=== PATIENT | female | born 1945 | race Caucasian/White ===

== ENCOUNTER → 2016-03-09 | Outpatient (CLI) | payer BC ==
[~2016-03-09] MED LIST: ASPEC81 PO; ASPI81TA28 PO; ATOR-24 PO; CHOL1000 PO; CRFL PO; CYAN10005 PO; DILT120C PO; DULO60CA44 PO; FURO-85 PO; LEVO50TA6 PO; LORA0.5T12 PO; METO50TA7 PO; MODA100T17 PO; PANT40TA PO; POTA1CAP2 PO; VITAMIN B12 PO; ZNTT/150 PO
== END | disposition home or self-care (01) ==
LOC: C.PATHSPEC 13:50
PROVIDERS: ATTEND Dermatology
DX: L57.0 Actinic keratosis (principal)

== ENCOUNTER → 2016-05-13 | Outpatient (CLI) | payer BC | END | disposition home or self-care (01) | LOC: C.LABPVFM 10:43 | PROVIDERS: ATTEND Nurse Practitioner | DX: E03.9 Hypothyroidism, unspecified (principal); R53.83 Other fatigue ==

== ENCOUNTER → 2016-05-16 | Outpatient (CLI) | payer BC ==
[2016-05-16 17:21] LABS: BLOOD UREA NITROGEN 12 mg/dl (7-18); BUN/CREATININE RATIO 7.8 (10-20); CALCIUM 9.2 mg/dl (8.5-10.1); CARBON DIOXIDE 31 mmol/L (21-32); CHLORIDE 104 mmol/L (98-107); GLUCOSE 100 mg/dl (70-99); MAGNESIUM 1.6 mg/dl (1.8-2.4); POTASSIUM 3.8 mmol/L (3.5-5.1); SODIUM 143 mmol/L (136-145)
== END | disposition home or self-care (01) ==
LOC: C.LABPVFM 15:07
PROVIDERS: ATTEND Nurse Practitioner Family
DX: R25.3 Fasciculation (principal)

== ENCOUNTER → 2016-07-05 | Outpatient (CLI) | payer BC ==
[~2016-07-05] MED LIST changes: +KETO0.5S22 OP; +PRDFOPS PO
--- NOTE | 2016-07-05 12:00 | DIAGNOSTIC IMAGING REPORT ---
KUB HISTORY: CONSTIPATION/INCOMPLETE PASSAGE OF STOOL COMPARISON: Abdominal MRI 04/11/2013 FINDINGS: No dilated loops of bowel to suggest an obstruction. Multiple pelvic phleboliths. There is evidence for prior cholecystectomy. Moderate well-formed stool seen within the colon. No renal calculi. No ureteral calculi. No pneumoperitoneum or pneumatosis. IMPRESSION: No evidence for bowel obstruction. Moderate well-formed stool seen within the colon. Electronically signed by: Hal Shanks M.D. 07/05/2016 11:59 AM Dictated Date/Time: 07/05/2016 11:58 AM
== END | disposition home or self-care (01) ==
LOC: C.RADPV 11:38
PROVIDERS: ATTEND Nurse Practitioner
DX: K59.00 Constipation, unspecified (principal); R15.0 Incomplete defecation; R15.9 Full incontinence of feces

== ENCOUNTER → 2016-07-14 | Outpatient (CLI) | payer BC ==
[2016-07-14 18:32] LABS: BLOOD UREA NITROGEN 11 mg/dl (7-18); BUN/CREATININE RATIO 7.8 (10-20); CALCIUM 8.5 mg/dl (8.5-10.1); CARBON DIOXIDE 32 mmol/L (21-32); CHLORIDE 108 mmol/L (98-107); GLUCOSE 106 mg/dl (70-99); POTASSIUM 4.2 mmol/L (3.5-5.1); SODIUM 143 mmol/L (136-145)
== END | disposition home or self-care (01) ==
LOC: C.LABPVFM 11:37
PROVIDERS: ATTEND Internal Medicine Nephrology
DX: E83.42 Hypomagnesemia (principal)

== ENCOUNTER → 2016-08-11 | Outpatient (CLI) | payer BC ==
[2016-08-11 17:43] LABS: HEMATOCRIT 38.7 % (37-47); MEAN CORPUSCULAR HGB CONC 33.3 g/dl (32-36); MEAN PLATELET VOLUME 9.9 fL (7.4-10.4); PLATELET COUNT 291 K/uL (130-400); RED BLOOD COUNT 4.16 M/uL (4.2-5.4); WHITE BLOOD COUNT 8.52 K/uL (4.8-10.8)
[2016-08-11 18:01] LABS: URINE TOTAL PROTEIN < 5.0 mg/dl (0-11.9)
[2016-08-11 18:07] LABS: URINE APPEARANCE CLEAR (CLEAR); URINE BILIRUBIN NEG (NEG); URINE COLOR YELLOW; URINE EPITHELIAL CELL AUTO >30 /lpf (0-5); URINE NITRITE NEG (NEG); URINE SPECIFIC GRAVITY 1.012 (1.000-1.030); UROBILINOGEN NEG (NEG)
[2016-08-11 18:14] LABS: BLOOD UREA NITROGEN 11 mg/dl (7-18); BUN/CREATININE RATIO 8.1 (10-20); CALCIUM 9.2 mg/dl (8.5-10.1); CARBON DIOXIDE 29 mmol/L (21-32); CHLORIDE 106 mmol/L (98-107); GLUCOSE 100 mg/dl (70-99); SODIUM 143 mmol/L (136-145)
[2016-08-11 18:15] LABS: PHOSPHORUS 3.4 mg/dl (2.5-4.9)
[2016-08-11 18:20] LABS: MANUAL MICROSCOPIC REQUIRED? NO; REVIEW REQ? NO
== END | disposition home or self-care (01) ==
LOC: C.LABPVFM 12:16
PROVIDERS: ATTEND Internal Medicine Nephrology
DX: I12.9 Hypertensive chronic kidney disease with stage 1 through stage 4 chronic kidney disease, or unspecified chronic kidney disease (principal); N18.3 Chronic kidney disease, stage 3 (moderate); N25.81 Secondary hyperparathyroidism of renal origin; R60.9 Edema, unspecified

== ENCOUNTER → 2016-09-27 | Outpatient (CLI) | payer BC ==
[~2016-09-27] MED LIST changes: -KETO0.5S22 OP; -PRDFOPS PO
[2016-09-27 17:55] LABS: CHOLESTEROL/HDL RATIO 4.3
== END | disposition home or self-care (01) ==
LOC: C.LABPVFM 11:26
PROVIDERS: ATTEND Nurse Practitioner
DX: I10 Essential (primary) hypertension (principal); E78.00 Pure hypercholesterolemia, unspecified

== ENCOUNTER → 2016-10-18 | Outpatient (CLI) | payer BC ==
--- NOTE | 2016-10-18 16:08 | MAMMOGRAPHY REPORT ---
BILATERAL DIGITAL SCREENING MAMMOGRAM WITH CAD: 10/18/2016 CLINICAL HISTORY: Routine screening. Patient has no complaints. TECHNIQUE: Bilateral CC and MLO views were obtained. Current study was also evaluated with a Compute r Aided Detection (CAD) system. COMPARISON: Comparison is made to exams dated: 07/25/2013 mammogram and 09/21/2011 mammogram - [facility]. BREAST COMPOSITION: There are scattered areas of fibroglandular density in both breasts. FINDINGS: There are a few benign-appearing coarse calcifications scattered in the breasts. However, there is a possible new cluster of punctate microcalcifications in the upper outer posterior right b reast, for which additional spot magnification views are recommended. There is stable focal asymmetry in the upper outer anterior and upper outer posterior right breast. N o other suspicious mass, architectural distortion or cluster of suspicious microcalcifications is see n. IMPRESSION: ACR BI-RADS CATEGORY 0: INCOMPLETE EVALUATION: NEED ADDITIONAL IMAGING EVALUATION The possible new cluster of microcalcifications in the right upper outer breast needs additional eval uation. The patient will be called to schedule an appointment. Approximately 10% of breast cancers are not detected with mammography. A negative mammographic report should not delay biopsy if a clinically suggestive mass is present. Eve Khoury M.D. ay/:10/18/2016 15:11:53 Bedspring Assembler: Dayan DAVIS)(Orion), [facility] letter sent: Addl Imaging 0 BI-RADS Code: ACR BI-RADS Category 0: Incomplete Evaluation: Need Additional Imaging Evaluation
== END | disposition home or self-care (01) ==
LOC: C.MAMM 12:56
PROVIDERS: ATTEND Nurse Practitioner
DX: Z12.31 Encounter for screening mammogram for malignant neoplasm of breast (principal); R92.0 Mammographic microcalcification found on diagnostic imaging of breast; M85.89 Other specified disorders of bone density and structure, multiple sites

== ENCOUNTER → 2016-10-26 | Outpatient (CLI) | payer BC ==
[~2016-10-26] MED LIST changes: -ASPEC81 PO; -CRFL PO; -MODA100T17 PO; -VITAMIN B12 PO; -ZNTT/150 PO
--- NOTE | 2016-10-26 13:50 | MAMMOGRAPHY REPORT ---
UNILATERAL RIGHT DIGITAL DIAGNOSTIC MAMMOGRAM AND TARGETED RIGHT ULTRASOUND: 10/26/2016 CLINICAL HISTORY: 70-year-old woman called back from screening mammography for grouped microcalcifica tions in the upper outer quadrant of the right breast. TECHNIQUE: Spot magnification right CC and ML views were obtained. COMPARISON: Comparison is made to exams dated: 10/18/2016 mammogram, 07/25/2013 mammogram, and 09/21/2011 mammogram - [facility]. BREAST COMPOSITION: There are scattered areas of fibroglandular density in the right breast. FINDINGS: There is a small grouping of amorphous microcalcifications in the upper outer middle to po sterior right breast, with associated ovoid focal asymmetry versus mass which measures 4.3 x 7.4 mm. When comparing back to prior available mammograms, the microcalcifications were not clearly seen on the prior 2011 exams, but the nodular asymmetry may have been present dating back to 2011. This sugg ests this could represent a degenerating fibroadenoma with associated calcification. Further evaluat ion with ultrasound was performed. There are other scattered benign coarse calcifications in the vis ualized right breast. Targeted ultrasound was performed in the upper outer quadrant of the right breast. Sonographically n ormal tissue is seen without a discrete solid or cystic mass. The microcalcifications with associated 7 mm focal asymmetry remains indeterminate, and therefore def initive characterization with a stereotactic guided biopsy is recommended. IMPRESSION: ACR BI-RADS CATEGORY 4B: INTERMEDIATE SUSPICION FOR MALIGNANCY, TARGETED ULTRASOUND ACR BI-RADS CATEGORY 4B: INTERMEDIATE SUSPICION FOR MALIGNANCY 1. Right breast stereotactic guided biopsy is recommended for a small grouping of amorphous microcal cifications and associated 7 x 4 mm focal asymmetry in the upper outer middle to posterior right nilam st. These results and recommendations were discussed with the patient at the time of the exam. She tenta tively scheduled the biopsy prior to leaving our department. Approximately 10% of breast cancers are not detected with mammography. A negative mammographic report should not delay biopsy if a clinically suggestive mass is present. Eve Khoury M.D. ay/:10/26/2016 13:16:59 Aerial Photographer: Dayan DAVIS)(Orion), [facility] letter sent: Abnormal 4/5 BI-RADS Code: ACR BI-RADS Category 4B: Intermediate Suspicion For Malignancy Ultrasound BI-RADS: ACR BI-RADS Category 4B: Intermediate Suspicion For Malignancy
== END | disposition home or self-care (01) ==
LOC: C.MAMM 12:16
PROVIDERS: ATTEND Nurse Practitioner
DX: R92.0 Mammographic microcalcification found on diagnostic imaging of breast (principal)

== ENCOUNTER → 2016-11-04 | Outpatient (CLI) | payer BC ==
--- NOTE | 2016-11-04 13:07 | Discharge Instructions ---
Discharge Instructions Procedure Procedure Date: Nov 04, 2016. Reason for visit: Right Calcs. Discharge Discharge Date: Nov 04, 2016. Discharge Diagnosis: status post breast biopsy Instructions Activity Recommendations: Additional Limitations (see below) Return to School/Work: no limitations Recommended Home Diet: No Limitations Provider Instructions: ACTIVITY RECOMMENDATIONS: * No lifting, pushing, pulling or exercising the affected side for three days. RETURN TO SCHOOL/WORK: * You may return to work/school after the procedure, but do not perform any strenuous activities for 24 to 48 hours. MEDICATIONS: * Tylenol (two 325 mg) every four to six hours if needed for mild pain (if not allergic to Tylenol). DIET: * Resume previous diet. SPECIAL CARE INSTRUCTIONS: * Keep biopsy site dry for 24 hours. May shower after 24 hours, but do not soak (bathe) incision. * May remove Tegaderm (plastic patch) tomorrow AFTER showering. * Leave the steri-strips on for one week. Allow the steri-strips to fall off by themselves. If not off after one week, you may remove them. You may place a Bandaid crosswise over the strips, if desired. * Apply ice 10 minutes on and 10 minutes off as needed. * Wear a bra at bedtime to sleep more comfortably for 2-3 days. * Your referring physician should have the results after approximately 5 to 7 business days. * Call for unusual bleeding, fever, drainage, etc or if you have any questions call during normal business hours or after hours call Dr Lincoln, . FOLLOW UP VISIT: Follow-up with Referring Physician as scheduled. Allergies Coded Allergies: Amlodipine (Verified Allergy, Intermediate, FEET SWELL, 10/21/16) Sulfa Antibiotics (Verified Allergy, Unknown, "SULFA DRUGS": UNSURE, " LONG TIME AGO", 10/21/16) Daisy Delacruz Recommendations: Call your doctor if: * Temperature above 101 degrees * Pain not relieved by pain medicine ordered * There is increased drainage or redness from any incision * You have any unanswered questions or concerns. Your Doctors Instructions noted above were prepared by provider Dora Lincoln. Patient Signature Section: Patient Instructions Signature Page Yvrose Nevarez Patient (or Guardian) Signature/Date: I have read and understand the instructions given to me by my caregivers. Caregiver/RN/Doctor Signature/Date: The above-named patient and/or guardian has received patient instructions on this date. + Original Patient Signature Page (only) stays with chart. Please make copy for patient.
--- NOTE | 2016-11-04 13:41 | MAMMOGRAPHY REPORT ---
UNILATERAL RIGHT DIGITAL DIAGNOSTIC MAMMOGRAM: 11/04/2016 CLINICAL HISTORY: Status post right breast stereotactic biopsy. TECHNIQUE: Right CC and ML views were obtained. COMPARISON: Comparison is made to exams dated: 10/26/2016 mammogram, 10/26/2016 ultrasound, and 7 mammogram - [facility]. BREAST COMPOSITION: There are scattered areas of fibroglandular density in the right breast. FINDINGS: A right cc view was obtained for biopsy planning purposes. Postprocedural right CC and ML views were obtained, which shows a new biopsy marker clip at the site of the biopsied calcifications and asymmetry in the right upper outer quadrant. No significant postbiopsy hematoma is seen. IMPRESSION: POST PROCEDURE IMAGING FOR MARKER PLACEMENT New biopsy marker clip status post stereotactic biopsy of the right breast. Pathology results are pe nding. Approximately 10% of breast cancers are not detected with mammography. A negative mammographic report should not delay biopsy if a clinically suggestive mass is present. Dora Lincoln M.D. ah/:11/04/2016 13:24:08 Exhibit Technician: Amber ARRIETA(Trey)(Orion), [facility] BI-RADS Code: Post Procedure Imaging For Marker Placement
--- NOTE | 2016-11-04 16:09 | MAMMOGRAPHY REPORT ---
STEREOTACTIC GUIDED BIOPSY RIGHT BREAST: 11/04/2016 CLINICAL HISTORY: Right upper outer quadrant calcifications and associated asymmetry. PATIENT CONSENT: The procedure, risks, benefits, and alternatives of stereotactic biopsy with clip pl acement were discussed with the patient, and verbal and written consent was obtained. A timeout was performed immediately prior to the procedure. PROCEDURE DESCRIPTION: With stereotactic guidance, aseptic technique, and lidocaine as a local anesth etic (1% lidocaine to anesthetize the skin and 1% lidocaine with epinephrine to anesthetize the deepe r tissues), the area of concern in the right upper outer quadrant was sampled multiple times with a 9 -gauge vacuum-assisted biopsy needle (Scrap Connection). The path of approach was craniocaudal. The spec imen radiograph demonstrates calcifications to be present in the samples. A metallic marker clip was placed at the biopsy site. This was confirmed on postprocedure mammograms. Direct pressure was daniel lied at the biopsy site and hemostasis was readily achieved. The patient tolerated the procedure wit hout complication. She was given wound care instructions. COMPARISON: Comparison is made to exams dated: 10/26/2016 mammogram, 10/26/2016 ultrasound, 10/18/2016 ma mmogram, and 07/25/2013 mammogram - [facility]. IMPRESSION: STEREOTACTIC GUIDED BIOPSY Stereotactic biopsy of indeterminate calcifications and associated asymmetry in the right upper outer quadrant, with clip placement. The patient will receive pathology results from her referring provid perfecto. Dora Lincoln M.D. ah/:11/04/2016 13:25:12 Duty Manager: Amber DAVIS)Antonino), [facility]
== END | disposition home or self-care (01) ==
LOC: C.MAMM 12:09
PROVIDERS: ATTEND Nurse Practitioner
DX: R92.0 Mammographic microcalcification found on diagnostic imaging of breast (principal); D24.1 Benign neoplasm of right breast

== ENCOUNTER → 2016-11-16 | Day surgery (SDC) | payer BC ==
[2016-10-21 12:34] VITALS: Ht 154.9 cm; Wt 56.8 kg
[~2016-11-16] VITALS: Ht 154.9 cm; Wt 56.8 kg
[~2016-11-16] MED LIST changes: +500ML BSS 0.3ML EPI 1:1000PF IRRIG ONE; +ACETAMINOPHEN 325 MG TAB PO PRN; +AMVISC PLUS 0.8ML SYRINGE INT OCU ONE; +ATROPINE SULFATE 0.1 MG/ML 5ML SYR IV PRN; +BETAXOLOL HCL 0.25% OP SUSP PER DROP CHARGE OPR SCH; +BRIMONIDINE TART 0.2% OP SOLN PER DROP CHARGE ONE; +BSS FLUSH ONE; +ENDOCOAT 0.85ML SYRINGE INT OCU ONE; +EpHEDrine SULFATE INJ 50 MG/ML AMP IV PRN; +EpINEphrine INJ 1MG/ML AMP 1 MG/ML AMP ONE; +FENTANYL CITRATE INJ 50 MCG/1 ML 2 ML VIAL IV PRN; +FLUMAZENIL 0.1 MG/1 ML 10 ML VIAL IV PRN; +HYDROmorphone INJ 2 MG/ML SYR/VIAL IV PRN; +LABETALOL HCL IV 5 MG/ML 20ML IV PRN; +LACTATED RINGER'S 1000ML 500 ML IV SCH; +LIDOCAINE 4% OP SOLN DROP CHARGE ONE; +LIDOCAINE 4% OP SOLN DROP CHARGE OPR SCH; +LIDOCAINE HCL 1% MPF 2 ML VIAL ONE; +MEPERIDINE HCL 25 MG/ML CARP IV PRN; +MIDAZOLAM HCL 1 MG/ML 2ML VIAL ONE; +MIX: 4ML BSS 1ML EPI 1:1000 PF INSTIL ONE; +MOXIFLOXACIN OPH SOLN PER DROP CHARGE ONE; +NALOXONE HCL 0.4 MG/1 ML VIAL/CARP IV PRN; +OCUCOAT 1 ML SOLN IO ONE; +ONDANSETRON INJ 2 MG/ML 2 ML VIAL IV PRN; +PHENYLEPHRINE 100MCG/ML 5ML SYR IV PRN; +POVIDONE-IODINE OP SOLN 30 ML BTL ONE; +PROPARACAINE 0.5% OP SOLN PER DROP CHARGE OPR SCH; +TOBRAMYCIN/DEXAMETHASONE OPH OINT PER APPLN CHARGE ONE
--- NOTE | 2016-11-16 08:53 | History & Physical Bridge - SC ---
H&P Re-Evaluation Bridge Note: I have examined the patient, reviewed the History & Physical and in the interval since the performance of the History & Physical I have noted the following changes of clinical significance: No changes noted
[2016-11-16] MEDS: PHENYLEPHRINE HCL 2.5% OP SOLN PER DROP CHARGE OPR SCH ×2 (09:37→09:46)
[2016-11-16] MEDS: TROPICAMIDE 1% OP SOLN PER DROP CHARGE OPR SCH ×2 (09:39→09:47)
[2016-11-16] MEDS: CYCLOPENTOLATE HCL 1% OP SOLN PER DROP CHARGE OPR SCH ×2 (09:40→09:48)
[2016-11-16] MEDS: MOXIFLOXACIN OPH SOLN PER DROP CHARGE OPR SCH ×2 (09:43→09:53)
--- NOTE | 2016-11-16 10:35 | Discharge Instructions-SurgCtr ---
Discharge Instructions Date of Service Nov 16, 2016. Visit Reason for Visit: Cataract Right Eye Discharge Discharge Diagnosis / Problem: lens implant right eye Discharge Goals Goal(s): Improve function Activity Recommendations Activity Limitations: resume your previous activity Lifting Limitations: no more than 10 pounds Exercise/Sports Limitations: gradually increase as tolerated May Resume Sexual Activity: when tolerated Shower/Bathe: tomorrow Driving or Machine Use: resume 1 day after discharge Anesthesia . Post Anesthesia Instructions: If you have had General Anesthesia or IV Sedation: * Do not drive today. * Resume driving when surgeon permits. * Do not make important decisions or sign legal documents today. * Call surgeon for: 1. Temperature elevations greater than 101 degrees F. 2. Uncontrollable pain. 3. Excessive bleeding. 4. Persistent nausea and vomiting. 5. Medication intolerance (nausea, vomiting or rash). * For nausea and vomiting use only clear liquids such as: tea, soda, bouillon until nausea subsides, then gradually increase diet as tolerated. * If you have any concerns or questions, call your surgeon's office. If physician is unavailable and it is an emergency, call 911 or go to the nearest emergency room. . Instructions / Follow-Up Instructions / Follow-Up ACTIVITY RECOMMENDATIONS: * Light activities. * Mild irritation and blurred vision are common for the first few days. * You may walk outside, read, watch television. * Redness around the white part of the eye is common. MEDICATIONS: Resume previous medications unless instructed otherwise by your surgeon. Start all eye drops at 1 pm today: * Eye drops (today and tomorrow): Prednisone - one drop in operative eye every 3 hours while awake Ofloxacin - one drop in operative eye every 3 hours while awake SPECIAL CARE INSTRUCTIONS: * Tape plastic shield over eye to sleep at night. Call your doctor at with any concerns or problems. FOLLOW UP VISIT: Follow-up with Dr Smith at [place] office as scheduled. Diet Recommendations Home Diet: no limitations Procedures Procedures Performed: Right Cataract Phacoemulsification With Intraocular Lens Implant Pending Studies Studies pending at discharge: no Medical Emergencies . Who to Call and When: Medical Emergencies: If at any time you feel your situation is an emergency, please call 911 immediately. . Non-Emergent Contact Non-Emergency issues call your: Family Court Counsellor Call Non-Emergent contact if: your pain is not controlled [phone] . . "Provider Documentation" section prepared by Tommie Smith. .
--- NOTE | 2016-11-16 10:37 | [facility] Operative Report ---
Operative Report Date of Service Nov 16, 2016. Operative Report 1. PREOPERATIVE DIAGNOSIS: Senile nuclear cataract, right eye. 2. POSTOPERATIVE DIAGNOSIS: Senile nuclear cataract, right eye. 3. PROCEDURE: Phacoemulsification of right cataract with posterior chamber lens implant, type Bausch [employer] Lomb, model MX60, power +18.5 diopters. ANESTHESIA: Local standby. SURGEON: Dr. Smith. COMPLICATIONS: None. OPERATING TIME: 10 minutes. 4. OPERATION AND FINDINGS: DESCRIPTION OF PROCEDURE: The right pupil was dilated. The anesthetic was administered using a topical technique. The right eye was prepped and draped. A speculum was placed. A clear corneal incision was formed. The chamber was filled with Amvisc Plus and Endocoat. Epinephrine solution was used. A paracentesis was placed. A capsulorrhexis was performed. The nucleus was hydrodissected. A dense lens was removed with phacoemulsification. Time was 10.20 seconds. The aspiration unit was used to remove the cortex. The capsule was filled with Amvisc Plus. The lens implant was folded and placed into the capsule. The incision was hydrated. The Amvisc was aspirated. The wound was secure. The chamber was deep. The pupil was round. Brimonidine, TobraDex ointment and Vigamox solution were placed. The speculum was removed. The patient was returned to the Recovery Room in stable condition. I attest to the content of the Intraoperative Record and any orders documented therein. Any exceptions are noted below. The scribe's documentation has been prepared in my presence, under my direction and personally reviewed by me in its entirety. I confirm that the note above accurately reflects all work, treatment, procedures, and medical decision making performed by me. I personally scribed for Tommie Smith M.D. (TRUPTI) on 11/16/16 at 10:37. Electronically submitted by Noemi Aden ([email or web address]).
[2016-11-16 11:02] VITALS: BP 168/76; PULSE 60; TEMP 36.7; O2SAT 97
--- NOTE | 2016-11-16 11:05 | Anesthesia Progress Nt - [facility] ---
Anesthesia Post Op Note Date & Time Nov 16, 2016 at 11:05 Vital Signs Pain Intensity: 0 Vital Signs Past 12 Hours Date Time Temp Pulse Resp B/P (MAP) Pulse Ox O2 Delivery O2 Flow Rate FiO2 11/16/16 10:44 36.4 59 16 168/76 (106) 96 Room Air 11/16/16 09:10 36.9 59 16 192/85 (120) 98 Room Air Notes Mental Status: alert / awake / arousable, participated in evaluation Pt Amnestic to Procedure: Yes Nausea / Vomiting: adequately controlled Pain: adequately controlled Airway Patency, RR, SpO2: stable & adequate BP & HR: stable & adequate Hydration State: stable & adequate Anesthetic Complications: no major complications apparent
== END | disposition home or self-care (01) ==
LOC: X.SURG 08:31
PROVIDERS: ATTEND Specialist
DX: H25.11 Age-related nuclear cataract, right eye (principal); I10 Essential (primary) hypertension; Z79.82 Long term (current) use of aspirin

== ENCOUNTER → 2016-11-30 | Day surgery (SDC) | payer BC ==
[2016-11-22 12:40] VITALS: Ht 154.9 cm; Wt 56.8 kg
[~2016-11-30] VITALS: Ht 154.9 cm; Wt 56.8 kg
[~2016-11-30] MED LIST changes: +BETAXOLOL HCL 0.25% OP SUSP PER DROP CHARGE OPL SCH; -BETAXOLOL HCL 0.25% OP SUSP PER DROP CHARGE OPR SCH; -FENTANYL CITRATE INJ 50 MCG/1 ML 2 ML VIAL IV PRN; -FLUMAZENIL 0.1 MG/1 ML 10 ML VIAL IV PRN; -HYDROmorphone INJ 2 MG/ML SYR/VIAL IV PRN; -LABETALOL HCL IV 5 MG/ML 20ML IV PRN; +LIDOCAINE 4% OP SOLN DROP CHARGE OPL SCH; -LIDOCAINE 4% OP SOLN DROP CHARGE OPR SCH; -MEPERIDINE HCL 25 MG/ML CARP IV PRN; -NALOXONE HCL 0.4 MG/1 ML VIAL/CARP IV PRN; -PHENYLEPHRINE 100MCG/ML 5ML SYR IV PRN; +PROPARACAINE 0.5% OP SOLN PER DROP CHARGE OPL SCH; -PROPARACAINE 0.5% OP SOLN PER DROP CHARGE OPR SCH; +TROPICAMIDE 0.5% OP SOLN 15 ML BTL OPL SCH
[2016-11-30] MEDS: PHENYLEPHRINE HCL 2.5% OP SOLN PER DROP CHARGE OPL SCH ×2 (10:13→10:18)
[2016-11-30] MEDS: TROPICAMIDE 1% OP SOLN PER DROP CHARGE OPL SCH ×2 (10:14→10:19)
[2016-11-30] MEDS: CYCLOPENTOLATE HCL 1% OP SOLN PER DROP CHARGE OPL SCH ×2 (10:15→10:20)
[2016-11-30] MEDS: MOXIFLOXACIN OPH SOLN PER DROP CHARGE OPL SCH ×2 (10:16→10:26)
--- NOTE | 2016-11-30 11:04 | Discharge Instructions-SurgCtr ---
Discharge Instructions Date of Service Nov 30, 2016. Visit Reason for Visit: Cataract Left Eye Discharge Discharge Diagnosis / Problem: lens implant left eye Discharge Goals Goal(s): Improve function Activity Recommendations Activity Limitations: resume your previous activity Lifting Limitations: no more than 10 pounds Exercise/Sports Limitations: gradually increase as tolerated May Resume Sexual Activity: when tolerated Shower/Bathe: tomorrow Driving or Machine Use: resume 1 day after discharge Anesthesia . Post Anesthesia Instructions: If you have had General Anesthesia or IV Sedation: * Do not drive today. * Resume driving when surgeon permits. * Do not make important decisions or sign legal documents today. * Call surgeon for: 1. Temperature elevations greater than 101 degrees F. 2. Uncontrollable pain. 3. Excessive bleeding. 4. Persistent nausea and vomiting. 5. Medication intolerance (nausea, vomiting or rash). * For nausea and vomiting use only clear liquids such as: tea, soda, bouillon until nausea subsides, then gradually increase diet as tolerated. * If you have any concerns or questions, call your surgeon's office. If physician is unavailable and it is an emergency, call 911 or go to the nearest emergency room. . Instructions / Follow-Up Instructions / Follow-Up ACTIVITY RECOMMENDATIONS: * Light activities. * Mild irritation and blurred vision are common for the first few days. * You may walk outside, read, watch television. * Redness around the white part of the eye is common. MEDICATIONS: Resume previous medications unless instructed otherwise by your surgeon. * Take white Diamox (Acetazolamide) tablet at 2 pm today. Start all eye drops at 2 pm today: * Eye drops (today and tomorrow): Prednisone - one drop in operative eye every 3 hours while awake Ofloxacin - one drop in operative eye every 3 hours while awake SPECIAL CARE INSTRUCTIONS: * Tape plastic shield over eye to sleep at night. Call your doctor at with any concerns or problems. FOLLOW UP VISIT: Follow-up with Dr Smith at [place] office as scheduled. Diet Recommendations Home Diet: no limitations Procedures Procedures Performed: cataract extraction with lens implant Pending Studies Studies pending at discharge: no Medical Emergencies . Who to Call and When: Medical Emergencies: If at any time you feel your situation is an emergency, please call 911 immediately. . Non-Emergent Contact Non-Emergency issues call your: Digital Imager Call Non-Emergent contact if: your pain is not controlled [phone] . . "Provider Documentation" section prepared by Tommie Smith. .
--- NOTE | 2016-11-30 11:06 | [facility] Operative Report ---
Operative Report Date of Service Nov 30, 2016. Operative Report 1. PREOPERATIVE DIAGNOSIS: Senile nuclear cataract, left eye. 2. POSTOPERATIVE DIAGNOSIS: Senile nuclear cataract, left eye. 3. PROCEDURE: Phacoemulsification of left cataract with posterior chamber lens implant, type Bausch & Lomb, model MX60, power +18.5 diopters. ANESTHESIA: Local standby. SURGEON: Dr. Smith. COMPLICATIONS: None. OPERATING TIME: 10 minutes. 4. OPERATION AND FINDINGS: DESCRIPTION OF PROCEDURE: The left pupil was dilated. The anesthetic was administered using a topical technique. The left eye was prepped and draped. A speculum was placed. A clear corneal incision was formed. The chamber was filled with Amvisc Plus and Endocoat. Epinephrine solution was used. A paracentesis was placed. A capsulorrhexis was performed. The nucleus was hydrodissected. A dense lens was removed with phacoemulsification. Time was 8.68 seconds. The aspiration unit was used to remove the cortex. The capsule was filled with Amvisc Plus. The lens implant was folded and placed into the capsule. The incision was hydrated. The Amvisc was aspirated. The wound was secure. The chamber was deep. The pupil was round. Brimonidine, TobraDex ointment and Vigamox solution were placed. The speculum was removed. The patient was returned to the Recovery Room in stable condition. I attest to the content of the Intraoperative Record and any orders documented therein. Any exceptions are noted below. The scribe's documentation has been prepared in my presence, under my direction and personally reviewed by me in its entirety. I confirm that the note above accurately reflects all work, treatment, procedures, and medical decision making performed by me. I personally scribed for Tommie Smith M.D. (TRUPTI) on 11/30/16 at 11:06. Electronically submitted by Noemi Aden ([email or web address]).
[2016-11-30 11:09] VITALS: TEMP 36.4
[2016-11-30 11:32] VITALS: BP 172/89; PULSE 60; O2SAT 95
--- NOTE | 2016-11-30 11:32 | Anesthesiology Progress Note ---
Anesthesia Post Op Note Date & Time Nov 30, 2016 at 11:32 Vital Signs Pain Intensity: 0 Vital Signs Past 12 Hours Date Time Temp Pulse Resp B/P (MAP) Pulse Ox O2 Delivery O2 Flow Rate FiO2 11/30/16 11:09 36.4 62 16 169/76 (107) 94 Room Air 11/30/16 10:04 36.9 64 16 183/80 (114) 95 Room Air Notes Mental Status: alert / awake / arousable, participated in evaluation Nausea / Vomiting: adequately controlled Pain: adequately controlled Airway Patency, RR, SpO2: stable & adequate BP & HR: stable & adequate Hydration State: stable & adequate Anesthetic Complications: no major complications apparent
== END | disposition home or self-care (01) ==
LOC: X.SURG 09:38
PROVIDERS: ATTEND Specialist
DX: H25.12 Age-related nuclear cataract, left eye (principal); I10 Essential (primary) hypertension; Z88.2 Allergy status to sulfonamides; Z86.73 Personal history of transient ischemic attack (TIA), and cerebral infarction without residual deficits

== ENCOUNTER 2017-01-07 09:04 | Emergency (ER) | payer BC ==
[~2017-01-07] VITALS: Ht 154.9 cm; Wt 59.9 kg
[~2017-01-07 09:04] MED LIST changes: -500ML BSS 0.3ML EPI 1:1000PF IRRIG ONE; -ACETAMINOPHEN 325 MG TAB PO PRN; -AMVISC PLUS 0.8ML SYRINGE INT OCU ONE; -ATROPINE SULFATE 0.1 MG/ML 5ML SYR IV PRN; -BETAXOLOL HCL 0.25% OP SUSP PER DROP CHARGE OPL SCH; -BRIMONIDINE TART 0.2% OP SOLN PER DROP CHARGE ONE; -BSS FLUSH ONE; -ENDOCOAT 0.85ML SYRINGE INT OCU ONE; -EpHEDrine SULFATE INJ 50 MG/ML AMP IV PRN; -EpINEphrine INJ 1MG/ML AMP 1 MG/ML AMP ONE; -LACTATED RINGER'S 1000ML 500 ML IV SCH; -LIDOCAINE 4% OP SOLN DROP CHARGE ONE; -LIDOCAINE 4% OP SOLN DROP CHARGE OPL SCH; -LIDOCAINE HCL 1% MPF 2 ML VIAL ONE; -MIDAZOLAM HCL 1 MG/ML 2ML VIAL ONE; -MIX: 4ML BSS 1ML EPI 1:1000 PF INSTIL ONE; -MOXIFLOXACIN OPH SOLN PER DROP CHARGE ONE; -OCUCOAT 1 ML SOLN IO ONE; -ONDANSETRON INJ 2 MG/ML 2 ML VIAL IV PRN; -POVIDONE-IODINE OP SOLN 30 ML BTL ONE; +PRDFOPS PO; -PROPARACAINE 0.5% OP SOLN PER DROP CHARGE OPL SCH; -TOBRAMYCIN/DEXAMETHASONE OPH OINT PER APPLN CHARGE ONE; -TROPICAMIDE 0.5% OP SOLN 15 ML BTL OPL SCH
[2017-01-07 09:17] VITALS: TEMP 36.9; Ht 154.9 cm; Wt 59.9 kg
[2017-01-07 09:55] VITALS: O2SAT 95
[2017-01-07] MEDS ORDERED: KETO0.5S22 OP (10:10)
--- NOTE | 2017-01-07 10:12 | DIAGNOSTIC IMAGING REPORT ---
CHEST ONE VIEW PORTABLE HISTORY: EVALUATE WEAKNESS COMPARISON: Chest 12/24/2016. FINDINGS: No pleural effusions. No pneumothorax. The heart remains mildly enlarged. Bibasilar linear densities persist. The upper lung zones are clear. 6 mm nodular density within the left lung base favors a calcified granuloma. IMPRESSION: No change compared to the prior study. Mild bibasilar densities/atelectasis persist. Electronically signed by: Hal Shanks M.D. 01/07/2017 10:11 AM Dictated Date/Time: 01/07/2017 10:10 AM
[2017-01-07 10:17] LABS: BASO % 0.4 %; BASO ABS # 0.03 K/uL (0-0.2); COMPLETE YES; EOS % 3.7 %; HEMATOCRIT 39.5 % (37-47); IG% 0.4 %; LYMPH % 34.1 %; LYMPH ABS # 2.59 K/uL (1.2-3.4); MEAN CELL VOLUME 91.2 fL (80-100); MEAN CORPUSCULAR HEMOGLOBIN 31.2 pg (25-34); MEAN CORPUSCULAR HGB CONC 34.2 g/dl (32-36); MEAN PLATELET VOLUME 9.1 fL (7.4-10.4); MONO % 7.9 %; NEUT % 53.5 %; PLATELET COUNT 318 K/uL (130-400); RED BLOOD COUNT 4.33 M/uL (4.2-5.4); WHITE BLOOD COUNT 7.59 K/uL (4.8-10.8)
[2017-01-07 10:34] LABS: ALT/SGPT 18 U/L (12-78); BLOOD UREA NITROGEN 20 mg/dl (7-18); BUN/CREATININE RATIO 12.3 (10-20); CALCIUM 9.6 mg/dl (8.5-10.1); CARBON DIOXIDE 29 mmol/L (21-32); CHLORIDE 102 mmol/L (98-107); CREATININE 1.66 mg/dl (0.60-1.20); GLUCOSE 97 mg/dl (70-99); MAGNESIUM 1.6 mg/dl (1.8-2.4); POTASSIUM 4.4 mmol/L (3.5-5.1); SODIUM 141 mmol/L (136-145)
[2017-01-07 10:45] LABS: ALKALINE PHOSPHATASE 120 U/L (45-117); AST/SGOT 12 U/L (15-37)
[2017-01-07 11:30] VITALS: BP 131/59
[2017-01-07 13:14] VITALS: PULSE 50; O2SAT 97
--- NOTE | 2017-01-07 16:49 | EMERGENCY ROOM VISIT NOTE ---
History Report prepared by Jim: Susan Adam Under the Supervision of: Dr. Ronny Adams M.D. First contact with patient: 09:33 Chief Complaint: EYE ASSESSMENT Stated Complaint: VISION PROBLEMS,STOMACH PAIN History of Present Illness The patient is a 71 year old female who presents to the Emergency Room with complaints of an episode of blurry vision beginning last night. The patient has reading glasses but reports her vision is blurry without them which is not normal for her. The patient notes her blurry vision is in both her eyes and is slightly better than last night. She reports that she sleeps on her abdomen with her face in her pillow. She was in the ED two weeks ago for high blood pressure and double vision when looking with both eyes. The patient denies any double vision now. She reports a headache beginning last night which has since resolved. The patient did not follow up with ophthalmology after her last time in the ED. She has an appointment with Dr. Smith in two weeks. The patient also has abdominal pain that radiates up to her chest beginning last night. She reports this pain feels like her acid reflux. The patient had double cataracts surgery in October and November by Dr. Smith. She also has a history of a cholecystectomy. Pt denies LOC, fevers, chills, diaphoresis, neck pain, chest pain, breathing difficulties, nausea, vomiting, back pain, melena, hematochezia , urinary symptoms, numbness, weakness, lymphadenopathy, rash,eye pain, pain with a deep breath or movement or other complaints. Source of History: patient Onset: last night Position: other (vision) Quality: other (blurry) Timing: other (episode) Associated Symptoms: + chest pain, + abdominal pain Review of Systems See HPI for pertinent positives and negatives. A total of ten systems were reviewed and were otherwise negative. Past Medical & Surgical Medical Problems: (1) Anxiety (2) Benign hypertension (3) Cholecystectomy (4) CVA/TIA/stroke (5) Diplopia (6) Gastroesophageal reflux disease (7) Orthopedic surgery (8) Precordial chest pain (9) Tonsillectomy Family History Cancer Diabetes mellitus Heart disease Hypertension Social History Smoking Status: Never Smoker Alcohol Use: none Drug Use: none Marital Status: Occupation Status: retired Current/Historical Medications Scheduled Aspirin (Aspirin Ec), 81 MG PO QAM Atorvastatin (Lipitor), 60 MG PO QPM Cholecalciferol (Vitamin D3), 2 TABS PO QAM Cyanocobalamin (Vitamin B-12), 1,000 MCG PO QAM Diltiazem Hcl Coated Beads (Diltiazem Hcl Er), 240 MG PO QAM Duloxetine Hcl (Cymbalta), 60 MG PO HS Furosemide (Lasix), 20 MG PO QAM Ketorolac Tromethamine (Ophth) (Ketorolac Tromethamine), 1 DROPS OP TID Levothyroxine Sodium (Levothyroxine Sodium), 50 MCG PO QAM Metoprolol Succ (Toprol Xl) (Toprol-Xl), 50 MG PO QAM Pantoprazole (Protonix), 40 MG PO QAM Potassium Chloride (Potassium Chloride Er), 2 CAP PO BID Prednisolone Acetate (Prednisolone Acetate), 1 DROP PO DAILY Allergies Coded Allergies: Amlodipine (Verified Allergy, Intermediate, FEET SWELL, 01/07/17) Sulfa Antibiotics (Verified Allergy, Unknown, "SULFA DRUGS": UNSURE, " LONG TIME AGO", 01/07/17) Physical Exam Vital Signs Date Time Temp Pulse Resp B/P (MAP) Pulse Ox O2 Delivery O2 Flow Rate FiO2 01/07/17 13:14 50 97 01/07/17 12:47 47 01/07/17 11:30 52 131/59 97 Room Air 01/07/17 10:07 58 18 142/58 95 Room Air 01/07/17 10:03 57 01/07/17 09:55 95 Room Air 01/07/17 09:17 36.9 75 18 148/90 98 Room Air Right Eye Acuity: 20/40 with no correction Left Eye Acuity: 20/40 with no correction Physical Exam GENERAL: Awake, alert, well appearing, no distress HENT: Normocephalic, atraumatic. TM's normal. Oropharynx unremarkable. EYES: Fundi appear normal, no obvious papilledema, corneas clear, lids appear normal, no discharge. See Slit Lamp procedure. NECK: Supple. No nuchal rigidity. FROM. No JVD or bruit. RESPIRATORY: CTA CARDIAC: RRR. No murmur. ABDOMEN: Soft, non distended. No tenderness to palpation. No rebound or guarding. No masses. RECTAL: Deferred. NEURO: Cranial nerves 2-12 grossly intact. Normal sensorium. No sensory or motor deficits noted. Speech normal. No pronator drift. SKIN: No rash or jaundice noted. LYMPH: No adenopathy. Medical Decision & Procedures ER Provider Diagnostic Interpretation: Radiology results as stated below per my review and radiologist interpretation: CHEST ONE VIEW PORTABLE FINDINGS: No pleural effusions. No pneumothorax. The heart remains mildly enlarged. Bibasilar linear densities persist. The upper lung zones are clear. 6 mm nodular density within the left lung base favors a calcified granuloma. IMPRESSION: No change compared to the prior study. Mild bibasilar densities/atelectasis persist. Electronically signed by: Hal Shanks M.D. Laboratory Results 01/07/17 09:58 Red Blood Count 4.33, Mean Corpuscular Volume 91.2, Mean Corpuscular Hemoglobin 31.2, Mean Corpuscular Hemoglobin Concent 34.2, Mean Platelet Volume 9.1, Neutrophils (%) (Auto) 53.5, Lymphocytes (%) (Auto) 34.1, Monocytes (%) (Auto) 7.9, Eosinophils (%) (Auto) 3.7, Basophils (%) (Auto) 0.4, Neutrophils # (Auto) 4.06, Lymphocytes # (Auto) 2.59, Monocytes # (Auto) 0.60, Eosinophils # (Auto) 0.28, Basophils # (Auto) 0.03 01/07/17 09:58 Test 01/07/17 09:58 White Blood Count 7.59 K/uL (4.8-10.8) Red Blood Count 4.33 M/uL (4.2-5.4) Hemoglobin 13.5 g/dL (12.0-16.0) Hematocrit 39.5 % (37-47) Mean Corpuscular Volume 91.2 fL (80-100) Mean Corpuscular Hemoglobin 31.2 pg (25-34) Mean Corpuscular Hemoglobin Concent 34.2 g/dl (32-36) Platelet Count 318 K/uL (130-400) Mean Platelet Volume 9.1 fL (7.4-10.4) Neutrophils (%) (Auto) 53.5 % Lymphocytes (%) (Auto) 34.1 % Monocytes (%) (Auto) 7.9 % Eosinophils (%) (Auto) 3.7 % Basophils (%) (Auto) 0.4 % Neutrophils # (Auto) 4.06 K/uL (1.4-6.5) Lymphocytes # (Auto) 2.59 K/uL (1.2-3.4) Monocytes # (Auto) 0.60 K/uL (0.11-0.59) Eosinophils # (Auto) 0.28 K/uL (0-0.5) Basophils # (Auto) 0.03 K/uL (0-0.2) RDW Standard Deviation 47.6 fL (36.4-46.3) RDW Coefficient of Variation 14.2 % (11.5-14.5) Immature Granulocyte % (Auto) 0.4 % Immature Granulocyte # (Auto) 0.03 K/uL (0.00-0.02) Anion Gap 9.0 mmol/L (3-11) Est Creatinine Clear Calc Drug Dose 25.1 ml/min Estimated GFR () 35.1 Estimated GFR (Non- 30.3 BUN/Creatinine Ratio 12.3 (10-20) Calcium Level 9.6 mg/dl (8.5-10.1) Magnesium Level 1.6 mg/dl (1.8-2.4) Total Bilirubin 0.4 mg/dl (0.2-1) Direct Bilirubin < 0.1 mg/dl (0-0.2) Aspartate Amino Transf (AST/SGOT) 12 U/L (15-37) Alanine Aminotransferase (ALT/SGPT) 18 U/L (12-78) Alkaline Phosphatase 120 U/L (45-117) Troponin I < 0.015 ng/ml (0-0.045) Total Protein 7.5 gm/dl (6.4-8.2) Albumin 3.8 gm/dl (3.4-5.0) Lipase 501 U/L (73-393) Thyroid Stimulating Hormone (TSH) 3.870 uIu/ml (0.300-4.500) Laboratory results reviewed by me Procedure Slit Lamp Examination Indication: blurry vision. The eyes was prepped with topical proparacaine. Slit lamp examination was performed in the standard fashion. Cornea appeared clear. Anterior chamber normal. Scleral injection not present. No discharge present. Fluorescein examination performed and revealed negative. No foreign bodies noted. Negative Tristen sign. The patient tolerated the procedure well without complication. Eye pressure: right 12 and left 15. ECG Indication: other (abdominal pain) Rate (beats per minute): 56 Rhythm: sinus bradycardia Findings: Q waves (Inferior), no acute ischemic change, no ectopy ED Course 0936: The patient was evaluated in room B5. A complete history and physical exam was performed. 1227: I updated the patient she is resting comfortably. 1310: I reevaluated the patient. Discussed results and discharge instructions: She verbalized understanding and agreement. The patient is ready for discharge. Medical Decision Triage Nursing notes reviewed. The patient's presentation and history were concerning for visual disturbance and upper abdominal pain Etiologies such as intracranial abnormality, corneal abrasion, glaucoma, infection, neurologic, appendicitis, diverticulitis, obstruction, inflammatory bowel disease, renal colic, PUD, biliary pathology, pancreatitis, mesenteric ischemia, aortic pathology, infections, genitourinary, UTI, perforated viscus, as well as others were entertained. The patient was evaluated. Visual acuity was unremarkable. She did not have any elevated pressures in her eyes. Her slit-lamp examination did not reveal any significant abnormalities. She underwent blood work and ECG. This was unremarkable except for slight elevation of her creatinine and subtle elevation of lipase. She was reassessed and without any medication her symptoms resolved. She had a benign abdomen. She will need to have her lipase and creatinine rechecked this coming week. She will need follow-up with her communications technologist as well. The patient notes that she frequently sleeps on her stomach and has her face in the pillow. She notes that she feels like she has pressure in her eyes from this. It is possible that this is causing her transient blurred vision. As she is asymptomatic at this time I discussed conservative management with close follow-up. The patient feels comfortable. If she worsens in any way she will be back. She notes having frequent issues with her stomach. She has no symptoms at this time additional imaging was felt to be unnecessary. Her main complaint was her visual disturbance. By the evaluation outlined above other emergent etiologies such as those listed in the differential, as well as others, were deemed relatively unlikely. The patient was educated about the findings as listed above. All questions were answered and the patient was pleased with the treatment. Return instructions were outlined and the patient was discharged in stable condition. The patient was referred to ophthalmology and her PCP for follow-up for a recheck of the current condition. Blood Pressure Screening Patient's blood pressure: Elevated blood pressure Blood pressure disposition: Referred to PCP Impression Primary Impression: Visual disturbance Additional Impression: Abdominal pain Scribe Attestation The scribe's documentation has been prepared under my direction and personally reviewed by me in its entirety. I confirm that the note above accurately reflects all work, treatment, procedures, and medical decision making performed by me. Departure Information Dispostion Home / Self-Care Referrals Bernarda Rehman C.R.N.P (PCP) Forms HOME CARE DOCUMENTATION FORM, IMPORTANT VISIT INFORMATION, WORK / SCHOOL INSTRUCTIONS Patient Instructions My [facility] Additional Instructions Acetaminophen(Tylenol) may be used for fever or pain. Use 1000mg every six hours as needed. Avoid using more than 4000mg in a 24 hour period. Rest and drink plenty of fluids as tolerated. Slow sips of water or sports drinks are recommended instead of large amounts all at once. Continue current medications. Once your stomach is settled start with a clear liquid diet (jello, soup broth, etc.) and then advance as tolerated. You should avoid full, heavy meals for about 24 hrs from the time your symptoms resolved. Eye pain, visual disturbances, double vision, Return to the ER immediately for worsening or persistent abdominal pain, vomiting, fevers, chest pains, difficulty breathing, black or bloody stools, worsening of your condition, or as needed. Follow up with your primary physician Monday as well as your eye doctor for a recheck of your current condition this week. The primary doctor should recheck her blood pressure as well as your kidney function and lipase measurement. Problem Qualifiers
== END 2017-01-07 13:15 | disposition home or self-care (01) ==
LOC: C.EDB 09:07
DX: H53.9 Unspecified visual disturbance (principal); R10.9 Unspecified abdominal pain; R00.1 Bradycardia, unspecified; I10 Essential (primary) hypertension; F41.9 Anxiety disorder, unspecified; K21.9 Gastro-esophageal reflux disease without esophagitis; Z86.73 Personal history of transient ischemic attack (TIA), and cerebral infarction without residual deficits; Z90.49 Acquired absence of other specified parts of digestive tract; Z79.82 Long term (current) use of aspirin; Z79.899 Other long term (current) drug therapy; Z88.2 Allergy status to sulfonamides; Z88.8 Allergy status to other drugs, medicaments and biological substances; Z80.9 Family history of malignant neoplasm, unspecified; Z82.49 Family history of ischemic heart disease and other diseases of the circulatory system; Z83.3 Family history of diabetes mellitus

== ENCOUNTER → 2017-01-10 | Outpatient (CLI) | payer BC ==
[~2017-01-10] MED LIST changes: +KETO0.5S22 OP
[2017-01-10 17:47] LABS: AMYLASE 111 U/L (25-115); BLOOD UREA NITROGEN 14 mg/dl (7-18); BUN/CREATININE RATIO 9.4 (10-20); CALCIUM 9.1 mg/dl (8.5-10.1); CARBON DIOXIDE 31 mmol/L (21-32); CHLORIDE 103 mmol/L (98-107); GLUCOSE 103 mg/dl (70-99); POTASSIUM 3.8 mmol/L (3.5-5.1); SODIUM 139 mmol/L (136-145)
== END | disposition home or self-care (01) ==
LOC: C.LABPVFM 10:48
PROVIDERS: ATTEND Nurse Practitioner
DX: E83.42 Hypomagnesemia (principal); N18.3 Chronic kidney disease, stage 3 (moderate); R74.8 Abnormal levels of other serum enzymes

== ENCOUNTER → 2017-01-17 | Outpatient (CLI) | payer BC ==
[~2017-01-17] MED LIST changes: -LORA0.5T12 PO
[2017-01-17 17:34] LABS: URINE APPEARANCE CLEAR (CLEAR); URINE BILIRUBIN NEG (NEG); URINE COLOR YELLOW; URINE EPITHELIAL CELL AUTO 20-30 /lpf (0-5); URINE NITRITE NEG (NEG); URINE PH 5.5 (4.5-7.5); URINE SPECIFIC GRAVITY 1.014 (1.000-1.030); UROBILINOGEN NEG (NEG)
[2017-01-17 17:36] LABS: HEMATOCRIT 37.2 % (37-47); MEAN CELL VOLUME 91.6 fL (80-100); MEAN CORPUSCULAR HGB CONC 33.9 g/dl (32-36); MEAN PLATELET VOLUME 10.2 fL (7.4-10.4); PLATELET COUNT 285 K/uL (130-400); RED BLOOD COUNT 4.06 M/uL (4.2-5.4); WHITE BLOOD COUNT 8.14 K/uL (4.8-10.8)
[2017-01-17 17:39] LABS: MANUAL MICROSCOPIC REQUIRED? NO; REVIEW REQ? NO
[2017-01-17 17:56] LABS: BLOOD UREA NITROGEN 14 mg/dl (7-18); BUN/CREATININE RATIO 10.3 (10-20); CALCIUM 8.8 mg/dl (8.5-10.1); CARBON DIOXIDE 29 mmol/L (21-32); CHLORIDE 105 mmol/L (98-107); CREATININE 1.34 mg/dl (0.60-1.20); GLUCOSE 122 mg/dl (70-99); POTASSIUM 3.8 mmol/L (3.5-5.1); SODIUM 138 mmol/L (136-145)
[2017-01-17 17:57] LABS: PHOSPHORUS 2.8 mg/dl (2.5-4.9)
[2017-01-17 18:25] LABS: CREATININE, URINE 67.5 mg/dl; URINE PROTIEN/CREAT RATIO 0.1 (0-0.2)
== END | disposition home or self-care (01) ==
LOC: C.LABPVFM 14:15
PROVIDERS: ATTEND Internal Medicine Nephrology
DX: I10 Essential (primary) hypertension (principal); N18.3 Chronic kidney disease, stage 3 (moderate); R60.9 Edema, unspecified

== ENCOUNTER → 2017-01-20 | Outpatient (CLI) | payer BC ==
--- NOTE | 2017-01-20 12:23 | DIAGNOSTIC IMAGING REPORT ---
ABDOMEN LIMITED (US) CLINICAL HISTORY: 71 years-old Female presenting with R74.8 Serum lipase elevation elevated, lipase, attn [id number]. TECHNIQUE: Real-time grayscale and limited color Doppler ultrasound imaging of the abdomen limited to the right upper quadrant was performed. COMPARISON: 03/04/2013. FINDINGS: Pancreas: Visualized portions of the pancreatic head and body normal. Pancreatic duct measures 2 mm body, which is top normal. Liver: Heterogeneous echotexture, likely indicating fibrosis or steatosis. No sonographic evidence of hepatic mass. Main portal vein patent with normal directional flow. Biliary: No intrahepatic biliary ductal dilatation. Common bile duct measures up to 5 mm in diameter. Gallbladder: Surgically absent. Right kidney: Demonstrates anechoic cyst at the lower pole. No hydronephrosis. Ascites: None. IMPRESSION: 1. No sonographic evidence of pancreatitis. This does not exclude the diagnosis. 2. Heterogeneous echotexture of the liver could indicate underlying fibrosis or steatosis. This may be better assessed with MRI. 3. Postsurgical changes of cholecystectomy. Electronically signed by: Yonas Alcaraz M.D. 01/20/2017 12:22 PM Dictated Date/Time: 01/20/2017 12:19 PM
== END | disposition home or self-care (01) ==
LOC: C.ULTR 11:44
PROVIDERS: ATTEND Nurse Practitioner
DX: R74.8 Abnormal levels of other serum enzymes (principal); Z90.49 Acquired absence of other specified parts of digestive tract

== ENCOUNTER → 2017-04-19 | Outpatient (CLI) | payer BC ==
[~2017-04-19] MED LIST changes: -METO50TA7 PO; +METO50TA8 PO
== END | disposition home or self-care (01) ==
LOC: C.LABPVFM 18:04
PROVIDERS: ATTEND Family Medicine
DX: R10.9 Unspecified abdominal pain (principal)

== ENCOUNTER → 2017-05-18 | Outpatient (CLI) | payer BC ==
[~2017-05-18] MED LIST changes: +DILT-213 PO; -DILT120C PO
== END | disposition home or self-care (01) ==
LOC: C.LABPVFM 11:35
PROVIDERS: ATTEND Family Medicine
DX: N39.0 Urinary tract infection, site not specified (principal)

== ENCOUNTER → 2017-05-30 | Outpatient (CLI) | payer BC ==
[~2017-05-30] MED LIST changes: +BUPR-79 PO; +MAGN500T4 PO; +RABE20TA5 PO
[2017-05-30 17:35] LABS: BASO % 0.4 %; BASO ABS # 0.03 K/uL (0-0.2); EOS % 2.7 %; EOS ABS # 0.23 K/uL (0-0.5); HEMOGLOBIN 12.3 g/dL (12.0-16.0); IG# 0.02 K/uL (0.00-0.02); LYMPH % 32.2 %; MEAN CELL VOLUME 88.9 fL (80-100); MEAN CORPUSCULAR HEMOGLOBIN 29.6 pg (25-34); MEAN CORPUSCULAR HGB CONC 33.2 g/dl (32-36); MEAN PLATELET VOLUME 9.8 fL (7.4-10.4); MONO % 7.6 %; MONO ABS # 0.64 K/uL (0.11-0.59); NEUT % 56.9 %; NEUT ABS # 4.76 K/uL (1.4-6.5); PLATELET COUNT 271 K/uL (130-400); RED CELL DISTRIBUTION WIDTH SD 45.4 fL (36.4-46.3); WHITE BLOOD COUNT 8.38 K/uL (4.8-10.8)
== END | disposition home or self-care (01) ==
LOC: C.LABPVFM 12:00
PROVIDERS: ATTEND Nurse Practitioner
DX: E03.9 Hypothyroidism, unspecified (principal); R53.83 Other fatigue

== ENCOUNTER → 2017-06-15 | Day surgery (SDC) | payer BC ==
[2017-06-07 15:16] VITALS: Ht 154.9 cm; Wt 61.4 kg
[~2017-06-15] VITALS: Ht 154.9 cm; Wt 61.4 kg
[~2017-06-15] MED LIST changes: -DULO60CA44 PO; -KETO0.5S22 OP; +LIDOCAINE HCL 2% 2 ML VIAL (20MG/ML) ONE; -PANT40TA PO; -PRDFOPS PO; +PROPOFOL IV EMULSION 10 MG/ML 20 ML VIAL IV ONE; +SODIUM CHLORIDE 0.9% 500ML 500 ML IV ONE
--- NOTE | 2017-06-15 12:34 | Endo History and Physical ---
History & Physical Date of Service: Jun 15, 2017. Chief Complaint: Dysphagia, Schatzki's Ring Referring Physician: Bernarda Rehman History of Present Illness 71 yo CF who presents for EGD secondary to Schatzki's Ring and dysphagia. Past Medical History Arthritis, Anxiety, Reflux, High Cholesterol, Hypertension, Thyroid Disease, CVA /TIA Past Surgical History Hx Cardiac Surgery: No Hx Internal Defibrillator: No Hx Pacemaker: No Hx Abdominal Surgery: Yes (SUMAN) Hx of Implantable Prosthesis: No Hx Post-Op Nausea and Vomiting: No Hx Cancer Surgery: No Hx Thoracic Surgery: No Hx Orthopedic: Yes (L/R CTR) Hx Urinary Tract Surgery: Yes Social History Smoking Status: Never Smoker Hx Substance Use: No Hx Alcohol Use: No Allergies Coded Allergies: Amlodipine (Verified Allergy, Intermediate, FEET SWELL, 06/15/17) Sulfa Antibiotics (Verified Allergy, Unknown, "SULFA DRUGS": UNSURE, " LONG TIME AGO", 06/15/17) Current Medications Reported Home Medications Medications Dose Route/Sig Max Daily Dose Days Date Category Wellbutrin Sr (Bupropion HCl) 150 Mg Ertab 150 Mg PO QAM 06/07/17 Reported Aciphex (Rabeprazole Sodium) 20 Mg Tab 1 Tab PO DAILY 90 06/07/17 Reported Magnesium (Magnesium Oxide (Mg Supplement) 500 Mg Tab 1 Tab PO QAM 06/07/17 Reported Aspirin Ec (Aspirin) 81 Mg Tab 81 Mg PO QAM 10/21/16 Reported Vitamin D3 (Cholecalciferol) 1,000 Unit Tab 3 Tabs PO QAM 05/01/15 Reported Toprol-Xl (Metoprolol Succinate) 50 Mg Tabcr 50 Mg PO QAM 05/01/15 Reported Levothyroxine Sodium 50 Mcg Tab 50 Mcg PO QAM 05/01/15 Reported Lipitor (Atorvastatin Calcium) 40 Mg Tab 60 Mg PO QPM 05/01/15 Reported Potassium Chloride Er (Potassium Chloride) 10 Meq Cap 2 Cap PO BID 02/09/13 Reported Diltiazem Hcl Er (Diltiazem Hcl Coated Beads) 120 Mg Cap 240 Mg PO QAM 02/09/13 Reported Lasix (Furosemide) 20 Mg Tab 20 Mg PO QAM 11/29/12 Reported Vital Signs Weight (Kilograms): 61.36 Height (Feet): 5 Height (Inches): 1 Date Time Temp Pulse Resp B/P (MAP) Pulse Ox O2 Delivery O2 Flow Rate FiO2 06/15/17 12:05 36.8 70 18 182/101 (128) 97 Room Air Physical Exam General Appearance: WD/WN, no apparent distress Respiratory/Chest: Auscultation: breath sounds normal Cardiovascular: Heart Auscultation: RRR Abdomen: Bowel Sounds: normal Inspection & Palpation: soft, non-distended, no tenderness, guarding & rebound Assessment and Plan Assessment: 71 yo CF who presents for EGD secondary to Schatzki's Ring and dysphagia. Plan: Proceed with EGD.
--- NOTE | 2017-06-15 13:15 | GI REPORT ---
Patient Name: Yvrose Nevarez Procedure Date: 06/15/2017 12:46 PM Date of : 1945 Admit Type: Outpatient Age: 71 Gender: Female Attending MD: Toribio Downs DO Procedure: Upper GI Endoscopy Providers: Toribio Downs DO Referring MD: Bernarda Heller Indications: Dysphagia Medicines: Monitored Anesthesia Care Complications: No immediate complications. Estimated Blood Loss: Estimated blood loss: none. Procedure: Pre-Anesthesia Assessment: - Prior to the procedure, a History and Physical was performed, and patient medications and allergies were reviewed. The patient's tolerance of previous anesthesia was also reviewed. The risks and benefits of the procedure and the sedation options and risks were discussed with the patient. All questions were answered, and informed consent was obtained. Prior Anticoagulants: The patient has taken aspirin, last dose was 1 day prior to procedure. ASA Grade Assessment: II - A patient with mild systemic disease. After reviewing the risks and benefits, the patient was deemed in satisfactory condition to undergo the procedure. After obtaining informed consent, the endoscope was passed under direct vision. Throughout the procedure, the patient's blood pressure, pulse, and oxygen saturations were monitored continuously. The scope was introduced through the mouth, and advanced to the second part of duodenum. The upper GI endoscopy was accomplished without difficulty. The patient tolerated the procedure well. Findings: No endoscopic abnormality was evident in the esophagus to explain the patient's complaint of dysphagia. It was decided, however, to proceed with dilation at the gastroesophageal junction. A TTS dilator was passed through the scope. Dilation with an 18-19-20 mm balloon dilator was performed to 20 mm. The dilation site was examined and showed no change. The stomach was normal. The examined duodenum was normal. Impression: - No endoscopic esophageal abnormality to explain patient's dysphagia. Esophagus dilated. Dilated. - Normal stomach. - Normal examined duodenum. - No specimens collected. Recommendation: - Resume previous diet. - Continue present medications. - Return to primary care physician as previously scheduled. Toribio Downs DO 06/15/2017 1:15:04 PM This report has been signed electronically. Note Initiated On: 06/15/2017 12:46 PM Number of Addenda: 0 I attest to the content of the Intraoperative Record and orders documented therein, exceptions below {[id number]}
--- NOTE | 2017-06-15 13:31 | Anesthesiology Progress Note ---
Anesthesia Post Op Note Date & Time Jun 15, 2017 at 13:31 Vital Signs Pain Intensity: 0 Vital Signs Past 12 Hours Date Time Temp Pulse Resp B/P (MAP) Pulse Ox O2 Delivery O2 Flow Rate FiO2 06/15/17 12:05 36.8 70 18 182/101 (128) 97 Room Air Notes Mental Status: alert / awake / arousable, participated in evaluation Pt Amnestic to Procedure: Yes Nausea / Vomiting: adequately controlled Pain: adequately controlled Airway Patency, RR, SpO2: stable & adequate BP & HR: stable & adequate Hydration State: stable & adequate Anesthetic Complications: no major complications apparent
[2017-06-15 13:35] VITALS: BP 144/67; PULSE 61; O2SAT 96
--- NOTE | 2017-06-15 13:54 | Discharge Instructions ---
Endoscopy Patient Instructions Date / Procedure(s) Performed Jun 15, 2017. EGD Allergy Information Coded Allergies: Amlodipine (Verified Allergy, Intermediate, FEET SWELL, 06/15/17) Sulfa Antibiotics (Verified Allergy, Unknown, "SULFA DRUGS": UNSURE, " LONG TIME AGO", 06/15/17) Discharge Date / Findings Jun 15, 2017. Dilation of the distal esophagus Medication Instructions Stopped Medication(s): Aspirin last taken on 06/14/17 OK to resume all medications today as prescribed Reported Home Medications Medications Dose Route/Sig Max Daily Dose Days Date Category Wellbutrin Sr (Bupropion HCl) 150 Mg Ertab 150 Mg PO QAM 06/07/17 Reported Aciphex (Rabeprazole Sodium) 20 Mg Tab 1 Tab PO DAILY 90 06/07/17 Reported Magnesium (Magnesium Oxide (Mg Supplement) 500 Mg Tab 1 Tab PO QAM 06/07/17 Reported Aspirin Ec (Aspirin) 81 Mg Tab 81 Mg PO QAM 10/21/16 Reported Vitamin D3 (Cholecalciferol) 1,000 Unit Tab 3 Tabs PO QAM 05/01/15 Reported Toprol-Xl (Metoprolol Succinate) 50 Mg Tabcr 50 Mg PO QAM 05/01/15 Reported Levothyroxine Sodium 50 Mcg Tab 50 Mcg PO QAM 05/01/15 Reported Lipitor (Atorvastatin Calcium) 40 Mg Tab 60 Mg PO QPM 05/01/15 Reported Potassium Chloride Er (Potassium Chloride) 10 Meq Cap 2 Cap PO BID 02/09/13 Reported Diltiazem Hcl Er (Diltiazem Hcl Coated Beads) 120 Mg Cap 240 Mg PO QAM 02/09/13 Reported Lasix (Furosemide) 20 Mg Tab 20 Mg PO QAM 11/29/12 Reported Provider Instructions Activity Restrictions - No exercising or heavy lifting for 24 hours. - Do not drink alcohol the day of the procedure. - Do not drive a car or operate machinery until the day after the procedure. - Do not make any important decisions or sign important papers in 24 hours after the procedure. Following Day: - Return to full activity which may include returning to work/school. Diet Start your diet with liquids and light foods (jello, soup, juice, toast). Then eat your usual diet if not nauseated. Treatment For Common After Affects For mild abdominal pain, bloating, or excessive gas: - Rest - Eat lightly - Lie on right side Follow-Up Information Follow-up with Bernarda Rehman as scheduled Anesthesia Information What You Should Know You have had a procedure that required some medicine to reduce anxiety and discomfort. This treatment is called moderate sedation. After receiving the treatment, you may be sleepy, but you will be able to breathe on your own. The effects of the treatment may last for several hours. Follow these instructions along with Activity/Diet recommendations noted above: * Do NOT do anything where dizziness or clumsiness would be dangerous. * Rest quietly at home today, then you can be up and about tomorrow. * Have a responsible person stay with you the rest of today. * You may have had an I.V. today. If so, you may take the dressing off later today. Recommendations Call your doctor if: * Trouble breathing * Continuous vomiting for more than 24 hours * Temperature above 101 degrees * Severe abdominal pain or bloating * Pain not relieved by pain medicine ordered * There is increased drainage or redness from any incision * A large amount of rectal bleeding greater than 2-3 tablespoons. (If you had a polyp/s removed or have hemorrhoids, a small amount of blood - from the rectum is to be expected.) * You have any unanswered questions or concerns. IN THE EVENT OF A SERIOUS EMERGENCY, GO TO THE NEAREST EMERGENCY ROOM Your discharge instructions were prepared by provider Toribio Downs. Patient Instructions Signature Page Yvrose Nevarez Patient (or Guardian) Signature/Date: I have read and understand the instructions given to me by my caregivers. Caregiver/RN/Doctor Signature/Date: The above-named patient and/or guardian has received patient instructions on this date. + Original Patient Signature Page (only) stays with chart. Please make copy for patient.
== END | disposition home or self-care (01) ==
LOC: C.GI 11:39
PROVIDERS: ATTEND Internal Medicine
DX: R13.10 Dysphagia, unspecified (principal); K22.2 Esophageal obstruction; I10 Essential (primary) hypertension; K21.9 Gastro-esophageal reflux disease without esophagitis; M19.90 Unspecified osteoarthritis, unspecified site; E78.00 Pure hypercholesterolemia, unspecified; E07.9 Disorder of thyroid, unspecified; Z90.49 Acquired absence of other specified parts of digestive tract; Z86.73 Personal history of transient ischemic attack (TIA), and cerebral infarction without residual deficits; Z79.82 Long term (current) use of aspirin; Z88.2 Allergy status to sulfonamides

== ENCOUNTER 2021-01-22 16:56 | Inpatient (IN) ==
[2021-01-22 18:07] LABS: Basophils # (auto) 0.01 K/uL (0-0.2); Basophils % (auto) 0.1 %; Eosinophils # (auto) 0.03 K/uL (0-0.5); Eosinophils % (auto) 0.4 %; Hematocrit (blood only) 37.6 % (37-47); Hemoglobin 12.4 g/dL (12.0-16.0); Immature Granulocytes # (auto) 0.06 K/uL (0.00-0.02); Immature Granulocytes % (auto) 0.8 %; Lymphocytes # (auto) 1.41 K/uL (1.2-3.4); Lymphocytes % (auto) 19.1 %; Mean Corpuscular Hemoglobin 32.8 pg (25-34); Mean Corpuscular Volume 99.5 fL (80-100); Monocytes # (auto) 1.24 K/uL (0.11-0.59); Monocytes % (auto) 16.8 %; Neutrophils # (auto) 4.62 K/uL (1.4-6.5); Neutrophils % (auto) 62.8 %; Platelet Count 187 K/uL (130-400); RDW Coefficient of Variation 14.4 % (11.5-14.5); RDW Standard Deviation 52.1 fL (36.4-46.3); Red Blood Count 3.78 M/uL (4.2-5.4); White Blood Count 7.37 K/uL (4.8-10.8)
[2021-01-22 18:14] LABS: Alanine Aminotransferase 14 (12-78); Albumin Level 3.4 gm/dl (3.4-5.0); Aspartate Aminotransferase 9 U/L (15-37); BUN Creatinine Ratio 14.1 (10-20); Blood Urea Nitrogen 44 mg/dl (7-18); Calcium 8.6 mg/dl (8.5-10.1); Carbon Dioxide 19 mmol/L (21-32); Chloride 106 mmol/L (98-107); Creatinine Clr Calc Pharmacy 10.3 ml/min; Est GFR (African American) 15.9 ml/min; Est GFR (Non-African American) 13.7 ml/min; Glucose 112 mg/dl (70-99); Magnesium 1.6 mg/dl (1.8-2.4); Potassium 5.5 mmol/L (3.5-5.1); Sodium 134 mmol/L (136-145)
--- NOTE | 2021-01-22 18:16 | Emergency Department Note ---
Impression & Plan Bradycardia, Acute hypotension, CKD (chronic kidney disease), Acute hyperkalemia, COVID-19 ED Provider Note NAME: YUMI MARCUS AGE: 75 SEX: F : 1945 ARRIVES VIA: Ambulance INFORMANT: Patient ED PROVIDER(S): Robson Ram DO CHIEF COMPLAINT: Back pain HPI: Patient is a 75-year-old female who presents to the ER for mid lower lumbar spinal pain. This started today around 3 PM. She took 2 Tylenol after the pain started and it went away later in the day. When the pain started she got nauseated to her belly and felt a little lightheaded. After taking the Tylenol all the symptoms have gone away. She denies any headache or change in vision. No chest pain or shortness of breath. No nausea, vomiting, or diarrhea. No dysuria, urgency, or frequency. No fevers. No weakness or numbness in the arms or legs. ROS: See above HPI for pertinent positives & negatives. A total of 10 systems reviewed and were otherwise negative. PAST MEDICAL HISTORY:See Below PAST SURGICAL HISTORY:See Below FAMILY HISTORY:See Below SOCIAL HISTORY:See Below HOME MEDICATIONS:See Below ALLERGIES:See Below VITALS:See Below PHYSICAL EXAMINATION: GENERAL: Sitting up in bed, alert, well appearing, well nourished, no distress, non-toxic EYE EXAM: normal conjunctiva. PERRL and EOM's grossly intact. OROPHARYNX: no exudate, no erythema, lips, buccal mucosa, and tongue normal and mucous membranes are moist NECK: supple, no nuchal rigidity, no adenopathy, non-tender LUNGS: Clear to auscultation. Normal chest wall mechanics HEART: no murmurs, S1 normal and S2 normal ABDOMEN: abdomen soft, non-tender, normo-active bowel sounds, no masses, no rebound or guarding. UPPER EXTREMITIES: upper extremities are grossly normal. LOWER EXTREMITIES: No pitting edema. NEURO EXAM: Normal sensorium, cranial nerves II-XII grossly intact, normal speech, no gross weakness of arms, no gross weakness of legs. MEDICAL DECISION MAKING: Patient is a 75-year-old female who presents ER for the above-stated complaint. IV was established blood work is obtained. Labs show no significant leukocytosis or anemia. BMP with a potassium elevated 5.5 and a creatinine of 3.1 up from a baseline of about 2.9. CO2 was slightly low at 19 but do favor this secondary to the CKD as it was nongap. LFTs, bilirubin, was unremarkable. UA contaminated with multiple healing cells. Patient was Covid positive. She was admitted for further work-up and was given IV fluids. X-rays of lumbar spine were unremarkable. Patient did drop her pressures into the 80s and was given IV fluids. Heart rate was fairly persistently in the high 30s low 40s. She was discussed with hospitalist for further evaluation Triage Nursing notes reviewed. Limited review of prior medical records performed Vital Signs: reviewed and remarkable for no significant abnormalities Differential diagnosis: Differential diagnosis includes etiologies such as benign positional vertigo, dehydration, hypovolemia, anemia, tumor, infection, hypoglycemia, electrolyte abnormalities, cardiac sources, intracerebral event, toxicologic, neurological, as well as others were entertained. ER treatment provided: See below Diagnostics interpreted by me: ECG: Sinus bradycardia rate of 40 Normal axis No PVCs QTC 350 Cardiac Monitoring: An order was placed for continuous cardiac monitoring. The monitor shows a rate of 42 with sinus rhythm. Laboratory studies: As stated above and show below. Imaging studies: X-rays of the lumbar spine were unremarkable Consultation(s): D/w the hospitalist for further evaluation Procedures: none Critical Care: None Past Med/Surg History Medical History Anxiety Depression ESRD (end stage renal disease) GERD (gastroesophageal reflux disease) Hiatal hernia History of TIA (transient ischemic attack) HTN (hypertension) Hypothyroidism Osteoarthritis Schatzki's ring Sensorineural hearing loss (SNHL) Sleep apnea Temporomandibular joint disorder Surgical History History of cataract surgery History of colonoscopy History of esophagogastroduodenoscopy (EGD) History of laparoscopic cholecystectomy History of surgery History of tonsillectomy and adenoidectomy Status post repair of nerve Family History Mother Ovarian cancer Heart disease Father Heart disease Family history of diabetes mellitus Grandmother (Maternal) Family history of diabetes mellitus Denies family history of Prostate cancer Myocardial infarction Breast cancer Colorectal cancer Social History (Updated 12/18/20 @ 11:07 by Ansley Kenney LPN) Smoking Status: Never smoker Second Hand Exposure: No (hx); Hx Alcohol Use: No Hx Substance Use: No Preferred Language: Urdu Communication Ability: Effective 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 Required: No Beliefs That Will Affect Care: None marital status: Current Living Situation: Family Current Living Situation Comment: son lives with pt current occupational status: employed 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 [employer] How many Children do You have: 3 Feels Safe at Home: Yes Childhood Exposure to Second-Hand Smoke: Yes caffeine: No Dental Care, Regularly: No Physical Activity Frequency: Daily Seatbelt Use: always Sunscreen Use: No Assistive Devices: Denture - Upper, Denture - Lower and Glasses Allergies Allergies Allergy/AdvReac Type Severity Reaction Status Date / Time Sulfa (Sulfonamide Allergy Unknown Remote Verified 01/22/21 22:23 Antibiotics) unknown reaction amlodipine AdvReac Intermediate Feet Verified 01/22/21 22:23 swelling Home Meds Home Medications Medication Instructions Recorded Confirmed aspirin 81 mg tablet,delayed 81 mg PO QAM 10/02/18 01/22/21 release (Adult Low Dose Aspirin) cholecalciferol (vitamin D3) 25 2,000 units PO QAM 10/02/18 01/22/21 mcg (1,000 unit) capsule cyanocobalamin (vitamin B-12) 1,000 mcg PO QAM #30 tab 11/26/18 01/22/21 1,000 mcg tablet isosorbide mononitrate 60 mg 60 mg PO QAM 07/13/20 01/22/21 tablet,extended release 24 hr levothyroxine 50 mcg tablet 50 mcg PO QAM 07/13/20 01/22/21 melatonin 3 mg tablet 2 - 3 mg PO HS 07/13/20 01/22/21 metoprolol succinate 50 mg 50 mg PO QAM 07/13/20 01/22/21 tablet,extended release 24 hr bupropion HCl 300 mg 24 hr tablet, 300 mg PO QAM 07/22/20 01/22/21 extended release (Wellbutrin XL) spironolactone 25 mg tablet 25 mg PO DAILY 01/22/21 01/22/21 Previous Rx's Medication Instructions Recorded diltiazem HCl 240 mg capsule,24 240 mg PO QAM #90 cap 01/20/20 hr,extended release aripiprazole 2 mg tablet 2 mg PO QAM #30 tab 02/11/20 atorvastatin 40 mg tablet 20 mg PO QPM #45 tab 08/03/20 rabeprazole 20 mg tablet,delayed 20 mg PO QAM #90 tab 08/10/20 release Results & Data (ED) Vital Signs Vital Signs - 24 hr 01/22/21 16:36 01/22/21 17:32 01/22/21 19:46 Temperature 36.7 C Temperature Source Oral Pulse Rate 40 L Pulse Rate [Apical] 40 L 42 L Respiratory Rate 24 18 14 Blood Pressure 112/46 L Blood Pressure [Right Arm] 112/46 L 85/40 L Blood Pressure Mean 68 Blood Pressure Mean [Right Arm] 68 55 Blood Pressure Position [Right Arm] Lying Pulse Oximetry 98 97 94 Oxygen Delivery Method Room Air Room Air Room Air Sepsis Recent Fever Within 48 Hours No Sepsis New/Unexplained Change in Mental Status No Sepsis Action Taken by Nursing No Action Required Laboratory Data Result diagrams: 01/22/21 16:55 01/22/21 16:55 Lab Results 01/22/21 01/22/21 01/22/21 Range/Units 16:55 16:55 19:06 WBC 7.37 (4.8-10.8) K/uL RBC 3.78 L (4.2-5.4) M/uL Hgb 12.4 (12.0-16.0) g/dL Hct 37.6 (37-47) % MCV 99.5 (80-100) fL MCH 32.8 (25-34) pg MCHC 33.0 (32-36) g/dL RDW Std Deviation 52.1 H (36.4-46.3) fL RDW Coeff of Rob 14.4 (11.5-14.5) % Plt Count 187 (130-400) K/uL MPV 10.0 (7.4-10.4) fL Immature Gran % (Auto) 0.8 % Neut % (Auto) 62.8 % Lymph % (Auto) 19.1 % Cass % (Auto) 16.8 % Eos % (Auto) 0.4 % Baso % (Auto) 0.1 % Neut # (Auto) 4.62 (1.4-6.5) K/uL Lymph # (Auto) 1.41 (1.2-3.4) K/uL Cass # (Auto) 1.24 H (0.11-0.59) K/uL Eos # (Auto) 0.03 (0-0.5) K/uL Baso # (Auto) 0.01 (0-0.2) K/uL Immature Gran # (Auto) 0.06 H (0.00-0.02) K/uL Sodium 134 L (136-145) mmol/L Potassium 5.5 H (3.5-5.1) mmol/L Chloride 106 (98-107) mmol/L Carbon Dioxide 19 L (21-32) mmol/L Anion Gap 9.0 (3-11) BUN 44 H (7-18) mg/dl Creatinine 3.12 H (0.6-1.2) mg/dl Est Cr Clr Drug Dosing 10.3 ml/min Est GFR ( Amer) 15.9 ml/min Est GFR (Non-Af Amer) 13.7 ml/min BUN/Creatinine Ratio 14.1 (10-20) Glucose 112 H (70-99) mg/dl Calcium 8.6 (8.5-10.1) mg/dl Magnesium 1.6 L (1.8-2.4) mg/dl Total Bilirubin 0.4 (0.2-1) mg/dl AST 9 L (15-37) U/L ALT 14 (12-78) Alkaline Phosphatase 82 (45-117) U/L Troponin I < 0.015 (0-0.045) ng/ml Total Protein 6.9 (6.4-8.2) gm/dl Albumin 3.4 (3.4-5.0) gm/dl Globulin 3.5 (2.5-4.0) gm/dl Albumin/Globulin Ratio 1.0 (0.9-2) TSH 2.160 (0.300-4.500) uIu/ml Urine Color Dark Yellow Urine Appearance Cloudy A (Clear) Urine pH 5.0 (4.5-7.5) Ur Specific [place] 1.025 (1.000-1.030) Urine Protein Trace H (Negative) Urine Glucose (UA) Negative (Negative) Urine Ketones Trace H (Negative) Urine Blood Negative (Negative) Urine Nitrite Negative (Negative) Urine Bilirubin Negative (Negative) Urine Urobilinogen Negative (Negative) Ur Leukocyte Esterase Trace H (Negative) Urine WBC (Auto) 5-10 H (0-5) /hpf Urine RBC (Auto) 5-10 H (0-4) /hpf U Hyaline Cast (Auto) 1-5 (0-5) /lpf U Epithel Cells (Auto) >30 H (0-5) /lpf Urine Bacteria (Auto) 1+ H (Negative) SARS-CoV-2, RNA, NAAT (NEGATIVE) 01/22/21 Range/Units 20:44 WBC (4.8-10.8) K/uL RBC (4.2-5.4) M/uL Hgb (12.0-16.0) g/dL Hct (37-47) % MCV (80-100) fL MCH (25-34) pg MCHC (32-36) g/dL RDW Std Deviation (36.4-46.3) fL RDW Coeff of Rob (11.5-14.5) % Plt Count (130-400) K/uL MPV (7.4-10.4) fL Immature Gran % (Auto) % Neut % (Auto) % Lymph % (Auto) % Cass % (Auto) % Eos % (Auto) % Baso % (Auto) % Neut # (Auto) (1.4-6.5) K/uL Lymph # (Auto) (1.2-3.4) K/uL Cass # (Auto) (0.11-0.59) K/uL Eos # (Auto) (0-0.5) K/uL Baso # (Auto) (0-0.2) K/uL Immature Gran # (Auto) (0.00-0.02) K/uL Sodium (136-145) mmol/L Potassium (3.5-5.1) mmol/L Chloride (98-107) mmol/L Carbon Dioxide (21-32) mmol/L Anion Gap (3-11) BUN (7-18) mg/dl Creatinine (0.6-1.2) mg/dl Est Cr Clr Drug Dosing ml/min Est GFR ( Amer) ml/min Est GFR (Non-Af Amer) ml/min BUN/Creatinine Ratio (10-20) Glucose (70-99) mg/dl Calcium (8.5-10.1) mg/dl Magnesium (1.8-2.4) mg/dl Total Bilirubin (0.2-1) mg/dl AST (15-37) U/L ALT (12-78) Alkaline Phosphatase (45-117) U/L Troponin I (0-0.045) ng/ml Total Protein (6.4-8.2) gm/dl Albumin (3.4-5.0) gm/dl Globulin (2.5-4.0) gm/dl Albumin/Globulin Ratio (0.9-2) TSH (0.300-4.500) uIu/ml Urine Color Urine Appearance (Clear) Urine pH (4.5-7.5) Ur Specific [place] (1.000-1.030) Urine Protein (Negative) Urine Glucose (UA) (Negative) Urine Ketones (Negative) Urine Blood (Negative) Urine Nitrite (Negative) Urine Bilirubin (Negative) Urine Urobilinogen (Negative) Ur Leukocyte Esterase (Negative) Urine WBC (Auto) (0-5) /hpf Urine RBC (Auto) (0-4) /hpf U Hyaline Cast (Auto) (0-5) /lpf U Epithel Cells (Auto) (0-5) /lpf Urine Bacteria (Auto) (Negative) SARS-CoV-2, RNA, NAAT POSITIVE A* (NEGATIVE) Administered Medications Discontinued Medications Sodium Chloride (Nss) 500 mls @ 999 mls/hr IV .Q31M ONE Stop: 01/22/21 21:05 Last Infusion: 01/22/21 21:15 Dose: 0 mls/hr Documented by: [id number] Admin: 01/22/21 20:42 Dose: 999 mls/hr Documented by: [id number] Magnesium Sulfate/Dextrose (Magnesium Sulfate / D5w) 1 gm in 100 mls @ 50 mls/hr IV Q2H STA Stop: 01/23/21 00:11 Last Infusion: 01/23/21 00:51 Dose: 0 mls/hr Documented by: [id number] Admin: 01/22/21 22:30 Dose: 50 mls/hr Documented by: [id number] Imaging Data Radiologist's Impression: Lumbar Spine X-Ray 01/22/21 18:13 LUMBAR SPINE 3 VIEWS CLINICAL HISTORY: Low back pain. FINDINGS: 3 views of the lumbar spine are compared to study dated 03/29/2018. The skeletal structures are osteopenic. There is no radiographic evidence of acute fracture or malalignment. Vertebral body height and alignment are maintained throughout the lumbar spine. There is mild hyperlordosis. Minimal lumbar levocurvature is noted in the upper lumbar region. Anterior and lateral marginal osteophytes are seen throughout. The transverse and spinous processes appear intact. Moderate to advanced facet arthropathy is noted in the lower lumbar region. There is moderate to advanced disc space narrowing seen throughout the lumbar spine. This is greatest at L2-L3 and L5-S1 where there is associated endplate sclerosis. Small posterior disc osteophyte complexes are seen at all lumbar levels. The visualized bony pelvis appears intact. Cholecystectomy clips are noted in the right upper quadrant. There are numerous pelvic phleboliths. No bowel obstruction is seen. Advanced atherosclerotic calcification is noted in the abdominal aorta. IMPRESSION: 1. No acute bony abnormality is seen involving the lumbar spine. 2. Osteopenia and spondylotic change as above. Dictated: 01/22/2021 7:22 PM Transcribed: 01/22/2021 7:26 PM [facility] [id number] [facility] Electronically signed by: Luis Carlos Lawson M.D. 01/22/2021 7:37 PM Discharge Plan Visit Data Chief Complaint: Bradycardia Stated Complaint: NEAR SYNCOPE, LOWER BACK PAIN ED Provider: Robson Ram Discharge Problem: Bradycardia, Acute hypotension, CKD (chronic kidney disease), Acute hyperkalemia, COVID-19 Discharge Instructions Interventions: ED Discharge Assessment Last Done: 01/23/21 00:17 Discharge Problem: CKD (chronic kidney disease) Qualifiers: Chronic kidney disease stage: unspecified stage Qualified Code(s): N18.9 - Chronic kidney disease, unspecified
[2021-01-22 18:24] LABS: Alkaline Phosphatase 82 U/L (45-117); Bilirubin,Total 0.4 mg/dl (0.2-1); Globulin 3.5 gm/dl (2.5-4.0); Total Protein 6.9 gm/dl (6.4-8.2)
[2021-01-22 19:08] LABS: Troponin I < 0.015 ng/ml (0-0.045)
--- NOTE | 2021-01-22 19:39 | XRay Report ---
LUMBAR SPINE 3 VIEWS CLINICAL HISTORY: Low back pain. FINDINGS: 3 views of the lumbar spine are compared to study dated 03/29/2018. The skeletal structures a re osteopenic. There is no radiographic evidence of acute fracture or malalignment. Vertebral body he ight and alignment are maintained throughout the lumbar spine. There is mild hyperlordosis. Minimal l umbar levocurvature is noted in the upper lumbar region. Anterior and lateral marginal osteophytes ar e seen throughout. The transverse and spinous processes appear intact. Moderate to advanced facet art hropathy is noted in the lower lumbar region. There is moderate to advanced disc space narrowing seen throughout the lumbar spine. This is greatest at L2-L3 and L5-S1 where there is associated endplate sclerosis. Small posterior disc osteophyte complexes are seen at all lumbar levels. The visualized nemesio ny pelvis appears intact. Cholecystectomy clips are noted in the right upper quadrant. There are nume nadira pelvic phleboliths. No bowel obstruction is seen. Advanced atherosclerotic calcification is note d in the abdominal aorta. IMPRESSION: 1. No acute bony abnormality is seen involving the lumbar spine. 2. Osteopenia and spondylotic change as above. Dictated: 01/22/2021 7:22 PM Transcribed: 01/22/2021 7:26 PM Ira [id number] [facility] Electronically signed by: Luis Carlos Lawson M.D. 01/22/2021 7:37 PM
[2021-01-22 19:47] LABS: Appearance Urine Cloudy (Clear); Bacteria Urine Automated 1+ (Negative); Bilirubin Urine Negative (Negative); Blood Urine Negative (Negative); Color Urine Dark Yellow; Epithelial Cell Urine Auto >30 /lpf (0-5); Glucose Urine UA Negative (Negative); Ketones Urine Trace (Negative); Leukocyte Esterase Urine Trace (Negative); Nitrite Urine Negative (Negative); Protein Urine Trace (Negative); Specific Gravity Urine 1.025 (1.000-1.030); Urobilinogen Urine Negative (Negative)
[2021-01-22] MEDS ORDERED: SODIUM CHLORIDE 0.9% 500 ML IV ONE (20:35)
--- NOTE | 2021-01-22 21:15 | History & Physical Report ---
Date of Service January 22, 2021 Assessment & Plan (1) Bradycardia: Plan: -Mrs. Nevarez is a 75 yo woman who initially came to the ED for low back pain, admitted for ongoing bradycardia. - EKG on admission showing sinus bradycardia at 42 bpm - Etiology uncertain: - apparently started 3 months ago after patient had dialysis fistula placed. Concern should be given to whether the altered vasculature is compressing the vagus nerve. - may be medication-induced, as patient is on two AV flo blocking agents: Metoprolol and Diltiazem (apparently indication is hypertension). Hold on admission - as for metabolic causes: TSH normal. Trop undetectable. Patient did test positive for COVID 19 on admission, but does not appear to be symptomatic - lyme testing ordered, although would have expected an AV flo blocked along with the bradycardia - may be sinus node dysfunction of the elderly; awaiting outpatient 48 hour Holter monitor results - pacer pads in place - continue cardiac monitoring - consider cardiology consult if HR does not improve with holding of metoprolol and diltiazem (2) Metabolic acidosis: Plan: - bicarb 19 on admission - anion gap not elevated - no report of diarrhea - suspect renal tubular acidosis as source. - trend BMP (3) End stage renal disease: Plan: - Cr 3.12, at baseline - no urgent indication for dialysis - renally dose meds as appropriate (4) Hyperkalemia: Plan: - K 5.5 on admission - no peaked T waves on EKG - patient is on spironolactone; hold on admission - may be secondary to underlying CKD - given concurrent nongapped metabolic acidosis, consider hyperkalemic distal RTA as cause - trend BMP (5) Hypomagnesemia: Plan: - level 1.6 on admission - IV replacement ordered - continue home oral mag oxide supplement - recheck level in am (6) COVID-19: Plan: - incidentally tested positive on admission - not symptomatic at this time: for this reason will hold off on starting pharmacotherapy - covid precautions (7) Benign hypertension: Plan: - BP was hypotensive on admission to 85/40 - metoprolol, diltiazem, spironolactone and isosorbide mononitrate held on admission - due to underlying CKD, patient likely cannot take LUDWIG/ARB - consider adjustments to BP medication regimen: amlodipine would be an ac ceptable alternative without AV flo activity, although patient was trialed on it in the past and experienced LE edema. Chlorthalidone may be an option. (8) Hypothyroidism: Plan: - TSH normal on admission - continue home dose levothyroxine (9) Back pain: Plan: - lumbar spine radiographs showing evidence of degenerative changes but no acute injuries - resolved with tylenol - continue tylenol prn for pain Diet: heart healthy DVT ppx: Heparin 5,000 units SQ q12 Dispo: Med/tele Code: DNR/DNI, I discussed with patient History of Present Illness Primary Care Provider: YONNY Drew Mrs. Nevarez is a 75 yo woman who came to the emergency department for low back pain that began at 3pm this afternoon. There was no preceding trauma or injury. She apparently took Tylenol and it provided some relief. On arrival to the emergency department, she was found to be bradycardic at 40 bpm. She has been intermittently bradycardic since early October 2020 when she had an dialysis fistula placed in the left upper extremity. Apparently there were concerns with her leaving the hospital after the fistula was placed due to her low HR. Mrs. Nevarez has brought this to the attention of her PCP, as she has intermittently felt dizzy and weak. Fortunately she has never passed out. Her PCP ordered a 48 hour event monitor ~ 2 weeks ago, although she has not been informed of the interpretation/results. She does have end-stage CKD - she follows with Dr. Woodard at [facility] - although she has not yet started hemodialysis. The fistula was placed in anticipation of eventually needing it. She denies any chest pain or shortness of breath. No fever/chills, cough or congestion. No nausea/vomiting or diarrhea. Social Hx: No etoh or smoking. 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 Her CBC was normal. Her Na was mildly low at 134, K elevated to 5.5. Bicarb at 19. Cr at 3.13. LFTs WNL. Mag low at 1.6. TSH normal. Trop undetectable. UA 1+ bacteria, trace LE, neg nitrites, > 30 epithelial cells. Urine culture pending. COVID 19 testing returned positive. L spine XR showing evidence of degenerative changes but no fractures. EKG showing sinus bradycardia. She was given 1 liter of NSS. Allergies Allergy/AdvReac Type Severity Reaction Status Date / Time Sulfa (Sulfonamide Allergy Unknown Remote Verified 01/22/21 22:23 Antibiotics) unknown reaction amlodipine AdvReac Intermediate Feet Verified 01/22/21 22:23 swelling Home Medications Medication Instructions Recorded Confirmed Type aspirin 81 mg tablet,delayed 81 mg PO QAM 10/02/18 01/22/21 History release (Adult Low Dose Aspirin) cholecalciferol (vitamin D3) 25 2,000 units PO QAM 10/02/18 01/22/21 History mcg (1,000 unit) capsule cyanocobalamin (vitamin B-12) 1,000 mcg PO QAM #30 tab 11/26/18 01/22/21 History 1,000 mcg tablet aripiprazole 2 mg tablet 2 mg PO QAM #30 tab 02/11/20 01/22/21 Rx isosorbide mononitrate 60 mg 60 mg PO QAM 07/13/20 01/22/21 History tablet,extended release 24 hr levothyroxine 50 mcg tablet 50 mcg PO QAM 07/13/20 01/22/21 History melatonin 3 mg tablet 2 - 3 mg PO HS 07/13/20 01/22/21 History bupropion HCl 300 mg 24 hr tablet, 300 mg PO QAM 07/22/20 01/22/21 History extended release (Wellbutrin XL) atorvastatin 40 mg tablet 20 mg PO QPM #45 tab 08/03/20 01/22/21 Rx rabeprazole 20 mg tablet,delayed 20 mg PO QAM #90 tab 08/10/20 01/22/21 Rx release metoprolol succinate 25 mg 25 mg PO DAILY #30 tab 01/23/21 Rx tablet,extended release 24 hr Past Med/Surg History Medical History Anxiety Depression ESRD (end stage renal disease) GERD (gastroesophageal reflux disease) Hiatal hernia History of TIA (transient ischemic attack) HTN (hypertension) Hypothyroidism Osteoarthritis Schatzki's ring Sensorineural hearing loss (SNHL) Sleep apnea Temporomandibular joint disorder Surgical History History of cataract surgery History of colonoscopy History of esophagogastroduodenoscopy (EGD) History of laparoscopic cholecystectomy History of surgery History of tonsillectomy and adenoidectomy Status post repair of nerve Family History Mother Ovarian cancer Heart disease Father Heart disease Family history of diabetes mellitus Grandmother (Maternal) Family history of diabetes mellitus Denies family history of Prostate cancer Myocardial infarction Breast cancer Colorectal cancer Social History (Updated 12/18/20 @ 11:07 by Ansley Kenney LPN) Smoking Status: Never smoker Second Hand Exposure: No; Do You Dip or Chew Tobacco: No; Tobacco Cessation Education Requested by Patient: No Hx Alcohol Use: No Hx Substance Use: No Preferred Language: Bengali Communication Ability: Effective Customer Service Correspondence Clerk Required: No Beliefs That Will Affect Care: None marital status: Current Living Situation: Family Current Living Situation Comment: son lives with pt current occupational status: employed 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 [employer] How many Children do You have: 3 Other Information That Helps Us Care for You: No Feels Safe at Home: Yes Safety Concerns: Feels Safe At This Time Childhood Exposure to Second-Hand Smoke: Yes caffeine: No Dental Care, Regularly: No Physical Activity Frequency: Daily Seatbelt Use: always Sunscreen Use: No Assistive Devices: Denture - Upper, Denture - Lower and Glasses Review of Systems Review of Systems: All systems reviewed & are unremarkable except as noted in HPI & below Physical Exam Constitutional: WD/WN, vitals as above cooperative; no acute distress Eyes: PERRL, conjunctivae normal, anicteric sclerae ENMT: external ear and nose normal, oropharynx normal Ears: + hearing impairment Neck: trachea midline Respiratory: normal respiratory effort, lungs clear to auscultation no cough Auscultation: no crackles, no rales and no wheezes Cardiovascular: Rate/Rhythm: regular rhythm and + bradycardic Heart Sounds: normal S1 and normal S2; no murmur Extremities: + vascular access device (dialysis fistula, left UE); no pedal edema Gastrointestinal (Abdomen): normal bowel sounds, soft, nontender, no hepatosplenomegaly Musculoskeletal: Head/Neck/Chest: normocephalic and head atraumatic Skin: no rashes, warm and dry Neurologic: moves all extremities Psychiatric: A+Ox3, euthymic affect Results & Data Results & Data ([facility]) Vital Signs (Past 12 Hours) Vital Signs Temp Pulse Pulse Resp BP BP Pulse Ox 01/22/21 19:46 42 L 14 85/40 L 94 01/22/21 17:32 40 L 18 112/46 L 97 01/22/21 16:36 36.7 C 40 L 24 112/46 L 98 Supervising Physician Co-Signing Physician Notes Patient seen and examined on date of admission, chart reviewed, case discussed with Dr. Cobb and I agree with her assessment and plan as documented above. In brief, patient is a 75-year-old female with multiple medical problems presenting with low back pain. Patient incidentally found to have bradycardia with complaint of intermittent dizziness and weakness. No syncope. On exam she is afebrile, heart rate of 42 and blood pressure 85/40 initially. She is awake alert and oriented, answering questions appropriately and following commands Skinwarm, dry, intact, no rashes or lesions HEENTnormocephalic/atraumatic, pupils equal round react to light, moist mucous membranes, neck supple, no JVD Heart+ S1/S2, regular, bradycardic, no murmur/rubs/gallops Lungsequal air entry bilaterally, no rales/rhonchi/wheezes Abdomen+ bowel sounds, soft, nontender/nondistended Extremitieswarm, well-perfused with no clubbing, cyanosis or edema. Left upper extremity AV fistula present Labs and images reviewed Assessment/plan: 75-year-old female with multiple medical problems presenting initially with low back pain however, found with bradycardia question of symptomatic as she complains of intermittent dizziness and weakness. Of note she is on 2 AV flo blocking agentsmetoprolol and diltiazem. We will hold these medications and continue to monitor heart rate. Suspect that this is medication induced. No blocks or pauses noted on telemetry. We will hold spironolactone due to elevated potassium of 5.5 Will replete magnesium Patient tested positive for COVID-19 while in the ER. Presently asymptomatic, no respiratory distress, saturating well on room air. No additional therapy needed at this time Remainder of plan as above Resident Activity Tracking Resident Involvement: Resident Care Provided Care Provided: Pediatric Care
[2021-01-22] MEDS ORDERED: MAGNESIUM SULFATE / D5W 1 GM/100 ML BAG IV STA (22:12)
[2021-01-23] MEDS ORDERED: ONDANSETRON INJ 2 MG/ML 2 ML VIAL IV PRN ×2 (00:15→11:46)
[2021-01-23] MEDS ORDERED: ACETAMINOPHEN 325 MG TAB PO PRN ×2 (00:15→11:46)
[2021-01-23] MEDS ORDERED: MAGNESIUM SULFATE / D5W 1 GM/100 ML BAG IV ONE (00:58)
[2021-01-23 02:01] LABS: Lyme Ab IgG w/WB Rflx Negative (Negative); Lyme Ab IgM w/WB Rflx Negative (Negative)
[2021-01-23] MEDS ORDERED: LEVOTHYROXINE SODIUM 50 MCG TABLET PO SCH (06:30)
[2021-01-23 07:04] LABS: BUN Creatinine Ratio 16.9 (10-20); Calcium 8.3 mg/dl (8.5-10.1); Creatinine Clr Calc Pharmacy 12.1 ml/min; Est GFR (African American) 19.3 ml/min; Est GFR (Non-African American) 16.6 ml/min; Magnesium 2.6 mg/dl (1.8-2.4)
[2021-01-23] MEDS ORDERED: buPROPion XL 300 MG TABCR PO SCH (09:00)
[2021-01-23] MEDS ORDERED: PANTOprazole 40 MG TAB PO SCH (09:00)
[2021-01-23] MEDS ORDERED: POLYETHYLENE (MIRALAX) 17 GM PACK PO SCH (09:00)
[2021-01-23] MEDS ORDERED: ARIPIprazole 1 MG/ML ORAL SOLN 150 ML BTL PO SCH (09:00)
[2021-01-23] MEDS ORDERED: HEPARIN SOD 5,000 UNIT/0.5 ML VIAL SQ SCH (09:00)
[2021-01-23] MEDS ORDERED: ASPIRIN 81 MG ECTAB PO SCH (09:00)
[2021-01-23] MEDS ORDERED: MAGNESIUM OXIDE 400 MG TAB PO SCH (09:00)
[2021-01-23] MEDS ORDERED: methylPREDNISolone 125 MG/2 ML VIAL IV PRN (11:46)
[2021-01-23] MEDS ORDERED: diphenhydrAMINE 50 MG/ML VIAL IV PRN (11:46)
[2021-01-23] MEDS ORDERED: EPINEPHrine INJ 1 MG/ML AMP IM PRN (11:46)
[2021-01-23] MEDS ORDERED: STAT IV STA (11:46)
[2021-01-23] MEDS ORDERED: SODIUM CHLORIDE 0.9% 10ML FLUSH IV ONE (12:16)
--- NOTE | 2021-01-23 12:18 | Electrocardiogram Report ---
Test Reason : Blood Pressure : / mmHG Vent. Rate : 040 BPM Atrial Rate : 040 BPM P-R Int : 166 ms QRS Dur : 066 ms QT Int : 430 ms P-R-T Axes : 035 008 044 degrees QTc Int : 350 ms Marked sinus bradycardia Abnormal ECG When compared with ECG of 21-OCT-2020 11:10, No significant change was found Confirmed by Tommie Kate ([id number]) on 01/23/2021 12:18:24 PM Referred By: REFERRED SELF Confirmed By:Tommie Kate
[2021-01-23] MEDS ORDERED: CASIRIVIMAB/IMDEVIMAB 1,200 MG in 0.9 % SODIUM CHLORIDE 100 ML IV ONE (12:25)
[2021-01-23] MEDS ORDERED: 0.2 MICRON FILTER SET 1 EA IV ONE (12:25)
--- NOTE | 2021-01-23 19:35 | Billing Data ---
Date of Service January 22, 2021 Coding Level of Care Code 53573 Initial Inpt Care Lvl 3
--- NOTE | 2021-01-23 20:35 | Discharge Summary ---
Date of Service January 23, 2021 Admission HPI Per Admitting Provider Mrs. Nevarez is a 75 yo woman who came to the emergency department for low back pain that began at 3pm this afternoon. There was no preceding trauma or injury. She apparently took Tylenol and it provided some relief. On arrival to the emergency department, she was found to be bradycardic at 40 bpm. She has been intermittently bradycardic since early October 2020 when she had an dialysis fistula placed in the left upper extremity. Apparently there were concerns with her leaving the hospital after the fistula was placed due to her low HR. Mrs. Nevarez has brought this to the attention of her PCP, as she has intermittently felt dizzy and weak. Fortunately she has never passed out. Her PCP ordered a 48 hour event monitor ~ 2 weeks ago, although she has not been informed of the interpretation/results. She does have end-stage CKD - she follows with Dr. Woodard at [facility] - although she has not yet started hemodialysis. The fistula was placed in anticipation of eventually needing it. She denies any chest pain or shortness of breath. No fever/chills, cough or congestion. No nausea/vomiting or diarrhea. Social Hx: No etoh or smoking. 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 Her CBC was normal. Her Na was mildly low at 134, K elevated to 5.5. Bicarb at 19. Cr at 3.13. LFTs WNL. Mag low at 1.6. TSH normal. Trop undetectable. UA 1+ bacteria, trace LE, neg nitrites, > 30 epithelial cells. Urine culture pending. COVID 19 testing returned positive. L spine XR showing evidence of degenerative changes but no fractures. EKG showing sinus bradycardia. She was given 1 liter of NSS. Principal Diagnosis Bradycardia, musculoskeletal back pain, incidental finding of mildly symptomatic Covid Discharge Exam In general she is awake and alert pleasant no distress. HEENT normocephalic atraumatic mucous membranes moist. Breathing unlabored no accessory muscle use with good effort. She has sinus in the 60s to 70s on the monitor during her entire, very long, discussion. Neuro without focal deficits. Skin without rashes, pallor, icterus. Discharge Data Allergies Allergy/AdvReac Type Severity Reaction Status Date / Time Sulfa (Sulfonamide Allergy Unknown Remote Verified 01/22/21 22:23 Antibiotics) unknown reaction amlodipine AdvReac Intermediate Feet Verified 01/22/21 22:23 swelling Consultations 01/22/21 20:37 ED Decision to Admit Stat Hospital Course (1) Bradycardia: -Improved by holding diltiazem and metoprolol. -Discussed with patientnot clear if it is just that with her increasing age and CKD she is becoming more medication sensitive, or if she is working on sick sinus syndromeeither way, given that reducing medications has helped for now, the main plan would be sending her out on reduced doses (will hold diltiazem altogether, and cut metoprolol down to 25 mg daily)and have daily/twice daily pulse checks at home, as well as ongoing rate/rhythm monitoring by PCP and cardiology. -Given that her bradycardia improved by holding her meds, she is not showing any rhythms that would immediately require pacemaker, she is stable for home. (2) Metabolic acidosis: -Outpatient follow-up, follows actively with nephrology (3) End stage renal disease: -Creatinine now 2.66. Stable for home, outpatient follow-up (4) Hyperkalemia: - K 5.5 on admission - no peaked T waves on EKG - patient is on spironolactone; held, potassium improved. Stable for home, outpatient follow-up (5) Hypomagnesemia: Replaced, now slightly high at 2.6, outpatient follow-up (6) COVID-19: - incidentally tested positive on admission -After careful discussion with patient, she has had a very mildly sore throat for 3 to 4 days. We discussed vaccination in the future, she will consider, we discussed monoclonal antibody treatment nowamena is very mildly symptomatic, but does carry risks for potential decompensation; however, we also discussed the fact that she is already probably 4 days into illness with no severe features. In the end after discussion, she was amenable to monoclonal antibodiesbut once I ordered them, I was informed that there was no workaround, and by hard line protocols and regulations, I would be absolutely unable to give her spike protein monoclonal antibodies given her inpatient status, in spite of the fact that she is not inpatient for Covid/etc. -Patient encouraged to return if symptoms at all were to worsen, otherwise isolation at home (7) Benign hypertension: -Blood pressure now reasonable. Outpatient follow-up (8) Hypothyroidism: - TSH normal on admission - continue home dose levothyroxine (9) Back pain: -Has DJD on x-ray, but symptoms sound very biomechanicalDO at her PCPs office for trial of OMT would be likely to be beneficial Diet: heart healthy DVT ppx: Heparin 5,000 units SQ q12 utilized during her stay Stable for home Total Time Total Time Spent Total Time Spent (In Minutes): >30 Discharge Plan Discharge Items Patient Disposition: Home - Self-Care Reason For Visit: BRADYCARDIA Discharge Diagnosis: bradycardia (low heart rate) see below Activity: Resume your previous activity Non-emergency contact: Primary Care Provider and Professor Of Finance Call non-emergency contact if: you have any medication questions and your symptoms worsen Follow-up/Referrals: Bernarda Rehman CRNP [Primary Care Provider] - (PLEASE CALL TO SCHEDULE A FOLLOW-UP DISCHARGE APPOINTMENT WITH YOUR PRIMARY CARE PROVIDER WITHIN 10 DAYS.) Diet: Low Potassium (2gm) and Low Sodium (2gm) Addtl Attending Provider Instructions: back pain As we discussed, while your x-ray does show a lot of arthritis, most people I have taken care of through the years with back pain the way you describe and have much more of a muscular cause of the pain. Oftentimes the muscles and ligaments are tight because of the distorted bony architecture from the arthritis, but for the most part a big percentage of the pain people feel comes directly from the muscles -In my experience when he used to be in the office, a huge percentage of people got very significant improvement in their pain from hands-on manipulative medicine (OMT)in Bernarda's office, one of the DO family docs (Dr. Emmanuel) does this kind of treatment. Once your isolation. From Kellie has passed, I would definitely recommend you start seeing him to work on your back. low heart rate -The low heart rate has improved with stopping her medicines. -The weak/lightheaded/dizzy or feeling was almost certainly related to the low heart rate -In the narrow "here and now" focus, it is clear that the low heart rate was related to 2 of your medicines (diltiazem and metoprolol) -As we discussed, what is very difficult to tell right now, is whether the low heart rate is brought on simply by being more sensitive to medicines as you get older and your kidney disease progresses, or if it is more because of the conduction system and your heart starting to wear out. Fortunately, both of these are very manageable problemsif it simply related to being more sensitive to medicines, we will find that he will do just fine on a lower dose. If it is the electrical system starting to wear out, as we discussed, the end of the road for that would be a pacemakerbut unlike in the past, for easily the last decade pacemaker is a very simple, hugely successful procedure that really even only comes with a 1 night hospital stay. The way that we will figure this out is mostly reducing her medicines and monitoring. -For now, after watching what your heart rates have done off of both of those medicines for about a day, we will have you simply not take the diltiazem at all, and we will cut the metoprolol in half to 25 mg -As far as monitoring, either check your pulse and write it down twice a day, or there are several fairly reliable devices (1 of which I have used personally is called Avantha although there are several on the market, such as an apple watch, etc.) that could electronically/digitally check your heart rate, and a bit of a check on the rhythm. -Again, checking twice a day and writing the numbers down will give Bernarda and Dr. Reed a good feel of what is going on -If you feel weak/lightheaded/dizzy then definitely check your heart rate, and touch base with Bernarda for further direction high potassium -When you came in, your potassium was a little bit highfortunately this improved very quickly. I would ask that you get lab work done next week (basic metabolic panel) to make sure things to look okay, but I doubt this will be an ongoing problem -Most likely this was a side effect of the spironolactone that you have been onfor now I will have you hold off on taking it as well covid -While your symptoms so far have merely been a sore throat, the respiratory symptoms combined with the positive Covid test does make it appear that you have surprisingly minimal symptoms with Covid. -After we had discussed, I had placed orders for their Regeneron monoclonal antibodies, but unfortunately there are a lot of restrictive rules and protocols1 of which is that it cannot be used once someone is admitted to the hospitaleven though you were not admitted with Covid, I was unable to get the dosing to you because of these restrictive rules/protocols -However, as we discussed, given that you are 3 to 4 days and, with very mild symptoms, it is very unlikely that you are going to get sickerand fortunately, appear to have "dodged a bullet" as it relates to Covid -If you feel worse/sicker/at all short of breath, we would definitely want to see him again FRANNY, but this is much less likely to happen. -By rules/protocols, as long as her symptoms have resolved, you should isolate through 02/01/2021if your symptoms have not resolved by then, call Bernarda for further directions Pending Studies at Discharge: No Stand-Alone Forms: My [facility], Smoking Cessation Medications and DC Order Prescriptions: New metoprolol succinate 25 mg tablet extended release 24 hr 25 mg PO DAILY Qty: 30 RF: 0 Continued atorvastatin 40 mg tablet 20 mg PO QPM Qty: 45 RF: 3 rabeprazole 20 mg tablet,delayed release (DR/EC) 20 mg PO QAM Qty: 90 RF: 3 cyanocobalamin (vitamin B-12) 1,000 mcg tablet 1,000 mcg PO QAM Qty: 30 RF: 0 aripiprazole 2 mg tablet 2 mg PO QAM Qty: 30 RF: 2 aspirin [Adult Low Dose Aspirin] 81 mg tablet,delayed release (DR/EC) 81 mg PO QAM RF: 0 cholecalciferol (vitamin D3) 1,000 unit capsule 2,000 units PO QAM RF: 0 isosorbide mononitrate 60 mg tablet extended release 24 hr 60 mg PO QAM RF: 0 levothyroxine 50 mcg tablet 50 mcg PO QAM RF: 0 melatonin 3 mg Tablet 2 - 3 mg PO HS RF: 0 bupropion HCl [Wellbutrin XL] 300 mg tablet extended release 24 hr 300 mg PO QAM RF: 0 Discontinued diltiazem HCl 240 mg capsule,extended release 24 hr 240 mg PO QAM Qty: 90 RF: 3 metoprolol succinate 50 mg tablet extended release 24 hr 50 mg PO QAM RF: 0 spironolactone 25 mg tablet 25 mg PO DAILY RF: 0 Discharge Orders: Discharge Order (Routine); Ordered 01/23/21 Ordered By: Robson Mayorga Admission Data Admit Date/Time: 01/22/21 21:13 Attending Provider: Robson Mayorga Admit Provider: Patricia Cobb Primary Care Provider: Bernarda Rehman. Other Providers: Evita Lunsford Other Interventions: Discharge Summary Assessment (RN) Last Done: 01/23/21 14:14 Coding Level of Care Code D/C DAY MANAGEMENT >30 MINS Diagnoses Bradycardia R00.1 Metabolic acidosis E87.2 End stage renal disease N18.6 Hyperkalemia E87.5 Hypomagnesemia E83.42 COVID-19 U07.1 Benign hypertension I10 Hypothyroidism E03.9 Back pain M54.9
[2021-01-23] MEDS ORDERED: ATORVASTATIN 20 MG TAB PO SCH (21:00)
== END 2021-01-23 15:51 | disposition home or self-care (01) | DRG 308 ==
LOC: ED 16:56 → EDINP 21:13 → SUATTDRO 21:13 → 2W 01-23 00:17

== ENCOUNTER 2021-02-01 13:07 | Inpatient (IN) ==
--- NOTE | 2021-02-01 13:57 | XRay Report ---
XR chest 2V PA/lateral CLINICAL HISTORY: weakness TECHNIQUE: AP and lateral frontal radiograph of the chest was obtained. Comparison: Comparison is made to chest 2 views 07/17/2020 FINDINGS: No lines and tubes are seen. The cardiomediastinal silhouette is normal. Bilateral lower lung predomi nant airspace opacities are seen. No evidence of pleural effusion or pneumothorax. IMPRESSION: Bilateral lower lung predominant airspace opacities which may represent atelectasis, pneumonia, and/o r aspiration. ACT 112: Negative or not required by law. Electronically signed by: Geoffrey Doan M.D. 02/01/2021 1:56 PM
[2021-02-01 14:46] LABS: Hematocrit (blood only) 39.4 % (37-47); Hemoglobin 13.4 g/dL (12.0-16.0); Immature Granulocytes # (auto) 0.01 K/uL (0.00-0.02); Immature Granulocytes % (auto) 0.2 %; Lymphocytes # (auto) 0.73 K/uL (1.2-3.4); Lymphocytes % (auto) 17.7 %; Mean Corpuscular Hemoglobin 32.7 pg (25-34); Mean Corpuscular Volume 96.1 fL (80-100); Monocytes # (auto) 0.33 K/uL (0.11-0.59); Neutrophils # (auto) 3.06 K/uL (1.4-6.5); Neutrophils % (auto) 74.1 %; Platelet Count 246 K/uL (130-400); RDW Coefficient of Variation 14.3 % (11.5-14.5); RDW Standard Deviation 50.6 fL (36.4-46.3); White Blood Count 4.13 K/uL (4.8-10.8)
[2021-02-01 14:59] LABS: Chloride 104 mmol/L (98-107); Potassium 5.1 mmol/L (3.5-5.1); Sodium 132 mmol/L (136-145)
[2021-02-01 15:04] LABS: Alanine Aminotransferase 16 (12-78); Albumin Level 3.2 gm/dl (3.4-5.0); Aspartate Aminotransferase 26 U/L (15-37); BUN Creatinine Ratio 21.8 (10-20); Blood Urea Nitrogen 71 mg/dl (7-18); Calcium 8.7 mg/dl (8.5-10.1); Carbon Dioxide 20 mmol/L (21-32); Est GFR (African American) 15.1 ml/min; Glucose 110 mg/dl (70-99); Magnesium 2.2 mg/dl (1.8-2.4)
--- NOTE | 2021-02-01 15:12 | Emergency Department Note ---
History of Present Illness General Chief complaint: Weakness Time Seen by Provider: 02/01/21 13:27 Source: patient and family Mode of arrival: wheelchair Limitations: no limitations History of Present Illness Provider complaint: weakness, fatigue Treatments prior to arrival: none This is a 75-year-old female presents emergency department with daughter bedside due to concern for increased weakness and fatigue, poor p.o. intake and not taking her medications. Patient lives with her son who is also been ill. Patient was recently evaluated here, found to be Covid positive. She does have a history of chronic kidney disease. Daughter is concerned for dehydration, and worsening kidney function. Patient states she has had diarrhea for several days. She denies vomiting or abdominal pain. She denies fevers or chills. Unfortunately due to no available bed space, patient was seen in the A pod subwait, and protocols had been initiated by nursing staff. Pt seen during a time of high acuity and national emergency pandemic while wearing PPE. Home Medications Medication Instructions Recorded Confirmed Type aspirin 81 mg tablet,delayed 81 mg PO QAM 10/02/18 02/01/21 History release (Adult Low Dose Aspirin) cholecalciferol (vitamin D3) 25 2,000 units PO QAM 10/02/18 02/01/21 History mcg (1,000 unit) capsule cyanocobalamin (vitamin B-12) 1,000 mcg PO QAM #30 tab 11/26/18 02/01/21 History 1,000 mcg tablet aripiprazole 2 mg tablet 2 mg PO QAM #30 tab 02/11/20 02/01/21 Rx isosorbide mononitrate 60 mg 60 mg PO QAM 07/13/20 02/01/21 History tablet,extended release 24 hr levothyroxine 50 mcg tablet 50 mcg PO QAM 07/13/20 02/01/21 History melatonin 3 mg tablet 2 - 3 mg PO HS 07/13/20 02/01/21 History bupropion HCl 300 mg 24 hr tablet, 300 mg PO QAM 07/22/20 02/01/21 History extended release (Wellbutrin XL) atorvastatin 40 mg tablet 20 mg PO QPM #45 tab 08/03/20 02/01/21 Rx rabeprazole 20 mg tablet,delayed 20 mg PO QAM #90 tab 08/10/20 02/01/21 Rx release metoprolol succinate 25 mg 25 mg PO DAILY #30 tab 01/23/21 02/01/21 Rx tablet,extended release 24 hr spironolactone 25 mg tablet 25 mg PO DAILY 02/01/21 02/01/21 History Allergies Allergy/AdvReac Type Severity Reaction Status Date / Time Sulfa (Sulfonamide Allergy Unknown Remote Verified 02/01/21 15:46 Antibiotics) unknown reaction amlodipine AdvReac Intermediate Feet Verified 02/01/21 15:46 swelling Past Med/Surg History Medical History Anxiety Depression ESRD (end stage renal disease) Follows with Dr. Woodard > no current dialysis GERD (gastroesophageal reflux disease) controlled Hiatal hernia History of TIA (transient ischemic attack) Several years ago HTN (hypertension) Hypothyroidism Osteoarthritis Schatzki's ring Sensorineural hearing loss (SNHL) No hearing aids Sleep apnea Told "no device needed" per patient Temporomandibular joint disorder + clicking, no locking Surgical History History of cataract surgery R/L History of colonoscopy Colonoscopy (01/08/19): MAC at [facility] History of esophagogastroduodenoscopy (EGD) History of laparoscopic cholecystectomy History of surgery Left Antecubital Basilic Vein Arteriovenous Fistula Creation (07/22/20): MAC + PNB at [facility] History of tonsillectomy and adenoidectomy Status post repair of nerve R/L decompression median nerve at carpal tunnel Family History Mother Ovarian cancer Heart disease Father Heart disease Family history of diabetes mellitus Grandmother (Maternal) Family history of diabetes mellitus Denies family history of Prostate cancer Myocardial infarction Breast cancer Colorectal cancer Social History Smoking Status: Never smoker Second Hand Exposure: No; Hx Alcohol Use: No Hx Substance Use: No Preferred Language: Yemeni Communication Ability: Effective Hose Wrapper Required: No Beliefs That Will Affect Care: None marital status: Current Living Situation: Family Current Living Situation Comment: son lives with pt current occupational status: employed 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 [employer] How many Children do You have: 3 Feels Safe at Home: Yes Childhood Exposure to Second-Hand Smoke: Yes caffeine: No Dental Care, Regularly: No Physical Activity Frequency: Daily Seatbelt Use: always Sunscreen Use: No Assistive Devices: Denture - Upper, Denture - Lower and Glasses Review of Systems A total of 10 systems reviewed and were otherwise negative All systems reviewed & are unremarkable except as noted in HPI & below Physical Exam Vital Signs Vital Signs - 24 hr 02/01/21 13:18 02/01/21 15:54 02/01/21 15:55 Temperature 36.8 C Temperature Source Temporal Artery Scan Pulse Rate 79 Pulse Rate [Left] 97 H Respiratory Rate 20 20 Respiratory Effort / Characteristics Non-Labored Spontaneous Non-Labored Respiratory Depth Normal Normal Respiratory Pattern Regular Blood Pressure 126/73 Blood Pressure [Right Arm] 119/63 Blood Pressure Mean 90 Blood Pressure Mean [Right Arm] 81 Blood Pressure Position Sitting Blood Pressure Position [Right Arm] Sitting Pulse Oximetry 96 88 L 88 L Oxygen Delivery Method Nasal Cannula Room Air Room Air Oxygen Flow Rate 3 Sepsis Recent Fever Within 48 Hours Yes Sepsis New/Unexplained Change in Mental Status No Sepsis Action Taken by Nursing No Action Required Oxygen Flow Rate - Titration 2 Pulse Oximetry Post Tiitration 94 GENERAL: alert, well appearing, well nourished, no distress, non-toxic EYE EXAM: normal conjunctiva, PERRL and EOM's grossly intact OROPHARYNX: no exudate, no erythema, lips, buccal mucosa, and tongue normal and mucous membranes are moist NECK: supple, no nuchal rigidity, no adenopathy, non-tender LUNGS: Clear to auscultation. Normal chest wall mechanics, no w/r/r HEART: no murmurs, S1 normal and S2 normal ABDOMEN: abdomen soft, non-tender, normo-active bowel sounds, no masses, no rebound or guarding. BACK: Back is symmetrical on inspection and there is no deformity, no midline tenderness, no CVA tenderness. SKIN: no rashes and no bruising UPPER EXTREMITIES: upper extremities are grossly normal. FROM, nml pulses b/l. LOWER EXTREMITIES: No pitting edema. FROM, nml pulses b/l. NEURO EXAM: Normal sensorium, cranial nerves II-XII grossly intact, normal speech, no gross weakness of arms, no gross weakness of legs. Gross sensation intact. Course Administered Medications Lactated Ringer's (Lr) 1,000 mls @ 80 mls/hr IV .[id number] EDITH Stop: 03/03/21 13:44 Last Admin: 02/01/21 17:11 Dose: 80 mls/hr Documented by: [id number] Discontinued Medications Dexamethasone Sodium Phosphate (DexamethasonePf 10 Mg/Ml Vial) 6 mg IV NOW ONE Stop: 02/01/21 15:52 Last Admin: 02/01/21 17:11 Dose: 6 mg Documented by: [id number] Medical Decision Making Differential Diagnosis Differential Diagnosis includes but is not limited to dehydration, stroke, anemia, hypoglycemia, hyponatremia, hypernatremia, urinary tract infection, pneumonia, bronchitis, sepsis, gastroenteritis, additional abdominal pathology, metabolic abnormalities and infections. Medical Records Attestation: I reviewed the patient's medical records. Home Medications Current Medication List: was personally reviewed by me Laboratory Data Attestation: I reviewed the patient's lab results. Result diagrams: 02/01/21 14:08 02/01/21 14:08 Lab Results 02/01/21 02/01/21 02/01/21 Range/Units 14:08 14:08 14:08 WBC 4.13 L (4.8-10.8) K/uL RBC 4.10 L (4.2-5.4) M/uL Hgb 13.4 (12.0-16.0) g/dL Hct 39.4 (37-47) % MCV 96.1 (80-100) fL MCH 32.7 (25-34) pg MCHC 34.0 (32-36) g/dL RDW Std Deviation 50.6 H (36.4-46.3) fL RDW Coeff of Rob 14.3 (11.5-14.5) % Plt Count 246 (130-400) K/uL MPV 10.0 (7.4-10.4) fL Immature Gran % (Auto) 0.2 % Neut % (Auto) 74.1 % Lymph % (Auto) 17.7 % [place] % (Auto) 8.0 % Eos % (Auto) 0.0 % Baso % (Auto) 0.0 % Neut # (Auto) 3.06 (1.4-6.5) K/uL Lymph # (Auto) 0.73 L (1.2-3.4) K/uL [place] # (Auto) 0.33 (0.11-0.59) K/uL Eos # (Auto) 0.00 (0-0.5) K/uL Baso # (Auto) 0.00 (0-0.2) K/uL Immature Gran # (Auto) 0.01 (0.00-0.02) K/uL Sodium 132 L (136-145) mmol/L Potassium 5.1 (3.5-5.1) mmol/L Chloride 104 (98-107) mmol/L Carbon Dioxide 20 L (21-32) mmol/L Anion Gap 8.0 (3-11) BUN 71 H (7-18) mg/dl Creatinine 3.26 H (0.6-1.2) mg/dl Est Cr Clr Drug Dosing Not Reportable Est GFR ( Amer) 15.1 ml/min Est GFR (Non-Af Amer) 13.0 ml/min BUN/Creatinine Ratio 21.8 H (10-20) Glucose 110 H (70-99) mg/dl Calcium 8.7 (8.5-10.1) mg/dl Phosphorus 2.4 L (2.5-4.9) mg/dl Magnesium 2.2 (1.8-2.4) mg/dl Total Bilirubin 0.6 (0.2-1) mg/dl AST 26 (15-37) U/L ALT 16 (12-78) Alkaline Phosphatase 49 (45-117) U/L Troponin I < 0.015 (0-0.045) ng/ml C-Reactive Protein 8.15 H (0-0.29) mg/dl Total Protein 7.5 (6.4-8.2) gm/dl Albumin 3.2 L (3.4-5.0) gm/dl Globulin 4.3 H (2.5-4.0) gm/dl Albumin/Globulin Ratio 0.7 L (0.9-2) TSH 1.850 (0.300-4.500) uIu/ml Imaging Data Radiologist's Impression: Chest X-Ray 02/01/21 13:27 XR chest 2V PA/lateral CLINICAL HISTORY: weakness TECHNIQUE: AP and lateral frontal radiograph of the chest was obtained. Comparison: Comparison is made to chest 2 views 07/17/2020 FINDINGS: No lines and tubes are seen. The cardiomediastinal silhouette is normal. B ilateral lower lung predominant airspace opacities are seen. No evidence of pleural effusion or pneumothorax. IMPRESSION: Bilateral lower lung predominant airspace opacities which may represent atelectasis, pneumonia, and/or aspiration. ACT 112: Negative or not required by law. Electronically signed by: Geoffrey Doan M.D. 02/01/2021 1:56 PM ECG Data Attestation: I personally reviewed and interpreted this ECG as follows: Indication: + weakness Rate (beats per minute): 101 Rhythm: + sinus tachycardia ECG Intervals/blocks: + Normal QRS and + Normal QT ECG [place]: + Normal ECG ST segments: + T-wave inversions (V2-5) MDM Narrative This is a 75-year-old female brought in by her daughter due to concern for increased weakness and possible dehydration. Patient diagnosed with Covid 10 days ago and discharged from here. Daughter states she has had worsening dehydration, weakness, fatigue. States she is not waking up to take her medications and refusing to eat or drink. Patient did not report shortness of breath to me however did state this to nursing staff. On room air patient found to be 88% so she was placed on 2 to 3 L via nasal cannula to maintain oxygen saturations. Patient otherwise hemodynamically stable. Labs reassuring despite acute illness of the patient found to have IVONNE on top of her CKD. Given patient was seen in a waiting area and not in a room, some of her exam was limited. However given the information that have been available as protocols had been started by nursing staff, I updated patient and her daughter on my concerns for her condition. They were in agreement and hospitalist contacted for additional inpatient management. Patient was started on gentle IV fluid rehydration. Patient re-evaluated in the A sub wait several times. An order was placed for continuous cardiac monitoring. The monitor shows a rate of _92__ with __normal sinus__ rhythm. Impression & Plan Generalized weakness, Dehydration, Hypoxia, IVONNE (acute kidney injury), Acute diarrhea, COVID-19 Discharge Plan Visit Data Chief Complaint: Weakness ED Provider: Simona Wallace Discharge Problem: Generalized weakness, Dehydration, Hypoxia, IVONNE (acute kidney injury), Acute diarrhea, COVID-19 Patient Disposition: Being Evaluated by Hospitalist Condition: Fair Forms Stand Alone Forms: My [facility] Prescriptions Prescriptions: No Action atorvastatin 40 mg tablet 20 mg PO QPM Qty: 45 RF: 3 rabeprazole 20 mg tablet,delayed release (DR/EC) 20 mg PO QAM Qty: 90 RF: 3 cyanocobalamin (vitamin B-12) 1,000 mcg tablet 1,000 mcg PO QAM Qty: 30 RF: 0 aripiprazole 2 mg tablet 2 mg PO QAM Qty: 30 RF: 2 aspirin [Adult Low Dose Aspirin] 81 mg tablet,delayed release (DR/EC) 81 mg PO QAM RF: 0 cholecalciferol (vitamin D3) 1,000 unit capsule 2,000 units PO QAM RF: 0 isosorbide mononitrate 60 mg tablet extended release 24 hr 60 mg PO QAM RF: 0 levothyroxine 50 mcg tablet 50 mcg PO QAM RF: 0 melatonin 3 mg Tablet 2 - 3 mg PO HS RF: 0 bupropion HCl [Wellbutrin XL] 300 mg tablet extended release 24 hr 300 mg PO QAM RF: 0 metoprolol succinate 25 mg tablet extended release 24 hr 25 mg PO DAILY Qty: 30 RF: 0 spironolactone 25 mg tablet 25 mg PO DAILY RF: 0 Referrals Referrals: Bernarda Rehman CRNP [Primary Care Provider] -
[2021-02-01 15:14] LABS: Albumin Globulin Ratio 0.7 (0.9-2); Alkaline Phosphatase 49 U/L (45-117); Bilirubin,Total 0.6 mg/dl (0.2-1); Globulin 4.3 gm/dl (2.5-4.0); Phosphorus 2.4 mg/dl (2.5-4.9); Total Protein 7.5 gm/dl (6.4-8.2); Troponin I < 0.015 ng/ml (0-0.045)
[2021-02-01] MEDS ORDERED: dexAMETHasone**PF** 10 MG/ML VIAL IV ONE (15:51)
[2021-02-01] MEDS: LACTATED RINGER'S 1,000 ML IV SCH (17:11)
--- NOTE | 2021-02-01 18:06 | History & Physical Report ---
Date of Service February 01, 2021 Assessment & Plan (1) COVID-19: Plan: Patient is being admitted for COVID 19 Patient is about 13 days out of symptoms however she was diagnosed on 01/22 would wait 10 days from this at minimum and clinical improvement before removing patient from isolation. will place on decadron and will monitor. (2) End stage renal disease: Plan: - Cr 3.26, slightly increased - no urgent indication for dialysis - renally dose meds as appropriate (3) GERD (gastroesophageal reflux disease): Plan: resume home meds (4) IVONNE (acute kidney injury): Plan: IVF LR 80 ml/hr recheck bmp in AM History of Present Illness Chief Complaint: Diarrhea Primary Care Provider: YONNY Drew This is a peasant 75 yo female who is with her daughter at bedside. She comes to the hospital with a 3 days history of wrosening generalized weakness, fatigue, diarrhea, and poor oral intake. No fever/chills. No nausea/vomiting She does have end-stage CKD - she follows with Dr. Woodard at [facility] - although she has not yet started hemodialysis. The fistula was placed in anticipation of eventually needing it. Social Hx: No etoh or smoking. 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 Allergies Allergy/AdvReac Type Severity Reaction Status Date / Time Sulfa (Sulfonamide Allergy Unknown Remote Verified 02/01/21 15:46 Antibiotics) unknown reaction amlodipine AdvReac Intermediate Feet Verified 02/01/21 15:46 swelling Home Medications Medication Instructions Recorded Confirmed Type aspirin 81 mg tablet,delayed 81 mg PO QAM 10/02/18 02/01/21 History release (Adult Low Dose Aspirin) cholecalciferol (vitamin D3) 25 2,000 units PO QAM 10/02/18 02/01/21 History mcg (1,000 unit) capsule cyanocobalamin (vitamin B-12) 1,000 mcg PO QAM #30 tab 11/26/18 02/01/21 History 1,000 mcg tablet aripiprazole 2 mg tablet 2 mg PO QAM #30 tab 02/11/20 02/01/21 Rx isosorbide mononitrate 60 mg 60 mg PO QAM 07/13/20 02/01/21 History tablet,extended release 24 hr levothyroxine 50 mcg tablet 50 mcg PO QAM 07/13/20 02/01/21 History melatonin 3 mg tablet 2 - 3 mg PO HS 07/13/20 02/01/21 History bupropion HCl 300 mg 24 hr tablet, 300 mg PO QAM 07/22/20 02/01/21 History extended release (Wellbutrin XL) atorvastatin 40 mg tablet 20 mg PO QPM #45 tab 08/03/20 02/01/21 Rx rabeprazole 20 mg tablet,delayed 20 mg PO QAM #90 tab 08/10/20 02/01/21 Rx release metoprolol succinate 25 mg 25 mg PO DAILY #30 tab 01/23/21 02/01/21 Rx tablet,extended release 24 hr spironolactone 25 mg tablet 25 mg PO DAILY 02/01/21 02/01/21 History Past Med/Surg History Medical History Anxiety Depression ESRD (end stage renal disease) Follows with Dr. Woodard > no current dialysis GERD (gastroesophageal reflux disease) controlled Hiatal hernia History of TIA (transient ischemic attack) Several years ago HTN (hypertension) Hypothyroidism Osteoarthritis Schatzki's ring Sensorineural hearing loss (SNHL) No hearing aids Sleep apnea Told "no device needed" per patient Temporomandibular joint disorder + clicking, no locking Surgical History History of cataract surgery R/L History of colonoscopy Colonoscopy (01/08/19): MAC at [facility] History of esophagogastroduodenoscopy (EGD) History of laparoscopic cholecystectomy History of surgery Left Antecubital Basilic Vein Arteriovenous Fistula Creation (07/22/20): MAC + PNB at [facility] History of tonsillectomy and adenoidectomy Status post repair of nerve R/L decompression median nerve at carpal tunnel Family History Mother Ovarian cancer Heart disease Father Heart disease Family history of diabetes mellitus Grandmother (Maternal) Family history of diabetes mellitus Denies family history of Prostate cancer Myocardial infarction Breast cancer Colorectal cancer Social History Smoking Status: Never smoker Second Hand Exposure: No; Hx Alcohol Use: No Hx Substance Use: No Preferred Language: Serbian Communication Ability: Effective Perfume Maker Required: No Beliefs That Will Affect Care: None marital status: Current Living Situation: Family Current Living Situation Comment: son lives with pt current occupational status: employed 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 [employer] How many Children do You have: 3 Feels Safe at Home: Yes Childhood Exposure to Second-Hand Smoke: Yes caffeine: No Dental Care, Regularly: No Physical Activity Frequency: Daily Seatbelt Use: always Sunscreen Use: No Assistive Devices: Denture - Upper, Denture - Lower and Glasses Review of Systems Constitutional: + fatigue; no chills Eyes: no blind spots Ear, Nose, Mouth, Throat: + hearing loss Respiratory: + dyspnea Cardiovascular: no chest pain Gastrointestinal: no abdominal pain, no nausea and no vomiting Genitourinary: no dysuria Musculoskeletal: no swelling Integumentary: no acne Neurologic: no gait abnormality Psychiatric: no behavioral changes Endocrine: + fatigue Hematologic / Lymphatic: no easy bleeding Allergy / Immunological: no GI upset with certain foods Physical Exam Constitutional: WD/WN, vitals as above Eyes: PERRL, conjunctivae normal, anicteric sclerae ENMT: external ear and nose normal, oropharynx normal Neck: trachea midline, no thyromegaly Respiratory: Auscultation: + diminished lung sounds and + rales Cardiovascular: RRR, no murmur, no edema Gastrointestinal (Abdomen): normal bowel sounds, soft, nontender, no hepatos plenomegaly Musculoskeletal: no cyanosis or clubbing, extremities motor strength 5/5 Skin: no rashes, warm and dry Neurologic: PERRL, EOMI, accommodation nl, no face palsy, no dysarthria Psychiatric: A+Ox3, euthymic affect Lymphatic: no cervical or axillary lymphadenopathy Results & Data Results & Data ([facility]) Vital Signs (Past 12 Hours) Vital Signs Temp Pulse Pulse Resp BP BP Pulse Ox 02/01/21 15:55 97 H 20 119/63 88 L 02/01/21 15:54 88 L 02/01/21 13:18 36.8 C 79 20 126/73 96 Code Status & VTE Plan VTE Prophylaxis Plan VTE Prophylaxis will be ordered: Yes PG Care Time/CCT Total # of Minutes Spent Total Time Spent with Patient: Total time spent is greater than 50% in coordination of care (as documented) at patient's floor/unit and/or counseling patient: Coding Level of Care Code 29143 Initial Inpt Care Lvl 3 Diagnoses COVID-19 U07.1 End stage renal disease N18.6 GERD (gastroesophageal reflux disease) K21.9 IVONNE (acute kidney injury) N17.9
[2021-02-02] MEDS: HEPARIN SOD 5,000 UNIT/0.5 ML VIAL SQ SCH ×4 (00:25→21:08)
[2021-02-02] MEDS: ATORVASTATIN 20 MG TAB PO SCH ×2 (00:25→21:08)
[2021-02-02 05:43] LABS: Hematocrit (blood only) 34.6 % (37-47); Hemoglobin 11.7 g/dL (12.0-16.0); Mean Corpuscular Hemoglobin 32.5 pg (25-34); Mean Corpuscular Hgb Conc 33.8 g/dL (32-36); Mean Corpuscular Volume 96.1 fL (80-100); Mean Platelet Volume 9.7 fL (7.4-10.4); Platelet Count 241 K/uL (130-400); RDW Coefficient of Variation 14.2 % (11.5-14.5); RDW Standard Deviation 50.3 fL (36.4-46.3); White Blood Count 2.43 K/uL (4.8-10.8)
[2021-02-02] MEDS: LACTATED RINGER'S 1,000 ML IV SCH (06:03)
[2021-02-02] MEDS: LEVOTHYROXINE SODIUM 50 MCG TABLET PO SCH (06:11)
[2021-02-02 06:13] LABS: BUN Creatinine Ratio 25.8 (10-20); C Reactive Protein 7.16 mg/dl (0-0.29); Calcium 8.8 mg/dl (8.5-10.1); Creatinine Clr Calc Pharmacy 13.1 ml/min; Est GFR (African American) 17.8 ml/min; Est GFR (Non-African American) 15.4 ml/min; Potassium 4.8 mmol/L (3.5-5.1)
[2021-02-02] MEDS: ARIPIprazole 1 MG/ML ORAL SOLN 150 ML BTL PO SCH (09:10)
[2021-02-02] MEDS: CHOLECALCIFEROL 1,000 UNITS 25 MCG TAB PO SCH (09:11)
[2021-02-02] MEDS: ISOSORBIDE MONO EXTENDED REL 60 MG TABCR PO SCH (09:11)
[2021-02-02] MEDS: buPROPion XL 300 MG TABCR PO SCH (09:11)
[2021-02-02] MEDS: CYANOCOBALAMIN 500 MCG TABLET (VITAMIN B-12) PO SCH (09:12)
[2021-02-02] MEDS: METOPROLOL SUCC 25MG EXT REL TAB PO SCH (09:13)
[2021-02-02] MEDS: PANTOprazole 40 MG TAB PO SCH (09:13)
[2021-02-02] MEDS: ASPIRIN 81 MG ECTAB PO SCH (09:14)
[2021-02-02] MEDS: SPIRONOLACTONE 25 MG TAB PO SCH (09:14)
[2021-02-02] MEDS ORDERED: ALBUT/IPRATROP 3MG/0.5MG NEB 3 ML VIAL NEB PRN (10:21)
--- NOTE | 2021-02-02 10:24 | Hospitalist Progress Note ---
Date of Service February 02, 2021 Assessment & Plan (1) COVID-19: Plan: 75 yo WF who incidentally tested positive for COVID-19 during last admission on 01/22 - Admit to monitored bed - Pt is not a candidate for Remdesivir, too far in her clinical course, and at this time not a candidate for Baricitinib (CRP <7.5, not requiring high flow O2) - Continue isolation at this time -- although today would be day #11, technically should be able to d/c isolation. Will d/w infection control. - Supplemental O2 to be provided, keep sat >/= 88% - Continue Decadron for 10 days or until d/c, whichever comes first - Initiate mucolytics and neb treatments (2) Hypoxia: Plan: - Due to #1 (documented as 88% on room air) - Requiring supplemental O2 at this time - Wean O2 to keep sat >/= 88% (3) End stage renal disease: Plan: - Follows with Dr. Woodard, baseline creat ~3.0 - no urgent indication for dialysis at this time - renally dose meds as appropriate (4) GERD (gastroesophageal reflux disease): Plan: - Continue PPI (5) IVONNE (acute kidney injury): Plan: - Creat in ED 3.26, slightly above baseline - IV hydration provided overnight w/ LR, today creat 2.84 - D/C IVF, renal function at baseline (6) HTN (hypertension): Plan: - Currently on only Spironolactone, Imdur, Metoprolol Succinate - Had recent admisison d/t bradycardia--Diltiazem stopped - BP seems to be slightly up first thing in AM and then improve throughout the day - Will monitor (7) Hyponatremia: Plan: - ?Spironolactone - Slight improvement with hydration overnight from 132 to 133 - Monitor Plan: Heparin for DVT ppx DNR/DNI PT/OT eval Lives with son, if continues to be stable over the next 24 hours, could consider home w/ home health pending her therapy assessment Consult CM for d/c planning AM Labs ordered Admission and Anticipated Discharge Date Admission Date: February 01, 2021 Subjective Yvrose Nevarez was seen on rounds this morning. Pt was hospitalized 02/01 for c/o diarrhea, pt known to be covid-19 positive on 01/22. She has a h/o ESRD, follows with Dr. Woodard. Has not yet initiated HD at this time. She continues to make urine, denies complaints. She notes that her son called EMS due to her "not feeling well" w/ symptoms of diarrhea, generalized weakness, malaise. Denies fever, chills, dyspnea, chest pain, n/v. She notes nonproductive cough. She was exposed to COVID through her son. Pt has not been vaccinated. No issues reported by RN at this time. She is currently on 2L nasal cannula with last reported pulse ox of 97%. Review of Systems Review of Systems: CONSTITUTIONAL: +generalized weakness, fatigue, malaise. Denies weight loss/gain, fever and chills. HEENT: Denies changes in vision and hearing. RESPIRATORY: +cough. Denies SOB, wheezing. CV: Denies palpitations, CP, lower extremity edema, orthopnea, PND. GI: +diarrhea. Denies abdominal pain, nausea, vomiting. : Denies dysuria and urinary frequency, urgency, hesitancy. MUSCULOSKELETAL: Denies myalgia and joint pain. SKIN: Denies rash and pruritus. NEUROLOGICAL: Denies headache, syncope, focal weakness, numbness, tingling. PSYCHIATRIC: Denies recent changes in mood. Denies anxiety and depression. Physical Exam Physical Exam: GENERAL: 75 yo elderly WF. Well-developed, well-nourished. NAD. LUNGS: No conversational dyspnea or accessory muscle use. Scattered crackles throughout. No wheezes appreciated. CARDIOVASCULAR: Regular rate and rhythm. No M/G/R. No JVD. ABDOMEN: Soft, NT, ND. No palpable masses. BS normal x 4 quad. EXTREMITIES: No edema. Non-tender. Peripheral pulses +2/4. LUE AV fistula with good thrill. NEUROLOGIC: A&O x3. No focal neurological deficits. CN II-XII grossly intact. PSYCHIATRIC: Cooperative. Appropriate mood and affect. SKIN: Warm, dry, intact. No rashes or lesions. Results & Data Results & Data ([facility]) Vital Signs (Past 12 Hours) Vital Signs Temp Pulse Pulse Resp BP BP Pulse Ox 02/02/21 09:09 36.4 C L 62 20 150/66 H 97 02/02/21 04:00 52 L 20 130/56 L 94 02/01/21 23:36 56 L 18 116/54 L 97 02/01/21 22:30 62 23 110/57 L 97 Laboratory Results 02/02/21 05:10 02/02/21 05:10 PG Care Time/CCT Total # of Minutes Spent Total Time Spent with Patient: Total time spent is greater than 50% in coordination of care (as documented) at patient's floor/unit and/or counseling patient: Coding Level of Care Code 35169 Subseq Hosp Care Lvl 3 Diagnoses COVID-19 U07.1 End stage renal disease N18.6 GERD (gastroesophageal reflux disease) K21.9 IVONNE (acute kidney injury) N17.9 Hypoxia R09.02 HTN (hypertension) I10 Hyponatremia E87.1
[2021-02-02] MEDS: dexAMETHasone 6 MG in SYRINGE 0 ML IV SCH (10:45)
[2021-02-02] MEDS: ALBUT/IPRATROP 3MG/0.5MG NEB 3 ML VIAL NEB SCH ×3 (11:49→18:21)
--- NOTE | 2021-02-02 16:31 | Electrocardiogram Report ---
Test Reason : Blood Pressure : / mmHG Vent. Rate : 101 BPM Atrial Rate : 101 BPM P-R Int : 138 ms QRS Dur : 064 ms QT Int : 302 ms P-R-T Axes : 044 038 044 degrees QTc Int : 391 ms Sinus tachycardia Low voltage QRS Cannot rule out Anterior infarct , age undetermined Abnormal ECG When compared with ECG of 22-JAN-2021 17:42, Vent. rate has increased BY 61 BPM T wave inversion now evident in Anterior leads Confirmed by Erick Reyes ([id number]) on 02/02/2021 4:31:27 PM Referred By: REFERRED SELF Confirmed By:Erick Reyes
[2021-02-02] MEDS: guaiFENesin 600 MG TABCR PO SCH (21:08)
[2021-02-03 02:47] LABS: Appearance Urine Clear (Clear); Bacteria Urine Automated Negative (Negative); Bilirubin Urine Negative (Negative); Blood Urine Trace (Negative); Color Urine Yellow; Epithelial Cell Urine Auto 20-30 /lpf (0-5); Glucose Urine UA Negative (Negative); Ketones Urine Negative (Negative); Leukocyte Esterase Urine Trace (Negative); Nitrite Urine Negative (Negative); Protein Urine Trace (Negative); Specific Gravity Urine 1.011 (1.000-1.030); Urobilinogen Urine Negative (Negative); pH Urine 5.5 (4.5-7.5)
[2021-02-03] MEDS: LEVOTHYROXINE SODIUM 50 MCG TABLET PO SCH (05:56)
[2021-02-03] MEDS: HEPARIN SOD 5,000 UNIT/0.5 ML VIAL SQ SCH ×2 (05:57→13:11)
[2021-02-03 06:05] LABS: Basophils # (auto) 0.02 K/uL (0-0.2); Basophils % (auto) 0.2 %; Hematocrit (blood only) 32.9 % (37-47); Hemoglobin 11.4 g/dL (12.0-16.0); Immature Granulocytes # (auto) 0.03 K/uL (0.00-0.02); Immature Granulocytes % (auto) 0.4 %; Lymphocytes # (auto) 0.97 K/uL (1.2-3.4); Lymphocytes % (auto) 11.8 %; Mean Corpuscular Hemoglobin 32.5 pg (25-34); Mean Corpuscular Hgb Conc 34.7 g/dL (32-36); Mean Corpuscular Volume 93.7 fL (80-100); Mean Platelet Volume 9.8 fL (7.4-10.4); Monocytes # (auto) 0.48 K/uL (0.11-0.59); Monocytes % (auto) 5.8 %; Neutrophils # (auto) 6.75 K/uL (1.4-6.5); Neutrophils % (auto) 81.8 %; Platelet Count 282 K/uL (130-400); RDW Coefficient of Variation 13.8 % (11.5-14.5); RDW Standard Deviation 46.9 fL (36.4-46.3); Red Blood Count 3.51 M/uL (4.2-5.4); White Blood Count 8.25 K/uL (4.8-10.8)
[2021-02-03 06:39] LABS: Calcium 9.1 mg/dl (8.5-10.1); Creatinine Clr Calc Pharmacy 15.6 ml/min; Est GFR (African American) 21.9 ml/min; Est GFR (Non-African American) 18.9 ml/min; Potassium 4.7 mmol/L (3.5-5.1)
[2021-02-03] MEDS: ALBUT/IPRATROP 3MG/0.5MG NEB 3 ML VIAL NEB SCH (07:30)
[2021-02-03] MEDS: ARIPIprazole 1 MG/ML ORAL SOLN 150 ML BTL PO SCH (08:57)
[2021-02-03] MEDS: ASPIRIN 81 MG ECTAB PO SCH (09:04)
[2021-02-03] MEDS: METOPROLOL SUCC 25MG EXT REL TAB PO SCH (09:04)
[2021-02-03] MEDS: PANTOprazole 40 MG TAB PO SCH (09:04)
[2021-02-03] MEDS: guaiFENesin 600 MG TABCR PO SCH (09:04)
[2021-02-03] MEDS: SPIRONOLACTONE 25 MG TAB PO SCH (09:04)
[2021-02-03] MEDS: dexAMETHasone 6 MG in SYRINGE 0 ML IV SCH (09:05)
[2021-02-03] MEDS: ISOSORBIDE MONO EXTENDED REL 60 MG TABCR PO SCH (09:05)
[2021-02-03] MEDS: CHOLECALCIFEROL 1,000 UNITS 25 MCG TAB PO SCH (09:05)
[2021-02-03] MEDS: CYANOCOBALAMIN 500 MCG TABLET (VITAMIN B-12) PO SCH (09:05)
[2021-02-03] MEDS: buPROPion XL 300 MG TABCR PO SCH (09:05)
[2021-02-03] MEDS ORDERED: SODIUM CHLORIDE 0.9% 500 ML IV SCH (09:15)
[2021-02-03] MEDS ORDERED: ALBUT/IPRATROP 3MG/0.5MG NEB 3 ML VIAL NEB PRN (10:26)
--- NOTE | 2021-02-03 15:49 | Discharge Summary ---
Date of Service February 03, 2021 Admission HPI Per Admitting Provider This is a peasant 75 yo female who is with her daughter at bedside. She comes to the hospital with a 3 days history of wrosening generalized weakness, fatigue, diarrhea, and poor oral intake. No fever/chills. No naus ea/vomiting She does have end-stage CKD - she follows with Dr. Woodard at [facility] - although she has not yet started hemodialysis. The fistula was placed in anticipation of eventually needing it. Social Hx: No etoh or smoking. 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 Admission Exam Per Admitting Provider Constitutional: WD/WN, vitals as above Eyes: PERRL, conjunctivae normal, anicteric sclerae ENMT: external ear and nose normal, oropharynx normal Neck: trachea midline, no thyromegaly Respiratory: Auscultation: + diminished lung sounds and + rales Cardiovascular: RRR, no murmur, no edema Gastrointestinal (Abdomen): normal bowel sounds, soft, nontender, no hepatosplenomegaly Musculoskeletal: no cyanosis or clubbing, extremities motor strength 5/5 Skin: no rashes, warm and dry Neurologic: PERRL, EOMI, accommodation nl, no face palsy, no dysarthria Psychiatric: A+Ox3, euthymic affect Lymphatic: no cervical or axillary lymphadenopathy Principal Diagnosis COVID-19 PNA Hypoxia - resolved Discharge Exam GENERAL: 75 yo elderly WF. Well-developed, well-nourished. NAD. LUNGS: No conversational dyspnea. Bibasilar crackles. No wheezes appreciated. CARDIOVASCULAR: Regular rate and rhythm. No M/G/R. No JVD. ABDOMEN: Soft, NT, ND. No palpable masses. BS normal x 4 quad. EXTREMITIES: No edema. Non-tender. Peripheral pulses +2/4. LUE AV fistula with good thrill. NEUROLOGIC: A&O x3. No focal neurological deficits. PSYCHIATRIC: Cooperative. Appropriate mood and affect. SKIN: Warm, dry, intact. No rashes or lesions. Discharge Data Allergies Allergy/AdvReac Type Severity Reaction Status Date / Time Sulfa (Sulfonamide Allergy Unknown Remote Verified 02/01/21 15:46 Antibiotics) unknown reaction amlodipine AdvReac Intermediate Feet Verified 02/01/21 15:46 swelling Consultations None Procedures Performed None Ordered Studies Chest X-Ray 02/01/21 13:27 XR chest 2V PA/lateral CLINICAL HISTORY: weakness TECHNIQUE: AP and lateral frontal radiograph of the chest was obtained. Comparison: Comparison is made to chest 2 views 07/17/2020 FINDINGS: No lines and tubes are seen. The cardiomediastinal silhouette is normal. Bilateral lower lung predominant airspace opacities are seen. No evidence of pleural effusion or pneumothorax. IMPRESSION: Bilateral lower lung predominant airspace opacities which may represent atelectasis, pneumonia, and/or aspiration. ACT 112: Negative or not required by law. Electronically signed by: Geoffrey Doan M.D. 02/01/2021 1:56 PM Hospital Course (1) Pneumonia due to COVID-19 virus: 75 yo WF who incidentally tested positive for COVID-19 during last admission on 01/22 - Admit to monitored bed - Pt is not a candidate for Remdesivir, too far in her clinical course, and at this time not a candidate for Baricitinib (CRP <7.5, not requiring high flow O2) - Continue isolation at this time -- although today would be day #11, technically should be able to d/c isolation. Will d/w infection control. - Supplemental O2 to be provided, keep sat >/= 88% - Continue Decadron for 10 days or until d/c, whichever comes first - Initiated mucolytics and neb treatments - Today, pt is listed as 97% on 2L, upon my examination, O2 turned off and pulse ox stayed >90% - RT performed two step pulse ox study and pt did not desaturate with ambulation - Unfortunately, does not qualify for any interventions for COVID other than Decadron and now that is stable for d/c, this can be discontinued - Would recommend ongoing mucolytics at home and will send home with Albuterol inhaler PRN (2) Hypoxia: - Due to #1 (documented as 88% on room air) - No longer requiring supplemental O2 at this time (3) End stage renal disease: - Follows with Dr. Woodard, baseline creat ~3.0 - no urgent indication for dialysis at this time - renally dose meds as appropriate (4) GERD (gastroesophageal reflux disease): - Continue PPI (5) IVONNE (acute kidney injury): - Creat in ED 3.26, slightly above baseline - IV hydration provided overnight w/ LR, today creat 2.84 - D/C IVF, renal function at baseline (6) HTN (hypertension): - Currently on only Spironolactone, Imdur, Metoprolol Succinate - Had recent admisison d/t bradycardia--Diltiazem stopped - BP acceptable - D/C Spironolactone -- see below (7) Hyponatremia: - Suspect this is secondary to Aldactone - Slight improvement with hydration overnight from 02/01 to 02/02 but back down today once hydration stopped - Resume IVF hydration with NSS - repeat Na level this afternoon was stable at 130 - Stop Aldactone - Repeat labs in 48 hours and cc results to PCP D/C home today with home health (pt/ot and intermediate). Follow up with PCP within 1 week. Total Time Total Time Spent Total Time Spent (In Minutes): >30 minutes Discharge Plan Discharge Items Patient Disposition: Home - Home Health Services Reason For Visit: WEAKNESS Discharge Diagnosis: COVID Pneumonia Condition on Discharge: Fair Activity: As commented below Activity Comment: As tolerated, rest and slowly return activity to normal Non-emergency contact: Primary Care Provider Call non-emergency contact if: you have any medication questions and your symptoms worsen Follow-up/Referrals: Bernarda Rehman CRNP [Primary Care Provider] - Diet: Regular and Heart Healthy Ambulatory Orders: Basic Metabolic Panel (Routine) Timeframe: [id number] Location: Determined by Patient Ordered By: Jael Ribeiro Attending Provider Instructions: 1. Will provide an inhaler for patient to use at home if having shortness of breath or wheezing. 2. Recommend over the counter mucinex twice a day as instructed on the label. 3. Follow up with primary care provider within 1 week. 4. Home health (PT/OT and nursing will follow up with you at home). 5. Follow up labs to be drawn on 02/05/21 by home health. Pending Studies at Discharge: No Stand-Alone Forms: My [employer], Smoking Cessation Medications and DC Order Prescriptions: New albuterol sulfate [Proventil HFA] 90 mcg/actuation HFA aerosol inhaler 2 inh inhalation Q4H PRN (Reason: shortness of breath or wheezing) Qty: 6.7 RF: 0 Continued atorvastatin 40 mg tablet 20 mg PO QPM Qty: 45 RF: 3 rabeprazole 20 mg tablet,delayed release (DR/EC) 20 mg PO QAM Qty: 90 RF: 3 cyanocobalamin (vitamin B-12) 1,000 mcg tablet 1,000 mcg PO QAM Qty: 30 RF: 0 aripiprazole 2 mg tablet 2 mg PO QAM Qty: 30 RF: 2 aspirin [Adult Low Dose Aspirin] 81 mg tablet,delayed release (DR/EC) 81 mg PO QAM RF: 0 cholecalciferol (vitamin D3) 1,000 unit capsule 2,000 units PO QAM RF: 0 isosorbide mononitrate 60 mg tablet extended release 24 hr 60 mg PO QAM RF: 0 levothyroxine 50 mcg tablet 50 mcg PO QAM RF: 0 melatonin 3 mg Tablet 2 - 3 mg PO HS RF: 0 bupropion HCl [Wellbutrin XL] 300 mg tablet extended release 24 hr 300 mg PO QAM RF: 0 metoprolol succinate 25 mg tablet extended release 24 hr 25 mg PO DAILY Qty: 30 RF: 0 Discontinued spironolactone 25 mg tablet 25 mg PO DAILY RF: 0 Discharge Orders: Discharge Order (Routine); Ordered 02/03/21 Ordered By: Jael Huang Admission Data Admit Date/Time: 02/01/21 17:32 Attending Provider: Anirudh Esposito Admit Provider: Abel Mohan Primary Care Provider: Bernarda Rehmna Other Providers: Abel Mohan ; [place],Home Care Coding Level of Care Code D/C DAY MANAGEMENT >30 MINS Diagnoses Hypoxia R09.02 End stage renal disease N18.6 GERD (gastroesophageal reflux disease) K21.9 IVONNE (acute kidney injury) N17.9 HTN (hypertension) I10 Hyponatremia E87.1 Pneumonia due to COVID-19 virus U07.1; J12.82 Home Health Attestation I certify that this patient is under my care and that I, or a physicians per diem physical therapist assistant working with me, had a face to-face encounter that meets the home health [id number] encounter requirements with this patient. The encounter with the patient was in whole, or in part, for the following medical condition, which is the primary reason for home health care (list medical condition): I certify that, based on my findings, the following services are medically necessary home health services: My clinical findings support the need for the above services because: Further, I certify that my clinical findings support that this patient is homebound (i.e. absences from home require considerable and taxing effort and are for medical reasons or gnosticist services or infrequently or of short duration when for other reasons) because: Certification for Home Health Services: Based on the above findings, I certify that this patient is confined to the home and needs intermittent intermediate care, physical therapy and/or speech therapy or continues to need occupational therapy. The patient is under my care, and I have initiated the establishment of the plan of care. This patient will be followed by a physician who will periodically review the plan of care.
[2021-02-03 16:07] LABS: BUN Creatinine Ratio 28.6 (10-20); Creatinine Clr Calc Pharmacy 15.2 ml/min; Est GFR (African American) 21.3 ml/min; Est GFR (Non-African American) 18.4 ml/min; Potassium 4.9 mmol/L (3.5-5.1)
== END 2021-02-03 17:51 | disposition home health service (06) | DRG 177 ==
LOC: ED 13:07 → SUATTDRO 17:32 → EDINP 17:32 → 3W 02-02 23:17

== ENCOUNTER 2022-09-16 21:30 | Inpatient (IN) ==
[2022-09-16] MEDS ORDERED: SODIUM CHLORIDE 0.9% 1000ML 500 ML IV SCH (21:45)
[2022-09-16] MEDS ORDERED: PIPERACILLIN/TAZOBACTAM 4.5 GM/120 ML BAG IV ONE (21:45)
[2022-09-16] MEDS ORDERED: ACETAMINOPHEN 1,000 MG/100 ML VIAL IV STA (21:45)
[2022-09-16] MEDS ORDERED: SODIUM CHLORIDE 0.9% 1000ML 1,000 ML IV SCH (21:45)
--- NOTE | 2022-09-16 22:00 | Emergency Department Note ---
History of Present Illness General Chief complaint: Weakness Stated complaint: WEAKNESS, ILLNESS, UNABLE TO AMBULATE Time Seen by Provider: 09/16/22 21:34 History of Present Illness This 76-year-old female with chronic kidney disease stage IV presents to the ER complaining of fever, chills and generalized illness today. Patient was at work and started to feel weak and ill and confused and went home. Symptoms got worse and her son sent her to the hospital. Patient denies chest pain, dyspnea, headache, neck stiffness, vomiting, diarrhea. She does get frequent UTIs. She did not drink much water today. Temperatures 103. Home Medications Medication Instructions Recorded Confirmed Type aspirin 81 mg tablet,delayed 81 mg PO QAM 10/02/18 06/17/22 History release (Adult Low Dose Aspirin) aripiprazole 2 mg tablet 2 mg PO QAM #30 tabs 02/11/20 06/17/22 Rx melatonin 3 mg tablet 3 mg PO HS 07/13/20 09/16/22 History bupropion HCl 300 mg 24 hr tablet, 300 mg PO QAM 07/22/20 06/17/22 History extended release (Wellbutrin XL) metoprolol succinate 50 mg 50 mg PO DAILY #90 tabs 10/12/21 06/17/22 Rx tablet,extended release 24 hr isosorbide mononitrate 60 mg 60 mg PO QAM #90 tabs 03/07/22 06/17/22 Rx tablet,extended release 24 hr rabeprazole 20 mg tablet,delayed 20 mg PO QAM #90 tabs 03/24/22 06/17/22 Rx release levothyroxine 50 mcg tablet 50 mcg PO QAM #90 tabs 06/08/22 09/16/22 Rx nitrofurantoin 100 mg PO BID #14 caps 06/17/22 06/17/22 Rx monohydrate/macrocrystals 100 mg capsule (Macrobid) atorvastatin 40 mg tablet 20 mg PO HS #45 tabs 06/23/22 Rx furosemide 20 mg tablet 20 mg PO QAM #90 tabs 06/30/22 Rx Allergies Allergy/AdvReac Type Severity Reaction Status Date / Time amlodipine Allergy Intermediate Feet Verified 06/17/22 10:51 swelling Sulfa (Sulfonamide Allergy Unknown Remote Verified 06/17/22 10:51 Antibiotics) unknown reaction Past Med/Surg History Medical History Anxiety and depression AV fistula LEFT ARM *HAS NOT USED Bradycardia COVID-19 End stage renal disease ESRD (end stage renal disease) Follows with Dr. Woodard > no current dialysis GERD (gastroesophageal reflux disease) Hiatal hernia History of COVID-19 01/22/21>MILD SYMPTOMS *RESOLVED History of TIA (transient ischemic attack) Several years ago *NO PROBLEMS FROM EVENT Hyperkalemia Hyperlipidemia Hypertension Hypothyroidism Osteoarthritis Schatzki's ring Sensorineural hearing loss (SNHL) bilat. Sleep apnea tested, but told "no device needed" per patient Temporomandibular joint disorder + clicking, no locking Surgical History History of carpal tunnel release RT/LEFT History of cataract surgery RT/LEFT History of colonoscopy Colonoscopy (01/08/19): MAC at [facility] History of esophagogastroduodenoscopy (EGD) History of laparoscopic cholecystectomy History of surgery Left Antecubital Basilic Vein Arteriovenous Fistula Creation (07/22/20): MAC + PNB at [facility] History of tonsillectomy and adenoidectomy History of tooth extraction Family History Mother Ovarian cancer Heart disease Father Family history of diabetes mellitus Heart disease Grandmother (Maternal) Family history of diabetes mellitus Other No family history of adverse response to anesthesia Denies family history of Prostate cancer Myocardial infarction Breast cancer Colorectal cancer Social History Smoking Status: Never smoker Second Hand Exposure: No; Do You Dip or Chew Tobacco: No; Hx Alcohol Use: No Hx Substance Use: No Preferred Language: Kazakh Communication Ability: Effective Visual Impairment: Limited Hearing Ability: Normal Thread Trimmer Required: No Beliefs That Will Affect Care: None marital status: Current Living Situation: Family Current Living Situation Comment: son lives with pt current occupational status: employed 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 [employer] How many Children do You have: 3 Feels Safe at Home: Yes Childhood Exposure to Second-Hand Smoke: Yes Diet: regular caffeine: No during the past year weight has: remained stable Dental Care, Regularly: No Physical Activity Frequency: Daily Seatbelt Use: always Sunscreen Use: No Do you think of yourself as: straight/heterosexual Gender Identity: Female Assistive Devices: Denture - Upper, Denture - Lower and Glasses Review of Systems A total of 10 systems reviewed and were otherwise negative Physical Exam Vital Signs Vital Signs - 24 hr 09/16/22 21:39 09/16/22 21:39 09/16/22 21:39 Temperature 39.3 C H 39.3 C H Temperature Source Oral Oral Pulse Rate 93 H Pulse Rate [Apical] Pulse Rate from SpO2 Sensor Respiratory Rate 15 15 Respiratory Effort / Characteristics Respiratory Depth Blood Pressure 161/68 H Blood Pressure [Right Arm] Blood Pressure Mean 99 Blood Pressure Mean [Right Arm] Pulse Oximetry 95 95 95 Oxygen Delivery Method Room Air Room Air Room Air Oxygen Flow Rate 0 Sepsis Recent Fever Within 48 Hours Yes Sepsis New/Unexplained Change in Mental Status Yes Sepsis Action Taken by Nursing Physician Notified 09/16/22 21:39 09/16/22 22:06 09/16/22 21:38 Temperature Temperature Source Pulse Rate 94 H Pulse Rate [Apical] Pulse Rate from SpO2 Sensor Respiratory Rate Respiratory Effort / Characteristics Respiratory Depth Blood Pressure 161/68 H Blood Pressure [Right Arm] Blood Pressure Mean 115 Blood Pressure Mean [Right Arm] Pulse Oximetry 95 Oxygen Delivery Method Room Air Oxygen Flow Rate Sepsis Recent Fever Within 48 Hours Sepsis New/Unexplained Change in Mental Status Sepsis Action Taken by Nursing 09/16/22 21:39 09/16/22 21:40 09/16/22 21:50 Temperature Temperature Source Pulse Rate 94 H 94 H 93 H Pulse Rate [Apical] Pulse Rate from SpO2 Sensor 94 H 95 H Respiratory Rate 18 18 18 Respiratory Effort / Characteristics Respiratory Depth Blood Pressure Blood Pressure [Right Arm] Blood Pressure Mean Blood Pressure Mean [Right Arm] Pulse Oximetry 95 95 Oxygen Delivery Method Oxygen Flow Rate Sepsis Recent Fever Within 48 Hours Sepsis New/Unexplained Change in Mental Status Sepsis Action Taken by Nursing 09/16/22 22:00 09/16/22 22:10 09/16/22 22:20 Temperature Temperature Source Pulse Rate 93 H 92 H 91 H Pulse Rate [Apical] Pulse Rate from SpO2 Sensor 93 H 92 H 92 H Respiratory Rate 18 18 18 Respiratory Effort / Characteristics Respiratory Depth Blood Pressure Blood Pressure [Right Arm] Blood Pressure Mean Blood Pressure Mean [Right Arm] Pulse Oximetry 94 93 94 Oxygen Delivery Method Oxygen Flow Rate Sepsis Recent Fever Within 48 Hours Sepsis New/Unexplained Change in Mental Status Sepsis Action Taken by Nursing 09/16/22 22:30 09/16/22 23:00 Temperature 37.6 C H Temperature Source Oral Pulse Rate 89 Pulse Rate [Apical] 88 Pulse Rate from SpO2 Sensor 89 Respiratory Rate 18 16 Respiratory Effort / Characteristics Non-Labored Spontaneous Respiratory Depth Normal Blood Pressure Blood Pressure [Right Arm] 117/56 L Blood Pressure Mean Blood Pressure Mean [Right Arm] 76 Pulse Oximetry 94 95 Oxygen Delivery Method Room Air Oxygen Flow Rate Sepsis Recent Fever Within 48 Hours Sepsis New/Unexplained Change in Mental Status Sepsis Action Taken by Nursing VITALS: Vitals are noted on the nurse's note and reviewed by myself. Vital signs febrile. GENERAL: Pleasant elderly female ill-appearing, in no acute distress SKIN: The skin was without rashes, erythema, edema, or bruising. There is no tenting of the skin. Capillary reflex less than 2 seconds. HEAD: Normocephalic atraumatic. EARS: External auditory canals clear, EYES: Pupils equal round and reactive to light and accommodation. Conjunctivae without injection, sclerae without icterus. Extraocular movements intact. NOSE: Patent, turbinates without inflammation or discharge. MOUTH: Mucous membranes moist. Pharynx without erythema or exudate. Uvula midline. Airway patent. Tongue does not deviate. NECK: Supple without nuchal rigidity. No lymphadenopathy. No thyromegaly. Cervical spine is nontender. No JVD. HEART: Regular rate and rhythm LUNGS: Clear to auscultation bilaterally without wheezes, rales or rhonchi. No retractions or accessory muscle use. ABDOMEN: Positive bowel sounds x 4. Normal tympanic percussion. Soft, tender lower abdomen over the bladderr, without masses or organomegaly. Gutierrez sign negative. No guarding or rebound tenderness. No CVA tenderness MUSCULOSKELETAL: No muscle atrophy, erythema, or edema noted. NEURO: Patient was alert and oriented to person place and time. Normal sensation to light and sharp touch. No focal neurological deficits. Course Administered Medications Discontinued Medications Sodium Chloride (Nss 1000ml) 500 mls @ 999 mls/hr IV .Q31M EDITH Stop: 09/16/22 22:15 Last Infusion: 09/16/22 23:11 Dose: 0 mls/hr Documented By: Admin: 09/16/22 22:07 Dose: 999 mls/hr Documented By: BROOKE Sodium Chloride (Nss 1000ml) 1,000 mls @ 999 mls/hr IV .Q1H1M EDITH Stop: 09/16/22 22:45 Last Admin: 09/16/22 22:07 Dose: 999 mls/hr Documented By: BROOKE Acetaminophen (Ofirmev) 1,000 mg in 100 mls @ 400 mls/hr IV NOW STA Stop: 09/16/22 21:59 Last Infusion: 09/16/22 22:31 Dose: 0 mls/hr Documented By: Admin: 09/16/22 22:07 Dose: 400 mls/hr Documented By: BROOKE Piperacillin Sod/Tazobactam Sod (Zosyn) 4.5 gm in 120 mls @ 240 mls/hr IV NOW ONE Stop: 09/16/22 22:14 Last Infusion: 09/16/22 22:42 Dose: 0 mls/hr Documented By: Admin: 09/16/22 22:07 Dose: 240 mls/hr Documented By: BROOKE Critical Care Time Critical Care Time: Yes Total Critical Care Time: 35 I have personally spent 35 minutes of critical care time in the direct management of this patient. This includes bedside care, interpretation of diagnostic studies, and testing, discussion with consultants, patient, and family members, and other required patient management activities. This 35 minutes is in excess of all separately billable procedures. Medical Decision Making Medical Records Attestation: I reviewed the patient's medical records. Home Medications Current Medication List: was personally reviewed by me Laboratory Data Attestation: I reviewed the patient's lab results. 09/16/22 21:47 09/16/22 21:47 Lab Results 09/16/22 09/16/22 09/16/22 Range/Units 21:47 21:47 21:47 WBC 16.00 H (4.8-10.8) K/ul RBC 3.43 L (4.20-5.40) M/uL Hgb 10.3 L (12.0-16.0) g/dl Hct 30.4 L (37.0-47.0) % MCV 88.6 (80.0-100.0) fL MCH 30.0 (25.0-34.0) pg MCHC 33.9 (32.0-36.0) g/dL RDW Std Deviation 45.4 (36.4-46.3) fL RDW Coeff of Rob 14.0 (11.5-14.5) % Plt Count 235 (130-400) K/uL MPV 9.6 (9.4-12.4) fL Immature Gran % (Auto) 1.8 % Neut % (Auto) 95.1 % Lymph % (Auto) 2.3 % [place] % (Auto) 0.6 % Eos % (Auto) 0.1 % Baso % (Auto) 0.1 % Neut # (Auto) 15.22 H (1.40-6.50) K/uL Lymph # (Auto) 0.37 L (1.2-3.4) K/uL [place] # (Auto) 0.09 L (0.11-0.59) K/uL Eos # (Auto) 0.02 (0-0.50) K/uL Baso # (Auto) 0.02 (0-0.2) K/uL Immature Gran # (Auto) 0.28 H (0.01-0.20) K/uL Sodium 138 (136-145) mmol/L Potassium 3.6 (3.5-5.1) mmol/L Chloride 103 (98-107) mmol/L Carbon Dioxide 24 (21-32) mmol/L Anion Gap 11 (3-11) BUN 21 (6-23) mg/dl Creatinine 2.41 H (0.6-1.2) mg/dl Est Cr Clr Drug Dosing Not Reportable Est GFR ( Amer) 21.6 ml/min Est GFR (Non-Af Amer) 18.6 ml/min BUN/Creatinine Ratio 8.7 L (10-20) Glucose 91 (70-99(Fasting)) mg/dl Lactate (0.4-2.0) mmol/L Calcium 8.6 (8.6-10.3) mg/dl Magnesium 1.0 L (1.7-2.4) mg/dl Total Bilirubin 0.7 (0.2-1.0) mg/dl Direct Bilirubin 0.2 (0-0.2) mg/dl AST 18 (13-39) U/L ALT 11 (7-52) U/L Alkaline Phosphatase 88 (34-104) U/L Troponin I High Sens 8.4 (0-14) pg/ml Total Protein 6.6 (6.0-8.3) gm/dl Albumin 3.7 (3.4-5.0) gm/dl TSH 3.412 (0.300-4.500) uIu/ml Urine Color Urine Appearance (Clear) Urine pH (4.5-7.5) Ur Specific [place] (1.000-1.030) Urine Protein (Negative) Urine Glucose (UA) (Negative) Urine Ketones (Negative) Urine Blood (Negative) Urine Nitrite (Negative) Urine Bilirubin (Negative) Urine Urobilinogen (Negative) Ur Leukocyte Esterase (Negative) Urine WBC (Auto) (0-5) /hpf Urine RBC (Auto) (0-4) /hpf U Hyaline Cast (Auto) (0-5) /lpf U Epithel Cells (Auto) (0-5) /lpf Urine Bacteria (Auto) (Negative) Adenovirus (PCR) (NotDetected) B. pertussis DNA (PCR) (NotDetected) B.parapertussis DNA PCR (NotDetected) C. pneumoniae DNA (PCR) (NotDetected) Coronavirus OC43 (PCR) (NotDetected) Coronavirus HKU1 (PCR) (NotDetected) Coronavirus 229E (PCR) (NotDetected) SARS-CoV-2 (PCR) (NotDetected) Coronavirus NL63 (PCR) (NotDetected) Human Metapneumovir PCR (NotDetected) Influenza Type A (PCR) (NotDetected) Influenza Type B (PCR) (NotDetected) M. pneumoniae (PCR) (NotDetected) Parainfluenza 1 (PCR) (NotDetected) Parainfluenza 2 (PCR) (NotDetected) Parainfluenza 3 (PCR) (NotDetected) Parainfluenza 4 (PCR) (NotDetected) RSV (PCR) (NotDetected) Entero/Rhino (PCR) (NotDetected) 09/16/22 09/16/22 09/16/22 Range/Units 21:50 21:51 22:03 WBC (4.8-10.8) K/ul RBC (4.20-5.40) M/uL Hgb (12.0-16.0) g/dl Hct (37.0-47.0) % MCV (80.0-100.0) fL MCH (25.0-34.0) pg MCHC (32.0-36.0) g/dL RDW Std Deviation (36.4-46.3) fL RDW Coeff of Rob (11.5-14.5) % Plt Count (130-400) K/uL MPV (9.4-12.4) fL Immature Gran % (Auto) % Neut % (Auto) % Lymph % (Auto) % [place] % (Auto) % Eos % (Auto) % Baso % (Auto) % Neut # (Auto) (1.40-6.50) K/uL Lymph # (Auto) (1.2-3.4) K/uL [place] # (Auto) (0.11-0.59) K/uL Eos # (Auto) (0-0.50) K/uL Baso # (Auto) (0-0.2) K/uL Immature Gran # (Auto) (0.01-0.20) K/uL Sodium (136-145) mmol/L Potassium (3.5-5.1) mmol/L Chloride (98-107) mmol/L Carbon Dioxide (21-32) mmol/L Anion Gap (3-11) BUN (6-23) mg/dl Creatinine (0.6-1.2) mg/dl Est Cr Clr Drug Dosing Est GFR ( Amer) ml/min Est GFR (Non-Af Amer) ml/min BUN/Creatinine Ratio (10-20) Glucose (70-99(Fasting)) mg/dl Lactate 2.2 H* (0.4-2.0) mmol/L Calcium (8.6-10.3) mg/dl Magnesium (1.7-2.4) mg/dl Total Bilirubin (0.2-1.0) mg/dl Direct Bilirubin (0-0.2) mg/dl AST (13-39) U/L ALT (7-52) U/L Alkaline Phosphatase (34-104) U/L Troponin I High Sens (0-14) pg/ml Total Protein (6.0-8.3) gm/dl Albumin (3.4-5.0) gm/dl TSH (0.300-4.500) uIu/ml Urine Color Yellow Urine Appearance Clear (Clear) Urine pH 6.0 (4.5-7.5) Ur Specific [place] 1.014 (1.000-1.030) Urine Protein 1+ H (Negative) Urine Glucose (UA) Negative (Negative) Urine Ketones Negative (Negative) Urine Blood Trace H (Negative) Urine Nitrite Positive A (Negative) Urine Bilirubin Negative (Negative) Urine Urobilinogen Negative (Negative) Ur Leukocyte Esterase Trace H (Negative) Urine WBC (Auto) 5-10 H (0-5) /hpf Urine RBC (Auto) 0-4 (0-4) /hpf U Hyaline Cast (Auto) 1-5 (0-5) /lpf U Epithel Cells (Auto) 20-30 H (0-5) /lpf Urine Bacteria (Auto) 4+ H (Negative) Adenovirus (PCR) Not Detected (NotDetected) B. pertussis DNA (PCR) Not Detected (NotDetected) B.parapertussis DNA PCR Not Detected (NotDetected) C. pneumoniae DNA (PCR) Not Detected (NotDetected) Coronavirus OC43 (PCR) Not Detected (NotDetected) Coronavirus HKU1 (PCR) Not Detected (NotDetected) Coronavirus 229E (PCR) Not Detected (NotDetected) SARS-CoV-2 (PCR) Not Detected (NotDetected) Coronavirus NL63 (PCR) Not Detected (NotDetected) Human Metapneumovir PCR Not Detected (NotDetected) Influenza Type A (PCR) Not Detected (NotDetected) Influenza Type B (PCR) Not Detected (NotDetected) M. pneumoniae (PCR) Not Detected (NotDetected) Parainfluenza 1 (PCR) Not Detected (NotDetected) Parainfluenza 2 (PCR) Not Detected (NotDetected) Parainfluenza 3 (PCR) Not Detected (NotDetected) Parainfluenza 4 (PCR) Not Detected (NotDetected) RSV (PCR) Not Detected (NotDetected) Entero/Rhino (PCR) Not Detected (NotDetected) Imaging Data Attestation: I personally reviewed and interpreted this imaging study as follows: Radiologist's Impression: Abdomen/Pelvis CT 09/16/22 21:43 CT SCAN OF THE ABDOMEN AND PELVIS WITHOUT IV CONTRAST CLINICAL HISTORY: Sepsis. Change in mental status. COMPARISON STUDY: Abdominal MRI dated 04/11/2013. TECHNIQUE: CT scan of the abdomen and pelvis is performed from the lung bases to the proximal femora. Images are reviewed in the axial, sagittal, and coronal planes. IV contrast was not administered for this examination. Note the examination is suboptimal without IV contrast. A dose lowering technique was utilized adhering to the principles of ALARA. CT DOSE: 752.96 mGy.cm FINDINGS: Lung bases: The heart is enlarged and without pericardial effusion. There are coronary artery calcifications. Calcified granulomas are seen in the lingula. The lung bases are otherwise clear noting bibasilar scarring/atelectasis. Liver: The unenhanced liver is normal in size, contour, and attenuation. There is no intrahepatic biliary ductal dilatation. Gallbladder: Surgically absent and clips in the gallbladder fossa. Spleen: Normal in size and attenuation. Pancreas: A 3.4 cm lobulated cystic lesion within/adjacent to the pancreatic head has been present dating back to a 2014 MRI The unenhanced pancreas is moderately atrophic and otherwise grossly unremarkable. Adrenal glands: Unremarkable. Kidneys: The unenhanced kidneys are atrophic and without hydronephrosis. There are no renal calculi identified. A 1.9 cm cyst is noted in the right lower pole lesion. Abdominal vasculature: The abdominal aorta is normal in course and caliber noting advanced atherosclerotic calcification. Bowel: There is mild to moderate colonic diverticulosis without CT evidence of acute diverticulitis. No bowel obstruction is seen. Mild fecal retention is noted throughout the colon. The appendix is well-visualized and normal. Peritoneum: There is no intraperitoneal free air or abdominal ascites. There is a small fat-containing umbilical hernia. Lymphadenopathy: None. Pelvic viscera: The bladder is decompressed and grossly unremarkable. The uterus is heterogeneous, likely representing fibroids. No adnexal lesion is seen. Skeletal structures: The skeletal structures are osteopenic. There is moderate to advanced lumbosacral spondylosis and scoliosis. No lytic or blastic lesions are seen. IMPRESSION: 1. No acute infectious or inflammatory findings are identified in the abdomen or pelvis. 2. Cardiomegaly. 3. Colonic diverticulosis without CT evidence of acute diverticulitis. 4. A 3.4 cm lobulated cystic lesion within/adjacent to pancreatic head has been present dating back to a 2014 abdominal MRI. 5. Additional findings as above. ACT 112: Negative or not required by law. Electronically signed by: Luis Carlos Lawson M.D. 09/16/2022 10:58 PM Chest X-Ray 09/16/22 21:43 SINGLE VIEW CHEST CLINICAL HISTORY: Sepsis. FINDINGS: An AP, portable, upright chest radiograph is compared to study dated 02/01/2021. The cardiomediastinal silhouette is top normal for projection. Chronic interstitial thickening is similar to previous. There is bibasilar scarring/atelectasis. No airspace consolidation or large pleural effusion is identified. No pneumothorax is seen. The skeletal structures are osteopenic. The bony thorax is grossly intact. Cholecystectomy clips are noted in the right upper quadrant. IMPRESSION: No active disease in the chest. ACT 112: Negative or not required by law. Electronically signed by: Luis Carlos Lawson M.D. 09/16/2022 10:24 PM [facility] Narrative Prior records/ancillary studies reviewed. Triage Nursing notes reviewed. Additional history obtained from nursing. The patient's history was concerning for fever and increased confusion. Differential diagnosis: Etiologies such as sepsis, UTI, pneumonia, metabolic, electrolyte abnormalities, cardiac sources, intracerebral event, toxicologic, neurologic, as well as others were entertained. Physical examination: As above. Pertinent findings were fever. Vital signs reviewed and revealed febrile. ER treatment provided: IV fluid resuscitation with Normal saline solution, 1500 mL bolus. Blood and urine cultures Antibiotics: Zosyn was ordered which was sensitive to patient's last urine culture Magnesium was ordered An order was placed for continuous cardiac monitoring. The monitor shows a rate of 60-100 with a sinus rhythm per my interpretation. On reassessment the patient vital signs improved. Diagnostics interpretation by me: ECG: Ordered for weakness EKG: Normal sinus, normal intervals, minimal ST depression in lead I and aVL,. Q waves in the inferior leads, impression normal sinus rhythm Q waves in inferior leads independently interpreted by myself I think arrhythmia is unlikely. EKG shows normal sinus rhythm with no interval abnormalities such as QT prolongation or WPW. There are no findings to suggest B rugada syndrome. Cardiac monitoring in the emergency department reveals no tachycardic or bradycardic dysrhythmia. Hypertrophic cardiomyopathy was considered but there are no clear historical elements pointing toward this. EKG is not suggestive. The QRS voltage is not extremely large The labs Independently Interpreted by myself revealed leukocytosis on CBC. Chemistry panel revealed low magnesium and this was replaced. LFTs revealed. Cardiac enzymes were negative. Serum Lactate measurement was 2.2. Blood and urine cultures are pending. YUMI MACRUS [id number] Allergy/Adv: amlodipine, Sulfa (Sulfonamide Antibiotics) (More) Close Micro Urine Specimen 06/17/22 Urine Culture - Final Micro Urine Specimen 06/18/21 Urine Culture - Final Micro Urine Specimen 01/22/21 Urine Culture - Final Micro Urine Specimen 12/21/20 Urine Culture - Final Micro Urine Specimen 12/20/19 Urine Culture - Final Micro Urine Specimen 10/15/19 Urine Culture - Final Micro Urine Specimen 08/13/19 Urine Culture - Final Micro Urine Specimen 05/07/19 Urine Culture - Final Micro Urine Specimen 04/03/19 Urine Culture - Final Micro Urine Specimen 07/24/18 Urine Culture [place] [place] [address] / Director: Yonas Gold M.D. Clinical Laboratory Report Name: YUMI MARCUS Acct: [id number] Status: DEP CLI : 1945 [facility] Date: 06/17/22 Age: 76 Sex: F Dis Date: Loc: [facility] Spec: [id number] Collected: 06/17/22-UNK Received: 06/17/22-[address]: Bernarda Rehman CRNP Source: Urine,Clean Catch OV Order: Ordered: Urine Culture Procedure Result Verified Site Urine Culture Final 04/30/23-0727 Organism 1 Escherichia coli [place] Count >100,000 CFU/ml Sens Sensitivities to Follow E coli RX M.I.C. --- --------- Amox/Clav S <=8/4 Ampicillin S <=8 Amp/Sul S <=8/4 Cefazolin S <=2 Cefepime S <=2 Ceftriaxone S <=1 Ciprofloxacin R >2 Ertapenem S <=0.5 Gentamicin S <=4 Levofloxacin R >4 Meropenem S <=1 Nitrofurantoin S <=32 Tobramycin S <=4 Trimeth/Sulfa S <=2/38 Pip/Tazo S <=16 S = SENSITIVE I = INTERMEDIATE R = RESISTANT Name: YUMI MARCUS Trupti : 1945 PAGE 1 Printed: 09/16/22 2320 END OF REPORT Imaging studies: Chest xray revealed with no acute consolidation, pneumothorax or free air per my independent interpretation. Abdominal pelvis CT negative for obstruction per my independent interpretation. Report was reviewed as above exam and history seem consistent with sepsis from UTI. Patient was immediately mainly started on antibiotics upon my initial evaluation. Prior urine cultures reviewed. Labs and diagnostics were independently interpretedid by myself. She was hydrated per septic protocol. She is given Tylenol for the fever. Cultures were placed. She was reassessed multiple times. Patient will be admitted to the Medical service. Medicine was consulted and the case was discussed. Patient is agreeable. Consultation: A consultation was placed with the hospitalist. The case was discussed and diagnostics were reviewed. The patient was evaluated in the ER for further treatment. The chart was completed utilizing [employer] voice recognition software. Grammatical errors, random word insertions, pronoun errors, and incomplete sentences are an occassional consequence of this system due to software limitations, ambient noise, and hardware issues. Any formal questions or concerns about the content, text, or information contained within the body of this dictation should be directly addressed to the physician speech and language assistant for clarification. Impression & Plan Sepsis, Acute UTI Discharge Plan Visit Data Chief Complaint: Weakness Stated Complaint: WEAKNESS, ILLNESS, UNABLE TO AMBULATE ED Provider: [facility] ED Midlevel Provider: Grace Collins Discharge Problem: Sepsis, Acute UTI Patient Disposition: Admitted As Inpatient Condition: Fair Forms Stand Alone Forms: My [facility] Prescriptions Prescriptions: No Action isosorbide mononitrate 60 mg tablet extended release 24 hr 60 mg PO QAM Qty: 90 3RF rabeprazole 20 mg tablet,delayed release (DR/EC) 20 mg PO QAM Qty: 90 3RF levothyroxine 50 mcg tablet 50 mcg PO QAM Qty: 90 3RF atorvastatin 40 mg tablet 20 mg PO HS Qty: 45 3RF Rx Instructions: take 1/2 tab daily furosemide 20 mg tablet 20 mg PO QAM Qty: 90 3RF metoprolol succinate 50 mg tablet extended release 24 hr 50 mg PO DAILY Qty: 90 3RF aripiprazole 2 mg tablet 2 mg PO QAM Qty: 30 2RF aspirin [Adult Low Dose Aspirin] 81 mg tablet,delayed release (DR/EC) 81 mg PO QAM nitrofurantoin monohyd/m-cryst [Macrobid] 100 mg capsule 100 mg PO BID Qty: 14 0RF Rx Instructions: must administer with a meal/food melatonin 3 mg Tablet 3 mg PO HS bupropion HCl [Wellbutrin XL] 300 mg tablet extended release 24 hr 300 mg PO QAM Referrals Referrals: Bernarda Rehman CRNP [Primary Care Provider] - Sepsis Qualifiers: Sepsis type: sepsis due to unspecified organism Sepsis acute organ dysfunction status: unspecified Qualified Code(s): A41.9 - Sepsis, unspecified organism
--- NOTE | 2022-09-16 22:25 | XRay Report ---
SINGLE VIEW CHEST CLINICAL HISTORY: Sepsis. FINDINGS: An AP, portable, upright chest radiograph is compared to study dated 02/01/2021. The cardio mediastinal silhouette is top normal for projection. Chronic interstitial thickening is similar to pr evious. There is bibasilar scarring/atelectasis. No airspace consolidation or large pleural effusion is identified. No pneumothorax is seen. The skeletal structures are osteopenic. The bony thorax is gr ossly intact. Cholecystectomy clips are noted in the right upper quadrant. IMPRESSION: No active disease in the chest. ACT 112: Negative or not required by law. Electronically signed by: Luis Carlos Lawson M.D. 09/16/2022 10:24 PM
[2022-09-16 22:27] LABS: Appearance Urine Clear (Clear); Bacteria Urine Automated 4+ (Negative); Bilirubin Urine Negative (Negative); Blood Urine Trace (Negative); Color Urine Yellow; Epithelial Cell Urine Auto 20-30 /lpf (0-5); Glucose Urine UA Negative (Negative); Ketones Urine Negative (Negative); Leukocyte Esterase Urine Trace (Negative); Nitrite Urine Positive (Negative); Protein Urine 1+ (Negative); RBC Urine Automated 0-4 /hpf (0-4); Specific Gravity Urine 1.014 (1.000-1.030); Urobilinogen Urine Negative (Negative)
[2022-09-16 22:29] LABS: Hematocrit (blood only) 30.4 % (37.0-47.0); Hemoglobin 10.3 g/dl (12.0-16.0); Mean Corpuscular Hgb Conc 33.9 g/dL (32.0-36.0); Mean Corpuscular Volume 88.6 fL (80.0-100.0); Mean Platelet Volume 9.6 fL (9.4-12.4); Platelet Count 235 K/uL (130-400); RDW Standard Deviation 45.4 fL (36.4-46.3); Red Blood Count 3.43 M/uL (4.20-5.40)
[2022-09-16 22:46] LABS: Alanine Aminotransferase 11 U/L (7-52); Albumin Level 3.7 gm/dl (3.4-5.0); Alkaline Phosphatase 88 U/L (34-104); Anion Gap 11 (3-11); Aspartate Aminotransferase 18 U/L (13-39); BUN Creatinine Ratio 8.7 (10-20); Bilirubin Direct 0.2 mg/dl (0-0.2); Bilirubin,Total 0.7 mg/dl (0.2-1.0); Blood Urea Nitrogen 21 mg/dl (6-23); Calcium 8.6 mg/dl (8.6-10.3); Carbon Dioxide 24 mmol/L (21-32); Chloride 103 mmol/L (98-107); Est GFR (African American) 21.6 ml/min; Est GFR (Non-African American) 18.6 ml/min; Glucose 91 mg/dl (70-99(Fasting)); Potassium 3.6 mmol/L (3.5-5.1); Sodium 138 mmol/L (136-145); Total Protein 6.6 gm/dl (6.0-8.3)
[2022-09-16 22:51] LABS: Troponin I High Sensitivity 8.4 pg/ml (0-14)
[2022-09-16 22:55] LABS: Basophils # (auto) 0.02 K/uL (0-0.2); Basophils % (auto) 0.1 %; Eosinophils # (auto) 0.02 K/uL (0-0.50); Eosinophils % (auto) 0.1 %; Immature Granulocytes # (auto) 0.28 K/uL (0.01-0.20); Immature Granulocytes % (auto) 1.8 %; Lymphocytes # (auto) 0.37 K/uL (1.2-3.4); Lymphocytes % (auto) 2.3 %; Monocytes # (auto) 0.09 K/uL (0.11-0.59); Monocytes % (auto) 0.6 %; Neutrophils # (auto) 15.22 K/uL (1.40-6.50); Neutrophils % (auto) 95.1 %
--- NOTE | 2022-09-16 23:00 | CT Scan Report ---
CT SCAN OF THE ABDOMEN AND PELVIS WITHOUT IV CONTRAST CLINICAL HISTORY: Sepsis. Change in mental status. COMPARISON STUDY: Abdominal MRI dated 04/11/2013. TECHNIQUE: CT scan of the abdomen and pelvis is performed from the lung bases to the proximal femora. Images are reviewed in the axial, sagittal, and coronal planes. IV contrast was not administered for this examination. Note the examination is suboptimal without IV contrast. A dose lowering technique was utilized adhering to the principles of ALARA. CT DOSE: 752.96 mGy.cm FINDINGS: Lung bases: The heart is enlarged and without pericardial effusion. There are coronary artery calcifi cations. Calcified granulomas are seen in the lingula. The lung bases are otherwise clear noting biba silar scarring/atelectasis. Liver: The unenhanced liver is normal in size, contour, and attenuation. There is no intrahepatic adal iary ductal dilatation. Gallbladder: Surgically absent and clips in the gallbladder fossa. Spleen: Normal in size and attenuation. Pancreas: A 3.4 cm lobulated cystic lesion within/adjacent to the pancreatic head has been present da ting back to a 2014 MRI The unenhanced pancreas is moderately atrophic and otherwise grossly unremark able. Adrenal glands: Unremarkable. Kidneys: The unenhanced kidneys are atrophic and without hydronephrosis. There are no renal calculi i dentified. A 1.9 cm cyst is noted in the right lower pole lesion. Abdominal vasculature: The abdominal aorta is normal in course and caliber noting advanced atheroscle rotic calcification. Bowel: There is mild to moderate colonic diverticulosis without CT evidence of acute diverticulitis. No bowel obstruction is seen. Mild fecal retention is noted throughout the colon. The appendix is we ll-visualized and normal. Peritoneum: There is no intraperitoneal free air or abdominal ascites. There is a small fat-containin g umbilical hernia. Lymphadenopathy: None. Pelvic viscera: The bladder is decompressed and grossly unremarkable. The uterus is heterogeneous, li gary representing fibroids. No adnexal lesion is seen. Skeletal structures: The skeletal structures are osteopenic. There is moderate to advanced lumbosacra l spondylosis and scoliosis. No lytic or blastic lesions are seen. IMPRESSION: 1. No acute infectious or inflammatory findings are identified in the abdomen or pelvis. 2. Cardiomegaly. 3. Colonic diverticulosis without CT evidence of acute diverticulitis. 4. A 3.4 cm lobulated cystic lesion within/adjacent to pancreatic head has been present dating back t o a 2013 abdominal MRI. 5. Additional findings as above. ACT 112: Negative or not required by law. Electronically signed by: Luis Carlos Lawson M.D. 09/16/2022 10:58 PM
[2022-09-16 23:10] LABS: Adenovirus PCR Not Detected (NotDetected); Bordetella parapertussis PCR Not Detected (NotDetected); Bordetella pertussis PCR Not Detected (NotDetected); Chlamydia pneumoniae PCR Not Detected (NotDetected); Coronavirus 229E PCR Not Detected (NotDetected); Coronavirus CoV-2 (COVID19)PCR Not Detected (NotDetected); Coronavirus HKU1 PCR Not Detected (NotDetected); Coronavirus NL63 PCR Not Detected (NotDetected); Coronavirus OC43PCR Not Detected (NotDetected); Human Metapneumovirus PCR Not Detected (NotDetected); Influenza A PCR Not Detected (NotDetected); Influenza B PCR Not Detected (NotDetected); Mycoplasma pneumoniae PCR Not Detected (NotDetected); Parainfluenza Virus 1 PCR Not Detected (NotDetected); Parainfluenza Virus 2 PCR Not Detected (NotDetected); Parainfluenza Virus 3 PCR Not Detected (NotDetected); Parainfluenza Virus 4 PCR Not Detected (NotDetected); Respiratory Syncytial VirusPCR Not Detected (NotDetected); Rhinovirus/Enterovirus PCR Not Detected (NotDetected)
--- NOTE | 2022-09-16 23:19 | Emergency Department Note ---
ED Visit Note Physician Evaluation Note: I have personally evaluated and examined this patient. I agree with assessment and plan of Adela Collins PA-C. Pleasant 76-year-old female arrives for evaluation of weakness. Work-up reveals elevated white blood cell count, fever, elevated lactic acid. Consistent with sepsis secondary to UTI. Patient received IV Zosyn empirically after blood cultures obtained. She was given 1.5 L normal saline bolus 30/kg IV fluids secondary to her chronic renal disease. She does not have a lactate greater than 4 nor persistent hypotensive at this time. Patient is awake alert oriented no distress and laughing with staff and family. Louis Westbrook MD
[2022-09-16] MEDS: MAGNESIUM SULFATE / D5W 1 GM/100 ML BAG IV SCH (23:55)
--- NOTE | 2022-09-17 00:18 | History & Physical Report ---
Date of Service September 17, 2022 Assessment & Plan (1) Acute UTI: Plan: 76 F with PMH CKD 4 ([place] impairment), hypertension, GERD, depression and anxiety, who presented to emergency room with weakness. Admitted for acute management of sepsis with presumed urinary source. Urosepsis -WBC 16.0, creatinine 2.41, lactate 2.2, positive UA (+ nitrites, trace LE, 4+ bacteria), procalcitonin of 28 on initial ED work-up. Repeat lactate 1.6. -CT A/P negative for acute process. -History of multiple E. coli infections dating back to 2019. No history of pseudomonal or other resistant infection. -S/p IV Zosyn 4.5 g x1 dose in the ED. Urine, blood cultures collected and pending currently. * IV ciprofloxacin 400 mg twice daily (due to history of Enterococcus faecalis, initial procalcitonin). Await initial blood culture report, sensitivities. * Trend a.m. labs for improvement * Repeat a.m. procalcitonin pending Hypomagnesemia -Magnesium level 1.0 on admission. S/p 1 g IV magnesium sulfate x2 bags ordered in ED. -1/2 bag administered at time of admission. -Additional 3 bags of IV magnesium sulfate (3 g total) ordered post admission. * Pending 3 AM magnesium level * Trend magnesium on a.m. labs. Replete as needed. CKD 4 -Chronic. Managed by Dr. Woodard of nephrology. -CKD G4/A2 (advanced impairment) due to microvascular disease, hypertensive nephrosclerosis, per outpatient nephrology note. -Left UE AV fistula created 07/22/[address] Reed. -Baseline Cr appears to be 2.5-3.0 with EGFR 15 to 20 cc/min. -Creatinine on admission appears to be at baseline. Kidney function stable per last nephrology outpatient visit. * Trend daily creatinine * Next outpatient nephrology CKD reassessment tentatively in September. Hypertension -Chronic. Managed by Dr. Woodard of nephrology. Home regimen of isosorbide mononitrate, metoprolol succinate 50 mg daily, furosemide 20 mg daily. -Documented history of intolerance of LUDWIG/ARB's and amlodipine. -Furosemide held on admission due to IVONNE. * Continue home metoprolol, Imdur * Trend vitals GERD -Chronic. Managed on rabeprazole 20 mg daily. * Continue home regimen or with acceptable equivalent (defer to pharmacy). Depression with anxiety -Chronic. Managed on bupropion, aripiprazole. -Was previously managed on Abilify and sertraline but stopped taking once refil ls ran out. Patient has since reestablished care as of 02/10 with psychiatrist (Dr. Swain). -Mood stable at last check. * Aripiprazole 2 mg daily * Bupropion 300 mg daily Hypothyroidism -Chronic. Controlled on levothyroxine * Continue levothyroxine 50 mcg daily (to be taken at least 30 minutes before food or other medications). Hyperlipidemia -Chronic. Managed at home on atorvastatin 20 mg nightly. * Continue home atorvastatin Code: DNR/DNI Dispo: Med-Surg telemetry FEN/GI: Heart healthy DVT Prophylaxis: Lovenox 30 mg q24h (CKD 4) PT/OT: No Consults: None Case Management: No (2) Sepsis: (3) IVONNE (acute kidney injury): (4) Hypertension: (5) Hypomagnesemia: (6) GERD (gastroesophageal reflux disease): (7) Depression with anxiety: (8) Chronic kidney disease, stage 4 (severe): Plan Patient seen and examined, chart reviewed, case discussed with Dr. Saenz and I agree with the assessment and plan as above except as otherwise noted Labs and images reviewed Yvrose is seen at the bedside with family present. Presents with weakness, fever, and she notes that she has been peeing a little more than normal but is not peeing very much. She has not had any dysuria. She has a leukocytosis and a procalcitonin of 28. UA is infected with 4+ bacteria. Initially denied chills, on further history notes that she has had some shakes/chills in the last 24 hours. Given elevated lactate, leukocytosis, and high Pro-Tutu suspect that she has gram-negative bacteremia. Initially is going to be narrowed to Rocephin however given her past culture for Enterococcus which was fluoroquinolone sensitive reasonable to target with ciprofloxacin. QT is not prolonged. We will continue to follow UCx/BC. At bedside patient reports she feels tired, may be a little better. Abdomen is nontender. No additional questions at bedside. History of Present Illness Primary Care Provider: YONNY Drew Yvrose is a 76-year-old woman who arrived with her daughter to the ED with a complaint of weakness. Patient had felt weak at work and decided to call her daughter. Daughter, who is at bedside, noted that her mother appeared weaker than described and sounded "loopy." She denied fever, chills, headache, SOB, dysuria, abdominal pain, flank pain, nausea, or vomiting. In the ED, patient temperature was 39.3 C. Lab work-up was notable for leukocytosis of 16, lactate of 2.2, magnesium of 1.0, and procalcitonin of 28. UA was nitrite positive, with trace leukocyte esterase and 4+ bacteria. She received a 1.5 L normal saline bolus and a dose of IV Zosyn. Hospitalist was then consulted for admission. On admission, she corroborates HPI. Other than some reproducible anterior chest pain, ROS as above. Allergies Allergy/AdvReac Type Severity Reaction Status Date / Time amlodipine Allergy Intermediate Feet Verified 06/17/22 10:51 swelling Sulfa (Sulfonamide Allergy Unknown Remote Verified 06/17/22 10:51 Antibiotics) unknown reaction Home Medications Medication Instructions Recorded Confirmed Type aspirin 81 mg tablet,delayed 81 mg PO QAM 10/02/18 09/16/22 History release (Adult Low Dose Aspirin) aripiprazole 2 mg tablet 2 mg PO QAM #30 tabs 02/11/20 09/16/22 Rx melatonin 3 mg tablet 3 mg PO HS 07/13/20 09/16/22 History bupropion HCl 300 mg 24 hr tablet, 300 mg PO QAM 07/22/20 09/16/22 History extended release (Wellbutrin XL) isosorbide mononitrate 60 mg 60 mg PO QAM #90 tabs 03/07/22 09/16/22 Rx tablet,extended release 24 hr rabeprazole 20 mg tablet,delayed 20 mg PO QAM #90 tabs 03/24/22 09/16/22 Rx release furosemide 20 mg tablet 20 mg PO QAM #90 tabs 06/30/22 09/16/22 Rx levothyroxine 50 mcg tablet 50 mcg PO DAILYBB 09/16/22 09/16/22 History atorvastatin 40 mg tablet 40 mg PO HS #30 tabs 09/19/22 Rx clopidogrel 75 mg tablet 75 mg PO QAM #30 tabs 09/19/22 Rx isosorbide mononitrate 60 mg 60 mg PO QAM #30 tabs 09/19/22 Rx tablet,extended release 24 hr metoprolol succinate 50 mg 50 mg PO QAM #30 tabs 09/19/22 Rx tablet,extended release 24 hr nitroglycerin 0.4 mg sublingual 0.4 mg sublingual Q5M PRN chest 09/19/22 Rx tablet (Nitrostat) pain #25 tabs levofloxacin 500 mg tablet 500 mg PO DAILY 2 days #2 tabs 09/20/22 Rx Past Med/Surg History Medical History Anxiety and depression AV fistula LEFT ARM *HAS NOT USED Bradycardia COVID-19 End stage renal disease ESRD (end stage renal disease) Follows with Dr. Woodard > no current dialysis GERD (gastroesophageal reflux disease) Hiatal hernia History of COVID-19 01/22/21>MILD SYMPTOMS *RESOLVED History of TIA (transient ischemic attack) Several years ago *NO PROBLEMS FROM EVENT Hyperkalemia Hyperlipidemia Hypertension Hypothyroidism Osteoarthritis Schatzki's ring Sensorineural hearing loss (SNHL) bilat. Sleep apnea tested, but told "no device needed" per patient Temporomandibular joint disorder + clicking, no locking Surgical History History of carpal tunnel release RT/LEFT History of cataract surgery RT/LEFT History of colonoscopy Colonoscopy (01/08/19): MAC at [facility] History of esophagogastroduodenoscopy (EGD) History of laparoscopic cholecystectomy History of surgery Left Antecubital Basilic Vein Arteriovenous Fistula Creation (07/22/20): MAC + PNB at [facility] History of tonsillectomy and adenoidectomy History of tooth extraction Family History Mother Ovarian cancer Heart disease Father Family history of diabetes mellitus Heart disease Grandmother (Maternal) Family history of diabetes mellitus Other No family history of adverse response to anesthesia Denies family history of Prostate cancer Myocardial infarction Breast cancer Colorectal cancer Social History Smoking Status: Never smoker Second Hand Exposure: No; Do You Dip or Chew Tobacco: No; Hx Alcohol Use: No Hx Substance Use: No Preferred Language: Portuguese Communication Ability: Effective Visual Impairment: Limited Hearing Ability: Normal Body Joiner Required: No Beliefs That Will Affect Care: None marital status: Current Living Situation: Family Current Living Situation Comment: son lives with pt current occupational status: employed 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 Normal conjunctiva, anicteric sclera. Oropharynx normal. Respiratory: Normal respiratory effort, CTABL. Cardiovascular: RRR without murmurs, gallops, or rubs. No pedal edema. GI: Soft abdomen with normal bowel sounds heard on auscultation. Nontender x4 quadrants. No flank tenderness bilaterally. No CVA tenderness. Skin: Seborrheic keratosis of left maxilla, measuring approximately 1 cm in diameter. Neuro: Alert and oriented x3. Results & Data Results & Data Vital Signs (Past 12 Hours) Vital Signs Temp Pulse Pulse Resp BP BP Pulse Ox 09/17/22 00:14 09/16/22 23:00 37.6 C H 88 16 117/56 L 95 09/16/22 22:30 89 18 94 09/16/22 22:20 91 H 18 94 09/16/22 22:10 92 H 18 93 09/16/22 22:00 93 H 18 94 09/16/22 21:50 93 H 18 09/16/22 21:40 94 H 18 95 09/16/22 21:39 94 H 18 95 09/16/22 21:38 161/68 H 09/16/22 22:06 95 09/16/22 21:39 94 H 09/16/22 21:39 39.3 C H 15 95 09/16/22 21:39 95 09/16/22 21:39 39.3 C H 93 H 15 161/68 H 95 O2 Del Method O2 Flow Rate 09/17/22 00:14 Room Air 09/16/22 23:00 Room Air 09/16/22 22:30 09/16/22 22:20 09/16/22 22:10 09/16/22 22:00 09/16/22 21:50 09/16/22 21:40 09/16/22 21:39 09/16/22 21:38 09/16/22 22:06 Room Air 09/16/22 21:39 09/16/22 21:39 Room Air 09/16/22 21:39 Room Air 0 09/16/22 21:39 Room Air Resident Activity Tracking Resident Involvement: Resident Care Provided Care Provided: Adult Hospital Medicine (2) Sepsis Sepsis acute organ dysfunction status: unspecified Sepsis type: sepsis due to unspecified organism Qualified Code(s): A41.9 - Sepsis, unspecified organism
[2022-09-17] MEDS: CIPROFLOXACIN / D5W 400 MG/200 ML BAG IV SCH (01:32)
[2022-09-17] MEDS: MAGNESIUM SULFATE / D5W 1 GM/100 ML BAG IV SCH ×4 (01:33→06:07)
--- NOTE | 2022-09-17 01:50 | Billing Data ---
Date of Service September 17, 2022 Coding Level of Care Code 61723 INT INP/OBS CARE
[2022-09-17 06:24] LABS: BUN Creatinine Ratio 9.3 (10-20); Calcium 8.1 mg/dl (8.6-10.3); Creatinine Clr Calc Pharmacy 16.2 ml/min; Est GFR (African American) 23.2 ml/min; Magnesium 2.7 mg/dl (1.7-2.4); Phosphorus 2.4 mg/dl (2.5-4.9); Potassium 3.9 mmol/L (3.5-5.1)
[2022-09-17 06:39] LABS: Hematocrit (blood only) 26.9 % (37.0-47.0); Hemoglobin 9.3 g/dl (12.0-16.0); Mean Corpuscular Hemoglobin 30.8 pg (25.0-34.0); Mean Corpuscular Hgb Conc 34.6 g/dL (32.0-36.0); Mean Corpuscular Volume 89.1 fL (80.0-100.0); Mean Platelet Volume 9.6 fL (9.4-12.4); Platelet Count 233 K/uL (130-400); RDW Standard Deviation 45.6 fL (36.4-46.3); Red Blood Count 3.02 M/uL (4.20-5.40); White Blood Count 30.32 K/ul (4.8-10.8)
[2022-09-17] MEDS: ASPIRIN 81 MG ECTAB PO SCH (07:42)
[2022-09-17] MEDS: ISOSORBIDE MONO EXTENDED REL 60 MG TABCR PO SCH (07:42)
[2022-09-17] MEDS: PANTOprazole 40 MG TAB PO SCH (07:42)
[2022-09-17] MEDS: METOPROLOL SUCC 50MG EXT REL TAB PO SCH (07:42)
[2022-09-17] MEDS: buPROPion XL 300 MG TABCR PO SCH (07:42)
[2022-09-17] MEDS: ARIPIprazole 1 MG/ML ORAL SOLN 150 ML BTL PO SCH (07:42)
[2022-09-17] MEDS: ENOXAPARIN INJ 30 MG/0.3 ML SYR SQ SCH (08:03)
[2022-09-17] MEDS ORDERED: ISOSORBIDE MONONITRATE 20 MG TAB PO SCH (09:00)
--- NOTE | 2022-09-17 10:44 | Electrocardiogram Report ---
Test Reason : Blood Pressure : / mmHG Vent. Rate : 093 BPM Atrial Rate : 093 BPM P-R Int : 162 ms QRS Dur : 068 ms QT Int : 314 ms P-R-T Axes : 026 -04 037 degrees QTc Int : 390 ms Normal sinus rhythm Minimal voltage criteria for LVH, may be normal variant ( R in aVL ) Inferior infarct , age undetermined Cannot rule out Anterior infarct (cited on or before 01-FEB-2021) Nonspecific T wave abnormality Abnormal ECG When compared with ECG of 01-FEB-2021 14:10, Inferior infarct is now Present Nonspecific T wave abnormality has replaced inverted T waves in Anterior leads Confirmed by Ajay Delaney ([id number]) on 09/17/2022 10:43:51 AM Referred By: REFERRED SELF Confirmed By:Ajay Delaney
--- NOTE | 2022-09-17 15:08 | Hospitalist Progress Note ---
Date of Service September 17, 2022 Assessment & Plan (1) Acute UTI: Plan: Gram-negative bacilli seen on urine culture. Final identification and sensitivities pending. Continue Cipro, day 1. (2) Sepsis: Plan: Present on admission. Now resolved. No need for vasopressor support. (3) Hypertension: Plan: Stable. Continue current medical management (4) Hypomagnesemia: Plan: Corrected with IV replacement (5) GERD (gastroesophageal reflux disease): Plan: Protonix therapy while hospitalized (6) Depression with anxiety: Plan: Stable. Continue current medical management (7) Chronic kidney disease, stage 4 (severe): Plan: Stable. Monitor intake and output. Serial labs Plan Hopeful discharge to home tomorrow, September 18 Admission and Anticipated Discharge Date Admission Date: September 16, 2022 Subjective Alert and oriented. No distress. Gram-negative rods isolated in the urine. Id entification and sensitivities pending. She remains on Cipro. Creatinine stable at 2.2. White blood cell count is elevated probably from multifactorial reasons and will be monitored. Occupational Therapy and physical therapy assessments requested. Probably home tomorrow, September 18, on oral antibiotic Review of Systems Review of Systems: Constitutional-no fever or chills ENT-no blurred vision, no double vision, no epistaxis, no sore throat Respiratory-no cough, no wheezing, no shortness of breath Cardiac-no palpitations, no chest pain, no syncope GI-no nausea, vomiting, diarrhea, melena, hematochezia -no urinary retention, no urinary incontinence, no dysuria, no hematuria Musculoskeletal-no joint pain, no muscle tenderness Skin-no bruising, no rashes, no pruritus Neuro-no isolated weakness, no paresthesia, no weakness Psych-no depression, no anxiety Physical Exam Physical Exam: General-alert and oriented x3, no fevers, no chills HEENT-head atraumatic and normocephalic, pupils equal and reactive to light, extraocular muscles intact Neck-no lymphadenopathy or thyromegaly, trachea midline Chest-clear to auscultation percussion. No rales wheezing or rhonchi Cardiac-regular rate and rhythm, normal S1 and S2 Abdomen-normal bowel sounds, nontender, no hepatosplenomegaly Extremities-no cyanosis, clubbing, or edema Neuro-cranial nerves II through XII intact, motor and sensory function within normal limits, strength symmetrical , no focal deficits Psych-normal affect, normal mood Results & Data Results & Data Vital Signs (Past 12 Hours) Vital Signs Temp Pulse Pulse Resp BP Pulse Ox O2 Del Method 09/17/22 14:50 37.5 C 74 18 154/60 H 95 Room Air 09/17/22 11:18 36.8 C 64 18 123/60 95 Room Air 09/17/22 07:00 67 09/17/22 07:51 36.6 C 69 18 147/65 H 97 Room Air 09/17/22 03:29 36.9 C 76 18 110/55 L 94 Room Air Laboratory Results 09/17/22 05:38 09/17/22 05:38 PG Care Time/CCT Total # of Minutes Spent Total Time Spent with Patient: Total time spent is greater than 50% in coordination of care (as documented) at patient's floor/unit and/or counseling patient: Coding Level of Care Code 35494 SUB INP/OBS CARE 3/50MIN Diagnoses Acute UTI N39.0 Sepsis A41.9 Sepsis acute organ dysfunction status: unspecified Sepsis type: sepsis due to unspecified organism Hypertension I10 Hypomagnesemia E83.42 GERD (gastroesophageal reflux disease) K21.9 Depression with anxiety F41.8 Chronic kidney disease, stage 4 (severe) N18.4 (2) Sepsis Sepsis acute organ dysfunction status: unspecified Sepsis type: sepsis due to unspecified organism Qualified Code(s): A41.9 - Sepsis, unspecified organism
[2022-09-17] MEDS ORDERED: NITROGLYCERIN SL 0.4 MG/TAB TAB SL PRN (15:49)
[2022-09-17] MEDS ORDERED: NITROGLYCERIN SL 0.4 MG/TAB TAB ONE (15:49)
[2022-09-17] MEDS ORDERED: NITROGLYCERIN/D5W 100MCG/ML 20ML SYR ONE (15:59)
[2022-09-17] MEDS ORDERED: fentaNYL citrate PF 100 MCG/2 ML VIAL ONE (15:59)
[2022-09-17] MEDS ORDERED: HEPARIN (PORCINE) 1000 UNIT/ML 10 ML (CATH LAB USE ONLY) ONE (15:59)
[2022-09-17] MEDS ORDERED: niCARdipine HCL INJ 2.5 MG/ML 10 ML AMP ONE (15:59)
[2022-09-17] MEDS ORDERED: MIDAZOLAM HCL 1 MG/ML 2ML VIAL ONE (15:59)
[2022-09-17] MEDS ORDERED: ASPIRIN 81 MG CHEW PO STA (16:03)
[2022-09-17] MEDS ORDERED: hydrALAZINE HCL 20 MG/ML VIAL ONE (16:44)
[2022-09-17 16:46] LABS: Troponin I High Sensitivity 73.4 pg/ml (0-14)
[2022-09-17] MEDS ORDERED: TICAGRELOR 90 MG TAB ONE (17:04)
[2022-09-17 17:50] LABS: Magnesium 2.6 mg/dl (1.7-2.4)
[2022-09-17] MEDS ORDERED: ASPIRIN 81 MG CHEW ONE (18:31)
--- NOTE | 2022-09-17 19:21 | Pre Anesthesia Assessment ---
Date of Service September 17, 2022 Pre Sedation Assessment Vital Signs Temp Pulse Pulse Pulse Resp BP BP 09/17/22 18:50 74 20 121/60 09/17/22 18:23 75 20 123/55 L 09/17/22 17:53 72 20 116/60 09/17/22 17:37 36.7 C 73 18 123/54 L 09/17/22 15:58 166/70 H 09/17/22 15:53 169/75 H 09/17/22 15:36 68 09/17/22 14:50 37.5 C 74 18 154/60 H 09/17/22 11:18 36.8 C 64 18 123/60 09/17/22 07:00 67 09/17/22 07:51 36.6 C 69 18 147/65 H 09/17/22 03:29 36.9 C 76 18 110/55 L 09/17/22 01:08 84 09/17/22 02:15 09/17/22 02:15 37.4 C 86 18 151/65 H 09/17/22 00:20 144/69 H 09/17/22 00:14 37.1 C 09/16/22 23:00 37.6 C H 88 16 117/56 L 09/16/22 22:30 89 18 09/16/22 22:20 91 H 18 09/16/22 22:10 92 H 18 09/16/22 22:00 93 H 18 09/16/22 21:50 93 H 18 09/16/22 21:40 94 H 18 09/16/22 21:39 94 H 18 09/16/22 21:38 161/68 H 09/16/22 22:06 09/16/22 21:39 94 H 09/16/22 21:39 39.3 C H 15 09/16/22 21:39 09/16/22 21:39 39.3 C H 93 H 15 161/68 H Pulse Ox O2 Del Method O2 Flow Rate 09/17/22 18:50 94 Room Air 09/17/22 18:23 94 Room Air 09/17/22 17:53 97 Room Air 09/17/22 17:37 96 Room Air 09/17/22 15:58 09/17/22 15:53 97 Nasal Cannula 2 09/17/22 15:36 09/17/22 14:50 95 Room Air 07/29/23 11:18 95 Room Air 09/17/22 07:00 09/17/22 07:51 97 Room Air 09/17/22 03:29 94 Room Air 09/17/22 01:08 09/17/22 02:15 Room Air 09/17/22 02:15 93 Room Air 09/17/22 00:20 93 09/17/22 00:14 Room Air 09/16/22 23:00 95 Room Air 09/16/22 22:30 94 09/16/22 22:20 94 09/16/22 22:10 93 09/16/22 22:00 94 09/16/22 21:50 09/16/22 21:40 95 09/16/22 21:39 95 09/16/22 21:38 09/16/22 22:06 95 Room Air 09/16/22 21:39 09/16/22 21:39 95 Room Air 09/16/22 21:39 95 Room Air 0 09/16/22 21:39 95 Room Air Cardiovascular RRR, no murmur, no edema Respiratory normal respiratory effort, lungs clear to auscultation Pre-Sedation Airway Assessment Smoking Status: Never smoker Mallampati 3 ASA 4 Notes The planned sedation has been discussed with the patient. Informed Consent was obtained. I have identified the patient, determined the appropriateness of sedation and have assessed the patient immediately prior to the procedure. All medicine(s) and interventions are by my order. [facility] [place] [facility] [place] Codes (Charges) Indication for Procedure Indication for procedure: ST elevation MN Sedation/Anesthesia Procedure 1: Sedation/Anesthesia: 40844 Mod Sedation by the same physician;Init15 Min Child Age 5 & Up (Initial 15 min, start time 1631) Total Sedation Time (minutes): 32 Procedure 2: Sedation/Anesthesia: 17594 Mod Sedation by the same physician; Ea [id number] Minutes (Additional 17 min, end time 1703) Total Sedation Time (minutes): 32
--- NOTE | 2022-09-17 19:23 | Post Anesthesia Assessment ---
Date of Service September 17, 2022 Post Sedation Assessment Vital Signs Temp Pulse Pulse Pulse Resp BP BP 09/17/22 18:50 74 20 121/60 09/17/22 18:23 75 20 123/55 L 09/17/22 17:53 72 20 116/60 09/17/22 17:37 36.7 C 73 18 123/54 L 09/17/22 15:58 166/70 H 09/17/22 15:53 169/75 H 09/17/22 15:36 68 09/17/22 14:50 37.5 C 74 18 154/60 H 09/17/22 11:18 36.8 C 64 18 123/60 09/17/22 07:00 67 09/17/22 07:51 36.6 C 69 18 147/65 H 09/17/22 03:29 36.9 C 76 18 110/55 L 09/17/22 01:08 84 09/17/22 02:15 09/17/22 02:15 37.4 C 86 18 151/65 H 09/17/22 00:20 144/69 H 09/17/22 00:14 37.1 C 09/16/22 23:00 37.6 C H 88 16 117/56 L 09/16/22 22:30 89 18 09/16/22 22:20 91 H 18 09/16/22 22:10 92 H 18 09/16/22 22:00 93 H 18 09/16/22 21:50 93 H 18 09/16/22 21:40 94 H 18 09/16/22 21:39 94 H 18 09/16/22 21:38 161/68 H 09/16/22 22:06 09/16/22 21:39 94 H 09/16/22 21:39 39.3 C H 15 09/16/22 21:39 09/16/22 21:39 39.3 C H 93 H 15 161/68 H Pulse Ox O2 Del Method O2 Flow Rate 09/17/22 18:50 94 Room Air 09/17/22 18:23 94 Room Air 09/17/22 17:53 97 Room Air 09/17/22 17:37 96 Room Air 09/17/22 15:58 09/17/22 15:53 97 Nasal Cannula 2 09/17/22 15:36 09/17/22 14:50 95 Room Air 07/29/23 11:18 95 Room Air 09/17/22 07:00 09/17/22 07:51 97 Room Air 09/17/22 03:29 94 Room Air 09/17/22 01:08 09/17/22 02:15 Room Air 09/17/22 02:15 93 Room Air 09/17/22 00:20 93 09/17/22 00:14 Room Air 09/16/22 23:00 95 Room Air 09/16/22 22:30 94 09/16/22 22:20 94 09/16/22 22:10 93 09/16/22 22:00 94 09/16/22 21:50 09/16/22 21:40 95 09/16/22 21:39 95 09/16/22 21:38 09/16/22 22:06 95 Room Air 09/16/22 21:39 09/16/22 21:39 95 Room Air 09/16/22 21:39 95 Room Air 0 09/16/22 21:39 95 Room Air Recovery Score Activity: Moves 4 extremities Respiration: Deep Breath/Cough Circulation: +/-20% PreAnes Value Consciousness: Fully Awake Oxygen Saturation: > 92% On Room Air Discharge Sedation Level of Care: Fast Track Phase II Post Sedation Plan On clinical assessment, the patient appears to have tolerated the sedation without complications. Patient is recovering as anticipated. Patient will continue to be monitored by nursing and may be discharged when sedation discharge criteria are met per below protocol. Upon Completions of procedure up to 15 minutes continue every 5 minute vital signs and the P.A.R. score; then discharge to a Phase I or Fast Track to Phase II per the following guidelines: * Discharge Patient to appropriate Phase II area if PAR is 8 or greater or return to pre- procedure baseline. The post - procedure orders will be as directed. * If PAR score is less than 8 or not return to pre-procedure baseline then patient will follow Phase I monitoring till PAR is reached for Phase II. The Phase I may be done in procedure room or may call to secure a Phase I area. * If naloxone or flumazenil are used for reversal, hold in Phase I for continued monitoring from when last reversal dose was given for a minimum of 60 minutes or longer pending the nurse and/or physician discretion of patient condition before discharge to Phase II. Please call the Sedation Physician to re-evaluate and complete post-note for discharge to Phase II area. Do NOT discharge from procedure sedation or Phase 1 until post- sedation evaluation note is complete by procedure /sedation MD Sedation Discharge Instructions to be given to the patient at discharge to home. [facility] [place] Procedure Codes (Charges) Indication for Procedure Indication for procedure: ST elevation AR Sedation/Anesthesia Procedure 1: Sedation/Anesthesia: 24603 Mod Sedation by the same physician;Init15 Min Child Age 5 & Up (Initial 15-minute, start time 1631) Total Sedation Time (minutes): 32 Procedure 2: Sedation/Anesthesia: 52978 Mod Sedation by the same physician; Ea [id number] Minutes (Additional 17-minute, end time 1703) Total Sedation Time (minutes): 32
--- NOTE | 2022-09-17 19:41 | Cardiac Catheterization ---
ACC Data: Trout Farmer Cardiac Status Clinical evaluation leading to the procedure CAD Presenation: STEMI Anginal Classification: CCS IV Heart Failure: No Cardiogenic Shock within 24 Hours: No Cardiac Arrest within 24 Hours: No Imaging Studies Past 6 Months: No Stress Studies Past 6 Months: No STEMI OR Non-STEMI Symptom Onset Date: 09/17/22 Symptom Onset Time: 13:00 Thrombolytics: No Coronary Anatomy Dominant: Left Left Main (% Stenosis): Distal (40%) LAD (% Stenosis): Distal (50 to 70%) D1 (% Stenosis): Normal D2 (% Stenosis): Proximal (70%) Circumflex (% Stenosis): Distal (20%) OM1 (% Stenosis): Ostial (90%) OM2 (% Stenosis): Ostial (95%) L PL1 (% Stenosis): Normal L PDA (% Stenosis): Ostial (99%, hazy with thrombus) RCA (% Stenosis): Mid (99%) Diagnostic Physicians Name: Case Leyva MD, PhD Closure Device Percutaneous Entry Location: Radial Closure Device: Radial Band Recommendations: Medical Therapy and/or Counseling and PCI without planned CABG PCI Indication: Immediate PCI for STEMI First Noted: First EKG Lesion Segment Name: Ostial to proximal left PDA Culprit Artery: Yes Stenosis Prior to Rx (%): 99 Chronic Total Occlusion: No Pre-Procedure DANNY Flow: 1 Previously Treated Lesion: No Lesion Complexity: Non-High/Non-C Lesion Length (mm): 8 Thrombus Present: Yes Bifurcation Lesion: No Guidewire Across Lesion: Yes Cardiac Cath Procedure Full Procedure Date September 17, 2022 Pre-Procedure Diagnosis Pre-Procedure Diagnosis: STEMI AUC Score AUC Score: 09 Post-Procedure Diagnosis Post-Procedure Diagnosis: Severe CAD Procedure(s) Performed Procedure(s) Performed: Coronary Angiography and Drug Eluting Stent [employer] Professor Case Leyva MD, PhD Derrick Car Operator(s) SISSY Donis Estimated Blood Loss Estimated Blood Loss: 5 mL Medication(s) Medication(s): Fentanyl, Heparin, Hydralazine, Lidocaine 1%, Nicardipine, Nitroglycerin and Versed Summary of Findings Brief description: Patient was brought to the cardiac catheterization suite where she was shaved and prepped in a sterile fashion. Sedated using IV Versed and fentanyl. Soft tissues of the right wrist were anesthetized using 2 mils of 1% Xylocaine. The right radial artery was accessed using a modified Seldinger technique and a 6 Swedish radial artery glide sheath was placed. Initial catheter advancement was over a Wholey wire secondary to tortuosity in the innominate. Then, all catheters were advanced and exchanged over a 0.035 exchange length J-tip wire. Patient was provided anticoagulation with IV heparin and antispasmodics including nicardipine and nitroglycerin. Left coronary angiography in orthogonal views with a 5 [place] 4 diagnostic catheter. Right coronary angiography was performed in orthogonal views with a 5 Swedish 3 DRC diagnostic catheter. A JR4 catheter was initially attempted but could not engage the small vessel. Diagnostic catheters were removed and we next proceeded with PCI. Patient was provided IV heparin and ACT was checked intermittently. Additional heparin was provided as needed to maintain therapeutic anticoagulation. A 6 Swedish EBU 3.0 guide catheter was used to engage the left main coronary. Through this, a BMW universal guidewire was advanced and positioned distally in the circumflex. Over the guidewire a guide liner catheter was advanced into the circumflex. Then, predilatation was initiated. Predilatation using a 2.0 x 12 mm trek balloon inflated up to 14 cristian. Stent implantation with a 2.25 x 12 mm [place] drug-eluting stent deployed across the lesion at 18 cristian. Guidewire and stent balloon were removed. The guide liner was removed. Final angiographic evaluation was performed. Radial artery sheath was removed. Hemostasis was obtained using the TR band. Patient received oral aspirin earlier in the day and Brilinta 180 mg p.o. x1 in the Trout Farmer. She was hemodynamically stable and asymptomatic. She was therefore returned to the recovery area. This ended the case. Coronary angiography findings: LMT-this is large caliber and bifurcates into the LAD and circumflex. There is a distal calcified up to 40% stenosis in some views. LAD-large caliber and transapical. Proximal segment with no more than mild disease. He gives a large branching first diagonal which has mild scattered disease. The mid segment also has mild disease and provides a large caliber multi branching second diagonal. This vessel has proximal up to 70% stenosis. The early distal LAD has a long eccentric stenosis of 50 to 70%. Then the vessel is somewhat tortuous and wraps the apex. LCx-large caliber and dominant vessel. Proximal segment travels in the AV groove giving a small caliber OM1. This vessel has 90% ostial to proximal stenosis. Mid AV groove circumflex has no significant disease and then provides a small caliber OM 2 which has ostial 95% stenosis. The distal AV groove vessel remains large and continues further as it provides a large posterolateral branch and then terminates in a large PDA. The distal AV groove vessel has scattered mild plaques of up to 20%. The posterolateral branch has no significant disease. The ostial to proximal PDA has 99% stenosis with DANNY I flow distally. There also appears to be thrombus. This is the culprit lesion. RCA-small and nondominant. Mid segment with 99% stenosis PCI of L-PDA: 0% residual stenosis post PCI No evidence of dissection or perforation post PCI DANNY-3 flow post PCI Summary: 1. Severe multivessel coronary disease. Culprit lesion for inferior ST elevation [place] is the left PDA. 2. Successful PCI with implantation of a drug-eluting stent to the left PDA. 3. Significant residual disease in the large second diagonal and early distal LAD. Other severe lesions are in small caliber vessels not amenable to PCI. 4. Patient will be on dual antiplatelet therapy with aspirin 81 mg daily and Brilinta 90 mg p.o. twice daily for at least 30 days. Preferably up to 1 year using this combination although we could change to Plavix if affordability or side effects become an issue. 5. Guideline directed medical therapy for secondary prevention of coronary disease will include high intensity statin therapy, beta-violet, plus or minus LUDWIG inhibitor/ARB. In addition she will continue with her isosorbide mononitrate for anginal relief given her residual disease. Hemodynamics Rest Ao:: 144/74 mmHg Final Ao: 139/52 mmHg LV: Not performed Recommendations Recommendations: Medical Therapy and/or Counseling and PCI without planned CABG Radiation Exposure (mGy) 1328 mGy, fluoroscopy time 11.8 minutes Contrast (mls) 100 mL Anesthesia 1 mg IV Versed, 25 mcg IV fentanyl Procedural Complication(s) None Disposition PCU I attest to the content of the Intraoperative Record and any orders documented therein. Any exceptions are noted below. [employer] Card Cath Procedure Codes Cardiac Catheterization Procedure 1: Cardiovascular Cath Procedures: 74594 Coronaries Moderate Sedation Procedure 1: Sedation/Anesthesia: 66464 Mod Sedation by the same physician;Init15 Min Child Age 5 & Up (Initial 15 min, start time 1631) Procedure 2: Sedation/Anesthesia: 48464 Mod Sedation by the same physician; Ea [id number] Minutes (Additional 17 min, end time 1703) Stenting Procedure 1: Cardiovascular Stent Procedures: 36489 Perc transluminal revascularization of acute sub/total occl, aMI (Left PDA) PG Care Time/CCT Total # of Minutes Spent Total Time Spent with Patient: Total time spent is greater than 50% in coordination of care (as documented) at patient's floor/unit and/or counseling patient:
--- NOTE | 2022-09-17 19:54 | Cardiology Consultation ---
Date of Consultation September 17, 2022 Assessment & Plan (1) ST elevation myocardial infarction (STEMI) of inferior wall: Status post PCI of the left PDA. She will remain on dual antiplatelet therapy with aspirin 81 mg daily and Brilinta 90 mg p.o. twice daily. I recommend an echocardiogram. Initiate guideline directed medical therapy for secondary prevention of coronary disease as below. (2) Atherogenic dyslipidemia: Patient is considered high risk. High intensity statin therapy recommended with target LDL reduction of greater than or equal to 50% of untreated baseline LDL. We have increased the atorvastatin up to 40 mg daily. Reassess lipid panel in 3 months. (3) Coronary artery disease: New diagnosis. She has significant residual disease as described. Guideline directed medical therapy will include low-dose aspirin, high intensity statin t herapy, metoprolol succinate ER 50 mg daily, and if she will be on dialysis as suggested by her fistula then we could utilize LUDWIG inhibitor or angiotensin receptor violet. However, since she is not currently on dialysis we will avoid these agents at this time. We will utilize isosorbide mononitrate for anginal relief. (4) Benign essential hypertension: Blood pressure was elevated in the Petrology Teacher. We will starting her metoprolol, Imdur and we will consider additional agents if needed. We are also awaiting echocardiogram which may have some implication as to our recommendations. (5) IVONNE (acute kidney injury): Sounds like she is near end-stage renal disease at baseline. We were able to minimize IVP contrast. Avoiding nephrotoxic agents at this time but if it becomes clear that she will require hemodialysis then we will add additional cardioprotective medications as described above. Nephrology to follow. History of Present Illness Reason for Consultation: Chest pain, abnormal EKG Attending Physician: Lenard Mathew MD History of Present Illness 76-year-old female who is admitted for sepsis. Today around lunchtime she developed substernal chest pressure. An EKG was performed demonstrating borderline criteria for ST elevation [place]. I reviewed previous and current EKGs which were fairly similar, however, patient continued with chest discomfort despite medications provided by the primary service. Therefore, after giving her informed consent we decided to proceed with diagnostic coronary angiography plus or minus PCI as indicated. As it turns out, she had severe multivessel disease but an acute lesion in the distal left circumflex into the left PDA which was dominant. This was stented with resolution of her symptoms using a single drug-eluting stent. She has significant residual coronary disease predominantly in the small branch vessels but also in the distal LAD. She is currently chest pain-free with her family at bedside. Patient denies a history of cardiac problems. She also denies diabetes. Unfortunately, she has significant renal insufficiency with GFR around 20. We were able to complete the catheterization using 100 mL of contrast. Patient denies any prior anginal chest pain, shortness of breath, syncope, near syncope, orthopnea, PND, racing heartbeat, palpitations, or edema. Allergies Allergy/AdvReac Type Severity Reaction Status Date / Time amlodipine Allergy Intermediate Feet Verified 06/17/22 10:51 swelling Sulfa (Sulfonamide Allergy Unknown Remote Verified 06/17/22 10:51 Antibiotics) unknown reaction Home Medications Medication Instructions Recorded Confirmed Type aspirin 81 mg tablet,delayed 81 mg PO QAM 10/02/18 09/16/22 History release (Adult Low Dose Aspirin) aripiprazole 2 mg tablet 2 mg PO QAM #30 tabs 02/11/20 09/16/22 Rx melatonin 3 mg tablet 3 mg PO HS 07/13/20 09/16/22 History bupropion HCl 300 mg 24 hr tablet, 300 mg PO QAM 07/22/20 09/16/22 History extended release (Wellbutrin XL) isosorbide mononitrate 60 mg 60 mg PO QAM #90 tabs 03/07/22 09/16/22 Rx tablet,extended release 24 hr rabeprazole 20 mg tablet,delayed 20 mg PO QAM #90 tabs 03/24/22 09/16/22 Rx release atorvastatin 40 mg tablet 20 mg PO HS #45 tabs 06/23/22 09/16/22 Rx furosemide 20 mg tablet 20 mg PO QAM #90 tabs 06/30/22 09/16/22 Rx levothyroxine 50 mcg tablet 50 mcg PO DAILYBB 09/16/22 09/16/22 History metoprolol succinate 50 mg 50 mg PO QAM 09/16/22 09/16/22 History tablet,extended release 24 hr Patient History Medical History Anxiety and depression AV fistula LEFT ARM *HAS NOT USED Bradycardia COVID-19 End stage renal disease ESRD (end stage renal disease) Follows with Dr. Woodard > no current dialysis GERD (gastroesophageal reflux disease) Hiatal hernia History of COVID-19 01/22/21>MILD SYMPTOMS *RESOLVED History of TIA (transient ischemic attack) Several years ago *NO PROBLEMS FROM EVENT Hyperkalemia Hyperlipidemia Hypertension Hypothyroidism Osteoarthritis Schatzki's ring Sensorineural hearing loss (SNHL) bilat. Sleep apnea tested, but told "no device needed" per patient Temporomandibular joint disorder + clicking, no locking Surgical History History of carpal tunnel release RT/LEFT History of cataract surgery RT/LEFT History of colonoscopy Colonoscopy (01/08/19): MAC at [facility] History of esophagogastroduodenoscopy (EGD) History of laparoscopic cholecystectomy History of surgery Left Antecubital Basilic Vein Arteriovenous Fistula Creation (07/22/20): MAC + PNB at [facility] History of tonsillectomy and adenoidectomy History of tooth extraction Family History Mother Ovarian cancer Heart disease Father Family history of diabetes mellitus Heart disease Grandmother (Maternal) Family history of diabetes mellitus Other No family history of adverse response to anesthesia Denies family history of Prostate cancer Myocardial infarction Breast cancer Colorectal cancer Social History Smoking Status: Never smoker Second Hand Exposure: No; Do You Dip or Chew Tobacco: No; Hx Alcohol Use: No Hx Substance Use: No Preferred Language: Chinese Communication Ability: Effective Visual Impairment: Limited Hearing Ability: Normal Delinquency Counselor Required: No Beliefs That Will Affect Care: None marital status: Current Living Situation: Family Current Living Situation Comment: son lives with pt current occupational status: employed 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 [employer] How many Children do You have: 3 Other Information That Helps Us Care for You: No Feels Safe at Home: Yes Safety Concerns: Feels Safe At This Time Childhood Exposure to Second-Hand Smoke: Yes Diet: regular caffeine: No during the past year weight has: remained stable Dental Care, Regularly: No Physical Activity Frequency: Daily Seatbelt Use: always Sunscreen Use: No Do you think of yourself as: straight/heterosexual Gender Identity: Female Assistive Devices: Denture - Upper, Denture - Lower and Glasses Review of Systems Review of Systems: Negative except as per HPI Physical Exam Constitutional: WD/WN, vitals as above Eyes: Extraocular muscles intact. Sclera are anicteric. ENMT: Oral mucosa is pink moist and intact Neck: Short, thick. No JVD appreciated. Respiratory: Clear to auscultation bilaterally. No wheezing, rhonchi, or rales. Cardiovascular: Regular rate and rhythm. S4 gallop. No rubs or murmurs appreciated. Distal pulses are 1-2+. No edema. Musculoskeletal: no cyanosis or clubbing, extremities motor strength 5/5 (Fistula left upper extremity) Neurologic: Cognition is intact. Speech is fluent. No focal deficits. No tremor. Psychiatric: A+Ox3, euthymic affect Results & Data Vital Signs (Past 12 Hours) Vital Signs Temp Pulse Pulse Resp BP Pulse Ox O2 Del Method 09/17/22 18:50 74 20 121/60 94 Room Air 09/17/22 18:23 75 20 123/55 L 94 Room Air 09/17/22 17:53 72 20 116/60 97 Room Air 09/17/22 17:37 36.7 C 73 18 123/54 L 96 Room Air 09/17/22 15:58 166/70 H 09/17/22 15:53 169/75 H 97 Nasal Cannula 09/17/22 15:36 68 09/17/22 14:50 37.5 C 74 18 154/60 H 95 Room Air 09/17/22 11:18 36.8 C 64 18 123/60 95 Room Air 09/17/22 07:51 36.6 C 69 18 147/65 H 97 Room Air O2 Flow Rate 09/17/22 18:50 09/17/22 18:23 09/17/22 17:53 09/17/22 17:37 09/17/22 15:58 09/17/22 15:53 2 09/17/22 15:36 09/17/22 14:50 09/17/22 11:18 09/17/22 07:51 PG Care Time/CCT Total # of Minutes Spent Total Time Spent with Patient: Total time spent is greater than 50% in coordination of care (as documented) at patient's floor/unit and/or counseling patient: Coding Level of Care Code 12041 INT INP/OBS CARE MIN Diagnoses ST elevation myocardial infarction (STEMI) of inferior wall I21.19 Atherogenic dyslipidemia E78.5 Coronary artery disease I25.10 Benign essential hypertension I10 IVONNE (acute kidney injury) N17.9
[2022-09-17] MEDS ORDERED: ATORVASTATIN 20 MG TAB PO SCH (21:00)
[2022-09-17] MEDS: TICAGRELOR 90 MG TAB PO SCH (21:22)
[2022-09-17] MEDS: MELATONIN 3 MG TAB PO PRN (21:23)
[2022-09-17] MEDS: ATORVASTATIN 40 MG TAB PO SCH (21:49)
[2022-09-17 22:16] LABS: A calco-baum cmplx NotReported Not Detected (NotDetected); Bact fragilis Not Reported Not Detected (NotDetected); C auris Not Reported Not Detected (NotDetected); CTX-M Resistant Gene Not Detected (NotDetected); Calbicans Not Reported Not Detected (NotDetected); Candida glabrata Not Reported Not Detected (NotDetected); Candida krusei Not Reported Not Detected (NotDetected); Cneoformans/gatti Not Reported Not Detected (NotDetected); Cparapsilosis Not Reported Not Detected (NotDetected); Ctropicalis Not Reported Not Detected (NotDetected); E cloacae compx Not Reported Not Detected (NotDetected); Efaecalis Not Reported Not Detected (NotDetected); Efaecium Not Reported Not Detected (NotDetected); Enterobacterales Not Reported DETECTED (NotDetected); Escherichia coli Not Reported DETECTED (NotDetected); H influenzae Not Reported Not Detected (NotDetected); IMP Resistant Gene Not Detected (NotDetected); K aerogenes Not Reported Not Detected (NotDetected); KPC Resistant Gene Not Detected (NotDetected); Koxytoca Not Reported Not Detected (NotDetected); Kpneumoniae grp Not Reported Not Detected (NotDetected); Lmonocyt Not Reported Not Detected (NotDetected); N meningitidis Not Reported Not Detected (NotDetected); NDM Resistant Gene Not Detected (NotDetected); OXA 48 Like Resistant Gene Not Detected (NotDetected); P aeruginosa Not Reported Not Detected (NotDetected); Proteus spp Not Reported Not Detected (NotDetected); Salmonella spp Not Reported Not Detected (NotDetected); Smarcescens Not Reported Not Detected (NotDetected); Staph lugdunensis Not Reported Not Detected (NotDetected); Staph spp. Not Reported Not Detected (NotDetected); Staphaureus Not Reported Not Detected (NotDetected); Staphepi Not Reported Not Detected (NotDetected); Stenmaltophilia Not Reported Not Detected (NotDetected); Strep agal(GrpB) Not Reported Not Detected (NotDetected); Strep pneum Not Reported Not Detected (NotDetected); Strep pyog (GrpA) Not Reported Not Detected (NotDetected); Strep spp Not Reported Not Detected (NotDetected); VIM Resistant Gene Not Detected (NotDetected); mcr-1 Colistin Resistant Gene Not Detected (NotDetected)
[2022-09-17 22:19] LABS: Enterobacterales DETECTED (NotDetected)
[2022-09-18] MEDS: CIPROFLOXACIN / D5W 400 MG/200 ML BAG IV SCH (01:17)
[2022-09-18] MEDS: LEVOTHYROXINE SODIUM 50 MCG TABLET PO SCH (05:44)
[2022-09-18 06:31] LABS: Basophils # (auto) 0.04 K/uL (0-0.2); Basophils % (auto) 0.2 %; Eosinophils # (auto) 0.07 K/uL (0-0.50); Eosinophils % (auto) 0.4 %; Hematocrit (blood only) 27.5 % (37.0-47.0); Hemoglobin 9.3 g/dl (12.0-16.0); Immature Granulocytes # (auto) 0.17 K/uL (0.01-0.20); Immature Granulocytes % (auto) 0.9 %; Lymphocytes # (auto) 1.32 K/uL (1.2-3.4); Lymphocytes % (auto) 6.6 %; Mean Corpuscular Hemoglobin 30.4 pg (25.0-34.0); Mean Corpuscular Hgb Conc 33.8 g/dL (32.0-36.0); Mean Corpuscular Volume 89.9 fL (80.0-100.0); Mean Platelet Volume 9.8 fL (9.4-12.4); Monocytes # (auto) 0.83 K/uL (0.11-0.59); Monocytes % (auto) 4.2 %; Neutrophils # (auto) 17.45 K/uL (1.40-6.50); Neutrophils % (auto) 87.7 %; Platelet Count 223 K/uL (130-400); RDW Coefficient of Variation 14.6 % (11.5-14.5); RDW Standard Deviation 47.8 fL (36.4-46.3); Red Blood Count 3.06 M/uL (4.20-5.40); White Blood Count 19.88 K/ul (4.8-10.8)
[2022-09-18 06:59] LABS: BUN Creatinine Ratio 10.8 (10-20); Calcium 8.1 mg/dl (8.6-10.3); Creatinine Clr Calc Pharmacy 18.9 ml/min; Est GFR (Non-African American) 24.2 ml/min; Magnesium 2.3 mg/dl (1.7-2.4); Phosphorus 2.7 mg/dl (2.5-4.9); Potassium 3.8 mmol/L (3.5-5.1)
[2022-09-18] MEDS: buPROPion XL 300 MG TABCR PO SCH (08:03)
[2022-09-18] MEDS: PANTOprazole 40 MG TAB PO SCH (08:04)
[2022-09-18] MEDS: METOPROLOL SUCC 50MG EXT REL TAB PO SCH ×2 (08:04→08:06)
[2022-09-18] MEDS: ARIPIprazole 1 MG/ML ORAL SOLN 150 ML BTL PO SCH (08:04)
[2022-09-18] MEDS: ASPIRIN 81 MG ECTAB PO SCH (08:04)
[2022-09-18] MEDS: ENOXAPARIN INJ 30 MG/0.3 ML SYR SQ SCH (08:04)
[2022-09-18] MEDS: ISOSORBIDE MONO EXTENDED REL 60 MG TABCR PO SCH (08:04)
[2022-09-18] MEDS: TICAGRELOR 90 MG TAB PO SCH (08:51)
--- NOTE | 2022-09-18 10:11 | XCELERA ---
[id number]
--- NOTE | 2022-09-18 10:17 | Cardiology Progress Note ---
Date of Service September 18, 2022 Assessment & Plan (1) ST elevation myocardial infarction (STEMI) of inferior wall: Plan: Status post PCI with drug-eluting stent to the left PDA. Good angiographic result. She seems to be having some intolerance to the Brilinta. Therefore, we will change her from Brilinta to Plavix. Her next Brilinta dose will be held. We will then load Plavix 300 mg p.o. x1. Thereafter, she will take Plavix 75 mg daily. Dual antiplatelet therapy with aspirin and Plavix to complete 1 to 2 years therapy if tolerated. (2) Atherogenic dyslipidemia: Plan: High risk. High intensity statin therapy ongoing with a atorvastatin 40 mg daily. (3) Coronary artery disease: Plan: Her blood pressure is slightly above target. Her heart rate has been at target. Guideline directed medical therapy for secondary prevention ongoing with aspirin, a atorvastatin, and metoprolol succinate ER. She is also on isosorbide mononitrate 60 mg daily. Consider addition of amlodipine or HCTZ to reduce her blood pressure further. Avoiding ARB or LUDWIG inhibitor secondary to advanced stage renal insufficiency. (4) Benign essential hypertension: Plan: Blood pressure is not quite at target. Amlodipine versus HCTZ. Decision will be made by nephrology given their long-term management of her kidney disease. (5) IVONNE (acute kidney injury): Plan: GFR is currently improved compared to yesterday. However, still advanced kidney disease. Nephrology consultation recommended as there remains a possibility that she will develop contrast-induced nephropathy over the next 24 hours. For now, continue current medical management. Admission and Anticipated Discharge Date Admission Date: September 16, 2022 Subjective Patient did well overnight. She denies recurrence of chest pain, heaviness, or tightness. No shortness of breath with exertion although she did note several episodes of dyspnea at rest which were paroxysmal in nature lasting just a few seconds. The symptoms are new for her. She has no pain at the right radial artery access site or in the right hand. Review of Systems Review of Systems: Negative except as per HPI Physical Exam Constitutional: WD/WN, vitals as above Neck: No JVD or bruits Respiratory: Clear to auscultation bilaterally. No wheezing, rhonchi, or rales. Fair air movement. Cardiovascular: Regular rate and rhythm. S4 gallop. Soft systolic murmur heard best near the apex. No edema. Musculoskeletal: no cyanosis or clubbing, extremities motor strength 5/5 (Ri ght radial access site is clean dry and intact. Good distal perfusion.) Neurologic: Cognition is intact. Speech is fluent. No focal deficits. No tremor. Psychiatric: A+Ox3, euthymic affect Results & Data Vital Signs (Past 12 Hours) Vital Signs Temp Pulse Pulse Resp BP Pulse Ox O2 Del Method 09/18/22 08:00 99 Room Air 09/18/22 07:09 67 09/18/22 07:06 36.7 C 69 21 133/63 92 Nasal Cannula 09/18/22 03:06 36.8 C 74 14 149/59 H 96 Nasal Cannula 09/17/22 23:00 64 09/17/22 22:53 67 20 147/69 H 100 Nasal Cannula O2 Flow Rate 09/18/22 08:00 09/18/22 07:09 09/18/22 07:06 2 09/18/22 03:06 2 09/17/22 23:00 09/17/22 22:53 2 PG Care Time/CCT Total # of Minutes Spent Total Time Spent with Patient: Total time spent is greater than 50% in coordination of care (as documented) at patient's floor/unit and/or counseling patient: Coding Level of Care Code 82481 SUB INP/OBS CARE 3/50MIN Diagnoses ST elevation myocardial infarction (STEMI) of inferior wall I21.19 Atherogenic dyslipidemia E78.5 Coronary artery disease I25.10 Benign essential hypertension I10 IVONNE (acute kidney injury) N17.9
--- NOTE | 2022-09-18 10:49 | Electrocardiogram Report ---
Test Reason : Blood Pressure : / mmHG Vent. Rate : 080 BPM Atrial Rate : 080 BPM P-R Int : 168 ms QRS Dur : 082 ms QT Int : 378 ms P-R-T Axes : 066 073 082 degrees QTc Int : 435 ms Normal sinus rhythm ST elevation consider inferior injury or acute infarct ACUTE IA / STEMI Consider right ventricular involvement in acute inferior infarct Abnormal ECG When compared with ECG of 16-SEP-2022 21:36, Minimal criteria for Anterior infarct are no longer Present QT has lengthened Acute Mi is present Confirmed by Ajay Delaney ([id number]) on 09/18/2022 10:49:11 AM Referred By: REFERRED SELF Confirmed By:Ajay Delaney
--- NOTE | 2022-09-18 11:14 | Electrocardiogram Report ---
Test Reason : Blood Pressure : / mmHG Vent. Rate : 073 BPM Atrial Rate : 073 BPM P-R Int : 122 ms QRS Dur : 078 ms QT Int : 390 ms P-R-T Axes : 084 -17 139 degrees QTc Int : 429 ms Normal sinus rhythm Evolving Inferior infarct , age undetermined Abnormal ECG When compared with ECG of 17-SEP-2022 15:26, (unconfirmed) Serial changes of evolving Inferior infarct is now Present T wave inversion now evident in Anterior leads Confirmed by Ajay Delaney ([id number]) on 09/18/2022 11:13:59 AM Referred By: REFERRED SELF Confirmed By:Ajay Delaney
[2022-09-18] MEDS: cephALEXin 250 MG CAP PO SCH ×2 (11:45→20:25)
--- NOTE | 2022-09-18 12:37 | Hospitalist Progress Note ---
Date of Service September 18, 2022 Assessment & Plan (1) Acute transmural inferior wall MO: Plan: Heart alert called September 17. She subsequently had emergent left heart juaquin terization with placement of a drug-eluting stent in the circumflex artery. Cardiology consultation and assistance appreciated. Brilinta switched to Plavix today per cardiology. Continue aspirin, Imdur, metoprolol. Cardiac echo report is pending. (2) Acute UTI: Plan: E. coli isolated. Pansensitive. Intravenous Cipro switched to oral cephalexin therapy today, September 18 (3) Sepsis: Plan: Present on admission. Now resolved. No need for vasopressor support. (4) Hypertension: Plan: Stable. Continue current medical management (5) Hypomagnesemia: Plan: Corrected with IV replacement (6) GERD (gastroesophageal reflux disease): Plan: Protonix therapy while hospitalized (7) Depression with anxiety: Plan: Stable. Continue current medical management (8) Chronic kidney disease, stage 4 (severe): Plan: Stable. Monitor intake and output. Serial labs Plan Probable discharge to home tomorrow, September 19 Admission and Anticipated Discharge Date Admission Date: September 16, 2022 Subjective Resting comfortably. Vital signs stable. No chest pain. She is wearing oxygen at 1 L because it makes her feel better. She really does not need it and room air oxygen saturation is normal. She underwent emergent left heart catheterization yesterday, September 17, with drug-eluting stent placed in the circumflex artery due to acute inferior wall MO. Cardiac echo is pending. E. coli isolated in the urine. Intravenous Cipro switched to oral cephalexin treatment. Cardiology switched Brilinta to Plavix. She can go home tomorrow, September 19. Review of Systems Review of Systems: Constitutional-no fever or chills ENT-no blurred vision, no double vision, no epistaxis, no sore throat Respiratory-no cough, no wheezing, no shortness of breath Cardiac-no palpitations, no chest pain, no syncope GI-no nausea, vomiting, diarrhea, melena, hematochezia -no urinary retention, no urinary incontinence, no dysuria, no hematuria Musculoskeletal-no joint pain, no muscle tenderness Skin-no bruising, no rashes, no pruritus Neuro-no isolated weakness, no paresthesia, no weakness Psych-no depression, no anxiety Physical Exam Physical Exam: General-alert and oriented x3, no fevers, no chills HEENT-head atraumatic and normocephalic, pupils equal and reactive to light, extraocular muscles intact Neck-no lymphadenopathy or thyromegaly, trachea midline Chest-clear to auscultation percussion. No rales wheezing or rhonchi Cardiac-regular rate and rhythm, normal S1 and S2 Abdomen-normal bowel sounds, nontender, no hepatosplenomegaly Extremities-no cyanosis, clubbing, or edema Neuro-cranial nerves II through XII intact, motor and sensory function within normal limits, strength symmetrical , no focal deficits Psych-normal affect, normal mood Results & Data Results & Data Vital Signs (Past 12 Hours) Vital Signs Temp Pulse Pulse Resp BP Pulse Ox O2 Del Method 09/18/22 11:25 37.1 C 64 18 127/65 97 Room Air 09/18/22 08:00 99 Room Air 09/18/22 07:09 67 09/18/22 07:06 36.7 C 69 21 133/63 92 Nasal Cannula 09/18/22 03:06 36.8 C 74 14 149/59 H 96 Nasal Cannula O2 Flow Rate 09/18/22 11:25 09/18/22 08:00 09/18/22 07:09 09/18/22 07:06 2 09/18/22 03:06 2 Laboratory Results 09/18/22 05:39 09/18/22 05:39 PG Care Time/CCT Total # of Minutes Spent Total Time Spent with Patient: Total time spent is greater than 50% in coordination of care (as documented) at patient's floor/unit and/or counseling patient: Coding Level of Care Code 75865 SUB INP/OBS CARE 3/50MIN Diagnoses Acute transmural inferior wall MO I21.19 Acute UTI N39.0 Sepsis A41.9 Sepsis acute organ dysfunction status: unspecified Sepsis type: sepsis due to unspecified organism Hypertension I10 Hypomagnesemia E83.42 GERD (gastroesophageal reflux disease) K21.9 Depression with anxiety F41.8 Chronic kidney disease, stage 4 (severe) N18.4 (3) Sepsis Sepsis acute organ dysfunction status: unspecified Sepsis type: sepsis due to unspecified organism Qualified Code(s): A41.9 - Sepsis, unspecified organism
--- NOTE | 2022-09-18 13:58 | Electrocardiogram Report ---
Test Reason : Blood Pressure : / mmHG Vent. Rate : 074 BPM Atrial Rate : 074 BPM P-R Int : 164 ms QRS Dur : 082 ms QT Int : 398 ms P-R-T Axes : 044 013 073 degrees QTc Int : 441 ms Normal sinus rhythm Evolving Inferior infarct , age undetermined Abnormal ECG When compared with ECG of 17-SEP-2022 15:26, Evolving IMI Confirmed by Ajay Delaney ([id number]) on 09/18/2022 1:57:30 PM Referred By: REFERRED SELF Confirmed By:Ajay Delaney
[2022-09-18] MEDS: ATORVASTATIN 40 MG TAB PO SCH (20:25)
[2022-09-18] MEDS: MELATONIN 3 MG TAB PO PRN (20:25)
[2022-09-18] MEDS ORDERED: CLOPIDOGREL BISULFATE 300 MG TAB PO ONE (21:00)
[2022-09-19] MEDS: LEVOTHYROXINE SODIUM 50 MCG TABLET PO SCH (04:29)
[2022-09-19 06:09] LABS: Hematocrit (blood only) 26.8 % (37.0-47.0); Hemoglobin 9.1 g/dl (12.0-16.0); Mean Corpuscular Hemoglobin 30.1 pg (25.0-34.0); Mean Corpuscular Volume 88.7 fL (80.0-100.0); Mean Platelet Volume 9.9 fL (9.4-12.4); Platelet Count 229 K/uL (130-400); RDW Coefficient of Variation 14.5 % (11.5-14.5); RDW Standard Deviation 46.7 fL (36.4-46.3); Red Blood Count 3.02 M/uL (4.20-5.40); White Blood Count 12.01 K/ul (4.8-10.8)
[2022-09-19 06:13] LABS: BUN Creatinine Ratio 8.5 (10-20); Calcium 8.3 mg/dl (8.6-10.3); Creatinine Clr Calc Pharmacy 18.3 ml/min; Est GFR (Non-African American) 23.3 ml/min; Phosphorus 2.4 mg/dl (2.5-4.9)
[2022-09-19] MEDS: PANTOprazole 40 MG TAB PO SCH (08:11)
[2022-09-19] MEDS: cephALEXin 250 MG CAP PO SCH (08:11)
[2022-09-19] MEDS: METOPROLOL SUCC 50MG EXT REL TAB PO SCH ×2 (08:11→08:24)
[2022-09-19] MEDS: CLOPIDOGREL BISULFATE 75 MG TAB PO SCH (08:11)
[2022-09-19] MEDS: ASPIRIN 81 MG ECTAB PO SCH (08:11)
[2022-09-19] MEDS: ENOXAPARIN INJ 30 MG/0.3 ML SYR SQ SCH (08:12)
[2022-09-19] MEDS: ISOSORBIDE MONO EXTENDED REL 60 MG TABCR PO SCH (08:12)
[2022-09-19] MEDS: ARIPIprazole 1 MG/ML ORAL SOLN 150 ML BTL PO SCH (08:12)
[2022-09-19] MEDS: buPROPion XL 300 MG TABCR PO SCH (08:12)
--- NOTE | 2022-09-19 11:34 | Infectious Disease Consult ---
Date of Consultation September 19, 2022 Assessment & Plan (1) E coli bacteremia: (2) Acute UTI: Plan Micro: 09/16 UCx: E coli (maurer-S) 09/16 BCx x2: E coli in 1/4 bottles (maurer-S) Abx: Cephalexin 09/18 - present Ciprofloxacin 09/16 - 09/18 Pip-tazo 09/16 Problems: #E coli bacteremia likely 2/2 E coli UTI #CKD #Sulfa allergy: unknown reaction 76 yo F with history of CKD4, HTN, HLD, hypothyroidism who presented on 09/16 with weakness, found to have E coli bacteremia likely 2/2 UTI. She denied fevers, headache, shortness of breath, dysuria, abd pain, flank pain, N/V. Reported some shakes/chills in the last day. On presentation, pt was febrile to 39.3, with WBC 16, Cr 2.41, lactate 2.2, procalcitonin 28.7. UA with 5-10 WBCs. CXR showed no active disease. CT A/P without contrast showed no acute infections/inflammatory findings, diverticulosis without acute diverticulitis, surgically absent gallbladder, no hydronephrosis, bladder decompressed and grossly unremarkable. Pt was given a dose of pip-tazo in the ED, then started on ciprofloxacin IV based on prior cultures. Hospital course was c/b substernal chest pressure and ST elevations, s/p cardiac cath on 09/17 with stent placement. Pt's BCx grew E coli in 1/4 bottles. UCx grew E coli as well. Last fever on 09/16. WBC has downtrended to 12. The cipro was changed to PO cephalexin on 09/18. Recommendations: -For ease of dosing, discontinued cephalexin (note that cephalexin would be appropriate step-down therapy in this case for E coli bacteremia, although would typically give a higher dose). Started levofloxacin 750 mg PO x 1 dose today, then can receive one more dose of levofloxacin 500 mg PO on 09/21 (given reduced renal function) to complete a total 7 day course of antibiotics. Will sign off. Please page [facility] with further questions. Consultation Information This patient recommendation is based on a telemedicine consult request which was completed asynchronously through chart review and information provided by the primary physician. The patient was not seen or examined today. The evaluation is consultative in nature and all patient care and treatment decisions can either be accepted or rejected by the patient's primary hospital-based treating physician using their own independent medical judgment for their patient. [facility] contact information: Please call [facility] . (Phone Number For Physician Use Only) Time Spent Reviewing Chart: 31+ minutes History of Present Illness Reason for Consultation: E coli bacteremia Requesting Physician: Dr. Erika Argueta Attending Physician: Erika Argueta MD History of Present Illness 76 yo F with history of CKD4, HTN, HLD, hypothyroidism who presented on 09/16 with weakness. She denied fevers, headache, shortness of breath, dysuria, abd pain, flank pain, N/V. Reported some shakes/chills in the last day. On presentation, pt was febrile to 39.3. Labs showed WBC 16, Cr 2.41, lactate 2.2, procalcitonin 28.7. UA with 5-10 WBCs. CXR showed no active disease. CT A/P without contrast showed no acute infections/inflammatory findings, diverticulosis without acute diverticulitis, surgically absent gallbladder, no hydronephrosis, bladder decompressed and grossly unremarkable. Pt was given a dose of pip-tazo in the ED, then started on ciprofloxacin IV based on prior cultures. Hospital course was c/b substernal chest pressure and ST elevations, s/p cardiac cath on 09/17 with stent placement. Pt's BCx grew E coli in 1/4 bottles. UCx grew E coli as well. The cipro was changed to PO cephalexin on 09/18. Allergies Allergy/AdvReac Type Severity Reaction Status Date / Time amlodipine Allergy Intermediate Feet Verified 06/17/22 10:51 swelling Sulfa (Sulfonamide Allergy Unknown Remote Verified 06/17/22 10:51 Antibiotics) unknown reaction Home Medications Medication Instructions Recorded Confirmed Type aspirin 81 mg tablet,delayed 81 mg PO QAM 10/02/18 09/16/22 History release (Adult Low Dose Aspirin) aripiprazole 2 mg tablet 2 mg PO QAM #30 tabs 02/11/20 09/16/22 Rx melatonin 3 mg tablet 3 mg PO HS 07/13/20 09/16/22 History bupropion HCl 300 mg 24 hr tablet, 300 mg PO QAM 07/22/20 09/16/22 History extended release (Wellbutrin XL) isosorbide mononitrate 60 mg 60 mg PO QAM #90 tabs 03/07/22 09/16/22 Rx tablet,extended release 24 hr rabeprazole 20 mg tablet,delayed 20 mg PO QAM #90 tabs 03/24/22 09/16/22 Rx release atorvastatin 40 mg tablet 20 mg PO HS #45 tabs 06/23/22 09/16/22 Rx furosemide 20 mg tablet 20 mg PO QAM #90 tabs 06/30/22 09/16/22 Rx levothyroxine 50 mcg tablet 50 mcg PO DAILYBB 09/16/22 09/16/22 History metoprolol succinate 50 mg 50 mg PO QAM 09/16/22 09/16/22 History tablet,extended release 24 hr Patient History Medical History Anxiety and depression AV fistula LEFT ARM *HAS NOT USED Bradycardia COVID-19 End stage renal disease ESRD (end stage renal disease) Follows with Dr. Woodard > no current dialysis GERD (gastroesophageal reflux disease) Hiatal hernia History of COVID-19 01/22/21>MILD SYMPTOMS *RESOLVED History of TIA (transient ischemic attack) Several years ago *NO PROBLEMS FROM EVENT Hyperkalemia Hyperlipidemia Hypertension Hypothyroidism Osteoarthritis Schatzki's ring Sensorineural hearing loss (SNHL) bilat. Sleep apnea tested, but told "no device needed" per patient Temporomandibular joint disorder + clicking, no locking Surgical History History of carpal tunnel release RT/LEFT History of cataract surgery RT/LEFT History of colonoscopy Colonoscopy (01/08/19): MAC at [facility] History of esophagogastroduodenoscopy (EGD) History of laparoscopic cholecystectomy History of surgery Left Antecubital Basilic Vein Arteriovenous Fistula Creation (07/22/20): MAC + PNB at [facility] History of tonsillectomy and adenoidectomy History of tooth extraction Family History Mother Ovarian cancer Heart disease Father Family history of diabetes mellitus Heart disease Grandmother (Maternal) Family history of diabetes mellitus Other No family history of adverse response to anesthesia Denies family history of Prostate cancer Myocardial infarction Breast cancer Colorectal cancer Social History Smoking Status: Never smoker Second Hand Exposure: No; Do You Dip or Chew Tobacco: No; Hx Alcohol Use: No Hx Substance Use: No Preferred Language: Albanian Communication Ability: Effective Visual Impairment: Limited Hearing Ability: Normal Skein Mercerizing 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 Operator Required: No Beliefs That Will Affect Care: None marital status: Current Living Situation: Family Current Living Situation Comment: son lives with pt current occupational status: employed 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 [employer] How many Children do You have: 3 Other Information That Helps Us Care for You: No Feels Safe at Home: Yes Safety Concerns: Feels Safe At This Time Childhood Exposure to Second-Hand Smoke: Yes Diet: regular caffeine: No during the past year weight has: remained stable Dental Care, Regularly: No Physical Activity Frequency: Daily Seatbelt Use: always Sunscreen Use: No Do you think of yourself as: straight/heterosexual Gender Identity: Female Assistive Devices: Denture - Upper, Denture - Lower and Glasses Review of System Pt was not seen Physical Exam Physical Exam: Pt was not seen Results & Data Vital Signs (Past 12 Hours) Vital Signs Temp Pulse Pulse Resp BP Pulse Ox O2 Del Method 09/19/22 08:00 72 09/19/22 08:04 36.8 C 73 16 141/60 H 94 Room Air 09/19/22 04:18 36.8 C 70 16 147/55 H 94 Room Air 09/19/22 00:25 36.8 C 68 17 151/55 H 91 Room Air Laboratory Results Short CBC 09/19/22 Range/Units 05:25 WBC 12.01 H (4.8-10.8) K/ul Hgb 9.1 L (12.0-16.0) g/dl Hct 26.8 L (37.0-47.0) % Plt Count 229 (130-400) K/uL BMP 09/19/22 05:25 Sodium 138 Potassium 4.0 Chloride 107 Carbon Dioxide 24 BUN 17 Creatinine 2.00 H Glucose 103 H Calcium 8.3 L Diagnostic Findings Abdomen/Pelvis CT 09/16/22 21:43 CT SCAN OF THE ABDOMEN AND PELVIS WITHOUT IV CONTRAST CLINICAL HISTORY: Sepsis. Change in mental status. COMPARISON STUDY: Abdominal MRI dated 04/11/2013. TECHNIQUE: CT scan of the abdomen and pelvis is performed from the lung bases to the proximal femora. Images are reviewed in the axial, sagittal, and coronal planes. IV contrast was not administered for this examination. Note the examination is suboptimal without IV contrast. A dose lowering technique was utilized adhering to the principles of ALARA. CT DOSE: 752.96 mGy.cm FINDINGS: Lung bases: The heart is enlarged and without pericardial effusion. There are coronary artery calcifications. Calcified granulomas are seen in the lingula. The lung bases are otherwise clear noting bibasilar scarring/atelectasis. Liver: The unenhanced liver is normal in size, contour, and attenuation. There is no intrahepatic biliary ductal dilatation. Gallbladder: Surgically absent and clips in the gallbladder fossa. Spleen: Normal in size and attenuation. Pancreas: A 3.4 cm lobulated cystic lesion within/adjacent to the pancreatic head has been present dating back to a 2014 MRI The unenhanced pancreas is moderately atrophic and otherwise grossly unremarkable. Adrenal glands: Unremarkable. Kidneys: The unenhanced kidneys are atrophic and without hydronephrosis. There are no renal calculi identified. A 1.9 cm cyst is noted in the right lower pole lesion. Abdominal vasculature: The abdominal aorta is normal in course and caliber noting advanced atherosclerotic calcification. Bowel: There is mild to moderate colonic diverticulosis without CT evidence of acute diverticulitis. No bowel obstruction is seen. Mild fecal retention is noted throughout the colon. The appendix is well-visualized and normal. Peritoneum: There is no intraperitoneal free air or abdominal ascites. There is a small fat-containing umbilical hernia. Lymphadenopathy: None. Pelvic viscera: The bladder is decompressed and grossly unremarkable. The uterus is heterogeneous, likely representing fibroids. No adnexal lesion is seen. Skeletal structures: The skeletal structures are osteopenic. There is moderate to advanced lumbosacral spondylosis and scoliosis. No lytic or blastic lesions are seen. IMPRESSION: 1. No acute infectious or inflammatory findings are identified in the abdomen or pelvis. 2. Cardiomegaly. 3. Colonic diverticulosis without CT evidence of acute diverticulitis. 4. A 3.4 cm lobulated cystic lesion within/adjacent to pancreatic head has been present dating back to a 2014 abdominal MRI. 5. Additional findings as above. ACT 112: Negative or not required by law. Electronically signed by: Luis Carlos Lawson M.D. 09/16/2022 10:58 PM Chest X-Ray 09/16/22 21:43 SINGLE VIEW CHEST CLINICAL HISTORY: Sepsis. FINDINGS: An AP, portable, upright chest radiograph is compared to study dated 02/01/2021. The cardiomediastinal silhouette is top normal for projection. Chronic interstitial thickening is similar to previous. There is bibasilar scarring/atelectasis. No airspace consolidation or large pleural effusion is identified. No pneumothorax is seen. The skeletal structures are osteopenic. The bony thorax is grossly intact. Cholecystectomy clips are noted in the right upper quadrant. IMPRESSION: No active disease in the chest. ACT 112: Negative or not required by law. Electronically signed by: Luis Carlos Lawson M.D. 09/16/2022 10:24 PM Medications Administered Current Inpatient Medications Aripiprazole (Aripiprazole 1 Mg/Ml Oral Soln 150 Ml Btl) [facility] [place] Stop: 10/17/22 08:59 Last Admin: 09/19/22 08:12 Dose: 2 mg Aspirin (Aspirin 81 Mg Ectab) 81 mg PO [facility] Stop: 10/17/22 08:59 Last Admin: 09/19/22 08:11 Dose: 81 mg Atorvastatin Calcium (Atorvastatin 40 Mg Tab) 40 mg PO [facility] Stop: 10/17/22 20:59 Last Admin: 09/18/22 20:25 Dose: 40 mg Bupropion HCl (Bupropion Xl 300 Mg Tabcr) 300 mg PO [facility] Stop: 10/17/22 08:59 Last Admin: 09/19/22 08:12 Dose: 300 mg Cephalexin HCl (Cephalexin 250 Mg Cap) 250 mg PO BID [facility]; Protocol Stop: 09/23/22 10:59 Last Admin: 09/19/22 08:11 Dose: 250 mg Clopidogrel Bisulfate (Clopidogrel Bisulfate 75 Mg Tab) 75 mg PO [facility] Stop: 10/19/22 08:59 Last Admin: 09/19/22 08:11 Dose: 75 mg Enoxaparin Sodium (Enoxaparin Inj 30 Mg/0.3 Ml Syr) 30 mg SQ [facility] Stop: 10/17/22 08:59 Last Admin: 09/19/22 08:12 Dose: 30 mg Isosorbide Mononitrate (Isosorbide [place] Extended Rel 60 Mg Tabcr) 60 mg PO [facility] Stop: 10/17/22 08:59 Last Admin: 09/19/22 08:12 Dose: 60 mg Levothyroxine Sodium (Levothyroxine Sodium 50 Mcg Tablet) [facility] Stop: 10/18/22 06:29 Last Admin: 09/19/22 04:29 Dose: 50 mcg Melatonin (Melatonin 3 Mg Tab) 3 mg PO HS PRN PRN Reason: sleep Stop: 10/17/22 20:59 Last Admin: 09/18/22 20:25 Dose: 3 mg Metoprolol Succinate (Metoprolol Succ 50mg Ext Rel Tab) 50 mg PO [facility] Stop: 10/18/22 08:59 Last Admin: 09/19/22 08:24 Dose: Not Given Nitroglycerin (Nitroglycerin Sl 0.4 Mg/Tab Tab) 0.4 mg SL Q5M PRN PRN Reason: Chest Pain Last Admin: 09/17/22 15:55 Dose: 0.4 mg Pantoprazole Sodium (Pantoprazole 40 Mg Tab) 40 mg PO [facility] Stop: 10/17/22 08:59 Last Admin: 09/19/22 08:11 Dose: 40 mg
[2022-09-19] MEDS ORDERED: levoFLOXacin 750 MG TAB PO ONE (11:43)
--- NOTE | 2022-09-19 15:58 | Hospitalist Progress Note ---
Date of Service September 19, 2022 Assessment & Plan (1) Acute transmural inferior wall IN: Plan: Heart alert called September 17. She subsequently had emergent left heart catheterization with placement of a drug-eluting stent in the circumflex artery. Cardiology consultation and assistance appreciated. [place]ilininés switched to Plavix today per cardiology. Continue aspirin, Imdur, metoprolol. Cardiac echo report is pending. (2) Acute UTI: Plan: E. coli isolated. Pansensitive. Intravenous Cipro switched to oral cephalexin therapy today, September 18 However, ID recommednds PO Levaquin 750mg today, then 500mg starting 09/21 discharge tomorrow (3) Sepsis: Plan: Present on admission. Now resolved. No need for vasopressor support. (4) Hypertension: Plan: Stable. Continue current medical management (5) Hypomagnesemia: Plan: Corrected with IV replacement (6) GERD (gastroesophageal reflux disease): Plan: Protonix therapy while hospitalized (7) Depression with anxiety: Plan: Stable. Continue current medical management (8) Chronic kidney disease, stage 4 (severe): Plan: Stable. Monitor intake and output. Serial labs Plan d/c home tomorrow Admission and Anticipated Discharge Date Admission Date: September 16, 2022 Subjective patient seen and examined, no new complaints Review of Systems Review of Systems: All systems reviewed are negative, apart from the ones contained in the history. Physical Exam Physical Exam: The patient is awake, alert and oriented 3, well developed and well nourished, normocephalic and atraumatic, lying in bed and in no acute distress. HEENT--PERRL, EOMI, mucous membranes and oropharynx mildly dry Neck--supple. No JVD. No bruits. Thyroid normal, trachea midline, no adenopathy. Heart--normal S1 and S2. No murmurs, rubs or gallops. Lungs--clear bilaterally, no respiratory distress, no accessory muscle use. Abdomen--normal bowel sounds and soft. Mild epigastric and left sided abdominal pain Extremities--no cyanosis or clubbing. No edema. Dermatologic--normal skin turgor, normal color, no abnormal lymph nodes, no rash. Neurologic--cranial nerves II through XII grossly intact. Rheumatologic--normal range of motion. Psychiatric--normal affect. Results & Data Results & Data Vital Signs (Past 12 Hours) Vital Signs Temp Pulse Pulse Resp BP Pulse Ox O2 Del Method 09/19/22 15:06 97.3 F L 71 18 151/53 H 96 Room Air 09/19/22 14:46 72 09/19/22 11:28 98.2 F 67 18 134/63 97 Nasal Cannula 09/19/22 08:00 72 09/19/22 08:04 98.2 F 73 16 141/60 H 94 Room Air 09/19/22 04:18 98.2 F 70 16 147/55 H 94 Room Air O2 Flow Rate 09/19/22 15:06 09/19/22 14:46 09/19/22 11:28 1 09/19/22 08:00 09/19/22 08:04 09/19/22 04:18 PG Care Time/CCT Total # of Minutes Spent Total Time Spent with Patient: Total time spent is greater than 50% in coordination of care (as documented) at patient's floor/unit and/or counseling patient: Coding Level of Care Code 95980 SUB INP/OBS CARE 2/35MIN Diagnoses Acute transmural inferior wall IN I21.19 Acute UTI N39.0 Sepsis A41.9 Sepsis acute organ dysfunction status: unspecified Sepsis type: sepsis due to unspecified organism Hypertension I10 Hypomagnesemia E83.42 GERD (gastroesophageal reflux disease) K21.9 Depression with anxiety F41.8 Chronic kidney disease, stage 4 (severe) N18.4 Time Spent (min) 35 (3) Sepsis Sepsis acute organ dysfunction status: unspecified Sepsis type: sepsis due to unspecified organism Qualified Code(s): A41.9 - Sepsis, unspecified organism
[2022-09-19] MEDS: MELATONIN 3 MG TAB PO PRN (19:18)
[2022-09-19] MEDS: ATORVASTATIN 40 MG TAB PO SCH (19:19)
[2022-09-20] MEDS: LEVOTHYROXINE SODIUM 50 MCG TABLET PO SCH (06:17)
[2022-09-20 07:11] LABS: Hematocrit (blood only) 27.6 % (37.0-47.0); Hemoglobin 9.2 g/dl (12.0-16.0); Mean Corpuscular Hemoglobin 29.6 pg (25.0-34.0); Mean Corpuscular Hgb Conc 33.3 g/dL (32.0-36.0); Mean Corpuscular Volume 88.7 fL (80.0-100.0); Mean Platelet Volume 9.7 fL (9.4-12.4); Platelet Count 268 K/uL (130-400); RDW Coefficient of Variation 14.1 % (11.5-14.5); RDW Standard Deviation 45.4 fL (36.4-46.3); Red Blood Count 3.11 M/uL (4.20-5.40); White Blood Count 9.29 K/ul (4.8-10.8)
[2022-09-20 07:23] LABS: BUN Creatinine Ratio 6.7 (10-20); Calcium 8.8 mg/dl (8.6-10.3); Creatinine Clr Calc Pharmacy 18.9 ml/min; Est GFR (Non-African American) 24.2 ml/min; Magnesium 1.9 mg/dl (1.7-2.4); Phosphorus 2.8 mg/dl (2.5-4.9); Potassium 4.2 mmol/L (3.5-5.1)
[2022-09-20] MEDS: ASPIRIN 81 MG ECTAB PO SCH (08:04)
[2022-09-20] MEDS: PANTOprazole 40 MG TAB PO SCH (08:04)
[2022-09-20] MEDS: CLOPIDOGREL BISULFATE 75 MG TAB PO SCH (08:05)
[2022-09-20] MEDS: buPROPion XL 300 MG TABCR PO SCH (08:05)
[2022-09-20] MEDS: ARIPIprazole 1 MG/ML ORAL SOLN 150 ML BTL PO SCH (08:05)
[2022-09-20] MEDS: ISOSORBIDE MONO EXTENDED REL 60 MG TABCR PO SCH (08:05)
[2022-09-20] MEDS: ENOXAPARIN INJ 30 MG/0.3 ML SYR SQ SCH (08:05)
[2022-09-20] MEDS: METOPROLOL SUCC 50MG EXT REL TAB PO SCH (08:05)
--- NOTE | 2022-09-20 14:21 | Discharge Summary ---
Date of Service September 20, 2022 Admission HPI Per Admitting Provider Yvrose is a 76-year-old woman who arrived with her daughter to the ED with a complaint of weakness. Patient had felt weak at work and decided to call her daughter. Daughter, who is at bedside, noted that her mother appeared weaker than described and sounded "loopy." She denied fever, chills, headache, SOB, dysuria, abdominal pain, flank pain, nausea, or vomiting. In the ED, patient temperature was 39.3 C. Lab work-up was notable for leukocytosis of 16, lactate of 2.2, magnesium of 1.0, and procalcitonin of 28. UA was nitrite positive, with trace leukocyte esterase and 4+ bacteria. She received a 1.5 L normal saline bolus and a dose of IV Zosyn. Hospitalist was then consulted for admission. On admission, she corroborates HPI. Other than some reproducible anterior chest pain, ROS as above. Principal Diagnosis OR, UTI Discharge Exam The patient is awake, alert and oriented 3, well developed and well nourished, normocephalic and atraumatic, lying in bed and in no acute distress. HEENT--PERRL, EOMI, mucous membranes and oropharynx mildly dry Neck--supple. No JVD. No bruits. Thyroid normal, trachea midline, no adenopathy. Heart--normal S1 and S2. No murmurs, rubs or gallops. Lungs--clear bilaterally, no respiratory distress, no accessory muscle use. Abdomen--normal bowel sounds and soft. Mild epigastric and left sided abdominal pain Extremities--no cyanosis or clubbing. No edema. Dermatologic--normal skin turgor, normal color, no abnormal lymph nodes, no rash. Neurologic--cranial nerves II through XII grossly intact. Rheumatologic--normal range of motion. Psychiatric--normal affect. Discharge Data Allergies Allergy/AdvReac Type Severity Reaction Status Date / Time amlodipine Allergy Intermediate Feet Verified 06/17/22 10:51 swelling Sulfa (Sulfonamide Allergy Unknown Remote Verified 06/17/22 10:51 Antibiotics) unknown reaction Consultations 09/16/22 23:08 ED Decision to Admit Stat 09/18/22 10:04 Consult Cardiology Routine 09/19/22 07:50 Consult Infectious Diseases Routine Procedures Performed Operation Date: 09/17/22 16:00 Actual Procedures p Cineradiography w/Routine Exam - Case Leyva MD, PhD s Aspiration/PCI w/CLAIRE for Stemi - Case Leyva MD, PhD s Cath, Coronaries ONLY (no LV) - Case Leyva MD, PhD Ordered Studies 09/16/22 21:43 CT abd pelvis wo con Stat 09/17/22 15:58 CL Cath Imgs for PACS use only Stat Hospital Course (1) Acute transmural inferior wall OR: Heart alert called September 17. She subsequently had emergent left heart catheterization with placement of a drug-eluting stent in the circumflex artery. Cardiology consultation and assistance appreciated. Brilinta switched to Plavix today per cardiology. Continue aspirin, Imdur, metoprolol. Cardiac echo report is pending. (2) Acute UTI: E. coli isolated. Pansensitive. Intravenous Cipro switched to oral cephalexin therapy today, September 18 However, ID recommends PO Levaquin 750mg today, then 500mg starting 09/21 discharge today (3) Sepsis: Present on admission. Now resolved. No need for vasopressor support. (4) Hypertension: Stable. Continue current medical management (5) Hypomagnesemia: Corrected with IV replacement (6) GERD (gastroesophageal reflux disease): Protonix therapy while hospitalized (7) Depression with anxiety: Stable. Continue current medical management (8) Chronic kidney disease, stage 4 (severe): Stable. Monitor intake and output. Serial labs Plan d/c home Total Time Total Time Spent Total Time Spent (In Minutes): 35 Discharge Plan Discharge Items Patient Disposition: Home - Self-Care Reason For Visit: UROSEPSIS Discharge Diagnosis: sepsis STEMI Condition on Discharge: Fair Activity: Per Instructions section Non-emergency contact: Cash Accountant Call non-emergency contact if: you have any medication questions, your symptoms worsen, your pain is not controlled, you have a fever, your wound has increased redness and your wound has increased drainage Follow-up/Referrals: Bernarda Rehman CRNP [Primary Care Provider] - 09/27/22 9:00 am Diet: Carb Consistent or DM2 Addtl Attending Provider Instructions: ACTIVITY RECOMMENDATIONS: It is common to feel weak and fatigue for a few days. * Do not drive or operate any motorized equipment for the next three days. * Limit stair usage (2 or 3 trips a day only) for the next three days. * Do not lift anything heavier than 10 pounds for the next three days. * Do not engage in vigorous exercise or any sports for the next five days. * You may shower the day after your procedure, but do not immerse the area for three days. Cleanse the site gently with soap and water. SPECIAL CARE INSTRUCTIONS: * You may replace the pressure dressing or band-aid the morning after the procedure. * After your procedure, it is normal to have a small bruise or small lump at the site. Examine your site daily for any change in the bruise or lump, redness, swelling, drainage or numbness. Notify your doctor if any change. BLEEDING: * If there is a small amount of bleeding at the site, lie down and apply firm pressure with a clean cloth for ten minutes. When the bleeding stops, lie quietly keeping the procedure limb straight for six hours. Notify your doctor as soon as possible. * If the bleeding does not stop after ten minutes or if there is a large amount of bleeding or spurting, call 911 immediately. Continue to lie down and hold firm pressure until help arrives. SKIN IRRITATION: * You may experience some redness and/or swelling in the area where radiation was administered. If any skin irritation occurs, please contact your family physician. FOLLOW UP VISIT: Keep any scheduled doctor appointments. FOLLOWUP WITH CARDIOLOGY WITHIN 3 WEEKS OF DISCHARGE Pending Studies at Discharge: No Stand-Alone Forms: My [facility], Smoking Cessation Medications and DC Order Prescriptions: New atorvastatin 40 mg Tablet 40 mg PO HS Qty: 30 11RF metoprolol succinate 50 mg Tablet Extended Release 24 Hr 50 mg PO QAM Qty: 30 11RF clopidogrel 75 mg Tablet 75 mg PO QAM Qty: 30 11RF isosorbide mononitrate 60 mg Tablet Extended Release 24 Hr 60 mg PO QAM Qty: 30 11RF nitroglycerin [Nitrostat] 0.4 mg Tablet, Sublingual 0.4 mg sublingual Q5M PRN (Reason: chest pain) Qty: 25 3RF levofloxacin 500 mg tablet 500 mg PO DAILY 2 Days Qty: 2 0RF Continued isosorbide mononitrate 60 mg tablet extended release 24 hr 60 mg PO QAM Qty: 90 3RF rabeprazole 20 mg tablet,delayed release (DR/EC) 20 mg PO QAM Qty: 90 3RF furosemide 20 mg tablet 20 mg PO QAM Qty: 90 3RF aripiprazole 2 mg tablet 2 mg PO QAM Qty: 30 2RF aspirin [Adult Low Dose Aspirin] 81 mg tablet,delayed release (DR/EC) 81 mg PO QAM melatonin 3 mg Tablet 3 mg PO HS bupropion HCl [Wellbutrin XL] 300 mg tablet extended release 24 hr 300 mg PO QAM levothyroxine 50 mcg tablet 50 mcg PO DAILYBB Discontinued atorvastatin 40 mg tablet 20 mg PO HS Qty: 45 3RF Rx Instructions: take 1/2 tab daily metoprolol succinate 50 mg tablet extended release 24 hr 50 mg PO QAM Discharge Orders: Discharge Order (Routine); Ordered 09/20/22 Ordered By: Erika Argueta Admission Data Admit Date/Time: 09/16/22 23:27 Attending Provider: Erika Argueta Admit Provider: Laura Saenz Primary Care Provider: Bernarda Rehman Other Providers: Yonas Perez ; Case Leyva ; Lawanda Bonilla ; Wellington Alvares ; Eula Estrella ; Tho Mello ; Elvira Alatorre ; Marie Patino ; Suzanne Gary ; Olga Mcknight ; Umu Thomas Other Interventions: Discharge Summary Assessment (RN) Last Done: 09/20/22 11:53 Coding Level of Care Code 70808 INP/OBS DISCH >30 MIN Diagnoses Acute transmural inferior wall OR I21.19 Acute UTI N39.0 Sepsis A41.9 Sepsis acute organ dysfunction status: unspecified Sepsis type: sepsis due to unspecified organism Hypertension I10 Hypomagnesemia E83.42 GERD (gastroesophageal reflux disease) K21.9 Depression with anxiety F41.8 Chronic kidney disease, stage 4 (severe) N18.4 Time Spent (min) 35
[2022-09-21] MEDS ORDERED: levoFLOXacin 500 MG TAB PO ONE (09:00)
--- NOTE | 2022-09-23 16:33 | Coding Query ---
CODING QUERY To promote full compliance with coding requirements relating to patient care, provider participation is requested in all cases of jewel stripper uncertainty. Please assist us with the question(s) below: Coding Question(s): Pt admitted with Sepsis due to UTI .& MO. History mentioned ESRD. Progress notes documented Stage 4 Chronic Kidney disease. Please check below the CKD Stage patient has. Thanks for your help! KAYLA Steinberg [facility] Physician's Response(s): __x Pt has Stage 4 Chronic Kidney Disease Pt has ESRD Other: Please document: Principal Diagnosis: "that condition established after study, to be chiefly responsible for occasioning the admission of the patient to the hospital for care." Co-Existing Principal Diagnosis: "when two or more diagnoses equally meet the criteria for principal diagnosis as determined by the circumstances of admission, diagnostic work up, and/or therapy provided, and the Alphabetic Index, Tabular List, or another coding guideline does not provide sequencing direction, any one of the diagnoses may be sequenced first." "When the physician has documented what appears to be a current diagnosis in the body of the record, but has not included the diagnosis in the final diagnostic statement, the physician should be asked whether the diagnosis should be added." (Source Coding Clinic 2 QTR90. p3-4) [email or web address]
== END 2022-09-20 13:10 | disposition home or self-care (01) | DRG 853 ==
LOC: ED 21:30 → 2N 23:27 → SUATTDRO 23:27 → 2N 09-17 00:14 → 2E 09-17 17:26
PROC: CLB.CCO (2022-09-17 16:00)

== ENCOUNTER 2022-10-09 12:00 | Observation (INO) ==
--- NOTE | 2022-10-09 12:33 | Emergency Department Note ---
History of Present Illness General Chief complaint: Neuro Symptoms/Deficit Stated complaint: WEAKNESS, LEG PAIN, RIGHT SIDE WEAKNESS, GAIT DIST Time Seen by Provider: 10/09/22 12:13 Source: patient, family (Son who is at the bedside), RN notes reviewed and old records reviewed Mode of arrival: ambulatory Limitations: no limitations History of Present Illness Maximum Pain Intensity: 5 This patient comes in after having weakness in both of her legs around 10:00 this morning. She said she was having trouble walking she said both her legs feel weak. She has not fallen. She also says the right side of her face feels tingly and may be the arm. Denies any headache but just says she feels funny in her head. She is on Plavix. No dizziness no fall no chest pain or shortness of breath she had recent cardiac stent she does have renal problems and they were going to put her on dialysis at 1 point. No nausea or vomiting. Home Medications Medication Instructions Recorded Confirmed Type aspirin 81 mg tablet,delayed 81 mg PO QAM 10/02/18 10/09/22 History release (Adult Low Dose Aspirin) melatonin 3 mg tablet 3 mg PO HS 07/13/20 10/09/22 History bupropion HCl 300 mg 24 hr tablet, 300 mg PO QAM 07/22/20 10/09/22 History extended release (Wellbutrin XL) rabeprazole 20 mg tablet,delayed 20 mg PO QAM #90 tabs 03/24/22 10/09/22 Rx release furosemide 20 mg tablet 20 mg PO QAM #90 tabs 06/30/22 10/09/22 Rx levothyroxine 50 mcg tablet 50 mcg PO DAILYBB 09/16/22 10/09/22 History atorvastatin 40 mg tablet 40 mg PO HS #30 tabs 09/19/22 10/09/22 Rx clopidogrel 75 mg tablet 75 mg PO QAM #30 tabs 09/19/22 10/09/22 Rx isosorbide mononitrate 60 mg 60 mg PO QAM #30 tabs 09/19/22 10/09/22 Rx tablet,extended release 24 hr metoprolol succinate 50 mg 50 mg PO QAM #30 tabs 09/19/22 10/09/22 Rx tablet,extended release 24 hr nitroglycerin 0.4 mg sublingual 0.4 mg sublingual Q5M PRN chest 09/19/22 Rx tablet (Nitrostat) pain #25 tabs aripiprazole 2 mg tablet (Abilify) 2 mg PO QAM 10/09/22 10/09/22 History Allergies Allergy/AdvReac Type Severity Reaction Status Date / Time amlodipine Allergy Intermediate Feet Verified 09/27/22 08:44 swelling Sulfa (Sulfonamide Allergy Unknown Remote Verified 09/27/22 08:44 Antibiotics) unknown reaction Past Med/Surg History Medical History Anxiety and depression AV fistula LEFT ARM *HAS NOT USED Bradycardia COVID-19 End stage renal disease ESRD (end stage renal disease) Follows with Dr. Woodard > no current dialysis GERD (gastroesophageal reflux disease) Hiatal hernia History of COVID-19 01/22/21>MILD SYMPTOMS *RESOLVED History of TIA (transient ischemic attack) Several years ago *NO PROBLEMS FROM EVENT Hyperkalemia Hyperlipidemia Hypertension Hypothyroidism Osteoarthritis Schatzki's ring Sensorineural hearing loss (SNHL) bilat. Sleep apnea tested, but told "no device needed" per patient Temporomandibular joint disorder + clicking, no locking Surgical History History of carpal tunnel release RT/LEFT History of cataract surgery RT/LEFT History of colonoscopy Colonoscopy (01/08/19): MAC at [facility] History of esophagogastroduodenoscopy (EGD) History of laparoscopic cholecystectomy History of surgery Left Antecubital Basilic Vein Arteriovenous Fistula Creation (07/22/20): MAC + PNB at [facility] History of tonsillectomy and adenoidectomy History of tooth extraction Family History Mother Ovarian cancer Heart disease Father Family history of diabetes mellitus Heart disease Grandmother (Maternal) Family history of diabetes mellitus Other No family history of adverse response to anesthesia Denies family history of Prostate cancer Myocardial infarction Breast cancer Colorectal cancer Social History Smoking Status: Never smoker Second Hand Exposure: No; Do You Dip or Chew Tobacco: No; Hx Alcohol Use: No Hx Substance Use: No Preferred Language: Hungarian Communication Ability: Effective Visual Impairment: Limited Hearing Ability: Normal Power Builder Developer Required: No Beliefs That Will Affect Care: None marital status: Current Living Situation: Family Current Living Situation Comment: son lives with pt current occupational status: employed 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 [employer] How many Children do You have: 3 Feels Safe at Home: Yes Childhood Exposure to Second-Hand Smoke: Yes Diet: regular caffeine: No during the past year weight has: remained stable Dental Care, Regularly: No Physical Activity Frequency: Daily Seatbelt Use: always Sunscreen Use: No Do you think of yourself as: straight/heterosexual Gender Identity: Female Assistive Devices: None Review of Systems A total of 10 systems reviewed and were otherwise negative Physical Exam Vital Signs Vital Signs - 24 hr 10/09/22 12:02 10/09/22 12:18 10/09/22 12:27 Temperature 36.5 C Temperature Source Temporal Artery Scan Pulse Rate 71 66 Pulse Rate [Apical] Pulse Rate from SpO2 Sensor Respiratory Rate 16 Respiratory Effort / Characteristics Non-Labored Respiratory Depth Normal Blood Pressure 181/73 H Blood Pressure [Right Arm] Blood Pressure Mean 109 Blood Pressure Mean [Right Arm] Pulse Oximetry 97 100 Oxygen Delivery Method Room Air Room Air Sepsis Recent Fever Within 48 Hours No Sepsis New/Unexplained Change in Mental Status No Sepsis Action Taken by Nursing No Action Required 10/09/22 12:16 10/09/22 12:20 10/09/22 12:30 Temperature Temperature Source Pulse Rate 66 65 65 Pulse Rate [Apical] Pulse Rate from SpO2 Sensor 66 65 67 Respiratory Rate 27 H 14 20 Respiratory Effort / Characteristics Respiratory Depth Blood Pressure 202/65 H Blood Pressure [Right Arm] Blood Pressure Mean 110 Blood Pressure Mean [Right Arm] Pulse Oximetry 100 99 99 Oxygen Delivery Method Sepsis Recent Fever Within 48 Hours Sepsis New/Unexplained Change in Mental Status Sepsis Action Taken by Nursing 10/09/22 12:40 10/09/22 12:41 10/09/22 12:41 Temperature Temperature Source Pulse Rate 66 68 Pulse Rate [Apical] Pulse Rate from SpO2 Sensor 66 65 Respiratory Rate 19 17 Respiratory Effort / Characteristics Respiratory Depth Blood Pressure 198/68 H Blood Pressure [Right Arm] Blood Pressure Mean 111 Blood Pressure Mean [Right Arm] Pulse Oximetry 100 98 Oxygen Delivery Method Room Air Sepsis Recent Fever Within 48 Hours Sepsis New/Unexplained Change in Mental Status Sepsis Action Taken by Nursing 10/09/22 12:50 10/09/22 12:59 10/09/22 13:00 Temperature Temperature Source Pulse Rate 68 67 Pulse Rate [Apical] Pulse Rate from SpO2 Sensor 68 67 Respiratory Rate 21 17 Respiratory Effort / Characteristics Respiratory Depth Blood Pressure 159/67 H Blood Pressure [Right Arm] Blood Pressure Mean 97 Blood Pressure Mean [Right Arm] Pulse Oximetry 100 100 Oxygen Delivery Method Sepsis Recent Fever Within 48 Hours Sepsis New/Unexplained Change in Mental Status Sepsis Action Taken by Nursing 10/09/22 13:03 10/09/22 13:03 10/09/22 13:10 Temperature Temperature Source Pulse Rate 68 68 Pulse Rate [Apical] Pulse Rate from SpO2 Sensor 72 68 Respiratory Rate 22 24 Respiratory Effort / Characteristics Respiratory Depth Blood Pressure 180/81 H Blood Pressure [Right Arm] Blood Pressure Mean 114 Blood Pressure Mean [Right Arm] Pulse Oximetry 95 100 Oxygen Delivery Method Sepsis Recent Fever Within 48 Hours Sepsis New/Unexplained Change in Mental Status Sepsis Action Taken by Nursing 10/09/22 14:01 Temperature Temperature Source Pulse Rate Pulse Rate [Apical] 62 Pulse Rate from SpO2 Sensor Respiratory Rate 18 Respiratory Effort / Characteristics Respiratory Depth Blood Pressure Blood Pressure [Right Arm] 175/63 H Blood Pressure Mean Blood Pressure Mean [Right Arm] 100 Pulse Oximetry 100 Oxygen Delivery Method Room Air Sepsis Recent Fever Within 48 Hours Sepsis New/Unexplained Change in Mental Status Sepsis Action Taken by Nursing General: Well developed well nourished not ill-appearing older female who appears in no acute distress, breathing comfortably on room air. Normal speech. HEENT: Normal cephalic atraumatic. Pupils are equal round and reactive to light. Sclera anicteric extraocular movements are intact. Oropharynx is pink with moist mucous membranes. No swelling of the mouth lips or tongue. No facial asymmetry or droop. Neck: Supple with a midline trachea. No meningeal signs or stiffness, no JVD or bruits. No Stridor. Chest: Clear to auscultation bilaterally. No wheezes or rhonchi. No increased work of breathing. Heart: Regular rate and rhythm without murmurs or gallops. Abdomen: Soft nontender, nondistended without rebound guarding or rigidity. Extremities: No cyanosis clubbing or edema. No calf tenderness or assymetry Spine/Back. Non tender to palpation. No CVA tenderness Skin: Good turgor without rashes. Neurologic exam: Cranial nerves two through 12 are intact. Motor and sensation are intact and symmetrical throughout. No weakness. She says her right side of her face feels funny compared to the left she also says her left leg feels slightly funny compared to the right. Medical Decision Making Differential Diagnosis Stroke, TIA, intracranial hemorrhage, infection, electrolyte or metabolic abnormality, anemia, cardiac disease Medical Records Attestation: I reviewed the patient's medical records. Home Medications Current Medication List: was personally reviewed by me Laboratory Data Attestation: I reviewed the patient's lab results. 10/09/22 12:20 10/09/22 12:20 Lab Results 10/09/22 10/09/22 10/09/22 Range/Units 12:12 12:20 12:20 WBC 7.99 (4.8-10.8) K/ul RBC 3.89 L (4.20-5.40) M/uL Hgb 11.7 L (12.0-16.0) g/dl POC Hgb (12.0-16.0) g/dl Hct 35.8 L (37.0-47.0) % POC Hct (37-47) % MCV 92.0 (80.0-100.0) fL MCH 30.1 (25.0-34.0) pg MCHC 32.7 (32.0-36.0) g/dL RDW Std Deviation 48.9 H (36.4-46.3) fL RDW Coeff of Rob 14.6 H (11.5-14.5) % Plt Count 267 (130-400) K/uL MPV 9.9 (9.4-12.4) fL Immature Gran % (Auto) 0.4 % Neut % (Auto) 62.7 % Lymph % (Auto) 27.2 % Hubbard % (Auto) 6.8 % Eos % (Auto) 2.4 % Baso % (Auto) 0.5 % Neut # (Auto) 5.02 (1.40-6.50) K/uL Lymph # (Auto) 2.17 (1.2-3.4) K/uL Hubbard # (Auto) 0.54 (0.11-0.59) K/uL Eos # (Auto) 0.19 (0-0.50) K/uL Baso # (Auto) 0.04 (0-0.2) K/uL Immature Gran # (Auto) 0.03 (0.01-0.20) K/uL PT 11.5 (9.0-12.0) Seconds INR 1.1 (0.9-1.1) APTT 22.6 (21.0-31.0) Seconds PTT Ratio 0.8 POC Sodium (135-144) mmol/L Sodium (136-145) mmol/L POC Potassium (3.3-5.0) mmol/L Potassium (3.5-5.1) mmol/L POC Chloride (101-112) mmol/L Chloride (98-107) mmol/L Carbon Dioxide (21-32) mmol/L POC Total CO2 (24-31) mmol/L Anion Gap (3-11) POC Anion Gap (16-25) mmol/L POC BUN (7-18) mg/dl BUN (6-23) mg/dl Creatinine (0.6-1.2) mg/dl POC Creatinine (0.6-1.3) mg/dl Est Cr Clr Drug Dosing ml/min Est GFR ( Amer) ml/min Est GFR (Non-Af Amer) ml/min BUN/Creatinine Ratio (10-20) Glucose (70-99(Fasting)) mg/dl POC Glucose 96 (70-99) mg/dl POC Glucose (other) (70-99) mg/dl Calcium (8.6-10.3) mg/dl POC Ioniz Calcium Alicia (1.12-1.32) mmol/l Magnesium (1.7-2.4) mg/dl Total Bilirubin (0.2-1.0) mg/dl AST (13-39) U/L ALT (7-52) U/L Alkaline Phosphatase (34-104) U/L Troponin I High Sens (0-14) pg/ml Total Protein (6.0-8.3) gm/dl Albumin (3.4-5.0) gm/dl Globulin (2.5-4.0) gm/dl Albumin/Globulin Ratio (0.9-2) 10/09/22 10/09/22 Range/Units 12:20 12:24 WBC (4.8-10.8) K/ul RBC (4.20-5.40) M/uL Hgb (12.0-16.0) g/dl POC Hgb 12.9 (12.0-16.0) g/dl Hct (37.0-47.0) % POC Hct 38 (37-47) % MCV (80.0-100.0) fL MCH (25.0-34.0) pg MCHC (32.0-36.0) g/dL RDW Std Deviation (36.4-46.3) fL RDW Coeff of Rob (11.5-14.5) % Plt Count (130-400) K/uL MPV (9.4-12.4) fL Immature Gran % (Auto) % Neut % (Auto) % Lymph % (Auto) % Hubbard % (Auto) % Eos % (Auto) % Baso % (Auto) % Neut # (Auto) (1.40-6.50) K/uL Lymph # (Auto) (1.2-3.4) K/uL Hubbard # (Auto) (0.11-0.59) K/uL Eos # (Auto) (0-0.50) K/uL Baso # (Auto) (0-0.2) K/uL Immature Gran # (Auto) (0.01-0.20) K/uL PT (9.0-12.0) Seconds INR (0.9-1.1) APTT (21.0-31.0) Seconds PTT Ratio POC Sodium 142 (135-144) mmol/L Sodium 138 (136-145) mmol/L POC Potassium 4.3 (3.3-5.0) mmol/L Potassium 4.2 (3.5-5.1) mmol/L POC Chloride 101 (101-112) mmol/L Chloride 103 (98-107) mmol/L Carbon Dioxide 30 (21-32) mmol/L POC Total CO2 26 (24-31) mmol/L Anion Gap 5 (3-11) POC Anion Gap 20.0 (16-25) mmol/L POC BUN 24 H (7-18) mg/dl BUN 25 H (6-23) mg/dl Creatinine 2.39 H (0.6-1.2) mg/dl POC Creatinine 2.4 H (0.6-1.3) mg/dl Est Cr Clr Drug Dosing 15.0 ml/min Est GFR ( Amer) 21.8 ml/min Est GFR (Non-Af Amer) 18.8 ml/min BUN/Creatinine Ratio 10.5 (10-20) Glucose 108 H (70-99(Fasting)) mg/dl POC Glucose (70-99) mg/dl POC Glucose (other) 109 H (70-99) mg/dl Calcium 9.3 (8.6-10.3) mg/dl POC Ioniz Calcium Alicia 1.17 (1.12-1.32) mmol/l Magnesium 2.3 (1.7-2.4) mg/dl Total Bilirubin 0.6 (0.2-1.0) mg/dl AST 15 (13-39) U/L ALT 13 (7-52) U/L Alkaline Phosphatase 84 (34-104) U/L Troponin I High Sens 10.3 (0-14) pg/ml Total Protein 7.0 (6.0-8.3) gm/dl Albumin 4.0 (3.4-5.0) gm/dl Globulin 3.0 (2.5-4.0) gm/dl Albumin/Globulin Ratio 1.3 (0.9-2) Imaging Data Attestation: I personally reviewed and interpreted this imaging study as follows: My Impression: Head CT-No acute hemorrhage or mass effect Radiologist's Impression: Head CT 10/09/22 12:[address] DOSE: 682.26 mGy.cm HISTORY: neuro deficit, acute stroke suspected TECHNIQUE: Multiaxial CT images of the head were performed without the use of intravenous contrast. Automated exposure control was utilized for this study. A dose lowering technique was utilized adhering to the principles of ALARA. Comparison: Head CT 07/22/2020. Findings: The paranasal sinuses and mastoid air cells are clear. The calvarium and skull base are intact. There is no mass, hematoma, midline shift, acute infarct. White matter hypodensity is nonspecific but suggestive of microvascular ischemic change. The ventricles and sulci demonstrate mild age-related involutional changes. Impression: No acute intracranial abnormality. Atrophy and microvascular ischemic changes. ACT 112: Negative or not required by law. Electronically signed by: Hal Shanks M.D. 10/09/2022 12:47 PM ECG Data Attestation: I personally reviewed and interpreted this ECG as follows: Indication: + weakness Rate (beats per minute): 66 Rhythm: + normal sinus ECG Intervals/blocks: + Normal QRS, + Normal QT and + Normal [place] ECG [place]: + Normal, + Left axis deviation and + Right axis deviation ECG ST segments: + Normal ST segments ECG Findings: + Other (She has inferior T wave inversions as well as lateral); no PACs or no PVCs Comparison ECG Date: from (09/17/22) Change: the following changes noted (The anterior lateral and inferior ST segment abnormalities have improved significantly) MDM Narrative This patient comes in as described above. She was placed in room A1. She is here for treatment and evaluation of strokelike symptoms. Given the fact that she had the symptoms occurred 10 she is still within the lytic window however her symptoms are somewhat atypical and mild and she has a lot of other medical issues and I do not think is likely get a big lytic candidate I did however stroke alert her as well as discussed the case with the on-call teleneurologist Dr. Cristobal. I also discussed that at length with the family. I did order a CAT scan but I did not order the angiography given the fact that she has significant renal insufficiency , I do not think is likely large vessel. CT of the head was unremarkable. She has no significant electrolyte or metabolic abnormalities. she does have baseline elevation of her creatinine of 2.3. She she has had significant kidney dysfunction the in the past to the point where they put a dialysis fistula left arm. Again, I do not feel she needs angiography and would be concerned anyways with her kidneys. I discussed the case with Dr. Cristobal, he does not feel the patient needs cough or congestion. She is not lytics he thinks her symptoms are mild and he is not sure it is actually a stroke as her somewhat atypical. He did recommend an MRI. I did consult Dr. Perez and the patient will be admitted for further neurologic work-up and MRI. The patient and her family were happy with the plan and the patient will be admitted for further treatment and evaluation Continuous cardiac monitoring: Orders placed in EMR for continuous cardiac monitoring: Upon my evaluation patient to be normal sinus rhythm rate of 65 Impression & Plan Weakness, Chronic kidney disease, stage 4 (severe), Coronary artery disease, Transient neurological symptoms Discharge Plan Visit Data Chief Complaint: Neuro Symptoms/Deficit Stated Complaint: WEAKNESS, LEG PAIN, RIGHT SIDE WEAKNESS, GAIT DIST ED Provider: Sree Atwood Discharge Problem: Weakness, Chronic kidney disease, stage 4 (severe), Coronary artery disease, Transient neurological symptoms Patient Disposition: Admitted As Inpatient Discharge Instructions Interventions: ED Discharge Assessment Last Done: 10/09/22 14:45
[2022-10-09 12:38] LABS: iSTAT Creatinine 2.4 mg/dl (0.6-1.3); iSTAT Hemoglobin 12.9 g/dl (12.0-16.0); iSTAT Ionized Calcium 1.17 mmol/l (1.12-1.32); iSTAT Potassium 4.3 mmol/L (3.3-5.0)
--- NOTE | 2022-10-09 12:49 | CT Scan Report ---
HEAD CT NONCONTRAST CT DOSE: 682.26 mGy.cm HISTORY: neuro deficit, acute stroke suspected TECHNIQUE: Multiaxial CT images of the head were performed without the use of intravenous contrast. A utomated exposure control was utilized for this study. A dose lowering technique was utilized adheri ng to the principles of ALARA. Comparison: Head CT 07/22/2020. Findings: The paranasal sinuses and mastoid air cells are clear. The calvarium and skull base are int act. There is no mass, hematoma, midline shift, acute infarct. White matter hypodensity is nonspecifi c but suggestive of microvascular ischemic change. The ventricles and sulci demonstrate mild age-rela tete involutional changes. Impression: No acute intracranial abnormality. Atrophy and microvascular ischemic changes. ACT 112: Negative or not required by law. Electronically signed by: Hal Shanks M.D. 10/09/2022 12:47 PM
[2022-10-09 12:55] LABS: Basophils # (auto) 0.04 K/uL (0-0.2); Basophils % (auto) 0.5 %; Eosinophils # (auto) 0.19 K/uL (0-0.50); Eosinophils % (auto) 2.4 %; Hematocrit (blood only) 35.8 % (37.0-47.0); Hemoglobin 11.7 g/dl (12.0-16.0); Immature Granulocytes # (auto) 0.03 K/uL (0.01-0.20); Immature Granulocytes % (auto) 0.4 %; Lymphocytes # (auto) 2.17 K/uL (1.2-3.4); Lymphocytes % (auto) 27.2 %; Mean Corpuscular Hemoglobin 30.1 pg (25.0-34.0); Mean Corpuscular Hgb Conc 32.7 g/dL (32.0-36.0); Mean Platelet Volume 9.9 fL (9.4-12.4); Monocytes # (auto) 0.54 K/uL (0.11-0.59); Monocytes % (auto) 6.8 %; Neutrophils # (auto) 5.02 K/uL (1.40-6.50); Neutrophils % (auto) 62.7 %; Platelet Count 267 K/uL (130-400); RDW Coefficient of Variation 14.6 % (11.5-14.5); RDW Standard Deviation 48.9 fL (36.4-46.3); Red Blood Count 3.89 M/uL (4.20-5.40); White Blood Count 7.99 K/ul (4.8-10.8)
[2022-10-09 13:01] LABS: Albumin Globulin Ratio 1.3 (0.9-2); BUN Creatinine Ratio 10.5 (10-20); Bilirubin,Total 0.6 mg/dl (0.2-1.0); Calcium 9.3 mg/dl (8.6-10.3); Est GFR (African American) 21.8 ml/min; Est GFR (Non-African American) 18.8 ml/min; Magnesium 2.3 mg/dl (1.7-2.4); Potassium 4.2 mmol/L (3.5-5.1)
[2022-10-09 13:07] LABS: Troponin I High Sensitivity 10.3 pg/ml (0-14)
[2022-10-09 13:15] LABS: INR 1.1 (0.9-1.1); Partial Thromboplastin Ratio 0.8; Partial Thromboplastin Time 22.6 Seconds (21.0-31.0); Prothrombin Time 11.5 Seconds (9.0-12.0)
--- NOTE | 2022-10-09 13:36 | History & Physical Report ---
Date of Service October 09, 2022 Assessment & Plan (1) Stroke-like symptoms: Plan: Strokelike symptoms, right-sided weakness Last known normal: 10 AM Symptoms: Right arm, right and left leg weakness. Some right facial tingling. 90% improved at time of bedside assessed Has been taking aspirin/Plavix DAPT for recent [place] s/p PCI, compliant with this and took this morning of 10/09 CTAH/N: Not done due to CKD CThead: No acute findings Limited echo for PFO evaluation pending. - No TNKase per telestroke protocol. We will follow-up with MRI including angios - No infectious symptoms - No chest pain, SoB - Sx did onset after standing. Pt is mildly hypertensive, ddx includes labile orthostasis with ?prerenal ivonne CAD, s/p PCI 09/17 On DAPT with aspirin/Plavix Antiplatelet recommendations as otherwise noted Continue metoprolol Continue statin Echo 09/18/2022: Preserved LVEF, mild inferolateral and apical hypokinesis, EF 55 to 60%. ASD not detected, PFO not assessed with bubble study Lasix held Isosorbide continued CKD Baseline creatinine around 1.92.2, has been as high as 4. has had a fistula placed. Admitting creatinine 2.39, mild IVONNE versus prerenal azotemia CT angios deferred on ER evaluation Recommended for MR GERD Continue PPI, converted to Protonix while inpatient Hypothyroidism Continue Synthroid 50 mcg TSH pending Anxiety/depression Continue aripiprazole 2 mg every morning, bupropion 300 mg daily DVT PPx: Lovenox CODE: DNR Dispo: PCU for stroke eval Diet: HH History of Present Illness Primary Care Provider: YONNY Drew Yvrose is a 76-year-old female with past medical history of inferior [place], CAD, bacteremia, GERD, depression/anxiety, CKD 4 who was evaluated in the ER as a stroke alert. Patient was recently discharged 09/20/2022. She was initially admitted for urosepsis overnight 09/17; afternoon of 09/17 developed chest discomfort and inferior ST changes. Heart alert was called and she underwent cardiac catheterization which showed severe multivessel disease, culprit lesion and left PDA with 1 CLAIRE placed, residual disease and early distal LAD, large second di agonal, and other severe lesions and small caliber vessels not amenable to PCI. She was initially started on aspirin/Brilinta following catheterization. Prior to discharge she was switched to and then discharged on aspirin/Plavix DAPT. She was discharged on atorvastatin, metoprolol, Plavix, isosorbide, and aspirin. During admission she did also have E. coli bacteremia suspected urologic source, and was discharged on a total 7-day course of antibiotics to be completed with Levaquin. She represented to the emergency department 10/09 with right-sided weakness, gait disturbance, leg pain and on evaluation by ER provider was called as a stroke alert. Per ER sign out 10am trouble walking, weakness in both legs. Endorsed more R sided and R arm weakness, R facial paresthesias. Did have some L leg weakness. Telestroke: Symptoms mild, not in a clear stroke territory. TNKase not recommended. Angios deferred 2/2 CKD. Followup w MRI Per Pt: Both legs, R arm weak this morning. Around 10am noticed onset of symptoms and 'head felt funny like I was drunk and not with it.' No trouble speaking. Family was around but sleeping. At bedside assessment 'I feel pretty decent, about 90% back to normal' She has just gotten out of bed prior to symtoms, thinks she had gotten up shortly before symptoms stared No nausea, no sweats Chronic cough, no change. Nonproduction. No dysuria. Endorses heartburn, no change. No diarrhea. No vision change No room spinning Lightheaded, but no syncope. Did also get lightheaded once on the commode after she got up. No chest pain, no chest pressure. Is taking ASA/Plaavix, has been taking this regularly. Not bothering her stomach. Has had anxiety attacks before, feels these symptoms were different Medical History: Reviewed Medications: Reviewed Surgical History: Reviewed Family history: Reviewed Allergies: Reviewed Social History: no tobacco/etoh/substance use Code Status: DNR DNI Allergies Allergy/AdvReac Type Severity Reaction Status Date / Time amlodipine Allergy Intermediate Feet Verified 09/27/22 08:44 swelling Sulfa (Sulfonamide Allergy Unknown Remote Verified 09/27/22 08:44 Antibiotics) unknown reaction Home Medications Medication Instructions Recorded Confirmed Type aspirin 81 mg tablet,delayed 81 mg PO QAM 10/02/18 09/27/22 History release (Adult Low Dose Aspirin) aripiprazole 2 mg tablet 2 mg PO QAM #30 tabs 02/11/20 09/27/22 Rx melatonin 3 mg tablet 3 mg PO HS 07/13/20 09/27/22 History bupropion HCl 300 mg 24 hr tablet, 300 mg PO QAM 07/22/20 09/27/22 History extended release (Wellbutrin XL) rabeprazole 20 mg tablet,delayed 20 mg PO QAM #90 tabs 03/24/22 09/27/22 Rx release furosemide 20 mg tablet 20 mg PO QAM #90 tabs 06/30/22 09/27/22 Rx levothyroxine 50 mcg tablet 50 mcg PO DAILYBB 09/16/22 09/27/22 History atorvastatin 40 mg tablet 40 mg PO HS #30 tabs 09/19/22 09/27/22 Rx clopidogrel 75 mg tablet 75 mg PO QAM #30 tabs 09/19/22 09/27/22 Rx isosorbide mononitrate 60 mg 60 mg PO QAM #30 tabs 09/19/22 09/27/22 Rx tablet,extended release 24 hr metoprolol succinate 50 mg 50 mg PO QAM #30 tabs 09/19/22 09/27/22 Rx tablet,extended release 24 hr nitroglycerin 0.4 mg sublingual 0.4 mg sublingual Q5M PRN chest 09/19/22 09/27/22 Rx tablet (Nitrostat) pain #25 tabs Past Med/Surg History Medical History Anxiety and depression AV fistula LEFT ARM *HAS NOT USED Bradycardia COVID-19 End stage renal disease ESRD (end stage renal disease) Follows with Dr. Woodard > no current dialysis GERD (gastroesophageal reflux disease) Hiatal hernia History of COVID-19 01/22/21>MILD SYMPTOMS *RESOLVED History of TIA (transient ischemic attack) Several years ago *NO PROBLEMS FROM EVENT Hyperkalemia Hyperlipidemia Hypertension Hypothyroidism Osteoarthritis Schatzki's ring Sensorineural hearing loss (SNHL) bilat. Sleep apnea tested, but told "no device needed" per patient Temporomandibular joint disorder + clicking, no locking Surgical History History of carpal tunnel release RT/LEFT History of cataract surgery RT/LEFT History of colonoscopy Colonoscopy (01/08/19): MAC at [facility] History of esophagogastroduodenoscopy (EGD) History of laparoscopic cholecystectomy History of surgery Left Antecubital Basilic Vein Arteriovenous Fistula Creation (07/22/20): MAC + PNB at [facility] History of tonsillectomy and adenoidectomy History of tooth extraction Family History Mother Ovarian cancer Heart disease Father Family history of diabetes mellitus Heart disease Grandmother (Maternal) Family history of diabetes mellitus Other No family history of adverse response to anesthesia Denies family history of Prostate cancer Myocardial infarction Breast cancer Colorectal cancer Social History Smoking Status: Never smoker Second Hand Exposure: No; Do You Dip or Chew Tobacco: No; Hx Alcohol Use: No Hx Substance Use: No Preferred Language: Bulgarian Communication Ability: Effective Visual Impairment: Limited Hearing Ability: Normal Records Management Director Required: No Beliefs That Will Affect Care: None marital status: Current Living Situation: Family Current Living Situation Comment: son lives with pt current occupational status: employed 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 How many Children do You have: 3 Feels Safe at Home: Yes Childhood Exposure to Second-Hand Smoke: Yes Diet: regular caffeine: No during the past year weight has: remained stable Dental Care, Regularly: No Physical Activity Frequency: Daily Seatbelt Use: always Sunscreen Use: No Do you think of yourself as: straight/heterosexual Gender Identity: Female Assistive Devices: None Review of Systems Review of Systems: All systems reviewed & are unremarkable except as noted in HPI & below Physical Exam Physical Exam: General: A&Ox3. NAD. Cooperative. HEENT: Atraumatic, normocephalic. Pulm: CTAB A&P. -wheezes, -rales, -rhonchi. Symmetrical chest rise. No increased work of breathing. No respiratory distress. Cardiac: RRR, -mrg. Radial pulses intact and symmetrical. Abdominal: Nontender, nondistended, soft. BS present. CRANIAL NERVES: II: Pupils equal and reactive, no relative afferent pupillary defect, no VF cuts III, IV, : EOM intact, no gaze preference or deviation, no nystagmus. V: normal sensation in V1, V2, and V3 segments bilaterally VII: no asymmetry, no nasolabial fold flattening VIII: normal hearing to speech IX, X: normal palatal elevation, no uvular deviation XI: 5/5 head turn and 5/5 shoulder shrug bilaterally XII: midline tongue protrusion MOTOR: RUE: 5/5 Shoulder flexion, extension 5/5 Elbow flexion/extension, wrist flexion/extension 5/5 maintenance foreman strength LUE: 5/5 Shoulder flexion, extension 5/5 Elbow flexion/extension, wrist flexion/extension 5/5 maintenance foreman strength RLE: 5/5 to hip flexion, ankle dorsiflexion/plantarflexion LLE: 5/5 to hip flexion, ankle dorsiflexion/plantarflexion REFLEXES: 2/4 patellar, no clonus SENSORY: Normal to touch in upper and lower extremities without deficit or asymmetry COORD: slightly tremulous otherwise normal Normal finger to nose Results & Data Results & Data Vital Signs (Past 12 Hours) Vital Signs Temp Pulse Resp BP Pulse Ox O2 Del Method 10/09/22 13:10 68 24 100 10/09/22 13:03 68 22 95 10/09/22 13:03 180/81 H 10/09/22 13:00 159/67 H 10/09/22 12:59 67 17 100 10/09/22 12:50 68 21 100 10/09/22 12:41 198/68 H 10/09/22 12:41 68 17 98 Room Air 10/09/22 12:40 66 19 100 10/09/22 12:30 65 20 99 10/09/22 12:20 65 14 202/65 H 99 10/09/22 12:16 66 27 H 100 10/09/22 12:27 100 Room Air 10/09/22 12:18 66 10/09/22 12:02 36.5 C 71 16 181/73 H 97 Room Air PG Care Time/CCT Total # of Minutes Spent Total Time Spent with Patient: Total time spent is greater than 50% in coordination of care (as documented) at patient's floor/unit and/or counseling patient: Coding Level of Care Code 15033 INT INP/OBS CARE MIN Diagnoses Stroke-like symptoms R29.90
[2022-10-09] MEDS ORDERED: LABETALOL HCL IV 5 MG/ML 20ML IV PRN (15:12)
[2022-10-09] MEDS ORDERED: PHARMACIST DISCHARGE MED REC CONSULT PRN (15:12)
[2022-10-09] MEDS ORDERED: NITROGLYCERIN SL 0.4 MG/TAB TAB SL PRN (15:12)
[2022-10-09] MEDS ORDERED: ACETAMINOPHEN 325 MG TAB PO PRN (15:12)
--- NOTE | 2022-10-09 16:08 | XCELERA ---
[id number]
[2022-10-09] MEDS ORDERED: MELATONIN 3 MG TAB PO SCH (21:00)
[2022-10-09] MEDS ORDERED: ATORVASTATIN 40 MG TAB PO SCH (21:00)
--- NOTE | 2022-10-10 00:13 | Ultrasound Report ---
ULTRASOUND OF THE CAROTID ARTERIES CLINICAL HISTORY: Neurological deficit. Stroke like symptoms. COMPARISON STUDY: Carotid artery ultrasound dated 12/24/2016. TECHNIQUE: Real-time, grayscale, and color Doppler sonography of the carotid arteries is performed. I mages are reviewed in the transverse and longitudinal planes. FINDINGS: The carotid arteries are patent bilaterally and demonstrate antegrade flow. There is minimal atherosc lerotic plaque identified. Normal doppler arterial waveforms are seen throughout. Velocity measuremen ts are listed below. Common carotid peak systolic velocity (cm/sec): RIGHT: 74 LEFT: 120 ICA proximal peak systolic velocity (cm/sec): RIGHT: 75 LEFT: 107 ICA mid peak systolic velocity (cm/sec): RIGHT: 68 LEFT: 69 ICA distal peak systolic velocity (cm/sec): RIGHT: 66 LEFT: 62 ICA/CC peak systolic ratio: RIGHT: 1.0 LEFT: 0.9 Antegrade flow was shown in the vertebral arteries. The external carotid arteries are patent. IMPRESSION: 1. There is no sonographic evidence of hemodynamically significant stenosis in the right or left miranda tid arterial system. 2. Antegrade flow is shown in the vertebral arteries. ACT 112: Negative or not required by law. Electronically signed by: Luis Carlos Lawson M.D. 10/10/2022 12:12 AM
[2022-10-10] MEDS ORDERED: LEVOTHYROXINE SODIUM 50 MCG TABLET PO SCH (06:30)
[2022-10-10 07:09] LABS: Basophils # (auto) 0.04 K/uL (0-0.2); Basophils % (auto) 0.5 %; Eosinophils % (auto) 2.6 %; Hematocrit (blood only) 34.9 % (37.0-47.0); Hemoglobin 11.4 g/dl (12.0-16.0); Immature Granulocytes # (auto) 0.02 K/uL (0.01-0.20); Immature Granulocytes % (auto) 0.3 %; Lymphocytes # (auto) 2.53 K/uL (1.2-3.4); Lymphocytes % (auto) 32.9 %; Mean Corpuscular Hemoglobin 29.9 pg (25.0-34.0); Mean Corpuscular Hgb Conc 32.7 g/dL (32.0-36.0); Mean Corpuscular Volume 91.6 fL (80.0-100.0); Mean Platelet Volume 9.8 fL (9.4-12.4); Monocytes # (auto) 0.58 K/uL (0.11-0.59); Monocytes % (auto) 7.6 %; Neutrophils # (auto) 4.31 K/uL (1.40-6.50); Neutrophils % (auto) 56.1 %; Platelet Count 216 K/uL (130-400); RDW Coefficient of Variation 14.9 % (11.5-14.5); RDW Standard Deviation 49.6 fL (36.4-46.3); Red Blood Count 3.81 M/uL (4.20-5.40); White Blood Count 7.68 K/ul (4.8-10.8)
[2022-10-10 07:30] LABS: Calcium 9.2 mg/dl (8.6-10.3); Chol HDL Ratio 3.5 (0-5); Creatinine Clr Calc Pharmacy 17.1 ml/min; Est GFR (African American) 25.5 ml/min; Potassium 4.1 mmol/L (3.5-5.1)
[2022-10-10 08:05] LABS: Estimated Average Glucose 126 mg/dl
[2022-10-10] MEDS ORDERED: buPROPion XL 300 MG TABCR PO SCH (09:00)
[2022-10-10] MEDS ORDERED: CLOPIDOGREL BISULFATE 75 MG TAB PO SCH (09:00)
[2022-10-10] MEDS ORDERED: METOPROLOL SUCC 50MG EXT REL TAB PO SCH (09:00)
[2022-10-10] MEDS ORDERED: ARIPIprazole 1 MG/ML ORAL SOLN 150 ML BTL PO SCH (09:00)
[2022-10-10] MEDS ORDERED: ISOSORBIDE MONO EXTENDED REL 60 MG TABCR PO SCH (09:00)
[2022-10-10] MEDS ORDERED: HEPARIN SOD 5,000 UNIT/0.5 ML VIAL SQ SCH (09:00)
[2022-10-10] MEDS ORDERED: PANTOprazole 40 MG TAB PO SCH (09:00)
[2022-10-10] MEDS ORDERED: ASPIRIN 81 MG ECTAB PO SCH (09:00)
--- NOTE | 2022-10-10 10:08 | Electrocardiogram Report ---
Test Reason : Blood Pressure : / mmHG Vent. Rate : 066 BPM Atrial Rate : 066 BPM P-R Int : 168 ms QRS Dur : 068 ms QT Int : 378 ms P-R-T Axes : 058 -08 -29 degrees QTc Int : 396 ms Poor data quality, interpretation may be adversely affected Normal sinus rhythm Possible Inferior infarct (cited on or before 16-SEP-2022) Anterior infarct , age undetermined Abnormal ECG When compared with ECG of 17-SEP-2022 17:44, Anterior infarct is now Present T wave inversion now evident in Inferior leads T wave inversion less evident in Anterolateral leads Confirmed by Erick Reyes ([id number]) on 10/10/2022 10:07:52 AM Referred By: REFERRED SELF Confirmed By:Erick Reyes
--- NOTE | 2022-10-10 13:02 | Magnetic Resonance Report ---
MRI OF THE BRAIN WITHOUT IV CONTRAST CLINICAL HISTORY: Strokelike symptoms. Transient ischemic attack. Facial tingling. Leg weakness. COMPARISON STUDY: CT of the brain dated 10/09/2022. TECHNIQUE: MRI of the brain was performed utilizing various T1 and T2-weighted sequences in the axial , sagittal, and coronal planes. IV contrast was not administered for this examination. FINDINGS: Brain parenchyma: There is age-related involutional change noting moderate to advanced subcortical an d periventricular microangiopathic disease. There is no hemorrhage or mass effect. There is no restri cted diffusion to suggest acute ischemia. Ward-white matter differentiation is preserved. No extra-ax ial fluid collection is seen. The cerebellar tonsils are normal in configuration. Ventricles, sulci, and cisterns: Prominent secondary to involutional change. Pituitary and sella: Unremarkable. Intracranial vasculature: Normal flow voids are maintained at the skull base. Orbits: The bony orbits are grossly intact. Orbital contents are normal in appearance noting bilatera l ocular lens implants. Sinuses and mastoids: Clear. Calvarium: Unremarkable. Cervical cord: Partially visualized cervical spinal cord is normal in morphology and signal intensity . IMPRESSION: No acute intracranial abnormality. ACT 112: Negative or not required by law. Electronically signed by: Luis Carlos Lawson M.D. 10/10/2022 1:00 PM
--- NOTE | 2022-10-10 13:13 | Magnetic Resonance Report ---
MR angio head wo con CLINICAL HISTORY: cva/tia eval TECHNIQUE: 3D time of flight MRA of the head was performed without intravenous contrast. 3-D reconstr uctions were obtained in multiple planes. Comparison: Comparison is made to CT head 10/09/2022 FINDINGS: Flow signal is shown in the intracranial segments of the internal carotid arteries, the anterior, mid dle and posterior cerebral arteries, the anterior and posterior communicating arteries, cerebellar ar teries, the intracranial segments of the vertebral arteries, and the basilar artery. No aneurysm, ar teriovenous malformation, dissection, nor hemodynamically significant flow stenosis is shown. Inciden abiola note is made of origin of the left MARKET DEVELOPMENT DIRECTOR. Assessment of stenosis of the internal carotid arteries is based on NASCET criteria. IMPRESSION: No evidence of acute intracranial abnormality. In particular, no occlusion, hemorrhage, or aneurysmal disease is seen. ACT 112: Negative or not required by law. Electronically signed by: Geoffrey Doan M.D. 10/10/2022 1:11 PM
[2022-10-10] MEDS ORDERED: STROKE PATIENT DISCHARGE STA (13:59)
--- NOTE | 2022-10-10 13:59 | Discharge Summary ---
Date of Service October 10, 2022 Admission HPI Per Admitting Provider Yvrose is a 76-year-old female with past medical history of inferior [place], CAD, bacteremia, GERD, depression/anxiety, CKD 4 who was evaluated in the ER as a stroke alert. Patient was recently discharged 09/20/2022. She was initially admitted for urosepsis overnight 09/17; afternoon of 09/17 developed chest discomfort and inferior ST changes. Heart alert was called and she underwent cardiac catheterization which showed severe multivessel disease, culprit lesion and left PDA with 1 CLAIRE placed, residual disease and early distal LAD, large second diagonal, and other severe lesions and small caliber vessels not amenable to PCI. She was initially started on aspirin/Brilinta following catheterization. Prior to discharge she was switched to and then discharged on aspirin/Plavix DAPT. She was discharged on atorvastatin, metoprolol, Plavix, isosorbide, and aspirin. During admission she did also have E. coli bacteremia suspected urologic source, and was discharged on a total 7-day course of antibiotics to be completed with Levaquin. She represented to the emergency department 10/09 with right-sided weakness, gait disturbance, leg pain and on evaluation by ER provider was called as a stroke alert. Per ER sign out 10am trouble walking, weakness in both legs. Endorsed more R sided and R arm weakness, R facial paresthesias. Did have some L leg weakness. Telestroke: Symptoms mild, not in a clear stroke territory. TNKase not recommended. Angios deferred 2/2 CKD. Followup w MRI Per Pt: Both legs, R arm weak this morning. Around 10am noticed onset of symptoms and 'head felt funny like I was drunk and not with it.' No trouble speaking. Family was around but sleeping. At bedside assessment 'I feel pretty decent, about 90% back to normal' She has just gotten out of bed prior to symtoms, thinks she had gotten up shortly before symptoms stared No nausea, no sweats Chronic cough, no change. Nonproduction. No dysuria. Endorses heartburn, no change. No diarrhea. No vision change No room spinning Lightheaded, but no syncope. Did also get lightheaded once on the commode after she got up. No chest pain, no chest pressure. Is taking ASA/Plaavix, has been taking this regularly. Not bothering her stomach. Has had anxiety attacks before, feels these symptoms were different Medical History: Reviewed Medications: Reviewed Surgical History: Reviewed Family history: Reviewed Allergies: Reviewed Social History: no tobacco/etoh/substance use Code Status: DNR DNI Principal Diagnosis Strokelike symptoms Discharge Exam General-alert and oriented x3, no fevers, no chills HEENT-head atraumatic and normocephalic, pupils equal and reactive to light, extraocular muscles intact Neck-no lymphadenopathy or thyromegaly, trachea midline Chest-clear to auscultation percussion. No rales wheezing or rhonchi Cardiac-regular rate and rhythm, normal S1 and S2 Abdomen-normal bowel sounds, nontender, no hepatosplenomegaly Extremities-no cyanosis, clubbing, or edema Neuro-cranial nerves II through XII intact, motor and sensory function within normal limits, strength symmetrical , no focal deficits Psych-normal affect, normal mood Discharge Data Allergies Allergy/AdvReac Type Severity Reaction Status Date / Time amlodipine Allergy Intermediate Feet Verified 09/27/22 08:44 swelling Sulfa (Sulfonamide Allergy Unknown Remote Verified 09/27/22 08:44 Antibiotics) unknown reaction Consultations 10/09/22 14:05 ED Decision to Admit Stat Ordered Studies 10/09/22 12:20 CT head/brain wo con Stat 10/09/22 18:14 US carotid doppler BI Routine 10/10/22 15:12 MR angio head wo con Urgent MR brain wo con Routine Hospital Course (1) Stroke-like symptoms: Right-sided paresthesias have resolved. Brain MRI scan negative for acute CVA. Brain MRA also negative for any critical stenosis. (2) Coronary artery disease: Stable. Continue current medical (3) Chronic kidney disease, stage 4 (severe): Stable. Monitor intake and output. Serial lab (4) Hypertension: Stable. Continue current medical management (5) Hypothyroidism: Stable. Continue current thyroid replaced Plan Home todayOctober 13 Total Time Total Time Spent Total Time Spent (In Minutes): 40-minute Discharge Plan Discharge Items Patient Disposition: Home - Self-Care Reason For Visit: CVA EVAL Discharge Diagnosis: Strokelike symptoms with right-sided paresthesia Activity: Resume your previous activity Non-emergency contact: Primary Care Provider Call non-emergency contact if: your symptoms worsen Follow-up/Referrals: Bernarda Rehman CRNP [Primary Care Provider] - Diet: Regular and Heart Healthy Addtl Attending Provider Instructions: No new medications at this time Stand-Alone Forms: [facility] [employer], Smoking Cessation Medications and DC Order Prescriptions: Continued rabeprazole 20 mg tablet,delayed release (DR/EC) 20 mg PO QAM Qty: 90 3RF furosemide 20 mg tablet 20 mg PO QAM Qty: 90 3RF aspirin [Adult Low Dose Aspirin] 81 mg tablet,delayed release (DR/EC) 81 mg PO QAM melatonin 3 mg Tablet 3 mg PO HS bupropion HCl [Wellbutrin XL] 300 mg tablet extended release 24 hr 300 mg PO QAM levothyroxine 50 mcg tablet 50 mcg PO DAILYBB atorvastatin 40 mg Tablet 40 mg PO HS Qty: 30 11RF metoprolol succinate 50 mg Tablet Extended Release 24 Hr 50 mg PO QAM Qty: 30 11RF clopidogrel 75 mg Tablet 75 mg PO QAM Qty: 30 11RF isosorbide mononitrate 60 mg Tablet Extended Release 24 Hr 60 mg PO QAM Qty: 30 11RF nitroglycerin [Nitrostat] 0.4 mg Tablet, Sublingual 0.4 mg sublingual Q5M PRN (Reason: chest pain) Qty: 25 3RF aripiprazole [Abilify] 2 mg tablet 2 mg PO QAM Discharge Orders: Discharge Order (Routine); Ordered 10/10/22 Ordered By: Lenard Mathew Admission Data Admit Date/Time: 10/09/22 14:05 Attending Provider: Lenard Mathew Admit Provider: Yonas Perez Primary Care Provider: Bernarda Rehman Other Providers: Yonas Perez Coding Level of Care Code 74579 INP/OBS DISCH >30 MIN Diagnoses Stroke-like symptoms R29.90 Coronary artery disease I25.10 Chronic kidney disease, stage 4 (severe) N18.4 Hypertension I10 Hypothyroidism E03.9
== END 2022-10-10 17:10 | disposition home or self-care (01) ==
LOC: 2S 12:00 → ED 12:00 → SUATTDRO 14:05 → 2S 14:45

== ENCOUNTER 2023-10-14 18:52 | Inpatient (IN) ==
[2023-10-14] MEDS: ACETAMINOPHEN 500 MG TAB PO STA (19:33)
--- NOTE | 2023-10-14 20:11 | XRay Report ---
SINGLE VIEW PELVIS; 2 VIEWS LEFT HIP CLINICAL HISTORY: Fall with left groin pain. FINDINGS: An AP view of the pelvis with AP and frog leg views of the left hip are compared to study d ated 03/29/2018. The skeletal structures are osteopenic. There is an impacted subcapital fracture of th e left proximal femur with mild overlying soft tissue edema. No additional acute fracture is seen inv olving the right hip or the bony pelvis. Mild arthritic change and joint space narrowing is seen in b oth hips, right greater than left. Degenerative sclerosis is seen in the sacroiliac joints. Lumbosacr al spondylosis is partially imaged. There is atherosclerotic calcification of the femoral arteries. P hleboliths are noted in the pelvis. IMPRESSION: Impacted subcapital fracture of the left femur. Electronically signed by: Luis Carlos Lawson M.D. 10/14/2023 8:09 PM
--- NOTE | 2023-10-14 20:17 | Emergency Department Note ---
Impression & Plan Closed subcapital fracture of femur ED Provider Note CHIEF COMPLAINT: Left groin pain, fall HISTORY OF PRESENT ILLNESS: This 77-year-old female patient presents to the emergency department via private vehicle for evaluation of left groin pain after a fall. The patient states she was getting out of the car and was on a slight incline. Patient's son believes she may have lost her footing and fell, stretching the groin on the left side. The patient states it feels like a pulled muscle. She is able to ambulate but has been using a cane. She did not take any medication for her pain. She denies history of injury to this hip. She denies any loss of control of her bowel or bladder function. She denies any pain in the back. She did not strike her head. The injury occurred approximately 4 hours prior to arrival. REVIEW OF SYSTEMS: A 10 system review of systems was performed with positives and pertinent negatives listed in the history of present illness. All other systems were reviewed and are negative. ALLERGIES: Amlodipine, sulfa PHYSICAL EXAM: VITALS: Vitals are noted on the nurse's note and reviewed by myself. Vital signs stable. GENERAL: This is a 77-year-old female, in no acute distress, nondiaphoretic, well-developed well-nourished. SKIN: The skin was without rashes, erythema, edema, or bruising. There is no tenting of the skin. Capillary refill less than 2 seconds. HEAD: Normocephalic atraumatic. EYES: Conjunctivae without injection, sclerae without icterus. NECK: Supple without nuchal rigidity. No lymphadenopathy. Cervical spine is nontender. No JVD. HEART: Regular rate and rhythm without murmurs gallops or rubs. LUNGS: Clear to auscultation bilaterally without wheezes, rales or rhonchi. No retractions or accessory muscle use. ABDOMEN: Positive bowel sounds x 4. Soft, nontender, without masses or organomegaly. No guarding or rebound tenderness. No CVA tenderness. MUSCULOSKELETAL: Tenderness palpation of the left groin area. There is no tenderness over the hip joint. Limited range of motion of the left lower extremity at the hip due to pain. Strength 4/5 of the left lower extremity. No muscle atrophy, erythema, or edema noted. Full range of motion without joint tenderness in all extremities except as noted. Limping gait. NEURO: Patient was alert and oriented to person place and time. Normal sensation to light and sharp touch. Deep tendon reflexes 2+ throughout. No focal neurological deficits. Imaging as interpreted by myself and the radiologist revealed impacted subcapital fracture of the left femur, with radiologist interpretation as above. I agree with the radiologist's findings as based upon my independent interpretation. EMERGENCY DEPARTMENT COURSE: The patient was seen and evaluated as above. The patient presents several hours after a fall and complaining of left groin pain. The patient did not strike her head. She is able to ambulate with a walker. Given the patient's history, we did perform x-rays of the left hip and pelvis. This was concerning for an impacted subcapital fracture of the left femur. The patient was medicated with p.o. acetaminophen and notes significant improvement in her pain. I discussed case with my attending physician. I discussed the case with Dr. Fisher, [facility] orthopedic surgeon on-call. He did review images and recommended the patient to be nonweightbearing in the left lower extremity. He states that he would be into talk to her tomorrow to discuss whether or not she would require surgery, but is concerned that the fracture may shift if she continues to weight-bear on the left lower extremity. He did recommend inpatient management at this time. The patient was updated on this recommendation. She was agreeable. I discussed case with Dr. Hernandez, [facility] hospitalist physician. He did agree to evaluate the patient for admission. IV access was obtained. Orders for chest x-ray and EKG were placed at this time. Chest x-ray, per my interpretation without acute abnormality. No evidence of pneumonia. EKG, per my interpretation shows a normal sinus rhythm with ventricular to [address] elevation or depression. No T wave inversion. When compared to EKG from 10/09/2022, T wave inversions no longer evident in inferior and lateral leads. Labs reviewed. There is mild anemia with a hemoglobin of 10.4. No thrombocytopenia. INR was 1.1. CMP testing is pending at the time of admission. Please see hospitalist and orthopedics dictation regarding ongoing management care of this patient. This visit is during a period of high volume and high acuity in the emergency department. I attest that I have personally reviewed the patient medication list. I attest that I have reviewed the patient's blood pressure and it was found to be elevated. GCS: 15 In the evaluation and treatment of this patient the following differential diagnoses were entertained: Fracture, subluxation, dislocation, contusion, ligamentous injury, neurovascular, compartment syndrome, rhabdomyolysis, as well as other pathologies. The chart was completed utilizing [employer] voice recognition software. Grammatical errors, random word insertions, pronoun errors, and incomplete sentences are an occasional consequence of this system due to software limitations, ambient noise, and hardware issues. Any formal questions or concerns about the content, text, or information contained within the body of this dictation should be directly addressed to the provider for clarification. Past Med/Surg History Problem List (Updated 10/14/23 @ 21:59 by Trudy Gunter PA-C) Closed subcapital fracture of femur (Acute) Risk for falls Right leg pain Right hip pain White coat syndrome with diagnosis of hypertension Gait disturbance Transient neurological symptoms (Acute) Benign essential hypertension Coronary artery disease (Acute) Atherogenic dyslipidemia Pre-diabetes Inflamed seborrheic keratosis of left cheek History of colon polyps Anxiety (Chronic 11/29/12) GERD (gastroesophageal reflux disease) (Chronic) Schatzki's ring (Chronic) Depression with anxiety (Chronic) Hyperlipidemia (Chronic) Hypothyroidism (Chronic) Edema (Chronic) Secondary hyperparathyroidism (Chronic) Peripheral neuropathy (Acute) Mild obstructive sleep apnea (Acute) Insomnia (Acute) Generalized weakness (Acute) Dysphagia Vitamin D deficiency Chronic kidney disease, stage 4 (severe) (Chronic) Osteoarthritis Medical History History of COVID-19 01/22/21>MILD SYMPTOMS *RESOLVED AV fistula LEFT ARM *HAS NOT USED Hypertension Hyperlipidemia Anxiety and depression COVID-19 Hyperkalemia Bradycardia End stage renal disease Hypothyroidism ESRD (end stage renal disease) Follows with Dr. 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 History of TIA (transient ischemic attack) Several years ago *NO PROBLEMS FROM EVENT Surgical History History of carpal tunnel release History of tooth extraction History of surgery History of cataract surgery History of esophagogastroduodenoscopy (EGD) History of colonoscopy History of tonsillectomy and adenoidectomy History of laparoscopic cholecystectomy Family History Mother Ovarian cancer Heart disease Father Family history of diabetes mellitus Heart disease Grandmother (Maternal) Family history of diabetes mellitus Other No family history of adverse response to anesthesia Denies family history of Prostate cancer Myocardial infarction Breast cancer Colorectal cancer Social History Smoking Status: Never smoker Second Hand Exposure: No; Do You Dip or Chew Tobacco: No; Hx Alcohol Use: No Hx Substance Use: No Preferred Language: Tunisian Communication Ability: Effective Visual Impairment: Limited Hearing Ability: Use of Hearing Aid Sampler Ovens Required: No Beliefs That Will Affect Care: None marital status: Current Living Situation: Alone Current Living Situation Comment: son lives with pt current occupational status: employed 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 [employer] How many Children do You have: 3 Feels Safe at Home: Yes Childhood Exposure to Second-Hand Smoke: Yes Diet: regular caffeine: Yes during the past year weight has: remained stable Dental Care, Regularly: No Physical Activity Frequency: Daily Seatbelt Use: always Sunscreen Use: No Do you think of yourself as: straight/heterosexual Sexual Activity: has been sexually active, but not for at least 12 months Gender Identity: Female Assistive Devices: Denture - Upper, Denture - Lower, Glasses and Hearing Aid - Bilateral Allergies Allergies Allergy/AdvReac Type Severity Reaction Status Date / Time amlodipine Allergy Intermediate Feet Verified 09/11/23 11:21 swelling Sulfa (Sulfonamide Allergy Unknown Remote Verified 09/11/23 11:21 Antibiotics) unknown reaction Home Meds Home Medications Medication Instructions Recorded Confirmed aspirin 81 mg tablet,delayed 81 mg PO QAM 10/02/18 09/11/23 release (Adult Low Dose Aspirin) melatonin 3 mg tablet 3 mg PO HS 07/13/20 09/11/23 bupropion HCl 300 mg 24 hr tablet, 300 mg PO QAM 07/22/20 09/11/23 extended release (Wellbutrin XL) magnesium 250 mg tablet 250 mg PO DAILY 08/25/23 09/11/23 aripiprazole 2 mg tablet (Abilify) 1 mg PO QAM 10/13/23 Previous Rx's Medication Instructions Recorded nitroglycerin 0.4 mg sublingual 0.4 mg sublingual Q5M PRN chest 09/19/22 tablet (Nitrostat) pain #25 tabs diltiazem HCl 120 mg 120 mg PO DAILY #90 caps 02/01/23 capsule,extended release 24 hr, controlled rabeprazole 20 mg tablet,delayed 20 mg PO QAM #90 tabs 03/28/23 release isosorbide mononitrate 30 mg 90 mg (3 x 30 mg) PO DAILY #270 04/21/23 tablet,extended release 24 hr tabs furosemide 20 mg tablet 20 mg PO QAM #90 tabs 06/30/23 metoprolol succinate 50 mg 50 mg PO QAM #90 tabs 08/09/23 tablet,extended release 24 hr atorvastatin 40 mg tablet 40 mg PO HS #90 tabs 08/17/23 clopidogrel 75 mg tablet 75 mg PO QAM #90 tabs 08/17/23 levothyroxine 50 mcg tablet 50 mcg PO DAILYBB #30 tabs 09/12/23 hydralazine 50 mg tablet 50 mg PO TID #90 tabs 09/27/23 Results & Data (ED) Vital Signs Vital Signs - 24 hr 10/14/23 18:56 10/14/23 19:12 10/14/23 19:18 Temperature 36.8 C Temperature Source Temporal Artery Scan Pulse Rate 76 71 Pulse Rate [Apical] 75 Pulse Rhythm Pulse Rhythm [Apical] Pulse Strength [Apical] Respiratory Rate 18 18 Respiratory Effort / Characteristics Non-Labored Spontaneous Respiratory Depth Normal Respiratory Pattern Blood Pressure 204/73 H Blood Pressure [Left Arm] 178/78 H Blood Pressure Mean 116 Blood Pressure Mean [Left Arm] 111 Blood Pressure Position [Left Arm] Pulse Oximetry 95 Oxygen Delivery Method Room Air Sepsis Recent Fever Within 48 Hours No Sepsis New/Unexplained Change in Mental Status No Sepsis Action Taken by Nursing No Action Required 10/14/23 19:31 10/14/23 21:28 10/14/23 21:28 Temperature Temperature Source Pulse Rate 72 Pulse Rate [Apical] 76 73 Pulse Rhythm Regular Pulse Rhythm [Apical] Regular Pulse Strength [Apical] Normal Respiratory Rate 15 19 19 Respiratory Effort / Characteristics Non-Labored Spontaneous Non-Labored Spontaneous Respiratory Depth Normal Normal Respiratory Pattern Regular Regular Blood Pressure Blood Pressure [Left Arm] 184/81 H 159/64 H Blood Pressure Mean Blood Pressure Mean [Left Arm] 115 95 Blood Pressure Position [Left Arm] Semi-fowlers Pulse Oximetry 94 96 96 Oxygen Delivery Method Room Air Room Air Room Air Sepsis Recent Fever Within 48 Hours Sepsis New/Unexplained Change in Mental Status Sepsis Action Taken by Nursing Laboratory Data 10/14/23 21:20 10/14/23 21:20 Lab Results 10/14/23 Range/Units 21:20 WBC 10.65 (4.8-10.8) K/ul RBC 3.32 L (4.20-5.40) M/uL Hgb 10.4 L (12.0-16.0) g/dl Hct 30.4 L (37.0-47.0) % MCV 91.6 (80.0-100.0) fL MCH 31.3 (25.0-34.0) pg MCHC 34.2 (32.0-36.0) g/dL RDW Std Deviation 45.1 (36.4-46.3) fL RDW Coeff of Rob 13.3 (11.5-14.5) % Plt Count 201 (130-400) K/uL MPV 9.7 (9.4-12.4) fL Immature Gran % (Auto) 0.7 % Neut % (Auto) 78.9 % Lymph % (Auto) 12.2 % Kings % (Auto) 7.5 % Eos % (Auto) 0.4 % Baso % (Auto) 0.3 % Neut # (Auto) 8.41 H (1.40-6.50) K/uL Lymph # (Auto) 1.30 (1.20-3.40) K/uL Kings # (Auto) 0.80 H (0.11-0.59) K/uL Eos # (Auto) 0.04 (0.00-0.50) K/uL Baso # (Auto) 0.03 (0.00-0.20) K/uL Immature Gran # (Auto) 0.07 (0.01-0.20) K/uL PT 11.4 (9.0-12.0) Seconds INR 1.1 (0.9-1.1) APTT 24 (21-31) Seconds PTT Ratio 0.9 Administered Medications Discontinued Medications Acetaminophen (Acetaminophen 500 Mg Tab) 1,000 mg PO NOW STA Stop: 10/14/23 19:22 Last Admin: 10/14/23 19:33 Dose: 1,000 mg Documented By: MILEYW Imaging Data Radiologist's Impression: Hip/Pelvis X-Ray 10/14/23 19:21 SINGLE VIEW PELVIS; 2 VIEWS LEFT HIP CLINICAL HISTORY: Fall with left groin pain. FINDINGS: An AP view of the pelvis with AP and frog leg views of the left hip are compared to study dated 03/29/2018. The skeletal structures are osteopenic. There is an impacted subcapital fracture of the left proximal femur with mild overlying soft tissue edema. No additional acute fracture is seen involving the right hip or the bony pelvis. Mild arthritic change and joint space narrowing is seen in both hips, right greater than left. Degenerative sclerosis is seen in the sacroiliac joints. Lumbosacral spondylosis is partially imaged. There is atherosclerotic calcification of the femoral arteries. Phleboliths are noted in the pelvis. IMPRESSION: Impacted subcapital fracture of the left femur. Electronically signed by: Luis Carlos Lawson M.D. 10/14/2023 8:09 PM Discharge Plan Visit Data Chief Complaint: Fall Stated Complaint: FALL, LEFT GROIN INJURY ED Provider: Meme Chou ED Midlevel Provider: Trudy Gunter Discharge Problem: Closed subcapital fracture of femur Patient Disposition: Admitted As Inpatient Forms Stand Alone Forms: [facility], Important Visit Information Prescriptions Prescriptions: No Action rabeprazole 20 mg tablet,delayed release (DR/EC) 20 mg PO QAM Qty: 90 3RF furosemide 20 mg tablet 20 mg PO QAM Qty: 90 3RF metoprolol succinate 50 mg tablet extended release 24 hr 50 mg PO QAM Qty: 90 3RF atorvastatin 40 mg tablet 40 mg PO HS Qty: 90 3RF clopidogrel 75 mg tablet 75 mg PO QAM Qty: 90 3RF levothyroxine 50 mcg tablet 50 mcg PO DAILYBB Qty: 30 5RF hydralazine 50 mg tablet 50 mg PO TID Qty: 90 2RF aripiprazole [Abilify] 2 mg tablet 1 mg PO QAM diltiazem HCl 120 mg capsule,ext.rel 24h degradable 120 mg PO DAILY Qty: 90 3RF isosorbide mononitrate 30 mg tablet extended release 24 hr 90 mg PO DAILY Qty: 270 3RF aspirin [Adult Low Dose Aspirin] 81 mg tablet,delayed release (DR/EC) 81 mg PO QAM magnesium 250 mg tablet 250 mg PO DAILY melatonin 3 mg Tablet 3 mg PO HS bupropion HCl [Wellbutrin XL] 300 mg tablet extended release 24 hr 300 mg PO QAM nitroglycerin [Nitrostat] 0.4 mg Tablet, Sublingual 0.4 mg sublingual Q5M PRN (Reason: chest pain) Qty: 25 3RF Referrals Referrals: Bernarda Rehman CRNP [Primary Care Provider] -
--- NOTE | 2023-10-14 20:19 | Emergency Department Note ---
ED Visit Note I was consulted by the Advanced Practice Provider. I personally made/approved the management plan and take responsibility for the patient management. I performed a substantive portion of the visit. This includes the aspects of: -History/Physical -MDM .
--- NOTE | 2023-10-14 21:13 | History & Physical Report ---
Date of Service October 14, 2023 Assessment & Plan (1) Closed subcapital fracture of left femur: (2) Risk for falls: (3) Peripheral neuropathy: (4) Gait disturbance: (5) Benign essential hypertension: (6) Coronary artery disease: (7) GERD (gastroesophageal reflux disease): (8) Depression with anxiety: (9) Chronic kidney disease, stage 4 (severe): Plan Closed impacted subcapital left femur fracture/gait disturbance/peripheral neuropathy/risk for falls- Patient with mechanical fall while walking outside on unlevel ground, resulting in fracture N.p.o. except medications Geriatric hip fracture order set Acetaminophen 650 mg by mouth every 6 hours as needed for mild pain or fever Dilaudid 0.25 mg IV every 3 hours as needed moderate pain Dilaudid 0.5 mg IV every 3 hours as needed for severe pain Zofran 4 mg IV every 6 hours as needed Consult orthopedic surgery CKD stage IV- Creatinine on admission 2.10, with baseline creatinine range 1.94-2.21 NSS at 80 mL/h for maintenance IV fluids Follow serial CBC with differential, basic metabolic panel and magnesium level Hypertension/CAD Hold aspirin and clopidogrel Continue diltiazem, hydralazine, isosorbide mononitrate and metoprolol with hold parameters Hold furosemide and potassium chloride GERD- Pantoprazole 40 mg daily Depression with anxiety- Continue aripiprazole, bupropion CODE STATUS: DNR/DNI History of Present Illness Chief Complaint: The patient presents to the emergency department with her son via private vehicle, after a fall while walking on uneven ground at home, landing on her left hip and developing immediate pain and difficulty with ambulation Primary Care Provider: YONNY Drew The patient is a 77-year-old female with a past medical history including hypertension, gait disturbance, coronary artery disease, anxiety, GERD, hyperlipidemia, secondary hyperparathyroidism, peripheral neuropathy, CKD stage IV and osteoarthritis. She had just been out with her son, had gotten out of the car to walk up an incline, lost her balance, fell and injured her left hip. X-ray in the emergency department showed a closed left impacted subcapital femur fracture, and she was referred for evaluation for admission. Allergies Allergy/AdvReac Type Severity Reaction Status Date / Time amlodipine Allergy Intermediate Feet Verified 09/11/23 11:21 swelling Sulfa (Sulfonamide Allergy Unknown Remote Verified 09/11/23 11:21 Antibiotics) unknown reaction Home Medications Medication Instructions Recorded Confirmed Type aspirin 81 mg tablet,delayed 81 mg PO QAM 10/02/18 09/11/23 History release (Adult Low Dose Aspirin) melatonin 3 mg tablet 3 mg PO HS 07/13/20 09/11/23 History bupropion HCl 300 mg 24 hr tablet, 300 mg PO QAM 07/22/20 09/11/23 History extended release (Wellbutrin XL) nitroglycerin 0.4 mg sublingual 0.4 mg sublingual Q5M PRN chest 09/19/22 09/11/23 Rx tablet (Nitrostat) pain #25 tabs diltiazem HCl 120 mg 120 mg PO DAILY #90 caps 02/01/23 09/11/23 Rx capsule,extended release 24 hr, controlled rabeprazole 20 mg tablet,delayed 20 mg PO QAM #90 tabs 03/28/23 09/11/23 Rx release isosorbide mononitrate 30 mg 90 mg (3 x 30 mg) PO DAILY #270 04/21/23 09/11/23 Rx tablet,extended release 24 hr tabs furosemide 20 mg tablet 20 mg PO QAM #90 tabs 06/30/23 09/11/23 Rx metoprolol succinate 50 mg 50 mg PO QAM #90 tabs 08/09/23 09/11/23 Rx tablet,extended release 24 hr atorvastatin 40 mg tablet 40 mg PO HS #90 tabs 08/17/23 09/11/23 Rx clopidogrel 75 mg tablet 75 mg PO QAM #90 tabs 08/17/23 09/11/23 Rx magnesium 250 mg tablet 250 mg PO DAILY 08/25/23 09/11/23 History levothyroxine 50 mcg tablet 50 mcg PO DAILYBB #30 tabs 09/12/23 Rx hydralazine 50 mg tablet 50 mg PO TID #90 tabs 09/27/23 Rx aripiprazole 2 mg tablet (Abilify) 1 mg PO QAM 10/13/23 History Past Med/Surg History Problem List (Updated 10/15/23 @ 01:39 by Carlos Hernandez MD) Closed subcapital fracture of left femur Risk for falls Right leg pain Right hip pain White coat syndrome with diagnosis of hypertension Gait disturbance Transient neurological symptoms (Acute) Benign essential hypertension Coronary artery disease (Acute) Atherogenic dyslipidemia Pre-diabetes Inflamed seborrheic keratosis of left cheek History of colon polyps Anxiety (Chronic 11/29/12) GERD (gastroesophageal reflux disease) (Chronic) Schatzki's ring (Chronic) Depression with anxiety (Chronic) Hyperlipidemia (Chronic) Hypothyroidism (Chronic) Edema (Chronic) Secondary hyperparathyroidism (Chronic) Peripheral neuropathy (Acute) Mild obstructive sleep apnea (Acute) Insomnia (Acute) Generalized weakness (Acute) Dysphagia Vitamin D deficiency Chronic kidney disease, stage 4 (severe) (Chronic) Osteoarthritis Medical History (Updated 10/15/23 @ 01:39 by Carlos Hernandez MD) History of COVID-19 01/22/21>MILD SYMPTOMS *RESOLVED AV fistula LEFT ARM *HAS NOT USED Hypertension Hyperlipidemia Anxiety and depression COVID-19 Hyperkalemia Bradycardia End stage renal disease Hypothyroidism ESRD (end stage renal disease) Follows with Dr. 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 History of TIA (transient ischemic attack) Several years ago *NO PROBLEMS FROM EVENT Surgical History History of carpal tunnel release RT/LEFT History of tooth extraction History of surgery Left Antecubital Basilic Vein Arteriovenous Fistula Creation (07/22/20): MAC + PNB at [facility] History of cataract surgery RT/LEFT History of esophagogastroduodenoscopy (EGD) History of colonoscopy Colonoscopy (01/08/19): MAC at [facility] History of tonsillectomy and adenoidectomy History of laparoscopic cholecystectomy Family History Mother Ovarian cancer Heart disease Father Family history of diabetes mellitus Heart disease Grandmother (Maternal) Family history of diabetes mellitus Other No family history of adverse response to anesthesia Denies family history of Prostate cancer Myocardial infarction Breast cancer Colorectal cancer Social History Smoking Status: Never smoker Second Hand Exposure: No; Do You Dip or Chew Tobacco: No; Hx Alcohol Use: No Hx Substance Use: No Preferred Language: [place] Communication Ability: Effective Visual Impairment: Limited Hearing Ability: Use of Hearing Aid Cabinet Mounter Required: No Beliefs That Will Affect Care: None marital status: Current Living Situation: Family Current Living Situation Comment: lives with son current occupational status: employed 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 [employer] How many Children do You have: 3 Other Information That Helps Us Care for You: No Feels Safe at Home: Yes Safety Concerns: Feels Safe At This Time Childhood Exposure to Second-Hand Smoke: Yes Diet: regular caffeine: Yes during the past year weight has: remained stable Dental Care, Regularly: No Physical Activity Frequency: Daily Seatbelt Use: always Sunscreen Use: No Do you think of yourself as: straight/heterosexual Sexual Activity: has been sexually active, but not for at least 12 months Gender Identity: Female Assistive Devices: Denture - Upper, Denture - Lower, Glasses, Raised Toilet Seat and Walker Review of Systems Review of Systems: The patient denies chest pain, palpitations, shortness of breath, dyspnea on ex ertion, cough, lower extremity swelling, sore throat, fevers, chills, sweats, weight change, fatigue, nausea, vomiting, diarrhea , constipation, abdominal pain, pelvic pain, blood in urine or stool, dysuria, urinary frequency or urgency, lightheadedness, dizziness, headache, memory loss, loss of consciousness, rash, abnormal bruising or bleeding, focal weakness, numbness or tingling in arms or right leg, generalized arthralgias or myalgias, back or neck pain, or night sweats. The review of systems is otherwise negative other than for that already noted above, and at least 10 systems have been reviewed. Physical Exam Physical Exam: The patient is awake, alert and oriented 3, well developed and well nourished, normocephalic and atraumatic, lying in bed and in no acute distress. HEENT--PERRL, EOMI, mucous membranes and oropharynx normal Neck--supple. No JVD. No bruits. Thyroid normal, trachea midline, no adenopathy. Heart--normal S1 and S2. No murmurs, rubs or gallops. Lungs--clear bilaterally, no respiratory distress, no accessory muscle use. Abdomen--normal bowel sounds and soft. Nontender. Nondistended, no hernias or masses, no organomegaly. Extremities--no cyanosis or clubbing. No edema. Dermatologic--normal skin turgor, normal color, no abnormal lymph nodes, no rash. Neurologic--cranial nerves II through XII grossly intact. Rheumatologic--normal range of motion, except for left hip and leg Psychiatric--normal affect. Results & Data Results & Data Vital Signs (Past 12 Hours) Vital Signs Temp Pulse Pulse Resp BP BP Pulse Ox 10/14/23 19:31 76 15 184/81 H 94 10/14/23 19:18 75 18 178/78 H 10/14/23 19:12 71 10/14/23 18:56 36.8 C 76 18 204/73 H 95 O2 Del Method 10/14/23 19:31 Room Air 10/14/23 19:18 10/14/23 19:12 10/14/23 18:56 Room Air Laboratory Results Laboratory Results WBC 10.65 K/ul (4.8-10.8) 10/14/23 21:20 RBC 3.32 M/uL (4.20-5.40) L 10/14/23 21:20 Hgb 10.4 g/dl (12.0-16.0) L 10/14/23 21:20 Hct 30.4 % (37.0-47.0) L 10/14/23 21:20 MCV 91.6 fL (80.0-100.0) 10/14/23 21:20 MCH 31.3 pg (25.0-34.0) 10/14/23 21:20 MCHC 34.2 g/dL (32.0-36.0) 10/14/23 21:20 RDW Std Deviation 45.1 fL (36.4-46.3) 10/14/23 21:20 RDW Coeff of Rob 13.3 % (11.5-14.5) 10/14/23 21:20 Plt Count 201 K/uL (130-400) 10/14/23 21:20 MPV 9.7 fL (9.4-12.4) 10/14/23 21:20 Immature Gran % (Auto) 0.7 % 10/14/23 21:20 Neut % (Auto) 78.9 % 10/14/23 21:20 Lymph % (Auto) 12.2 % 10/14/23 21:20 [place] % (Auto) 7.5 % 10/14/23 21:20 Eos % (Auto) 0.4 % 10/14/23 21:20 Baso % (Auto) 0.3 % 10/14/23 21:20 Neut # (Auto) 8.41 K/uL (1.40-6.50) H 10/14/23 21:20 Lymph # (Auto) 1.30 K/uL (1.20-3.40) 10/14/23 21:20 [place] # (Auto) 0.80 K/uL (0.11-0.59) H 10/14/23 21:20 Eos # (Auto) 0.04 K/uL (0.00-0.50) 10/14/23 21:20 Baso # (Auto) 0.03 K/uL (0.00-0.20) 10/14/23 21:20 Immature Gran # (Auto) 0.07 K/uL (0.01-0.20) 10/14/23 21:20 PT 11.4 Seconds (9.0-12.0) 10/14/23 21:20 INR 1.1 (0.9-1.1) 10/14/23 21:20 APTT 24 Seconds (21-31) 10/14/23 21:20 PTT Ratio 0.9 10/14/23 21:20 Sodium 137 mmol/L (136-145) 10/14/23 21:20 Potassium 4.0 mmol/L (3.5-5.1) 10/14/23 21:20 Chloride 101 mmol/L (98-107) 10/14/23 21:20 Carbon Dioxide 28 mmol/L (21-32) 10/14/23 21:20 Anion Gap 8 (3-11) 10/14/23 21:20 BUN 24 mg/dl (6-23) H 10/14/23 21:20 Creatinine 2.10 mg/dl (0.6-1.2) H 10/14/23 21:20 Est Cr Clr Drug Dosing 17.1 ml/min 10/14/23 21:20 Est GFR ( Amer) 25.3 ml/min 10/14/23 21:20 Est GFR (Non-Af Amer) 21.8 ml/min 10/14/23 21:20 BUN/Creatinine Ratio 11.4 (10-20) 10/14/23 21:20 Glucose 86 mg/dl (70-99(Fasting)) 10/14/23 21:20 Calcium 9.0 mg/dl (8.6-10.3) 10/14/23 21:20 Total Bilirubin 0.7 mg/dl (0.2-1.0) 10/14/23 21:20 AST 13 U/L (13-39) 10/14/23 21:20 ALT 11 U/L (7-52) 10/14/23 21:20 Alkaline Phosphatase 84 U/L (34-104) 10/14/23 21:20 Total Protein 6.3 gm/dl (6.0-8.3) 10/14/23 21:20 Albumin 3.9 gm/dl (3.4-5.0) 10/14/23 21:20 Globulin 2.4 gm/dl (2.5-4.0) L 10/14/23 21:20 Albumin/Globulin Ratio 1.6 (0.9-2) 10/14/23 21:20 Impressions Hip/Pelvis X-Ray 10/14/23 19:21 SINGLE VIEW PELVIS; 2 VIEWS LEFT HIP CLINICAL HISTORY: Fall with left groin pain. FINDINGS: An AP view of the pelvis with AP and frog leg views of the left hip are compared to study dated 03/29/2018. The skeletal structures are osteopenic. There is an impacted subcapital fracture of the left proximal femur with mild overlying soft tissue edema. No additional acute fracture is seen involving the right hip or the bony pelvis. Mild arthritic change and joint space narrowing is seen in both hips, right greater than left. Degenerative sclerosis is seen in the sacroiliac joints. Lumbosacral spondylosis is partially imaged. There is atherosclerotic calcification of the femoral arteries. Phleboliths are noted in the pelvis. IMPRESSION: Impacted subcapital fracture of the left femur. Electronically signed by: Luis Carlos Lawson M.D. 10/14/2023 8:09 PM Code Status & VTE Plan Code Status DNR/DNI VTE Prophylaxis Plan VTE Prophylaxis will be ordered: Yes PG Care Time/CCT Total # of Minutes Spent Total Time Spent with Patient: Total time spent is greater than 50% in coordination of care (as documented) at patient's floor/unit and/or counseling patient: Coding Level of Care Code 14026 INT INP/OBS CARE MIN Diagnoses Closed subcapital fracture of left femur S72.012A Risk for falls Z91.81 Peripheral neuropathy G62.9 Gait disturbance R26.9 Benign essential hypertension I10 Coronary artery disease I25.10 GERD (gastroesophageal reflux disease) K21.9 Depression with anxiety F41.8 Chronic kidney disease, stage 4 (severe) N18.4
[2023-10-14 21:44] LABS: Basophils # (auto) 0.03 K/uL (0.00-0.20); Basophils % (auto) 0.3 %; Eosinophils # (auto) 0.04 K/uL (0.00-0.50); Eosinophils % (auto) 0.4 %; Hematocrit (blood only) 30.4 % (37.0-47.0); Hemoglobin 10.4 g/dl (12.0-16.0); Immature Granulocytes # (auto) 0.07 K/uL (0.01-0.20); Immature Granulocytes % (auto) 0.7 %; Lymphocytes % (auto) 12.2 %; Mean Corpuscular Hemoglobin 31.3 pg (25.0-34.0); Mean Corpuscular Hgb Conc 34.2 g/dL (32.0-36.0); Mean Corpuscular Volume 91.6 fL (80.0-100.0); Mean Platelet Volume 9.7 fL (9.4-12.4); Monocytes % (auto) 7.5 %; Neutrophils # (auto) 8.41 K/uL (1.40-6.50); Neutrophils % (auto) 78.9 %; Platelet Count 201 K/uL (130-400); RDW Coefficient of Variation 13.3 % (11.5-14.5); RDW Standard Deviation 45.1 fL (36.4-46.3); Red Blood Count 3.32 M/uL (4.20-5.40); White Blood Count 10.65 K/ul (4.8-10.8)
[2023-10-14 21:47] LABS: INR 1.1 (0.9-1.1); Partial Thromboplastin Ratio 0.9; Partial Thromboplastin Time 24 Seconds (21-31); Prothrombin Time 11.4 Seconds (9.0-12.0)
[2023-10-14 22:08] LABS: Albumin Globulin Ratio 1.6 (0.9-2); Albumin Level 3.9 gm/dl (3.4-5.0); BUN Creatinine Ratio 11.4 (10-20); Bilirubin,Total 0.7 mg/dl (0.2-1.0); Creatinine Clr Calc Pharmacy 17.1 ml/min; Est GFR (African American) 25.3 ml/min; Est GFR (Non-African American) 21.8 ml/min; Globulin 2.4 gm/dl (2.5-4.0); Total Protein 6.3 gm/dl (6.0-8.3)
[2023-10-14] MEDS ORDERED: ONDANSETRON INJ 2 MG/ML 2 ML VIAL IV PRN (22:53)
[2023-10-14] MEDS ORDERED: NALOXONE HCL 0.4 MG/1 ML VIAL/CARP IV PRN (22:53)
[2023-10-14] MEDS ORDERED: HYDROmorphone INJ 0.5 MG/0.5 ML SYR IV PRN ×2 (22:53)
[2023-10-14] MEDS ORDERED: bisacodyL 10 MG SUPP PR PRN (22:53)
[2023-10-14] MEDS ORDERED: MAGNESIUM HYDROXIDE SUSP 30 ML UDC PO PRN (22:53)
[2023-10-14] MEDS ORDERED: NITROGLYCERIN SL 0.4 MG/TAB TAB SL PRN (22:53)
[2023-10-14] MEDS: hydrALAZINE TAB 50 MG TAB PO SCH (23:47)
[2023-10-14] MEDS: ATORVASTATIN 40 MG TAB PO SCH (23:47)
[2023-10-14] MEDS: SODIUM CHLORIDE 0.9% 1,000 ML IV SCH (23:48)
[2023-10-15 01:45] LABS: Appearance Urine Turbid (Clear); Bacteria Urine Automated 4+ (None Seen); Bilirubin Urine Negative (Negative); Blood Urine Negative (Negative); Cast Urine Automated 0-2 /lpf (0-2); Color Urine Yellow; Glucose Urine UA Negative (Negative); Ketones Urine Negative (Negative); Leukocyte Esterase Urine 2+ (Negative); Nitrite Urine Positive (Negative); Protein Urine 1+ (Negative); Urobilinogen Urine Negative (Negative); pH Urine 6.5 (4.5-7.5)
[2023-10-15] MEDS: LEVOTHYROXINE SODIUM 50 MCG TABLET PO SCH (06:18)
[2023-10-15 06:23] LABS: Basophils # (auto) 0.03 K/uL (0.00-0.20); Basophils % (auto) 0.4 %; Eosinophils # (auto) 0.31 K/uL (0.00-0.50); Eosinophils % (auto) 3.8 %; Hematocrit (blood only) 28.5 % (37.0-47.0); Hemoglobin 9.8 g/dl (12.0-16.0); Immature Granulocytes # (auto) 0.02 K/uL (0.01-0.20); Immature Granulocytes % (auto) 0.2 %; Lymphocytes # (auto) 1.82 K/uL (1.20-3.40); Lymphocytes % (auto) 22.6 %; Mean Corpuscular Hemoglobin 31.3 pg (25.0-34.0); Mean Corpuscular Hgb Conc 34.4 g/dL (32.0-36.0); Mean Corpuscular Volume 91.1 fL (80.0-100.0); Mean Platelet Volume 9.6 fL (9.4-12.4); Monocytes % (auto) 7.4 %; Neutrophils # (auto) 5.29 K/uL (1.40-6.50); Neutrophils % (auto) 65.6 %; Platelet Count 185 K/uL (130-400); RDW Coefficient of Variation 13.4 % (11.5-14.5); RDW Standard Deviation 44.6 fL (36.4-46.3); Red Blood Count 3.13 M/uL (4.20-5.40); White Blood Count 8.07 K/ul (4.8-10.8)
[2023-10-15 07:12] LABS: Albumin Level 3.6 gm/dl (3.4-5.0); BUN Creatinine Ratio 11.6 (10-20); Calcium 8.8 mg/dl (8.6-10.3); Creatinine Clr Calc Pharmacy 19.7 ml/min; Est GFR (African American) 30.3 ml/min; Est GFR (Non-African American) 26.1 ml/min; Magnesium 1.9 mg/dl (1.7-2.4); Potassium 3.9 mmol/L (3.5-5.1)
[2023-10-15] MEDS: ARIPIprazole 1 MG/ML ORAL SOLN 150 ML BTL PO SCH (07:51)
[2023-10-15] MEDS: dilTIAZem HCL 120 MG CAPCR PO SCH (07:52)
[2023-10-15] MEDS: buPROPion XL 300 MG TABCR PO SCH (07:52)
[2023-10-15] MEDS: ISOSORBIDE MONO EXTENDED REL 30 MG TABCR PO SCH (07:53)
[2023-10-15] MEDS: MAGNESIUM OXIDE 400 MG TAB PO SCH (07:54)
[2023-10-15] MEDS: METOPROLOL SUCC 50MG EXT REL TAB PO SCH (07:54)
[2023-10-15] MEDS: PANTOprazole 40 MG TAB PO SCH (07:55)
[2023-10-15] MEDS ORDERED: PROPOFOL IV EMULSION 10 MG/ML 20 ML VIAL IV ONE (08:02)
[2023-10-15] MEDS ORDERED: fentaNYL citrate PF 100 MCG/2 ML VIAL ONE (08:06)
[2023-10-15] MEDS ORDERED: LIDOCAINE 2% 2 ML VIAL/AMP(20MG/ML) INFIL ONE (08:08)
--- NOTE | 2023-10-15 08:08 | XRay Report ---
XR chest 1V portable HISTORY: hip fracture COMPARISON: Chest 09/16/2022. FINDINGS: No focal lung consolidations to suggest a pneumonia. No evidence for pulmonary edema.. The heart is mildly enlarged. This is similar to the prior study. No pleural effusions. No pneumothorax. No acute fractures. Small peripheral density within the left lower lung zone may represent scarring. IMPRESSION: Mild cardiomegaly. Otherwise, no acute process within the chest. ACT 112: Negative or not required by law. Electronically signed by: Hal Shanks M.D. 10/15/2023 8:07 AM
--- NOTE | 2023-10-15 08:10 | Orthopedic Consultation ---
Date of Consultation October 15, 2023 Assessment & Plan (1) Closed subcapital fracture of left femur: The patient is a 77 year old female who sustained a left hip fracture following a ground level fall. Their treatment options of conservative versus surgical intervention were discussed. Since the patient was an ambulatory prior to their injury and to avoid the risks of bed sores, pulmonary complications, and to give them the best chance for ambulation, I recommended surgery. The patient and their family understands the risks of surgery, which include but are not limited to: bleeding, infection, re-operation, damage to nerves and arteries, continued pain, failure of the hardware, mal-union, non-union, DVT, and . In addition the patient is aware of the 20-30% morbidity associated with hip fracture for up to 1 year following a hip fracture. The patient understands all of these instructions and explanations, all of their questions have been satisfactorily addressed. The patient has elected to proceed with surgery and the informed consent was signed and the left hip initialled. Spoke with Hospitalist service and she is medically cleared for surgery. Continue NPO. NWB LLE Ancef and TXA on-call to OR Patient has been placed on the add-on list for today. History of Present Illness Reason for Consultation: L hip fracture Requesting Physician: Trupti Fisher MD Attending Physician: Robson Mayorga DO History of Present Illness 77 yo female who lost her balance yesterday and fell injuring her left hip. She was brought to the hospital by her son and had been ambulating with a walker. X- rays were obtained. She has multiple medical problems and was admitted to the hospitalist service. I was consulted for further evaluation and treatment of her left hip fracture. She has pain in the hip if she moves. Allergies Allergy/AdvReac Type Severity Reaction Status Date / Time amlodipine Allergy Intermediate Feet Verified 10/15/23 08:08 swelling Sulfa (Sulfonamide Allergy Unknown Remote Verified 10/15/23 08:08 Antibiotics) unknown reaction Home Medications Medication Instructions Recorded Confirmed Type aspirin 81 mg tablet,delayed 81 mg PO QAM 10/02/18 09/11/23 History release (Adult Low Dose Aspirin) melatonin 3 mg tablet 3 mg PO HS 07/13/20 09/11/23 History bupropion HCl 300 mg 24 hr tablet, 300 mg PO QAM 07/22/20 09/11/23 History extended release (Wellbutrin XL) nitroglycerin 0.4 mg sublingual 0.4 mg sublingual Q5M PRN chest 09/19/22 09/11/23 Rx tablet (Nitrostat) pain #25 tabs diltiazem HCl 120 mg 120 mg PO DAILY #90 caps 02/01/23 09/11/23 Rx capsule,extended release 24 hr, controlled rabeprazole 20 mg tablet,delayed 20 mg PO QAM #90 tabs 03/28/23 09/11/23 Rx release isosorbide mononitrate 30 mg 90 mg (3 x 30 mg) PO DAILY #270 04/21/23 09/11/23 Rx tablet,extended release 24 hr tabs furosemide 20 mg tablet 20 mg PO QAM #90 tabs 06/30/23 09/11/23 Rx metoprolol succinate 50 mg 50 mg PO QAM #90 tabs 08/09/23 09/11/23 Rx tablet,extended release 24 hr atorvastatin 40 mg tablet 40 mg PO HS #90 tabs 08/17/23 09/11/23 Rx clopidogrel 75 mg tablet 75 mg PO QAM #90 tabs 08/17/23 09/11/23 Rx magnesium 250 mg tablet 250 mg PO DAILY 08/25/23 09/11/23 History levothyroxine 50 mcg tablet 50 mcg PO DAILYBB #30 tabs 09/12/23 Rx hydralazine 50 mg tablet 50 mg PO TID #90 tabs 09/27/23 Rx aripiprazole 2 mg tablet (Abilify) 1 mg PO QAM 10/13/23 History Patient History Medical History (Updated 10/15/23 @ 01:39 by Carlos Hernandez MD) History of COVID-19 01/22/21>MILD SYMPTOMS *RESOLVED AV fistula LEFT ARM *HAS NOT USED Hypertension Hyperlipidemia Anxiety and depression COVID-19 Hyperkalemia Bradycardia End stage renal disease Hypothyroidism ESRD (end stage renal disease) Follows with Dr. 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 History of TIA (transient ischemic attack) Several years ago *NO PROBLEMS FROM EVENT Surgical History History of carpal tunnel release RT/LEFT History of tooth extraction History of surgery Left Antecubital Basilic Vein Arteriovenous Fistula Creation (07/22/20): MAC + PNB at [facility] History of cataract surgery RT/LEFT History of esophagogastroduodenoscopy (EGD) History of colonoscopy Colonoscopy (01/08/19): MAC at [facility] History of tonsillectomy and adenoidectomy History of laparoscopic cholecystectomy Family History Mother Ovarian cancer Heart disease Father Family history of diabetes mellitus Heart disease Grandmother (Maternal) Family history of diabetes mellitus Other No family history of adverse response to anesthesia Denies family history of Prostate cancer Myocardial infarction Breast cancer Colorectal cancer Social History Smoking Status: Never smoker Second Hand Exposure: No; Do You Dip or Chew Tobacco: No; Hx Alcohol Use: No Hx Substance Use: No Preferred Language: [place] Citizen Communication Ability: Effective Visual Impairment: Limited Hearing Ability: Use of Hearing Aid Email Manager Required: No Beliefs That Will Affect Care: None marital status: Current Living Situation: Family Current Living Situation Comment: lives with son current occupational status: employed 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 [employer] How many Children do You have: 3 Other Information That Helps Us Care for You: No Feels Safe at Home: Yes Safety Concerns: Feels Safe At This Time Childhood Exposure to Second-Hand Smoke: Yes Diet: regular caffeine: Yes during the past year weight has: remained stable Dental Care, Regularly: No Physical Activity Frequency: Daily Seatbelt Use: always Sunscreen Use: No Do you think of yourself as: straight/heterosexual Sexual Activity: has been sexually active, but not for at least 12 months Gender Identity: Female Assistive Devices: Denture - Upper, Denture - Lower, Glasses, Raised Toilet Seat and Walker Review of Systems Review of Systems: All systems reviewed & are unremarkable except as noted in HPI & below Physical Exam Physical Exam: LLE: 2+ DP pulse. Sensation to light touch is intact distally. Able to wiggle toes and ankle up and down. Calf soft and non-tender. + Bruising about the lateral aspect of the hip. + log roll hip. Results & Data Vital Signs (Past 12 Hours) Vital Signs Temp Pulse Pulse Pulse Resp BP BP 10/15/23 07:41 37.1 C 69 18 174/71 H 10/15/23 07:13 67 10/14/23 23:07 71 10/14/23 23:00 37.1 C 74 18 177/48 H 10/14/23 21:28 73 19 159/64 H 10/14/23 21:28 72 19 Pulse Ox O2 Del Method 10/15/23 07:41 95 Room Air 10/15/23 07:13 10/14/23 23:07 10/14/23 23:00 96 Room Air 10/14/23 21:28 96 Room Air 10/14/23 21:28 96 Room Air Laboratory Results 10/15/23 10/15/23 10/14/23 Range/Units Unknown 05:47 21:20 WBC 8.07 10.65 (4.8-10.8) K/ul RBC 3.13 L 3.32 L (4.20-5.40) M/uL Hgb 9.8 L 10.4 L (12.0-16.0) g/dl Hct 28.5 L 30.4 L (37.0-47.0) % MCV 91.1 91.6 (80.0-100.0) fL MCH 31.3 31.3 (25.0-34.0) pg MCHC 34.4 34.2 (32.0-36.0) g/dL RDW Std Deviation 44.6 45.1 (36.4-46.3) fL RDW Coeff of Rob 13.4 13.3 (11.5-14.5) % Plt Count 185 201 (130-400) K/uL MPV 9.6 9.7 (9.4-12.4) fL Immature Gran % (Auto) 0.2 0.7 % Neut % (Auto) 65.6 78.9 % Lymph % (Auto) 22.6 12.2 % [place] % (Auto) 7.4 7.5 % Eos % (Auto) 3.8 0.4 % Baso % (Auto) 0.4 0.3 % Neut # (Auto) 5.29 8.41 H (1.40-6.50) K/uL Lymph # (Auto) 1.82 1.30 (1.20-3.40) K/uL [place] # (Auto) 0.60 H 0.80 H (0.11-0.59) K/uL Eos # (Auto) 0.31 0.04 (0.00-0.50) K/uL Baso # (Auto) 0.03 0.03 (0.00-0.20) K/uL Immature Gran # (Auto) 0.02 0.07 (0.01-0.20) K/uL PT 11.4 (9.0-12.0) Seconds INR 1.1 (0.9-1.1) APTT 24 (21-31) Seconds PTT Ratio 0.9 Sodium 139 137 (136-145) mmol/L Potassium 3.9 4.0 (3.5-5.1) mmol/L Chloride 106 101 (98-107) mmol/L Carbon Dioxide 27 28 (21-32) mmol/L Anion Gap 6 8 (3-11) BUN 21 24 H (6-23) mg/dl Creatinine 1.81 H 2.10 H (0.6-1.2) mg/dl Est Cr Clr Drug Dosing 19.7 17.1 ml/min Est GFR ( Amer) 30.3 25.3 ml/min Est GFR (Non-Af Amer) 26.1 21.8 ml/min BUN/Creatinine Ratio 11.6 11.4 (10-20) Glucose 86 86 (70-99(Fasting)) mg/dl Calcium 8.8 9.0 (8.6-10.3) mg/dl Phosphorus 3.0 (2.5-4.9) mg/dl Magnesium 1.9 (1.7-2.4) mg/dl Total Bilirubin 0.7 (0.2-1.0) mg/dl AST 13 (13-39) U/L ALT 11 (7-52) U/L Alkaline Phosphatase 84 (34-104) U/L Total Protein 6.3 (6.0-8.3) gm/dl Albumin 3.6 3.9 (3.4-5.0) gm/dl Globulin 2.4 L (2.5-4.0) gm/dl Albumin/Globulin Ratio 1.6 (0.9-2) Urine Color Yellow Urine Appearance Turbid A (Clear) Urine pH 6.5 (4.5-7.5) Ur Specific [place] 1.010 (1.000-1.030) Urine Protein 1+ H (Negative) Urine Glucose (UA) Negative (Negative) Urine Ketones Negative (Negative) Urine Blood Negative (Negative) Urine Nitrite Positive A (Negative) Urine Bilirubin Negative (Negative) Urine Urobilinogen Negative (Negative) Ur Leukocyte Esterase 2+ H (Negative) Urine WBC (Auto) 11-20 H (0-5) /hpf Urine RBC (Auto) 3-5 H (0-2) /hpf U Hyaline Cast (Auto) 0-2 (0-2) /lpf U Epithel Cells (Auto) 6-10 H (0-2) /hpf Urine Bacteria (Auto) 4+ H (None Seen) Diagnostic Findings SINGLE VIEW PELVIS; 2 VIEWS LEFT HIP CLINICAL HISTORY: Fall with left groin pain. FINDINGS: An AP view of the pelvis with AP and frog leg views of the left hip are compared to study dated 03/29/2018. The skeletal structures are osteopenic. There is an impacted subcapital fracture of the left proximal femur with mild overlying soft tissue edema. No additional acute fracture is seen involving the right hip or the bony pelvis. Mild arthritic change and joint space narrowing is seen in both hips, right greater than left. Degenerative sclerosis is seen in the sacroiliac joints. Lumbosacral spondylosis is partially imaged. There is atherosclerotic calcification of the femoral arteries. Phleboliths are noted in the pelvis. IMPRESSION: Impacted subcapital fracture of the left femur. Electronically signed by: Luis Carlos Lawson M.D. 10/14/2023 8:09 PM
[2023-10-15] MEDS ORDERED: ACETAMINOPHEN 1000 MG/100 ML IV IV ONE (08:16)
--- NOTE | 2023-10-15 08:44 | Anesthesiology Consultation ---
Date of Service October 15, 2023 Assessment & Plan Chart Review Chart Review: Acceptable Risk for Surgery and Patient NOT seen in Pre Admission Testing Consults Requested none History Surgery Operation Date: 10/15/23 09:30 Proposed Procedures p ORIF Hip Cannulated Screw - Kirill Xavi Fisher MD Height/Weight Height: 5 ft Weight: 55.6 kg Allergies Allergy/AdvReac Type Severity Reaction Status Date / Time amlodipine Allergy Intermediate Feet Verified 10/15/23 08:08 swelling Sulfa (Sulfonamide Allergy Unknown Remote Verified 10/15/23 08:08 Antibiotics) unknown reaction Medications Home Medications Medication Instructions Recorded Confirmed Last Taken aspirin 81 mg tablet,delayed 81 mg PO QAM 10/02/18 10/15/23 10/14/23 release (Adult Low Dose Aspirin) melatonin 3 mg tablet 3 mg PO HS 07/13/20 10/15/23 10/14/23 bupropion HCl 300 mg 24 hr tablet, 300 mg PO QAM 07/22/20 10/15/23 10/14/23 extended release (Wellbutrin XL) nitroglycerin 0.4 mg sublingual 0.4 mg sublingual Q5M PRN chest 09/19/22 10/15/23 Unknown tablet (Nitrostat) pain #25 tabs diltiazem HCl 120 mg 120 mg PO DAILY #90 caps 02/01/23 10/15/23 10/14/23 capsule,extended release 24 hr, controlled rabeprazole 20 mg tablet,delayed 20 mg PO QAM #90 tabs 03/28/23 10/15/23 10/14/23 release isosorbide mononitrate 30 mg 90 mg (3 x 30 mg) PO DAILY #270 04/21/23 10/15/23 10/14/23 tablet,extended release 24 hr tabs furosemide 20 mg tablet 20 mg PO QAM #90 tabs 06/30/23 10/15/23 10/14/23 metoprolol succinate 50 mg 50 mg PO QAM #90 tabs 08/09/23 10/15/23 10/14/23 tablet,extended release 24 hr atorvastatin 40 mg tablet 40 mg PO HS #90 tabs 08/17/23 10/15/23 10/14/23 clopidogrel 75 mg tablet 75 mg PO QAM #90 tabs 08/17/23 10/15/23 10/14/23 magnesium 250 mg tablet 250 mg PO DAILY 08/25/23 10/15/23 10/14/23 levothyroxine 50 mcg tablet 50 mcg PO DAILYBB #30 tabs 09/12/23 10/15/23 10/14/23 hydralazine 50 mg tablet 50 mg PO TID #90 tabs 09/27/23 10/15/23 10/14/23 aripiprazole 2 mg tablet (Abilify) 2 mg PO QAM 10/13/23 10/15/23 10/14/23 Active Medications Generic Name Dose Route Start Last Admin Trade Name Thomas PRN Reason Stop Dose Admin Aripiprazole 2 mg 10/15/23 09:00 10/15/23 07:51 Aripiprazole 1 Mg/Ml Oral Soln 150 Ml Btl PO 11/14/23 08:59 2 mg QAM EDITH Administration Atorvastatin Calcium 40 mg 10/14/23 22:53 10/14/23 23:47 Atorvastatin 40 Mg Tab PO 11/13/23 22:52 40 mg HS EDITH Administration Bupropion HCl 300 mg 10/15/23 09:00 10/15/23 07:52 Bupropion Xl 300 Mg Tabcr PO 11/14/23 08:59 300 mg QAM EDITH Administration Diltiazem HCl 120 mg 10/15/23 09:00 10/15/23 07:52 Diltiazem Hcl 120 Mg Capcr PO 11/14/23 08:59 120 mg DAILY EDITH Administration Hydralazine HCl 50 mg 10/14/23 22:53 10/15/23 07:53 Hydralazine Tab 50 Mg Tab PO 11/13/23 22:52 50 mg TID EDITH Administration Sodium Chloride 1,000 mls @ 80 mls/hr 10/14/23 22:53 10/15/23 08:32 Nss IV 11/13/23 22:52 0 mls/hr .[id number] EDITH Infusion Isosorbide Mononitrate 90 mg 10/15/23 09:00 10/15/23 07:53 Isosorbide [place] Extended Rel 30 Mg Tabcr PO 11/14/23 08:59 90 mg DAILY EDITH Administration Levothyroxine Sodium 50 mcg 10/15/23 06:30 10/15/23 06:18 Levothyroxine Sodium 50 Mcg Tablet PO 11/14/23 06:29 50 mcg DAILYBB EDITH Administration Magnesium Oxide 400 mg 10/15/23 09:00 10/15/23 07:54 Magnesium Oxide 400 Mg Tab PO 11/14/23 08:59 400 mg DAILY EDITH Administration Metoprolol Succinate 50 mg 10/15/23 09:00 10/15/23 07:54 Metoprolol Succ 50mg Ext Rel Tab PO 11/14/23 08:59 50 mg QAM EDITH Administration Pantoprazole Sodium 40 mg 10/15/23 09:00 10/15/23 07:55 Pantoprazole 40 Mg Tab PO 11/14/23 08:59 40 mg QAM EDITH Administration NPO Date Last Intake of Fluids: 10/14/23 Time Last Intake of Fluids: 22:00 Date Last Intake of Solids: 10/14/23 Time Last Intake of Solids: 12:00 Past Medical History Medical History (Updated 10/15/23 @ 01:39 by Carlos Hernandez MD) History of COVID-19 01/22/21>MILD SYMPTOMS *RESOLVED AV fistula LEFT ARM *HAS NOT USED Hypertension Hyperlipidemia Anxiety and depression COVID-19 Hyperkalemia Bradycardia End stage renal disease Hypothyroidism ESRD (end stage renal disease) Follows with Dr. 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 History of TIA (transient ischemic attack) Several years ago *NO PROBLEMS FROM EVENT Past Family History Family History Mother Ovarian cancer Heart disease Father Family history of diabetes mellitus Heart disease Grandmother (Maternal) Family history of diabetes mellitus Other No family history of adverse response to anesthesia Denies family history of Prostate cancer Myocardial infarction Breast cancer Colorectal cancer Past Surgical History Surgical History History of carpal tunnel release RT/LEFT History of tooth extraction History of surgery Left Antecubital Basilic Vein Arteriovenous Fistula Creation (07/22/20): MAC + PNB at [facility] History of cataract surgery RT/LEFT History of esophagogastroduodenoscopy (EGD) History of colonoscopy Colonoscopy (01/08/19): MAC at [facility] History of tonsillectomy and adenoidectomy History of laparoscopic cholecystectomy Social History Smoking Status: Never smoker Do You Dip or Chew Tobacco: No Hx Alcohol Use: No Hx Substance Use: No substance use type: does not use Physical Exam Vital Signs Last Vital Signs Temp 37.1 C 10/15/23 07:41 Pulse 69 10/15/23 07:41 Resp 18 10/15/23 07:41 BP 174/71 H 10/15/23 07:41 Pulse Ox 95 10/15/23 07:41 O2 Del Method Room Air 10/15/23 07:41 Testing Laboratory Results 10/15/23 05:47 10/15/23 05:47 PT 11.4 Seconds (9.0-12.0) 10/14/23 21:20 INR 1.1 (0.9-1.1) 10/14/23 21:20 APTT 24 Seconds (21-31) 10/14/23 21:20 Urine Color Yellow 10/15/23 Unknown Urine Appearance Turbid (Clear) A 10/15/23 Unknown Urine pH 6.5 (4.5-7.5) 10/15/23 Unknown Ur Specific [place] 1.010 (1.000-1.030) 10/15/23 Unknown Urine Protein 1+ (Negative) H 10/15/23 Unknown Urine Glucose (UA) Negative (Negative) 10/15/23 Unknown Urine Ketones Negative (Negative) 10/15/23 Unknown Urine Nitrite Positive (Negative) A 10/15/23 Unknown Ur Leukocyte Esterase 2+ (Negative) H 10/15/23 Unknown Urine WBC (Auto) 11-20 /hpf (0-5) H 10/15/23 Unknown Urine RBC (Auto) 3-5 /hpf (0-2) H 10/15/23 Unknown U Hyaline Cast (Auto) 0-2 /lpf (0-2) 10/15/23 Unknown U Epithel Cells (Auto) 6-10 /hpf (0-2) H 10/15/23 Unknown Urine Bacteria (Auto) 4+ (None Seen) H 10/15/23 Unknown
[2023-10-15] MEDS ORDERED: KETAMINE HCL 10MG/ML SYR ONE (08:55)
[2023-10-15] MEDS: ceFAZolin 2000MG 2,000 MG/15 ML SYR IV SCH (09:22)
[2023-10-15] MEDS: TRANEXAMIC ACID / 0.7% NACL 1,000 MG/100 ML BAG IV SCH (09:25)
[2023-10-15] MEDS ORDERED: ceFAZolin 330 MG/ML 1 GM VIAL ONE (09:42)
[2023-10-15] MEDS ORDERED: ONDANSETRON INJ 2 MG/ML 2 ML VIAL ONE (09:42)
[2023-10-15] MEDS ORDERED: ROCURONIUM BROMIDE 10 MG/ML 5 ML VIAL IV ONE (09:42)
[2023-10-15] MEDS ORDERED: DEXAMETHASONE SOD INJ 4 MG/ML VIAL ONE (09:42)
[2023-10-15] MEDS ORDERED: TRANEXAMIC ACID / 0.7% NACL 1000MG/100ML BAG IV ONE (09:42)
[2023-10-15] MEDS: EPINEPHrine INJ 1 MG/ML AMP ONE (09:45)
[2023-10-15] MEDS: LIDOCAINE 1% LOCAL 20 ML VIAL ONE (09:45)
[2023-10-15] MEDS: BUPIVACAINE/EPINEPHRINE 0.5% MPF 1:200,000 30 ML VIAL ONE (09:45)
[2023-10-15] MEDS ORDERED: SUGAMMADEX SODIUM 200 MG/2 ML VIAL IV ONE (10:05)
--- NOTE | 2023-10-15 10:13 | Post Operative Brief Note ---
Immediate Post Op Note Date of Surgery October 15, 2023 Pre & Post Diagnosis Operation Date: 10/15/23 09:30 Pre-Op Diagnosis: Closed Left Hip Fracture Post-Op Diagnosis: Closed Left Hip Fracture I identified the patient and participated in the time-out.: Yes Procedure Operation Date: 10/15/23 09:30 Actual Procedures p Open Reduction Internal Fixation Left Hip Fracture(Left) - Kirill Fisher MD Surgeon Kirill Fisher MD Design Consultant Orion Mayfield PA-C (No fellow avail) Estimated Blood Loss 20 Findings Consistent with Post-Op Diagnosis Fluids 300 cc Drains Ponce Catheter Anesthesia Type General Complications none
--- NOTE | 2023-10-15 10:13 | Operative Report ---
Post Operative Report Pre & Post Diagnosis Operation Date: 10/15/23 09:30 Pre-Op Diagnosis: Closed Left Hip Fracture Post-Op Diagnosis: Closed Left Hip Fracture I identified the patient and participated in the time-out.: Yes Procedure Operation Date: 10/15/23 09:30 Actual Procedures p Open Reduction Internal Fixation Left Hip Fracture(Left) - Kirill Fisher MD Surgeon Kirill Fisher MD Manager Support Services Orion Mayfield PA-C (No fellow avail) Estimated Blood Loss 20 Findings See Below Non-displaced, impacted left subcapital hip fracture Fluids 300 cc Specimens n/a Anesthesia Type General Complications none Indications The patient is a 77 year old female who sustained a left hip fracture following a ground level fall. Their treatment options of conservative versus surgical intervention were discussed. Since the patient was an ambulatory prior to their injury and to avoid the risks of bed sores, pulmonary complications, and to give them the best chance for ambulation, I recommended surgery. The patient understands the risks of surgery, which include but are not limited to: bleeding, infection, re-operation, damage to nerves and arteries, continued pain, failure of the hardware, mal-union, non-union, DVT, and . In addition the patient is aware of the 20-30% morbidity associated with hip fracture for up to 1 year following a hip fracture. The patient understands all of these instructions and explanations, all of their questions have been satisfactorily addressed. The patient has elected to proceed with surgery and the informed consent was signed. Description of Procedure Orion Mayfield PA-C is assisting with positioning, retraction, and closure due to fellow not available. IMPLANTS: 1) FNS Plate 1 hole (SYNTHES). 2) [place] FNS 80 mm (SYNTHES) 3) Anti-rotation screw 80 mm (SYNTHES) 4) 5.0 Ti Locking screw 38 mm (SYNTHES) Procedure The patient was taken to the Operating Room and placed in the supine position on the fracture table after general anesthesia was administered. A multidisciplinary time-out was performed identifying my initials on the left lower limb as the correct and operative limb. Prior to the incision being made, 2 g intravenous Ancef and 1g of TXA were given. Fluoroscopy was brought in to ensure adequate x-rays images could be obtained. No reduction was necessary as the femoral neck fracture was non-displaced and remained in its alignment with placement of the patient on the fracture table. Once this was confirmed with Fluro, the left lower extremity was prepped in the standard fashion. The trochanter was marked as was the planned incision. The incision was injected with a 50:50 mixture of 1% Lidocaine with epinephrine and 0.5% Marcaine plain for a total of 10 cc. The planned incision was carried down through the Tensor Fascia Sandra to expose the greater trochanter and the starting position. Using Fluro a starting guide wire was placed proximal to the lesser trochanter and centered along the femoral neck. This was measured and the cannulated drill was used in the standard fashion. The [place] and plate were then inserted over the guide wire in the standard fashion. Then using the aiming guide the distal locking screw was prepped with the aiming guide using the appropriate drill in the standard fashion followed by placement of the locking screw. The anti- rotation screw was prepped with the aiming guide using the appropriate drill in the standard fashion followed by placement of the anti-rotation screw. Final x-rays were obtained showing anatomic alignment with fracture and hardware in good position, TAD less than 25 mm. The wounds were copiously irrigated. The Tensor Fascia Sandra was closed with 0 Vicryl. The subcutaneous tissue was closed with 3-0 Vicryl. The skin was closed with 4-0 Monocryl in a running subcuticular followed by Dermabond. Once the Dermabond had dried, Steri strips were placed over top. The incision was then covered with 4x4s and Tegaderm. A Ponce was placed and the patient was transfer to their hospital bed and taken to the ICU acting as the PACU in stable condition. The sponge and needle counts were correct. Post-op Instructions: The patient was re-admitted to the Hospitalist service. The patient will be WBAT with a walker. The patient will be seen by PT/OT. Their labs will be checked in the am. DVT prophylaxis will include Teds for 3 weeks, SCDs while in the hospital, re-starting her ASA and Plavix. I attest to the content of the Intraoperative Record and any orders documented therein. Any exceptions are noted below.
--- NOTE | 2023-10-15 10:27 | Fluoroscopy Report ---
FL hip LT 2-3V CLINICAL HISTORY: LEFT HIP ORIF COMPARISON STUDY: Left hip 10/14/2023. FLUOROSCOPY TIME: 39 seconds FLUOROSCOPY IMAGES: 2 Ka,r: 8.8 mGy FINDINGS: Status post fixation of a left subcapital femoral fracture with a dynamic hip screw. The verma rdware appears intact. Alignment appears near-anatomic. No dislocation. IMPRESSION: Fluoroscopic assistance as above ACT 112: Negative or not required by law. Electronically signed by: Hal Shanks M.D. 10/15/2023 10:24 AM
--- NOTE | 2023-10-15 10:50 | Post Operative Brief Note ---
Immediate Post Op Note Date of Surgery October 15, 2023 Pre & Post Diagnosis Operation Date: 10/15/23 09:30 Pre-Op Diagnosis: Closed Left Hip Fracture Post-Op Diagnosis: Closed Left Hip Fracture I identified the patient and participated in the time-out.: Yes Procedure Operation Date: 10/15/23 09:30 Actual Procedures p Open Reduction Internal Fixation Left Hip Fracture(Left) - Kirill Xavi Fisher MD Surgeon Dr Fisher Fisher Net Orion Mayfield PA-C (No fellow avail) Estimated Blood Loss 20 Findings Consistent with Post-Op Diagnosis Drains Ponce Catheter Anesthesia Type General Complications None Disposition Accompanied Patient To Recovery: Yes Overlapping Procedure I was present for: the critical portions of procedure. I was immediately available: during the entire case.
--- NOTE | 2023-10-15 11:29 | Anesthesiology Progress Note ---
Date of Service October 15, 2023 Anesthesia Post Procedure Vital Signs Vital Signs: Temp Pulse Pulse Pulse Resp BP BP 10/15/23 11:25 62 12 10/15/23 11:15 63 16 10/15/23 11:05 64 22 10/15/23 10:55 64 14 10/15/23 10:49 36 C L 66 14 10/15/23 07:41 37.1 C 69 18 10/15/23 07:13 67 10/14/23 23:07 71 10/14/23 23:00 37.1 C 74 18 10/14/23 21:28 73 19 159/64 H 10/14/23 21:28 72 19 10/14/23 19:31 76 15 184/81 H 10/14/23 19:18 75 18 178/78 H 10/14/23 19:12 71 10/14/23 18:56 36.8 C 76 18 204/73 H BP Pulse Ox O2 Del Method O2 Flow Rate 10/15/23 11:25 163/62 H 99 Oxymask 2 10/15/23 11:15 149/62 H 99 Oxymask 2 10/15/23 11:05 144/60 H 100 Oxymask 4 10/15/23 10:55 153/64 H 99 Oxymask 6 10/15/23 10:49 173/68 H 100 Oxymask 6 10/15/23 07:41 174/71 H 95 Room Air 10/15/23 07:13 10/14/23 23:07 10/14/23 23:00 177/48 H 96 Room Air 10/14/23 21:28 96 Room Air 10/14/23 21:28 96 Room Air 10/14/23 19:31 94 Room Air 10/14/23 19:18 10/14/23 19:12 10/14/23 18:56 95 Room Air Pain Intensity Left Groin: Pain Intensity: 6 Transfer of Care Handoff Completed per policy Notes Mental Status: alert / awake / arousable Patient Amnestic to Procedure: Yes Nausea / Vomiting: adequately controlled Pain: adequately controlled Airway Patency, RR, SpO2: stable & adequate BP & HR: stable & adequate Hydration State: stable & adequate Anesthetic Complications: no major complications apparent and Pt Satisfied with anesthetic care
[2023-10-15] MEDS: FAMOTIDINE/PF 20 MG/2 ML VIAL IV ONE (12:24)
--- NOTE | 2023-10-15 16:36 | Hospitalist Progress Note ---
Date of Service October 15, 2023 Assessment & Plan (1) Closed subcapital fracture of left femur: Plan: Patient had mechanical fall while walking outside. Sustained L femur fracture and now is s/p ORIF. Most likely has some osteoporosis - will start calcium + vit D and would consider bisphosphonate in about 1 month (outpatient with PCP). Tylenol and Dilaudid PRN pain. Zofran PRN if needed for nausea Heart Healthy Diet. OOB in chair with assistance. Ortho following PT/OT as soon as possible Possible discharge to rehab. (2) Risk for falls: Plan: PT/OT (3) Benign essential hypertension: Plan: ASA and Clopidogrel - Can resume now per Dr. Fisher (Ortho) Continue Diltizam, hydralazine, isosorbide mononitrate and metoprolol with hold parameters Lasix and potassium on hold - will continue to assess when appropriate to restart. (4) Coronary artery disease: Plan: ASA and Clopidogrel on hold - will reach out to surgery regarding restarting Continue Diltizam, hydralazine, isosorbide mononitrate and metoprolol with hold parameters Lasix and potassium on hold (5) GERD (gastroesophageal reflux disease): Plan: Pantoprazole 40 mg daily (6) Depression with anxiety: Plan: Continue Aripiprazole and bupropion (7) Chronic kidney disease, stage 4 (severe): Plan: Creatinine on admission 2.10, with baseline creatinine range 1.94-2.21. Most recent 1.81this AM NSS at 80 mL/h for maintenance IV fluids Follow serial CBC with differential, basic metabolic panel and magnesium level (8) Vitamin D deficiency: Plan: Vit D 55.9 on 08/17/23 Last dexa 2019 showed osteoporosis. Calcium and Vitamin D supplementation ordered Admission and Anticipated Discharge Date Admission Date: October 14, 2023 Supervising Physician Co-Signing Physician Notes I personally examined the patient and verified all stephen points of history and exam, discussed case, and agree with decision making with A Magdaleno BLANCAS seen postop. Feeling okay. Pain present but controlled. Vitals noted, in general she is awake and alert pleasant no distress. HEENT normocephalic atra umatic mucous membranes moist. Breathing unlabored no accessory muscle use good effort. Skin without rashes pallor or icterus. Neuro without focal deficits. Hip fracturepresumed osteoporoticpostop. PT/OT eval and treat, discussed high probability of needing rehab. Pain control. Outpatient bone health managementcalcium plus vitamin D for now. Coronary artery diseaseappears fortunately stable DVT prophylaxisper orthopedics otherwise as above Subjective Yvrose is a 77 y/o female s/p fall getting out of her car. She sustained a L hip fracture and had an ORIF with Dr. Kirill Fisher this morning. She is sitting comfortably in bed eating lunch. Daughter at the bedside. She denies any pain currently. She is AAO and answering questions appropriately. Review of Systems Review of Systems: The patient denies chest pain, shortness of breath, n/v/d, abdominal pain, urinary symptoms, fevers, chills or weakness. Denies any pain at surgical site. The review of systems is otherwise negative other than for that already noted above, and at least 10 systems have been reviewed. Physical Exam Constitutional: well nourished and healthy appearing; no acute distress Eyes: PERRL, conjunctivae normal, anicteric sclerae ENMT: Mouth: no lip abnormality and no drooling Mallampati Class: II Neck: normal visual inspection Respiratory: normal respiratory effort; no respiratory distress Cardiovascular: Rate/Rhythm: regular rate Musculoskeletal: Spine: normal cervical ROM Psychiatric: Orientation: alert and oriented x 3 Results & Data Results & Data Vital Signs (Past 12 Hours) Vital Signs Temp Pulse Pulse Pulse Resp BP Pulse Ox 10/15/23 16:21 35.5 C L 58 L 18 114/52 L 99 10/15/23 15:06 58 L 10/15/23 14:27 36.3 C L 60 131/58 L 98 10/15/23 13:14 36.6 C 61 137/55 L 97 10/15/23 12:28 36.3 C L 61 159/63 H 100 10/15/23 11:55 36.3 C L 63 19 144/57 H 100 10/15/23 11:40 36.3 C L 63 12 140/59 L 93 10/15/23 11:25 62 12 163/62 H 99 10/15/23 11:15 63 16 149/62 H 99 10/15/23 11:05 64 22 144/60 H 100 10/15/23 10:55 64 14 153/64 H 99 10/15/23 10:49 36 C L 66 14 173/68 H 100 10/15/23 07:41 37.1 C 69 18 174/71 H 95 10/15/23 07:13 67 O2 Del Method O2 Flow Rate 10/15/23 16:21 Nasal Cannula 2 10/15/23 15:06 10/15/23 14:27 Nasal Cannula 2 10/15/23 13:14 Nasal Cannula 2 10/15/23 12:28 Nasal Cannula 2 10/15/23 11:55 Nasal Cannula 2 10/15/23 11:40 Room Air 10/15/23 11:25 Oxymask 2 10/15/23 11:15 Oxymask 2 10/15/23 11:05 Oxymask 4 10/15/23 10:55 Oxymask 6 10/15/23 10:49 Oxymask 6 10/15/23 07:41 Room Air 10/15/23 07:13 Laboratory Results 10/15/23 10/15/23 10/14/23 Range/Units Unknown 05:47 21:20 WBC 8.07 10.65 (4.8-10.8) K/ul RBC 3.13 L 3.32 L (4.20-5.40) M/uL Hgb 9.8 L 10.4 L (12.0-16.0) g/dl Hct 28.5 L 30.4 L (37.0-47.0) % MCV 91.1 91.6 (80.0-100.0) fL MCH 31.3 31.3 (25.0-34.0) pg MCHC 34.4 34.2 (32.0-36.0) g/dL RDW Std Deviation 44.6 45.1 (36.4-46.3) fL RDW Coeff of Rob 13.4 13.3 (11.5-14.5) % Plt Count 185 201 (130-400) K/uL MPV 9.6 9.7 (9.4-12.4) fL Immature Gran % (Auto) 0.2 0.7 % Neut % (Auto) 65.6 78.9 % Lymph % (Auto) 22.6 12.2 % [place] % (Auto) 7.4 7.5 % Eos % (Auto) 3.8 0.4 % Baso % (Auto) 0.4 0.3 % Neut # (Auto) 5.29 8.41 H (1.40-6.50) K/uL Lymph # (Auto) 1.82 1.30 (1.20-3.40) K/uL [place] # (Auto) 0.60 H 0.80 H (0.11-0.59) K/uL Eos # (Auto) 0.31 0.04 (0.00-0.50) K/uL Baso # (Auto) 0.03 0.03 (0.00-0.20) K/uL Immature Gran # (Auto) 0.02 0.07 (0.01-0.20) K/uL PT 11.4 (9.0-12.0) Seconds INR 1.1 (0.9-1.1) APTT 24 (21-31) Seconds PTT Ratio 0.9 Sodium 139 137 (136-145) mmol/L Potassium 3.9 4.0 (3.5-5.1) mmol/L Chloride 106 101 (98-107) mmol/L Carbon Dioxide 27 28 (21-32) mmol/L Anion Gap 6 8 (3-11) BUN 21 24 H (6-23) mg/dl Creatinine 1.81 H 2.10 H (0.6-1.2) mg/dl Est Cr Clr Drug Dosing 19.7 17.1 ml/min Est GFR ( Amer) 30.3 25.3 ml/min Est GFR (Non-Af Amer) 26.1 21.8 ml/min BUN/Creatinine Ratio 11.6 11.4 (10-20) Glucose 86 86 (70-99(Fasting)) mg/dl Calcium 8.8 9.0 (8.6-10.3) mg/dl Phosphorus 3.0 (2.5-4.9) mg/dl Magnesium 1.9 (1.7-2.4) mg/dl Total Bilirubin 0.7 (0.2-1.0) mg/dl AST 13 (13-39) U/L ALT 11 (7-52) U/L Alkaline Phosphatase 84 (34-104) U/L Total Protein 6.3 (6.0-8.3) gm/dl Albumin 3.6 3.9 (3.4-5.0) gm/dl Globulin 2.4 L (2.5-4.0) gm/dl Albumin/Globulin Ratio 1.6 (0.9-2) Urine Color Yellow Urine Appearance Turbid A (Clear) Urine pH 6.5 (4.5-7.5) Ur Specific [place] 1.010 (1.000-1.030) Urine Protein 1+ H (Negative) Urine Glucose (UA) Negative (Negative) Urine Ketones Negative (Negative) Urine Blood Negative (Negative) Urine Nitrite Positive A (Negative) Urine Bilirubin Negative (Negative) Urine Urobilinogen Negative (Negative) Ur Leukocyte Esterase 2+ H (Negative) Urine WBC (Auto) 11-20 H (0-5) /hpf Urine RBC (Auto) 3-5 H (0-2) /hpf U Hyaline Cast (Auto) 0-2 (0-2) /lpf U Epithel Cells (Auto) 6-10 H (0-2) /hpf Urine Bacteria (Auto) 4+ H (None Seen) PG Care Time/CCT Total # of Minutes Spent Total Time Spent with Patient: Total time spent is greater than 50% in coordination of care (as documented) at patient's floor/unit and/or counseling patient: C[place] [address] SUB INP/OBS CARE 3/50MIN Patient Type Established Medical Decision Making Moderate Complexity Diagnoses Closed subcapital fracture of left femur S72.012A Risk for falls Z91.81 Benign essential hypertension I10 Coronary artery disease I25.10 GERD (gastroesophageal reflux disease) K21.9 Depression with anxiety F41.8 Chronic kidney disease, stage 4 (severe) N18.4 Vitamin D deficiency E55.9
[2023-10-15] MEDS: CALCIUM CARBONATE 500 MG CHEWABLE TAB PO SCH (21:23)
[2023-10-15] MEDS: MELATONIN 3 MG TAB PO SCH (21:26)
--- NOTE | 2023-10-16 06:46 | Hospitalist Progress Note ---
Date of Service October 16, 2023 Assessment & Plan (1) Closed subcapital fracture of left femur: (2) Risk for falls: (3) Benign essential hypertension: (4) Coronary artery disease: (5) GERD (gastroesophageal reflux disease): (6) Depression with anxiety: (7) Chronic kidney disease, stage 4 (severe): Plan (1) Closed subcapital fracture of left femur: Patient had mechanical fall while walking outside. Sustained L femur fracture and now is s/p ORIF. Most likely has some osteoporosis - will start calcium + vit D and would consider bisphosphonate in about 1 month (outpatient with PCP). Tylenol and Dilaudid PRN pain/ Zofran PRN if needed for nausea/Heart Healthy Diet. Ponce's taken out, encouraged ambualtion as per PT, IVF stopped today. Off from Oxygen; will reassess her need throughout day. Ortho following /PT/OT started today; walked around (2) Risk for falls: PT/OT ongoing (3) Benign essential hypertension: BP stable in last 24 hours; Under home meds Continue Diltiazem, hydralazine,metoprolol (4) Coronary artery disease: ASA and Clopidogrel restarted Continue Diltiazem, hydralazine, isosorbide mononitrate and metoprolol. Lasix and potassium on hold (5) GERD (gastroesophageal reflux disease): Pantoprazole 40 mg daily (6) Depression with anxiety: Continue Aripiprazole and bupropion (7) Chronic kidney disease, stage 4 (severe): Creatinine on admission 2.10/ baseline creatinine range 1.94-2.21. Most recent 1.72 NSS at 80 mL/h for maintenance IV fluids Follow serial CBC with differential, basic metabolic panel and magnesium level (8) Vitamin D deficiency: Vit D 55.9 on 08/17/23 Last dexa 2019 showed osteoporosis. Calcium and Vitamin D supplementation ordered Admission and Anticipated Discharge Date Admission Date: October 14, 2023 Supervising Physician Co-Signing Physician Notes I personally examined the patient and verified all stephen points of history and ex am, discussed case, and agree with decision making with Dr Springer Feels okay overall. Pain controlled. Feels like she did well with therapy. Awaiting rehab placement. Vitals noted, in general she is awake and alert pleasant no distress. HEENT normocephalic atraumatic mucous membranes moist. Breathing unlabored no accessory muscle use good effort. Skin without rashes pallor or icterus. Neuro without focal deficits. Hip fracturepresumed osteoporoticpostop. PT/OT eval and treat, pain controlled. Pending rehab or SNF. Ultimate goal is getting back home and independent. Outpatient bone health workup and management, calcium plus D for now Coronary artery diseaseappears fortunately stable DVT prophylaxisper orthopedics (asa bid) otherwise as above Subjective Today morning Yvrose was doing fine, lying on bed practicing some puzzles. She is well oriented, alert, cooperative lady, reasonably understanding our plan of ca re for her. She was curious if she can go home. She seems excited to go for physical therapy after surgery. Review of Systems Review of Systems: As per HPI Physical Exam Physical Exam: LLE: 2+ DP pulse. Sensation to light touch is intact distally. Able to wiggle toes and ankle up and down. Calf soft and non-tender. + Bruising about the lateral aspect of the hip. + log roll hip. Constitutional: well nourished and healthy appearing; no acute distress Eyes: PERRL, conjunctivae normal, anicteric sclerae ENMT: Mouth: no lip abnormality and no drooling Neck: normal visual inspection Respiratory: normal respiratory effort, lungs clear to auscultation normal respiratory effort; no respiratory distress Cardiovascular: Rate/Rhythm: regular rate and regular rhythm Heart Sounds: + murmur Gastrointestinal (Abdomen): normal bowel sounds, soft, nontender, no hepatosplenomegaly Musculoskeletal: Spine: normal cervical ROM Skin: no rashes, warm and dry Neurologic: normal touch/pain/proprioception Psychiatric: Orientation: alert and oriented x 3 Results & Data Results & Data Vital Signs (Past 12 Hours) Vital Signs Temp Pulse Pulse Resp BP Pulse Ox O2 Del Method 10/16/23 02:46 36.5 C 64 16 133/57 L 97 Nasal Cannula 10/16/23 01:45 Nasal Cannula 10/16/23 01:20 68 10/15/23 23:24 36.7 C 75 16 118/51 L 95 Nasal Cannula 10/15/23 20:19 37.1 C 61 18 132/67 96 Nasal Cannula O2 Flow Rate 10/16/23 02:46 2 10/16/23 01:45 2 10/16/23 01:20 10/15/23 23:24 2 10/15/23 20:19 2 Resident Activity Tracking Resident Involvement: Resident Care Provided Care Provided: Adult Hospital Medicine
--- NOTE | 2023-10-16 07:27 | Orthopedic Progress Note ---
Date of Service October 16, 2023 Assessment & Plan (1) Closed subcapital fracture of left femur: Plan: POD #1 s/p ORIF L hip fracture, doing as well as expected. Resume diet. WBAT with walker. OOB to chair. Continue pain control. DVT prophylaxis: TEDs 3 weeks, foot pumps while in hospital, ASA 81 mg BID for 6 weeks. PT/OT. Change dressing 10/17/23 Continue care per primary Service. D/C planning. Admission and Anticipated Discharge Date Admission Date: October 14, 2023 Physical Exam Physical Exam: LLE: 2+ DP pulse. Sensation to light touch is intact distally. Able to wiggle toes and ankle up and down. Calf soft and non-tender. + Bruising about the lateral aspect of the hip. Dressing clean,dry, intact. Results & Data Vital Signs (Past 12 Hours) Vital Signs Temp Pulse Pulse Resp BP Pulse Ox O2 Del Method 10/16/23 07:19 63 10/16/23 02:46 36.5 C 64 16 133/57 L 97 Nasal Cannula 10/16/23 01:45 Nasal Cannula 10/16/23 01:20 68 10/15/23 23:24 36.7 C 75 16 118/51 L 95 Nasal Cannula 10/15/23 20:19 37.1 C 61 18 132/67 96 Nasal Cannula O2 Flow Rate 10/16/23 07:19 10/16/23 02:46 2 10/16/23 01:45 2 10/16/23 01:20 10/15/23 23:24 2 10/15/23 20:19 2 Diagnostic Findings FL hip LT 2-3V CLINICAL HISTORY: LEFT HIP ORIF COMPARISON STUDY: Left hip 10/14/2023. FLUOROSCOPY TIME: 39 seconds FLUOROSCOPY IMAGES: 2 Ka,r: 8.8 mGy FINDINGS: Status post fixation of a left subcapital femoral fracture with a dynamic hip screw. The hardware appears intact. Alignment appears near-anatomic. No dislocation. IMPRESSION: Fluoroscopic assistance as above ACT 112: Negative or not required by law. Electronically signed by: Hal Shanks M.D. 10/15/2023 10:24 AM
[2023-10-16] MEDS: CHOLECALCIFEROL 25 MCG (1000 UNITS) TAB PO SCH (07:33)
[2023-10-16] MEDS: CLOPIDOGREL BISULFATE 75 MG TAB PO SCH (07:34)
[2023-10-16] MEDS: ASPIRIN 81 MG ECTAB PO SCH ×2 (07:38→19:58)
[2023-10-16 08:31] LABS: Basophils # (auto) 0.01 K/uL (0.00-0.20); Basophils % (auto) 0.1 %; Hematocrit (blood only) 26.8 % (37.0-47.0); Immature Granulocytes # (auto) 0.06 K/uL (0.01-0.20); Immature Granulocytes % (auto) 0.5 %; Lymphocytes % (auto) 7.3 %; Mean Corpuscular Hemoglobin 31.6 pg (25.0-34.0); Mean Corpuscular Hgb Conc 33.6 g/dL (32.0-36.0); Mean Platelet Volume 9.4 fL (9.4-12.4); Monocytes # (auto) 0.63 K/uL (0.11-0.59); Monocytes % (auto) 5.1 %; Platelet Count 177 K/uL (130-400); RDW Coefficient of Variation 13.3 % (11.5-14.5); RDW Standard Deviation 45.9 fL (36.4-46.3); Red Blood Count 2.85 M/uL (4.20-5.40)
[2023-10-16 08:47] LABS: BUN Creatinine Ratio 12.8 (10-20); C Reactive Protein 4.9 mg/dl (0-0.5); Calcium 8.3 mg/dl (8.6-10.3); Creatinine Clr Calc Pharmacy 20.8 ml/min; Est GFR (African American) 32.2 ml/min; Est GFR (Non-African American) 27.8 ml/min; Potassium 4.1 mmol/L (3.5-5.1)
[2023-10-16] MEDS: CYANOCOBALAMIN (B-12) 500 MCG TABLET PO SCH (08:52)
--- NOTE | 2023-10-16 15:20 | Billing Data ---
Date of Service October 16, 2023 Coding Level of Care Code 10430 SUB INP/OBS CARE MIN
[2023-10-16] MEDS: AMOXICILLIN/CLAVULANATE 500 MG TAB PO SCH (17:54)
[2023-10-17] MEDS: ACETAMINOPHEN 325 MG TAB PO PRN (02:21)
--- NOTE | 2023-10-17 06:39 | Hospitalist Progress Note ---
Date of Service October 17, 2023 Assessment & Plan (1) Closed subcapital fracture of left femur: (2) Risk for falls: (3) Benign essential hypertension: (4) Coronary artery disease: (5) GERD (gastroesophageal reflux disease): (6) Depression with anxiety: (7) Chronic kidney disease, stage 4 (severe): Plan (1) Closed subcapital fracture of left femur: 2nd POD foll ORIF L femur fracture likely osteoporotic Tylenol and Dilaudid PRN pain/ Zofran PRN if needed for nausea/Heart Healthy Diet. Ponce's taken out, encouraged ambulation as per PT, regular diet Off from Oxygen; tolerating well PT/OT started yesterday; doing well Ready for discharge; waiting for rehab bed as per OT/PT rec. (2) Risk for falls: PT/OT ongoing 3. Delirium: UTI vs Post-operative Risk factor: Age, Surgery, bacteruria On and off Delirious twice in last 24 hour; was on baseline this morning Bacteria 4+ in Urine; Augmentin started Hydration: good, Afebrile throughout, Out of Ponce's, Regular PT (3) Benign essential hypertension: BP stable in last 24 hours; Under home meds Continue Diltiazem, hydralazine,metoprolol (4) Coronary artery disease: ASA and Clopidogrel restarted Continue Diltiazem, hydralazine, isosorbide mononitrate and metoprolol. Lasix and potassium on hold (5) GERD (gastroesophageal reflux disease): Pantoprazole 40 mg daily (6) Depression with anxiety: Continue Aripiprazole and bupropion (7) Chronic kidney disease, stage 4 (severe): Creatinine on admission 2.10------>1.76 Baseline creatinine range 1.94-2.21 (8) Vitamin D deficiency: Vit D 55.9 on 08/17/23 Last dexa 2019 showed osteoporosis. Calcium and Vitamin D supplementation ordered Admission and Anticipated Discharge Date Admission Date: October 14, 2023 Supervising Physician Co-Signing Physician Notes I personally examined the patient and verified all stephen points of history and exam, discussed case, and agree with decision making with Dr Springer Feels okay overall. Pain controlled. for SNF tomorrow. Vitals noted, in general she is awake and alert pleasant no distress. HEENT normocephalic atraumatic mucous membranes moist. Breathing unlabored no accessory muscle use good effort. Skin without rashes pallor or icterus. Neuro without focal deficits. Hip fracturepresumed osteoporoticpostop. PT/OT eval and treat, pain reasonably controlled. Pending SNF tomorrow. Ultimate goal is getting back home and independent. Outpatient bone health workup and management, calcium plus D for now possible/probable UTI - abx Coronary artery diseaseappears fortunately stable DVT prophylaxisper orthopedics (asa bid) otherwise as above Subjective Today morning Yvrose was doing fine, was sitting on chair combing her hair.. She is well oriented, alert, cooperative lady, reasonably understanding our plan of care for her. She remember our conversation from yesterday and was quite sure its Monday today. She had little more discomfort and felt tired after her PT session yesterday, feel like she did put little too much effort. She ate her breakfast, is in no pain today, no new issues. Is using her incentive spirometer, supervised her using it myself. Review of Systems Review of Systems: As per HPI Physical Exam Physical Exam: LLE: 2+ DP pulse. Sensation to light touch is intact distally. Able to wiggle toes and ankle up and down. Calf soft and non-tender. + Bruising about the lateral aspect of the hip. + log roll hip. Constitutional: well nourished and healthy appearing; no acute distress Eyes: PERRL, conjunctivae normal, anicteric sclerae Neck: normal visual inspection Respiratory: normal respiratory effort, lungs clear to auscultation normal respiratory effort; no respiratory distress Cardiovascular: Rate/Rhythm: regular rate and regular rhythm Heart Sounds: + murmur Gastrointestinal (Abdomen): normal bowel sounds, soft, nontender, no hepatosplenomegaly Musculoskeletal: Spine: normal cervical ROM Skin: no rashes, warm and dry Neurologic: normal touch/pain/proprioception Psychiatric: Orientation: alert and oriented x 3 Results & Data Results & Data Vital Signs (Past 12 Hours) Vital Signs Temp Pulse Pulse Resp BP Pulse Ox O2 Del Method 10/17/23 02:57 36.6 C 71 16 161/65 H 93 Room Air 10/17/23 00:21 56 L 10/16/23 22:42 36.6 C 65 17 137/66 93 Room Air 10/16/23 19:30 36.7 C 55 L 17 169/66 H 95 Room Air Resident Activity Tracking Resident Involvement: Resident Care Provided Care Provided: Adult Hospital Medicine
[2023-10-17 06:50] LABS: Basophils # (auto) 0.02 K/uL (0.00-0.20); Basophils % (auto) 0.2 %; Eosinophils # (auto) 0.09 K/uL (0.00-0.50); Eosinophils % (auto) 0.9 %; Hematocrit (blood only) 25.2 % (37.0-47.0); Hemoglobin 8.5 g/dl (12.0-16.0); Immature Granulocytes # (auto) 0.04 K/uL (0.01-0.20); Immature Granulocytes % (auto) 0.4 %; Lymphocytes # (auto) 1.62 K/uL (1.20-3.40); Lymphocytes % (auto) 15.8 %; Mean Corpuscular Hemoglobin 31.5 pg (25.0-34.0); Mean Corpuscular Hgb Conc 33.7 g/dL (32.0-36.0); Mean Corpuscular Volume 93.3 fL (80.0-100.0); Mean Platelet Volume 9.7 fL (9.4-12.4); Monocytes # (auto) 0.78 K/uL (0.11-0.59); Monocytes % (auto) 7.6 %; Neutrophils # (auto) 7.68 K/uL (1.40-6.50); Neutrophils % (auto) 75.1 %; Platelet Count 173 K/uL (130-400); RDW Coefficient of Variation 13.7 % (11.5-14.5); RDW Standard Deviation 46.5 fL (36.4-46.3); White Blood Count 10.23 K/ul (4.8-10.8)
[2023-10-17 07:11] LABS: BUN Creatinine Ratio 14.2 (10-20); Calcium 8.6 mg/dl (8.6-10.3); Creatinine Clr Calc Pharmacy 20.8 ml/min; Est GFR (African American) 31.3 ml/min; Potassium 4.4 mmol/L (3.5-5.1)
--- NOTE | 2023-10-17 09:42 | Orthopedic Progress Note ---
Date of Service October 17, 2023 Assessment & Plan (1) Closed subcapital fracture of left femur: Plan: POD #2 s/p ORIF L hip fracture Resume diet. WBAT with walker. OOB to chair. Continue pain control. DVT prophylaxis: TEDs 3 weeks, foot pumps while in hospital, ASA 81 mg BID for 6 weeks. PT/OT. Dressing changed this AM Continue care per primary Service. D/C planning. Follow up at [facility] in 10-14 days With questions contact our clinic at [phone] Admission and Anticipated Discharge Date Admission Date: October 14, 2023 Supervising Physician Co-Signing Physician Notes I, Dr. Fisher, saw and examined the patient and agree with the above findings and plan of care I formulated and discussed with my PA. Subjective This 77-year-old female is 2 days status post left hip fracture open reduction internal fixation. Patient states she is doing very well. She states that her pain is effectively controlled with the medication she is receiving. She states that she does live with her son but feels that she will need to go to rehab or [facility] facility following discharge from the hospital. Currently she denies chest pain, shortness of breath, fever, chills, sweats, numbness or tingling in her left lower extremity, nausea, vomiting, diarrhea or difficulty voiding. Review of Systems Review of Systems: All systems reviewed & are unremarkable except as noted in Subjective Physical Exam Physical Exam: Left hip: Dressing was removed from the patient's left hip. Incision site is closed completely with Steri-Strips in place. I lightly cleansed around the area with a sterile saline wipe. Patted dry with with a sterile 4 x 4. I have reapplied a new dressing consisting of some sterile 4 x 4's folded in half and Tegaderm dressings. Patient is able to perform an active straight leg raise test. She was able to transition was from a seated to a standing position with the assistance of her walker and her occupational therapist. She is able to actively dorsi and plantarflex her foot without issue. She is able to detect light sensation to touch over the pads of her digits. She tolerates passive hip flexion near 90 degrees. She experiences no discomfort with passive external rotation but has some pulling sensation with light passive internal rotation. She is neurovascularly intact. Results & Data Vital Signs (Past 12 Hours) Vital Signs Temp Pulse Pulse Resp BP Pulse Ox O2 Del Method 10/17/23 08:43 36.7 C 88 18 183/75 H 99 Room Air 10/17/23 07:00 67 10/17/23 02:57 36.6 C 71 16 161/65 H 93 Room Air 10/17/23 00:21 56 L 10/16/23 22:42 36.6 C 65 17 137/66 93 Room Air Diagnostic Findings Laboratory Results WBC 10.23 K/ul (4.8-10.8) 10/17/23 06:12 RBC 2.70 M/uL (4.20-5.40) L 10/17/23 06:12 Hgb 8.5 g/dl (12.0-16.0) L 10/17/23 06:12 Hct 25.2 % (37.0-47.0) L 10/17/23 06:12 MCV 93.3 fL (80.0-100.0) 10/17/23 06:12 MCH 31.5 pg (25.0-34.0) 10/17/23 06:12 MCHC 33.7 g/dL (32.0-36.0) 10/17/23 06:12 RDW Std Deviation 46.5 fL (36.4-46.3) H 10/17/23 06:12 RDW Coeff of Rob 13.7 % (11.5-14.5) 10/17/23 06:12 Plt Count 173 K/uL (130-400) 10/17/23 06:12 MPV 9.7 fL (9.4-12.4) 10/17/23 06:12 Immature Gran % (Auto) 0.4 % 10/17/23 06:12 Neut % (Auto) 75.1 % 10/17/23 06:12 Lymph % (Auto) 15.8 % 10/17/23 06:12 [place] % (Auto) 7.6 % 10/17/23 06:12 Eos % (Auto) 0.9 % 10/17/23 06:12 Baso % (Auto) 0.2 % 10/17/23 06:12 Neut # (Auto) 7.68 K/uL (1.40-6.50) H 10/17/23 06:12 Lymph # (Auto) 1.62 K/uL (1.20-3.40) 10/17/23 06:12 [place] # (Auto) 0.78 K/uL (0.11-0.59) H 10/17/23 06:12 Eos # (Auto) 0.09 K/uL (0.00-0.50) 10/17/23 06:12 Baso # (Auto) 0.02 K/uL (0.00-0.20) 10/17/23 06:12 Immature Gran # (Auto) 0.04 K/uL (0.01-0.20) 10/17/23 06:12 PT 11.4 Seconds (9.0-12.0) 10/14/23 21:20 INR 1.1 (0.9-1.1) 10/14/23 21:20 APTT 24 Seconds (21-31) 10/14/23 21:20 PTT Ratio 0.9 10/14/23 21:20 Sodium 137 mmol/L (136-145) 10/17/23 06:12 Potassium 4.4 mmol/L (3.5-5.1) 10/17/23 06:12 Chloride 108 mmol/L (98-107) H 10/17/23 06:12 Carbon Dioxide 24 mmol/L (21-32) 10/17/23 06:12 Anion Gap 5 (3-11) 10/17/23 06:12 BUN 25 mg/dl (6-23) H 10/17/23 06:12 Creatinine 1.76 mg/dl (0.6-1.2) H 10/17/23 06:12 Est Cr Clr Drug Dosing 20.8 ml/min 10/17/23 06:12 Est GFR ( Amer) 31.3 ml/min 10/17/23 06:12 Est GFR (Non-Af Amer) 27.0 ml/min 10/17/23 06:12 BUN/Creatinine Ratio 14.2 (10-20) 10/17/23 06:12 Glucose 86 mg/dl (70-99(Fasting)) 10/17/23 06:12 Calcium 8.6 mg/dl (8.6-10.3) 10/17/23 06:12 Phosphorus 3.0 mg/dl (2.5-4.9) 10/15/23 05:47 Magnesium 1.9 mg/dl (1.7-2.4) 10/15/23 05:47 Total Bilirubin 0.7 mg/dl (0.2-1.0) 10/14/23 21:20 AST 13 U/L (13-39) 10/14/23 21:20 ALT 11 U/L (7-52) 10/14/23 21:20 Alkaline Phosphatase 84 U/L (34-104) 10/14/23 21:20 C-Reactive Protein 4.90 mg/dl (0-0.5) H 10/16/23 08:05 Total Protein 6.3 gm/dl (6.0-8.3) 10/14/23 21:20 Albumin 3.6 gm/dl (3.4-5.0) 10/15/23 05:47 Globulin 2.4 gm/dl (2.5-4.0) L 10/14/23 21:20 Albumin/Globulin Ratio 1.6 (0.9-2) 10/14/23 21:20 Urine Color Yellow 10/15/23 Unknown Urine Appearance Turbid (Clear) A 10/15/23 Unknown Urine pH 6.5 (4.5-7.5) 10/15/23 Unknown Ur Specific [place] 1.010 (1.000-1.030) 10/15/23 Unknown Urine Protein 1+ (Negative) H 10/15/23 Unknown Urine Glucose (UA) Negative (Negative) 10/15/23 Unknown Urine Ketones Negative (Negative) 10/15/23 Unknown Urine Blood Negative (Negative) 10/15/23 Unknown Urine Nitrite Positive (Negative) A 10/15/23 Unknown Urine Bilirubin Negative (Negative) 10/15/23 Unknown Urine Urobilinogen Negative (Negative) 10/15/23 Unknown Ur Leukocyte Esterase 2+ (Negative) H 10/15/23 Unknown Urine WBC (Auto) 11-20 /hpf (0-5) H 10/15/23 Unknown Urine RBC (Auto) 3-5 /hpf (0-2) H 10/15/23 Unknown U Hyaline Cast (Auto) 0-2 /lpf (0-2) 10/15/23 Unknown U Epithel Cells (Auto) 6-10 /hpf (0-2) H 10/15/23 Unknown Urine Bacteria (Auto) 4+ (None Seen) H 10/15/23 Unknown Impressions Hip/Pelvis X-Ray 10/14/23 19:21 SINGLE VIEW PELVIS; 2 VIEWS LEFT HIP CLINICAL HISTORY: Fall with left groin pain. FINDINGS: An AP view of the pelvis with AP and frog leg views of the left hip are compared to study dated 03/29/2018. The skeletal structures are osteopenic. There is an impacted subcapital fracture of the left proximal femur with mild overlying soft tissue edema. No additional acute fracture is seen involving the right hip or the bony pelvis. Mild arthritic change and joint space narrowing is seen in both hips, right greater than left. Degenerative sclerosis is seen in the sacroiliac joints. Lumbosacral spondylosis is partially imaged. There is atherosclerotic calcification of the femoral arteries. Phleboliths are noted in the pelvis. IMPRESSION: Impacted subcapital fracture of the left femur. Electronically signed by: Luis Carlos Lawson M.D. 10/14/2023 8:09 PM Chest X-Ray 10/14/23 20:49 XR chest 1V portable HISTORY: hip fracture COMPARISON: Chest 09/16/2022. FINDINGS: No focal lung consolidations to suggest a pneumonia. No evidence for pulmonary edema.. The heart is mildly enlarged. This is similar to the prior study. No pleural effusions. No pneumothorax. No acute fractures. Small peripheral density within the left lower lung zone may represent scarring. IMPRESSION: Mild cardiomegaly. Otherwise, no acute process within the chest. ACT 112: Negative or not required by law. Electronically signed by: Hal Shanks M.D. 10/15/2023 8:07 AM Hip X-Ray 10/15/23 00:00 FL hip LT 2-3V CLINICAL HISTORY: LEFT HIP ORIF COMPARISON STUDY: Left hip 10/14/2023. FLUOROSCOPY TIME: 39 seconds FLUOROSCOPY IMAGES: 2 Ka,r: 8.8 mGy FINDINGS: Status post fixation of a left subcapital femoral fracture with a mulugeta albert hip screw. The hardware appears intact. Alignment appears near-anatomic. No dislocation. IMPRESSION: Fluoroscopic assistance as above ACT 112: Negative or not required by law. Electronically signed by: Hal Shanks M.D. 10/15/2023 10:24 AM
--- NOTE | 2023-10-17 17:30 | Billing Data ---
Date of Service October 17, 2023 Coding Level of Care Code 02437 SUB INP/OBS CARE
[2023-10-18 06:44] LABS: Basophils # (auto) 0.01 K/uL (0.00-0.20); Basophils % (auto) 0.1 %; Eosinophils # (auto) 0.39 K/uL (0.00-0.50); Eosinophils % (auto) 4.7 %; Hematocrit (blood only) 25.4 % (37.0-47.0); Hemoglobin 8.6 g/dl (12.0-16.0); Immature Granulocytes # (auto) 0.04 K/uL (0.01-0.20); Immature Granulocytes % (auto) 0.5 %; Lymphocytes # (auto) 2.22 K/uL (1.20-3.40); Lymphocytes % (auto) 26.6 %; Mean Corpuscular Hemoglobin 31.5 pg (25.0-34.0); Mean Corpuscular Hgb Conc 33.9 g/dL (32.0-36.0); Mean Platelet Volume 9.5 fL (9.4-12.4); Monocytes # (auto) 0.77 K/uL (0.11-0.59); Monocytes % (auto) 9.2 %; Neutrophils # (auto) 4.93 K/uL (1.40-6.50); Neutrophils % (auto) 58.9 %; Platelet Count 181 K/uL (130-400); RDW Coefficient of Variation 14.1 % (11.5-14.5); RDW Standard Deviation 47.6 fL (36.4-46.3); Red Blood Count 2.73 M/uL (4.20-5.40); White Blood Count 8.36 K/ul (4.8-10.8)
--- NOTE | 2023-10-18 06:47 | Hospitalist Progress Note ---
Date of Service October 18, 2023 Assessment & Plan (1) Closed subcapital fracture of left femur: (2) Risk for falls: (3) Benign essential hypertension: (4) Coronary artery disease: (5) GERD (gastroesophageal reflux disease): (6) Depression with anxiety: (7) Chronic kidney disease, stage 4 (severe): Plan (1) Closed subcapital fracture of left femur: 3rd POD foll ORIF L femur fracture likely osteoporotic Tylenol and Dilaudid PRN pain/ Zofran PRN if needed for nausea/Heart Healthy Diet. Regular diet, self void, O2 at RA PT/OT started yesterday; doing well; suggest rehab Ready for discharge (2) Risk for falls: PT/OT ongoing 3. Delirium: UTI vs Post-operative Risk factor: Age, Surgery, bacteruria On and off Delirious twice in last 24 hour; was on baseline this mo rning Urine CS: Ecoli S to Augmentin( D3) Hydration: good, Afebrile throughout, Out of Ponce's, Regular PT (3) Benign essential hypertension: BP stable in last 24 hours; Under home meds Continue Diltiazem, hydralazine,metoprolol (4) Coronary artery disease: ASA and Clopidogrel restarted Continue Diltiazem, hydralazine, isosorbide mononitrate and metoprolol. Lasix and potassium on hold (5) GERD (gastroesophageal reflux disease): Pantoprazole 40 mg daily (6) Depression with anxiety: Continue Aripiprazole and bupropion (7) Chronic kidney disease, stage 4 (severe): Creatinine on admission 2.10------>1.76-----1.56 ( 10/17) Baseline creatinine range 1.94-2.21 (8) Vitamin D deficiency: Vit D 55.9 on 08/17/23 Last dexa 2019 showed osteoporosis. Calcium and Vitamin D supplementation ordered Admission and Anticipated Discharge Date Admission Date: October 14, 2023 Subjective This 77-year-old female is 3 days status post left hip fracture open reduction internal fixation. Patient states she is doing very well. She states that her pain little worse after therapy, no pain on baseline. She is agreeable to go to rehab as per recommendation. Currently she denies chest pain, shortness of breath, fever, chills, sweats, numbness or tingling in her left lower extremity, nausea, vomiting, diarrhea or difficulty voiding. Review of Systems Review of Systems: As per HPI Physical Exam Physical Exam: LLE: 2+ DP pulse. Sensation to light touch is intact distally. Able to wiggle toes and ankle up and down. Calf soft and non-tender. + Bruising about the lateral aspect of the hip. + log roll hip. Constitutional: well nourished and healthy appearing; no acute distress Eyes: PERRL, conjunctivae normal, anicteric sclerae Neck: normal visual inspection Respiratory: normal respiratory effort, lungs clear to auscultation normal respiratory effort; no respiratory distress Cardiovascular: Rate/Rhythm: regular rate and regular rhythm Heart Sounds: + murmur Gastrointestinal (Abdomen): normal bowel sounds, soft, nontender, no hepatosplenomegaly Musculoskeletal: Spine: normal cervical ROM Skin: no rashes, warm and dry Neurologic: normal touch/pain/proprioception Psychiatric: Orientation: alert and oriented x 3 Results & Data Results & Data Vital Signs (Past 12 Hours) Vital Signs Temp Pulse Pulse Resp BP Pulse Ox O2 Del Method 10/18/23 03:16 36.7 C 67 16 139/71 96 Room Air 10/17/23 23:39 61 10/17/23 23:32 36.6 C 66 18 173/72 H 95 Room Air Resident Activity Tracking Resident Involvement: Resident Care Provided Care Provided: Adult Hospital Medicine
[2023-10-18 07:22] LABS: BUN Creatinine Ratio 12.2 (10-20); Calcium 8.4 mg/dl (8.6-10.3); Creatinine Clr Calc Pharmacy 23.4 ml/min; Est GFR (African American) 36.2 ml/min; Est GFR (Non-African American) 31.3 ml/min; Potassium 4.1 mmol/L (3.5-5.1)
--- NOTE | 2023-10-18 08:58 | Orthopedic Progress Note ---
Date of Service October 18, 2023 Assessment & Plan (1) Closed subcapital fracture of left femur: Plan: POD #3 s/p ORIF L hip fracture Resume diet. WBAT with walker. OOB to chair. Continue pain control. DVT prophylaxis: TEDs 3 weeks, foot pumps while in hospital, ASA 81 mg BID for 6 weeks. PT/OT. Dressing clean, dry and intact. Continue care per primary Service. Plan for discharge to [facility] later today. Follow up at [facility] in 10-14 days, as scheduled. With questions contact our clinic at [phone] Admission and Anticipated Discharge Date Admission Date: October 14, 2023 Subjective Patient is sitting up in chair. Denies pain in left hip. States that she has been getting out of bed and walking to the bathroom. Feels good about going to rehab today. Physical Exam Musculoskeletal: Exam of left lower extremity: Left hip dressing clean, dry and intact. Distal pulses 1+, full ROM left ankle and knee with normal strength. Mild ecchymosis on left buttock. No underlying seroma or hematoma. Dressings applied yesterday intact, dry. Tolerates active and passive ROM left hip while sitting in her chair. Teds in place. Results & Data Vital Signs (Past 12 Hours) Vital Signs Temp Pulse Pulse Resp BP Pulse Ox O2 Del Method 10/18/23 07:36 37.0 C 69 16 182/51 H 96 Room Air 10/18/23 07:30 Room Air 10/18/23 07:00 65 10/18/23 03:16 36.7 C 67 16 139/71 96 Room Air 10/17/23 23:39 61 10/17/23 23:32 36.6 C 66 18 173/72 H 95 Room Air Laboratory Results 10/18/23 Range/Units 06:04 WBC 8.36 (4.8-10.8) K/ul RBC 2.73 L (4.20-5.40) M/uL Hgb 8.6 L (12.0-16.0) g/dl Hct 25.4 L (37.0-47.0) % MCV 93.0 (80.0-100.0) fL MCH 31.5 (25.0-34.0) pg MCHC 33.9 (32.0-36.0) g/dL RDW Std Deviation 47.6 H (36.4-46.3) fL RDW Coeff of Rob 14.1 (11.5-14.5) % Plt Count 181 (130-400) K/uL MPV 9.5 (9.4-12.4) fL Immature Gran % (Auto) 0.5 % Neut % (Auto) 58.9 % Lymph % (Auto) 26.6 % Harrison % (Auto) 9.2 % Eos % (Auto) 4.7 % Baso % (Auto) 0.1 % Neut # (Auto) 4.93 (1.40-6.50) K/uL Lymph # (Auto) 2.22 (1.20-3.40) K/uL Harrison # (Auto) 0.77 H (0.11-0.59) K/uL Eos # (Auto) 0.39 (0.00-0.50) K/uL Baso # (Auto) 0.01 (0.00-0.20) K/uL Immature Gran # (Auto) 0.04 (0.01-0.20) K/uL Sodium 138 (136-145) mmol/L Potassium 4.1 (3.5-5.1) mmol/L Chloride 107 (98-107) mmol/L Carbon Dioxide 26 (21-32) mmol/L Anion Gap 5 (3-11) BUN 19 (6-23) mg/dl Creatinine 1.56 H (0.6-1.2) mg/dl Est Cr Clr Drug Dosing 23.4 ml/min Est GFR ( Amer) 36.2 ml/min Est GFR (Non-Af Amer) 31.3 ml/min BUN/Creatinine Ratio 12.2 (10-20) Glucose 87 (70-99(Fasting)) mg/dl Calcium 8.4 L (8.6-10.3) mg/dl
[2023-10-18 11:59] VITALS: RESP 17
[2023-10-18 15:09] VITALS: PULSE 63
--- NOTE | 2023-10-18 15:09 | Discharge Summary ---
Date of Service October 18, 2023 Admission HPI Per Admitting Provider The patient is a 77-year-old female with a past medical history including hypertension, gait disturbance, coronary artery disease, anxiety, GERD, hyperlipidemia, secondary hyperparathyroidism, peripheral neuropathy, CKD stage IV and osteoarthritis. She had just been out with her son, had gotten out of the car to walk up an incline, lost her balance, fell and injured her left hip. X-ray in the emergency department showed a closed left impacted subcapital femur fracture, and she was referred for evaluation for admission. Admission Exam Per Admitting Provider The patient is awake, alert and oriented 3, well developed and well nourished, normocephalic and atraumatic, lying in bed and in no acute distress. HEENT--PERRL, EOMI, mucous membranes and oropharynx normal Neck--supple. No JVD. No bruits. Thyroid normal, trachea midline, no adenopathy. Heart--normal S1 and S2. No murmurs, rubs or gallops. Lungs--clear bilaterally, no respiratory distress, no accessory muscle use. Abdomen--normal bowel sounds and soft. Nontender. Nondistended, no hernias or masses, no organomegaly. Extremities--no cyanosis or clubbing. No edema. Dermatologic--normal skin turgor, normal color, no abnormal lymph nodes, no rash. Neurologic--cranial nerves II through XII grossly intact. Rheumatologic--normal range of motion, except for left hip and leg Psychiatric--normal affect. Principal Diagnosis Hip Fracture S/p ORIF Discharge Exam LLE: 2+ DP pulse. Sensation to light touch is intact distally. Able to wiggle toes and ankle up and down. Calf soft and non-tender. + Bruising about the lateral aspect of the hip. + log roll hip. Constitutional well nourished and healthy appearing; no acute distress Eyes PERRL, conjunctivae normal, anicteric sclerae ENMT Mouth: + edentulous; no lip abnormality and no drooling Mallampati Class: II Neck normal visual inspection Respiratory normal respiratory effort, lungs clear to auscultation normal respiratory effort; no respiratory distress Cardiovascular Rate/Rhythm: regular rate and regular rhythm Heart Sounds: + murmur Gastrointestinal (Abdomen) normal bowel sounds, soft, nontender, no hepatosplenomegaly Musculoskeletal Spine: normal cervical ROM Skin no rashes, warm and dry Neurologic normal touch/pain/proprioception Psychiatric Orientation: alert and oriented x 3 Discharge Data Allergies Allergy/AdvReac Type Severity Reaction Status Date / Time amlodipine Allergy Intermediate Feet Verified 10/15/23 08:08 swelling Sulfa (Sulfonamide Allergy Unknown Remote Verified 10/15/23 08:08 Antibiotics) unknown reaction Consultations 10/14/23 20:48 ED Decision to Admit Stat 10/14/23 22:53 Consult Orthopedic Surgery Routine Procedures Performed Operation Date: 10/15/23 09:30 Actual Procedures p Open Reduction Internal Fixation Left Hip Fracture(Left) - Kirill Xavi Fisher MD Ordered Studies 10/15/23 FL hip LT 2-3V Routine Hospital Course (1) Closed subcapital fracture of left femur: (2) Risk for falls: (3) Benign essential hypertension: (4) Coronary artery disease: (5) GERD (gastroesophageal reflux disease): (6) Depression with anxiety: (7) Chronic kidney disease, stage 4 (severe): Plan (1) Closed subcapital fracture of left femur: 3rd POD from ORIF L femur fracture likely osteoporotic Tylenol PRN pain/ Zofran PRN if needed for nausea/Heart Healthy Diet. Has not required narcotic pain management > 24 hours Regular diet, self void, O2 at [facility] PT/OT started yesterday; doing well; dc to assisted for ongoing rehab Ready for discharge (2) Risk for falls: PT/OT ongoing Concern for underlying osteoporosis: Would recommend discussion w/ PCP regarding bisphosphonates and Calcium/VitD supplementation (3) Delirium: UTI vs Post-operative Risk factor: Age, Surgery, bacteruria Intermittent delirium; was on baseline this morning, improved s/p Abx Urine CS: Ecoli S to Augmentin (D3), continue on discharge for 5 days Hydration: good, Afebrile throughout, Out of P[facility]'s, Regular PT (3) Benign essential hypertension: BP stable in last 24 hours; Under home meds Continue Diltiazem, hydralazine,metoprolol (4) Coronary artery disease: ASA and Clopidogrel restarted Continue Diltiazem, hydralazine, isosorbide mononitrate and metoprolol. Lasix and potassium on hold (5) GERD (gastroesophageal reflux disease): Pantoprazole 40 mg daily (6) Depression with anxiety: Continue Aripiprazole and bupropion (7) Chronic kidney disease, stage 4 (severe): Creatinine on admission 2.10------>1.76-----1.56 ( 10/17) Baseline creatinine range 1.94-2.21 (8) Vitamin D deficiency: Vit D 55.9 on 08/17/23 Last dexa 2020 showed osteoporosis. Calcium and Vitamin D supplementation ordered Total Time Total Time Spent Total Time Spent (In Minutes): <30 Discharge Plan Discharge Items Patient Disposition: Transfer [facility] Reason For Visit: CLOSED LEFT HIP FRACTURE, ELEVATED BLOOD PRESSURE Discharge Diagnosis: Hip Fracture S/p ORIF Activity: Per Instructions section Non-emergency contact: Primary Care Provider Call non-emergency contact if: you have any medication questions and your symptoms worsen Follow-up/Referrals: Bernarda Rehman CRNP [Primary Care Provider] - 10/27/23 10:30 am Natalia Mayfield PA-C [Physician Expansion Envelope Maker Hand] - 10/30/23 2:00 pm Diet: Heart Healthy Addtl Attending Provider Instructions: (1) Closed subcapital fracture of left femur: 3rd POD from ORIF L femur fracture likely osteoporotic Tylenol PRN pain/ Zofran PRN if needed for nausea/Heart Healthy Diet. Has not required narcotic pain management > 24 hours Regular diet, self void, O2 at RA PT/OT started yesterday; doing well; dc to assisted for ongoing rehab Ready for discharge (2) Risk for falls: PT/OT ongoing Concern for underlying osteoporosis: Would recommend discussion w/ PCP regarding bisphosphonates and Calcium/VitD supplementation (3) Delirium: UTI vs Post-operative Risk factor: Age, Surgery, bacteruria Intermittent delirium; was on baseline this morning, improved s/p Abx Urine CS: Ecoli S to Augmentin (D3), continue on discharge for 5 days Hydration: good, Afebrile throughout, Out of Ponce's, Regular PT (3) Benign essential hypertension: BP stable in last 24 hours; Under home meds Continue Diltiazem, hydralazine,metoprolol (4) Coronary artery disease: ASA and Clopidogrel restarted Continue Diltiazem, hydralazine, isosorbide mononitrate and metoprolol. Lasix and potassium on hold (5) GERD (gastroesophageal reflux disease): Pantoprazole 40 mg daily (6) Depression with anxiety: Continue Aripiprazole and bupropion (7) Chronic kidney disease, stage 4 (severe): Creatinine on admission 2.10------>1.76-----1.56 ( 10/17) Baseline creatinine range 1.94-2.21 (8) Vitamin D deficiency: Vit D 55.9 on 08/17/23 Last dexa 2020 showed osteoporosis. Calcium and Vitamin D supplementation ordered Addtl Calciner Operator Provider Instructions: ORTHOPEDIC DISCHARGE INSTRUCTIONS -Weight bearing as tolerated with walker to assist in ambulation -Please do rehab exercises as instructed by PT/OT -Frequently ice, at least 20 minutes 5 times a day. -You may shower on Post op Day 3. Please keep incision clean, dry and dressing in tact. -DVT prophylaxis: Per primary service, resume Plavix -Pain control: Per primary service, recommend icing and tylenol 500-1000mg every 8 hours -Follow up in 2 weeks with [facility] for post op evaluation and dressing change. Please call our office sooner @ [phone] if you have any questions or concerns Pending Studies at Discharge: No Stand-Alone Forms: My [facility] Skilled Items Patient informed of condition?: Yes DNR: Yes Discharge Level of Care: Skilled Communicable Disease: No Discharge Prognosis: Stable Lines: None Urinary Catheter: No Medications and DC Order Prescriptions: New acetaminophen 325 mg Tablet 650 mg PO Q4H PRN (Reason: fever or pain) 30 Days Qty: 30 0RF amoxicillin-pot clavulanate 500-125 mg Tablet 1 tab PO BIDM 5 Days Qty: 10 0RF cholecalciferol (vitamin D3) 25 mcg (1,000 unit) Capsule 25 mcg PO QAM 30 Days Qty: 30 0RF cyanocobalamin (vitamin B-12) 500 mcg Tablet 1,000 mcg PO QAM 30 Days Qty: 60 0RF calcium carbonate [Tums] 200 mg calcium (500 mg) Tablet,Chewable 500 mg PO BID 30 Days Qty: 150 0RF Continued rabeprazole 20 mg tablet,delayed release (DR/EC) 20 mg PO QAM Qty: 90 3RF furosemide 20 mg tablet 20 mg PO QAM Qty: 90 3RF metoprolol succinate 50 mg tablet extended release 24 hr 50 mg PO QAM Qty: 90 3RF atorvastatin 40 mg tablet 40 mg PO HS Qty: 90 3RF clopidogrel 75 mg tablet 75 mg PO QAM Qty: 90 3RF levothyroxine 50 mcg tablet 50 mcg PO DAILYBB Qty: 30 5RF hydralazine 50 mg tablet 50 mg PO TID Qty: 90 2RF aripiprazole [Abilify] 2 mg tablet 2 mg PO QAM diltiazem HCl 120 mg capsule,ext.rel 24h degradable 120 mg PO DAILY Qty: 90 3RF isosorbide mononitrate 30 mg tablet extended release 24 hr 90 mg PO DAILY Qty: 270 3RF aspirin [Adult Low Dose Aspirin] 81 mg tablet,delayed release (DR/EC) 81 mg PO QAM magnesium 250 mg tablet 250 mg PO DAILY melatonin 3 mg Tablet 3 mg PO HS bupropion HCl [Wellbutrin XL] 300 mg tablet extended release 24 hr 300 mg PO QAM nitroglycerin [Nitrostat] 0.4 mg Tablet, Sublingual 0.4 mg sublingual Q5M PRN (Reason: chest pain) Qty: 25 3RF Discharge Orders: Discharge Order (Routine); Ordered 10/18/23 Ordered By: Nilson Chacon Admission Data Admit Date/Time: 10/14/23 21:12 Attending Provider: Robson Mayorga Admit Provider: Carlos Hernandez Primary Care Provider: Bernarda Rehman Other Providers: Kirill Fisher; Carlos Hernandez; [facility]; [facility] Other Interventions: Discharge Summary Assessment (RN) Last Done: 10/18/23 15:08 Supervising Physician Co-Signing Physician Notes I personally examined the patient and verified all stephen points of history and exam, discussed case, and agree with decision making with Dr Springer Feels okay, pain controlled. For SNF today. Vitals noted, in general she is awake and alert pleasant no distress. HEENT normocephalic atraumatic mucous membranes moist. Breathing unlabored no accessory muscle use good effort. Skin without rashes pallor or icterus. Neuro without focal deficits. Hip fracturepresumed osteoporoticpostop. PT/OT eval and treat, pain reasonably controlled. SNF today. Ultimate goal is getting back home and independent. Outpatient bone health workup and management, calcium plus D for now possible/probable UTI - abx x 7 days total Coronary artery diseaseappears fortunately stable DVT prophylaxisper orthopedics (asa bid) otherwise as above
[2023-10-18 15:46] VITALS: BP 138/61; TEMP 99.1; O2SAT 96
--- NOTE | 2023-10-18 15:51 | Billing Data ---
Date of Service October 18, 2023 Coding Level of Care Code 78476 IN/OBS DISCH 30 MIN/LESS
--- NOTE | 2023-10-19 04:02 | Electrocardiogram Report ---
Test Reason : Blood Pressure : */* mmHG Vent. Rate : 73 BPM Atrial Rate : 73 BPM P-R Int : 176 ms QRS Dur : 80 ms QT Int : 370 ms P-R-T Axes : 38 14 56 degrees QTcB Int : 407 ms Normal sinus rhythm Possible Inferior infarct (cited on or before 16-Sep-2022) Abnormal ECG When compared with ECG of 09-Oct-2022 12:13, Criteria for Anterior infarct are no longer Present T wave inversion no longer evident in Inferior leads T wave inversion no longer evident in Lateral leads Confirmed by Katy Hardin ([place]) on 10/15/2023 6:56:11 PM Referred By: REFERRED SELF Confirmed By: Katy Hardin
== END 2023-10-18 16:53 | DRG 481 ==
LOC: ED 18:52 → 2N 21:12 → SUATTDRO 21:12 → 2N 22:36

== ENCOUNTER 2024-05-29 18:56 | Inpatient (IN) ==
--- NOTE | 2024-05-29 19:25 | Emergency Department Note ---
Impression & Plan Generalized weakness, Chronic kidney disease, stage 4 (severe), Hypomagnesemia, Elevated troponin, Dehydration ED Provider Note ED Provider Note NAME: YUMI MARCUS AGE:78 SEX: Female : 1945 ARRIVES VIA: EMS INFORMANT: Patient ED PROVIDER(s): Simona Wallace DO CHIEF COMPLAINT: Found down by son HPI: This is an 78-year-old female presents to the emergency room after being found lying on the bathroom floor by her son when he got home from work. Patient lives with her son. Patient denies any recent change in medications or diet. She denies any recent fevers, chills, or URI symptoms. Patient states she has not been eating or drinking much recently but denies abdominal pain, change in stools or change in urine. Patient states she does have a history of kidney problems but is not yet on dialysis. She states Dr. Woodard is her executive vice president and chief financial officer. She states she does not remember going to the bathroom and is uncertain how long she may have been lying there. She states she has some right shoulder pain but states that is not new and she has been dealing with that for several months. She denies headaches, chest pain, neck or back pain, shortness of breath. PAST MEDICAL HISTORY:See Below PAST SURGICAL HISTORY:See Below FAMILY HISTORY:See Below SOCIAL HISTORY:See Below HOME MEDICATIONS:See Below ALLERGIES:See Below VITALS:See Below PHYSICAL EXAMINATION: GENERAL: alert, well appearing, well nourished, no distress, non-toxic HEAD: nc/at, no evidence of facial trauma EYE EXAM: normal conjunctiva, PERRL and EOM's grossly intact OROPHARYNX: no exudate, no erythema, lips, buccal mucosa, and tongue normal and mucous membranes are dry NECK: supple, no nuchal rigidity, no adenopathy, non-tender LUNGS: Clear to auscultation. Normal chest wall mechanics, no w/r/r HEART: no murmurs, S1 normal and S2 normal ABDOMEN: abdomen soft, non-tender, normo-active bowel sounds, no masses, no rebound or guarding. BACK: Back is symmetrical on inspection and there is no deformity, no midline tenderness, no CVA tenderness. SKIN: no rashes, petechiae, orbruising UPPER EXTREMITIES: upper extremities are grossly normal. FROM, nml pulses b/l. LOWER EXTREMITIES: No pitting edema. FROM, nml pulses b/l. NEURO EXAM: Normal sensorium, cranial nerves II-XII grossly intact, normal speech, no facial droop,nogross weakness of arms, no gross weakness of legs. Gross sensation intact. No ataxia. Vital Signs: reviewed and remarkable Differential Diagnosis: dehydration, stroke, anemia, hypoglycemia, hyponatremia, hypernatremia, urinary tract infection, pneumonia, bronchitis, sepsis, gastroenteritis, additional abdominal pathology, metabolic abnormalities, as well as others were considered MEDICAL DECISION MAKING: This is an 78 yo female brought by EMS after being found down by her son when he got home from work. She was afebrile and VS stable. She was oriented and able to answer questions, but could not recall events surrounding going to the bathroom or how she ended up on the floor. Labs drawn and sent, IV established, EKG and CXR performed and interpreted at bedside, and patient placed on telemetry. Patient sent for CT head/cspine. She was started on IVF due to appearance of clinical dehydration. Lab contacted me to alert me to significant leukocytosis. Blood cultures, procalcitonin and lactic acid added and patient given IV cefepime empirically. Patient noted to have significant hypomagnesemia also and IV mag repletion started. Family presented to bedside and I updated them on results thus far. Following that discussion I reviewed prior urine cultures additionally. Given concern for evolving infection and high suspicion for occult UTI, case discussed with the hospitalist team for additional evaluation and mgmt. UA still pending at time of discussion although prior cultures were e.coli that was pansensitive. I suspect elevated troponin likely from increased demand secondary to infection. Creatinine appears stable compared to prior. It is unclear at this time if patient was weak from evolving infection and fell or had a syncopal event. No ectopy or dysrhythmia noted on tele. VS stable throughout. Consultation(s): 2030: Discussed with Dr. Lunsford, [facility] hospitalist team, for additional evaluation and management. ER Treatment Provided: See below 2015: Discussed with daughter and granddaughter at bedside. They confirm no recent illness or medication change. Updated on results thus far. They state patient has a hx of UTI's and they suspect she could have another one. Diagnostics Interpreted By Me: -ECG: Normal sinus at 90, normal axis, normal intervals, no acute ST/T wave changes -Cardiac Monitoring: An order was placed for continuous cardiac monitoring. The monitor shows a rate of 90 with normal sinus rhythm. -Laboratory studies: As stated above and show below. -Imaging studies: ct head: no ich X-ray Chest: A single view study of the chest was reviewed and was negative for cardiomegaly, focal infiltrate, effusion, pulmonary edema, or wide mediastinum. No obvious fracture or pneumothorax. Triage Nursing Note Reviewed Prior/Outside Records Reviewed - prior urine cultures, e.coli that was pansensitive. Critical Care: Critical care of 42 min performed to assess and manage high likelihood of life-threatening leukocytosis and hypomagnesemia, involving labs and imaging performed with assessment to evaluate weakness and fall diagnosis with frequent reassessment. This time includes bedside time, treatment discussions with patient/family/consultants, documentation time and excludes procedure time. Past Med/Surg History Problem List Dehydration (Acute) Elevated troponin (Acute) Hypomagnesemia (Acute) Generalized weakness (Acute) Risk for falls Right leg pain Right hip pain White coat syndrome with diagnosis of hypertension Gait disturbance Transient neurological symptoms (Acute) Benign essential hypertension Coronary artery disease (Acute) Atherogenic dyslipidemia Pre-diabetes Inflamed seborrheic keratosis of left cheek History of colon polyps Anxiety (Chronic 11/29/12) GERD (gastroesophageal reflux disease) (Chronic) Schatzki's ring (Chronic) Depression with anxiety (Chronic) Hyperlipidemia (Chronic) Hypothyroidism (Chronic) Edema (Chronic) Secondary hyperparathyroidism (Chronic) Peripheral neuropathy (Acute) Mild obstructive sleep apnea (Acute) Insomnia (Acute) Generalized weakness (Acute) Dysphagia Vitamin D deficiency Chronic kidney disease, stage 4 (severe) (Chronic) Osteoarthritis Medical History History of COVID-19 01/22/21>MILD SYMPTOMS *RESOLVED AV fistula LEFT ARM *HAS NOT USED Hypertension Hyperlipidemia Anxiety and depression COVID-19 Hyperkalemia Bradycardia End stage renal disease Hypothyroidism ESRD (end stage renal disease) Follows with Dr. 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 History of TIA (transient ischemic attack) Several years ago *NO PROBLEMS FROM EVENT Surgical History History of carpal tunnel release RT/LEFT History of tooth extraction History of surgery Left Antecubital Basilic Vein Arteriovenous Fistula Creation (07/22/20): MAC + PNB at [facility] History of cataract surgery RT/LEFT History of esophagogastroduodenoscopy (EGD) History of colonoscopy Colonoscopy (01/08/19): MAC at [facility] History of tonsillectomy and adenoidectomy History of laparoscopic cholecystectomy Family History Mother Ovarian cancer Heart disease Father Family history of diabetes mellitus Heart disease Grandmother (Maternal) Family history of diabetes mellitus Other No family history of adverse response to anesthesia Denies family history of Prostate cancer Myocardial infarction Breast cancer Colorectal cancer Social History Smoking Status: Never smoker Second Hand Exposure: No; Do You Dip or Chew Tobacco: No; Hx Alcohol Use: No Hx Substance Use: No Preferred Language: Lao Communication Ability: Effective Visual Impairment: Limited Hearing Ability: Use of Hearing Aid Tunnel Kiln Repairer Required: No Beliefs That Will Affect Care: None marital status: Current Living Situation: Family Current Living Situation Comment: lives with son current occupational status: retired 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 [employer] How many Children do You have: 3 Feels Safe at Home: Yes Childhood Exposure to Second-Hand Smoke: Yes Diet: regular caffeine: Yes during the past year weight has: remained stable Dental Care, Regularly: No Physical Activity Frequency: Daily Seatbelt Use: always Sunscreen Use: No Do you think of yourself as: straight/heterosexual Sexual Activity: has been sexually active, but not for at least 12 months Gender Identity: Female Assistive Devices: None Allergies Allergies Allergy/AdvReac Type Severity Reaction Status Date / Time amlodipine Allergy Intermediate Feet Verified 05/29/24 20:48 swelling Sulfa (Sulfonamide Allergy Unknown Remote Verified 05/29/24 20:48 Antibiotics) unknown reaction Home Meds Home Medications Medication Instructions Recorded Confirmed bupropion HCl 300 mg 24 hr tablet, 300 mg PO QAM 06/02/21 04/09/25 extended release (Wellbutrin XL) cholecalciferol (vitamin D3) 25 25 mcg PO DAILY 04/05/24 05/29/24 mcg (1,000 unit) capsule mecobalamin (vitamin B12) 1,000 1,000 mcg PO DAILY 04/05/24 05/29/24 mcg chewable tablet melatonin 3 mg capsule 3 mg PO HS 04/05/24 05/29/24 aripiprazole 2 mg tablet (Abilify) 1 mg PO QAM 05/29/24 05/29/24 aspirin 81 mg tablet,delayed 81 mg PO DAILY 05/29/24 05/29/24 release Previous Rx's Medication Instructions Recorded nitroglycerin 0.4 mg sublingual 0.4 mg sublingual Q5M PRN chest 09/19/22 tablet (Nitrostat) pain #25 tabs isosorbide mononitrate 30 mg 90 mg (3 x 30 mg) PO DAILY #270 04/21/23 tablet,extended release 24 hr tabs metoprolol succinate 50 mg 50 mg PO QAM #90 tabs 08/09/23 tablet,extended release 24 hr atorvastatin 40 mg tablet 40 mg PO HS #90 tabs 08/17/23 clopidogrel 75 mg tablet 75 mg PO QAM #90 tabs 08/17/23 rabeprazole 20 mg tablet,delayed 20 mg PO QAM #90 tabs 01/16/24 release diltiazem HCl 120 mg 120 mg PO DAILY #90 caps 02/15/24 capsule,extended release 24 hr, controlled hydralazine 50 mg tablet 50 mg PO TID #90 tabs 04/02/24 levothyroxine 50 mcg tablet 50 mcg PO DAILYBB #30 tabs 04/10/24 furosemide 20 mg tablet 20 mg PO QAM #90 tabs 04/22/24 Results & Data (ED) Vital Signs Vital Signs - 24 hr 05/29/24 19:03 05/29/24 19:04 Pulse Rate 90 91 H Respiratory Rate 24 Respiratory Effort / Characteristics Non-Labored Spontaneous Respiratory Depth Normal Respiratory Pattern Regular Blood Pressure 157/90 H Blood Pressure Mean 112 Blood Pressure Position Semi-fowlers Pulse Oximetry 93 Oxygen Delivery Method Room Air Sepsis Recent Fever Within 48 Hours No Sepsis New/Unexplained Change in Mental Status No Sepsis Action Taken by Nursing No Action Required Laboratory Data 05/30/24 04:41 05/30/24 04:41 Lab Results 05/29/24 Range/Units 19:09 WBC 30.53 H* (4.8-10.8) K/ul RBC 3.63 L (4.20-5.40) M/uL Hgb 11.5 L (12.0-16.0) g/dl Hct 33.7 L (37.0-47.0) % MCV 92.8 (80.0-100.0) fL MCH 31.7 (25.0-34.0) pg MCHC 34.1 (32.0-36.0) g/dL RDW Std Deviation 45.6 (36.4-46.3) fL RDW Coeff of Rob 13.5 (11.5-14.5) % Plt Count 153 (130-400) K/uL MPV 10.9 (9.4-12.4) fL Immature Gran % (Auto) 6.0 % Neut % (Auto) 86.9 % Lymph % (Auto) 2.0 % [place] % (Auto) 4.7 % Eos % (Auto) 0.2 % Baso % (Auto) 0.2 % Neut # (Auto) 26.55 H (1.40-6.50) K/uL Lymph # (Auto) 0.62 L (1.20-3.40) K/uL [place] # (Auto) 1.43 H (0.11-0.59) K/uL Eos # (Auto) 0.06 (0.00-0.50) K/uL Baso # (Auto) 0.05 (0.00-0.20) K/uL Immature Gran # (Auto) 1.82 H (0.01-0.20) K/uL Toxic Granulation 1+ Toxic Vacuolation 2+ Dohle Bodies 1+ Platelet Estimate Normal (Normal) Polychromasia 1+ PT 12.8 H (9.0-12.0) Seconds INR 1.2 H (0.9-1.1) Sodium 140 (136-145) mmol/L Potassium 3.3 L (3.5-5.1) mmol/L Chloride 105 (98-107) mmol/L Carbon Dioxide 25 (21-32) mmol/L Anion Gap 10 (3-11) BUN 28 H (6-23) mg/dl Creatinine 1.96 H (0.6-1.2) mg/dl Est Cr Clr Drug Dosing 18.1 ml/min eGFR 25.40 BUN/Creatinine Ratio 14.3 (10-20) Glucose 62 L (70-99(Fasting)) mg/dl Calcium 8.6 (8.6-10.3) mg/dl Magnesium 1.2 L (1.7-2.4) mg/dl Total Bilirubin 0.7 (0.2-1.0) mg/dl AST 16 (13-39) U/L ALT 11 (7-52) U/L Alkaline Phosphatase 67 (34-104) U/L Total Creatine Kinase 162 (26-192) U/L Troponin I High Sens 74.7 H* (0-14) pg/ml Total Protein 6.2 (6.0-8.3) gm/dl Albumin 3.8 (3.4-5.0) gm/dl Globulin 2.4 L (2.5-4.0) gm/dl Albumin/Globulin Ratio 1.6 (0.9-2) Lipase 26 (11-82) U/L Procalcitonin 76.70 H (0-0.5) ng/ml TSH 1.408 (0.300-4.500) uIu/ml Administered Medications Aripiprazole (Aripiprazole 2 Mg Tab) [facility] Stop: 06/29/24 08:59 Last Admin: 05/30/24 08:00 Dose: 2 mg Documented By: KASI Aspirin (Aspirin 81 Mg Ectab) 81 mg PO DAILY [facility] Stop: 06/29/24 08:59 Last Admin: 05/30/24 08:00 Dose: 81 mg Documented By: KASI Atorvastatin Calcium (Atorvastatin 40 Mg Tab) 40 mg PO [facility] Stop: 06/28/24 22:41 Last Admin: 05/29/24 23:16 Dose: 40 mg Documented By: KDBrock Bupropion HCl (Bupropion Xl 300 Mg Tabcr) 300 mg PO [facility] Stop: 06/29/24 08:59 Last Admin: 05/30/24 08:00 Dose: 300 mg Documented By: KASI Clopidogrel Bisulfate (Clopidogrel Bisulfate 75 Mg Tab) 75 [facility] [place] Stop: 06/29/24 08:59 Last Admin: 05/30/24 08:00 Dose: 75 mg Documented By: KASI Heparin Sodium (Porcine) (Heparin Sod 5,000 Unit/0.5 Ml Vial) 5,000 units SQ Q12 [facility]ITH Stop: 06/29/24 08:59 Last Admin: 05/30/24 08:01 Dose: 5,000 units Documented By: KASI Cefepime HCl (Maxipime 2000mg) 1,000 mg in 10 mls @ 5 mls/min IV Q12H EDITH; Protocol Stop: 06/09/24 08:59 Last Admin: 05/30/24 08:00 Dose: 5 mls/min Documented By: KASI Levothyroxine Sodium (Levothyroxine Sodium 50 Mcg Tablet) 50 mcg PO DAILYBB [facility] Stop: 06/29/24 06:29 Last Admin: 05/30/24 06:12 Dose: 50 mcg Documented By: ALEX Metoprolol Succinate (Metoprolol Succ 50mg Ext Rel Tab) 50 mg PO QAM EDITH Stop: 06/29/24 08:59 Last Admin: 05/30/24 08:00 Dose: 50 mg Documented By: KASI Discontinued Medications Sodium Chloride (Nss) 1,000 mls @ 125 mls/hr IV .Q8H [facility] Stop: 05/30/24 19:14 Last Infusion: 05/29/24 22:59 Dose: Infused Documented By: Admin: 05/29/24 19:42 Dose: 125 mls/hr Documented By: SHREE Cefepime HCl (Maxipime 2000mg) 2,000 mg in 20 mls @ 5 mls/min IV NOW STA; Protocol Stop: 05/29/24 20:00 Last Admin: 05/29/24 21:20 Dose: 5 mls/min Documented By: SHREE Magnesium Sulfate/Dextrose (Magnesium Sulfate / D5w) 1 gm in 100 mls @ 100 mls/hr IV Q1H EDITH Stop: 05/29/24 22:06 Last Infusion: 05/29/24 23:31 Dose: Infused Documented By: Admin: 05/29/24 22:08 Dose: 100 mls/hr Documented By: Infusion: 05/29/24 22:08 Dose: Infused Documented By: Admin: 05/29/24 21:20 Dose: 100 mls/hr Documented By: LCD Lactated Ringer's (Lr) 500 mls @ 999 mls/hr IV .Q31M ONE Stop: 05/29/24 22:16 Last Infusion: 05/29/24 22:58 Dose: Infused Documented By: Admin: 05/29/24 22:10 Dose: 999 mls/hr Documented By: LCD Lactated Ringer's (Lr) 1,000 mls @ 100 mls/hr IV .Q10H EDITH Stop: 05/30/24 18:41 Last Infusion: 05/30/24 16:49 Dose: Infused Documented By: Admin: 05/30/24 06:50 Dose: 100 mls/hr Documented By: Infusion: 05/30/24 06:50 Dose: Infused Documented By: Infusion: 05/30/24 00:59 Dose: 100 mls/hr Documented By: Infusion: 05/29/24 23:56 Dose: 0 mls/hr Documented By: Admin: 05/29/24 22:58 Dose: 100 mls/hr Documented By: KDL Lactated Ringer's (Lr) 1,000 mls @ 999 mls/hr IV .Q1H1M ONE Stop: 05/30/24 00:52 Last Infusion: 05/30/24 00:59 Dose: Infused Documented By: Admin: 05/29/24 23:55 Dose: 999 mls/hr Documented By: KDL Ioversol (Optiray 320 100ml) 90 ml IV ONCE ONE Stop: 05/29/24 19:33 Last Admin: 05/29/24 19:32 Dose: 90 ml Documented By: JACI Potassium Chloride (Potassium Chloride Crtab 20 Meq Tabcr) 40 meq PO NOW STA Stop: 05/29/24 22:43 Last Admin: 05/29/24 23:16 Dose: 40 meq Documented By: KDL Imaging Data Radiologist's Impression: Cervical Spine CT 05/29/24 19:06 EXAM: CT cervical spine CLINICAL HISTORY: Fall TECHNIQUE: Contiguous axial images were obtained through the cervical spine without the use of intravenous contrast. Sagittal and coronal reformations are supplied. PRIORS: None FINDINGS: Moderate osseous demineralization is present. Lordotic straightening is noted. No acute cervical spine fracture or facet dislocation. Moderate degenerative change present at C3-C4 -C6-C7 with loss of intervertebral disc space height, endplate changes and moderate uncovertebral hypertrophic changes. Anterior osteophytes also present. Diffuse moderate bilateral osteophytic neural foraminal stenosis. No prevertebral soft tissue swelling. Visualized trachea is patent. Lung apices are unremarkable. IMPRESSION: No CT evidence of an acute osseous abnormality. Electronically signed by Isa Goyal 05-29-2024 8:[address] 05/29/24 19:06 Technique: Axial computed tomography images were obtained of the brain without intravenous contrast. Comparison is made to the prior CT dated 10/09/2022 Findings: There is unchanged cerebral atrophy, within expected limits for the patient's age. Areas of decreased attenuation are seen within the periventricular white matter, likely representing chronic small vessel ischemic disease. There is no definite sign of acute or old infarction. No intracranial hemorrhage is evident. No definite mass lesion is seen on this noncontrast examination. There is no midline shift or other form of herniation. No hydrocephalus is seen. No fracture is identified. The orbits and the visualized paranasal sinuses appear unremarkable. The mastoid air cells appear clear. Impression: 1. Cerebral atrophy and chronic small vessel ischemic disease 2. Otherwise unremarkable noncontrast CT of the brain Electronically signed by Dao De La Fuente 05-29-2024 7:46 PM Discharge Plan Visit Data Chief Complaint: Fall Stated Complaint: Fall ED Provider: Simona Wallace Discharge Problem: Generalized weakness, Chronic kidney disease, stage 4 (severe), Hypomagnesemia, Elevated troponin, Dehydration Patient Disposition: Admitted As Inpatient Discharge Instructions Interventions: ED Discharge Assessment Last Done: 05/29/24 22:13
[2024-05-29] MEDS: OPTIRAY 320 100ml IV ONE (19:32)
[2024-05-29 19:40] LABS: Albumin Globulin Ratio 1.6 (0.9-2); Albumin Level 3.8 gm/dl (3.4-5.0); BUN Creatinine Ratio 14.3 (10-20); Bilirubin,Total 0.7 mg/dl (0.2-1.0); Calcium 8.6 mg/dl (8.6-10.3); Creatinine Clr Calc Pharmacy 18.1 ml/min; Globulin 2.4 gm/dl (2.5-4.0); Magnesium 1.2 mg/dl (1.7-2.4); Potassium 3.3 mmol/L (3.5-5.1); Total Protein 6.2 gm/dl (6.0-8.3)
[2024-05-29] MEDS: SODIUM CHLORIDE 0.9% 1,000 ML IV SCH (19:42)
--- NOTE | 2024-05-29 19:47 | CT Scan Report ---
Technique: Axial computed tomography images were obtained of the brain without intravenous contrast. Comparison is made to the prior CT dated 10/09/2022 Findings: There is unchanged cerebral atrophy, within expected limits for the patient's age. Areas of decreased attenuation are seen within the periventricular white matter, likely representing chronic small vessel ischemic disease. There is no definite sign of acute or old infarction. No intracranial hemorrhage is evident. No definite mass lesion is seen on this noncontrast examination. There is no midline shift or other form of herniation. No hydrocephalus is seen. No fracture is identified. The orbits and the visualized paranasal sinuses appear unremarkable. The mastoid air cells appear clear. Impression: 1. Cerebral atrophy and chronic small vessel ischemic disease 2. Otherwise unremarkable noncontrast CT of the brain Electronically signed by Dao De La Fuente 05-29-2024 7:46 PM
[2024-05-29 19:50] LABS: Troponin I High Sensitivity 74.7 pg/ml (0-14)
[2024-05-29 19:51] LABS: INR 1.2 (0.9-1.1); Prothrombin Time 12.8 Seconds (9.0-12.0)
[2024-05-29 19:55] LABS: Thyroid Stimulating Hormone 1.408 uIu/ml (0.300-4.500)
[2024-05-29 19:58] LABS: Hematocrit (blood only) 33.7 % (37.0-47.0); Hemoglobin 11.5 g/dl (12.0-16.0); Mean Corpuscular Hemoglobin 31.7 pg (25.0-34.0); Mean Corpuscular Hgb Conc 34.1 g/dL (32.0-36.0); Mean Corpuscular Volume 92.8 fL (80.0-100.0); RDW Coefficient of Variation 13.5 % (11.5-14.5); RDW Standard Deviation 45.6 fL (36.4-46.3); Red Blood Count 3.63 M/uL (4.20-5.40)
[2024-05-29 19:59] LABS: Mean Platelet Volume 10.9 fL (9.4-12.4); Platelet Count 153 K/uL (130-400)
[2024-05-29 20:00] LABS: Basophils # (auto) 0.05 K/uL (0.00-0.20); Basophils % (auto) 0.2 %; Dohle Bodies 1+; Eosinophils # (auto) 0.06 K/uL (0.00-0.50); Eosinophils % (auto) 0.2 %; Immature Granulocytes # (auto) 1.82 K/uL (0.01-0.20); Lymphocytes # (auto) 0.62 K/uL (1.20-3.40); Monocytes # (auto) 1.43 K/uL (0.11-0.59); Monocytes % (auto) 4.7 %; Neutrophils # (auto) 26.55 K/uL (1.40-6.50); Neutrophils % (auto) 86.9 %; Platelet Estimate Normal (Normal); Polychromasia 1+; Toxic Granulation 1+; Toxic Vacuolation 2+; White Blood Count 30.53 K/ul (4.8-10.8)
--- NOTE | 2024-05-29 20:03 | CT Scan Report ---
EXAM: CT cervical spine CLINICAL HISTORY: Fall TECHNIQUE: Contiguous axial images were obtained through the cervical spine without the use of intravenous contrast. Sagittal and coronal reformations are supplied. PRIORS: None FINDINGS: Moderate osseous demineralization is present. Lordotic straightening is noted. No acute cervical spine fracture or facet dislocation. Moderate degenerative change present at C3-C4 -C6-C7 with loss of intervertebral disc space height, endplate changes and moderate uncovertebral hypertrophic changes. Anterior osteophytes also present. Diffuse moderate bilateral osteophytic neural foraminal stenosis. No prevertebral soft tissue swelling. Visualized trachea is patent. Lung apices are unremarkable. IMPRESSION: No CT evidence of an acute osseous abnormality. Electronically signed by Isa Goyal 05-29-2024 8:02 PM
--- NOTE | 2024-05-29 21:01 | History & Physical Report ---
Date of Service May 29, 2024 Assessment & Plan (1) Urinary tract infection: (2) Chronic kidney disease, stage 4 (severe): (3) Benign essential hypertension: (4) Coronary artery disease: (5) Hyperlipidemia: (6) Hypothyroidism: (7) Depression with anxiety: Plan 78yo female with history of HTN, HLP, CKD-IV and CAD presenting after being found down on the bathroom floor by her family. Patient is somnolent but otherwise with no complaints. Afebrile and HD stable on exam. Labs as above concerning for UTI with leukocytosis WBC=30.53, Procal=76.7, Lactate=2.8. #UTI - patient afebrile, HD stable and non-toxic in appearance. WBC and Procalcitonin levels are concerning. Prior urine culture with maurer-sensitive E. coli -Admit to PCU -Follow cultures blood and urine sent from ER -Check CT Abdomen and Pelvis -Cefepime 1gm IV q 12 hours for UTI -Tylenol PRN -Zofran PRN #CKD-IV - Patient reports normal UOP. Electrolytes are acceptable. BUN elevated at 28 and Cr=1.96 (Last BUN 17 and Cr 1.87 on 12/22/23) -Continue gentle IVF, LR at 80mL/hr x 1L ordered -Renal dosing where needed -Avoid nephrotoxic agents -BMP in AM #Benign Essential HTN - Blood pressure at goal -Will hold Diltiazem 120mg, Hydralazine 50mg po TID and Isosorbide 90mg daily for now due to concern for possible developing sepsis -Hold Lasix in setting of elevated Cr and dehydration -Continue Metoprolol 50mg po qAM -Resume home BP medications as pressure allows #CAD - patient with known CAD. Cardiac catheterization in August 2022 with significant disease, most vessels non-amenable to PCI due to size of vessels. Normal EF 60-65%. Troponin is elevated to 74.7. No complaints of chest pain. EKG with no ischemic findings. -Continue Plavix -Continue Atorvastatin -Continue Metoprolol -Holding Hydralazine and isosorbide for now -Trend troponin to peak #Hyperlipidemia - chronic, stable -Continue Atorvastatin #Hypothyroidism - Chronic. TSH WNL at 1.408 -Continue Synthroid 50mcg daily #Mental Health -Continue Abilify and Wellbutrin F/E/N - LR at 80mL/hr x 1L ordered, Mg x 2gm given, KCl x 40mEq given, Repeat BMP in AM Ppx - heparin for DVT prophylaxis Dispo - Admit to PCU History of Present Illness Chief Complaint: Found down Primary Care Provider: YONNY Drew Yvrose Nevarez is an 78yo female with history of HTN, HLP, GERD, CKD IV with fistula in place presenting from home after being found down by her son. Patient does not recall events prior to arrival. Per family, her son came home a little after 1700 and found the patient lying down on the bathroom floor. Patient reports feeling sleepy and had some very mild right sided pain as well as chills. Otherwise denies fever, chest pain, palpitations, cough, shortness of breath, nausea, vomiting, diarrhea. Daughters are at bedside and reports the patient seems to be sleepy otherwise is near her baseline. In the ER she is afebrile, hemodynamically stable ER course: Cefepime 2 g IV Magnesium 2 g IV LR 500 mL Normal saline bolus of milliliters per hour Allergies Allergy/AdvReac Type Severity Reaction Status Date / Time amlodipine Allergy Intermediate Feet Verified 05/29/24 20:48 swelling Sulfa (Sulfonamide Allergy Unknown Remote Verified 05/29/24 20:48 Antibiotics) unknown reaction Home Medications Medication Instructions Recorded Confirmed Type bupropion HCl 300 mg 24 hr tablet, 300 mg PO QAM 07/22/20 05/29/24 History extended release (Wellbutrin XL) nitroglycerin 0.4 mg sublingual 0.4 mg sublingual Q5M PRN chest 09/19/22 05/29/24 Rx tablet (Nitrostat) pain #25 tabs isosorbide mononitrate 30 mg 90 mg (3 x 30 mg) PO DAILY #270 04/21/23 05/29/24 Rx tablet,extended release 24 hr tabs metoprolol succinate 50 mg 50 mg PO QAM #90 tabs 08/09/23 05/29/24 Rx tablet,extended release 24 hr atorvastatin 40 mg tablet 40 mg PO HS #90 tabs 08/17/23 05/29/24 Rx clopidogrel 75 mg tablet 75 mg PO QAM #90 tabs 08/17/23 05/29/24 Rx rabeprazole 20 mg tablet,delayed 20 mg PO QAM #90 tabs 01/16/24 05/29/24 Rx release diltiazem HCl 120 mg 120 mg PO DAILY #90 caps 02/15/24 05/29/24 Rx capsule,extended release 24 hr, controlled hydralazine 50 mg tablet 50 mg PO TID #90 tabs 04/02/24 05/29/24 Rx cholecalciferol (vitamin D3) 25 25 mcg PO DAILY 04/05/24 05/29/24 History mcg (1,000 unit) capsule mecobalamin (vitamin B12) 1,000 1,000 mcg PO DAILY 04/05/24 05/29/24 History mcg chewable tablet melatonin 3 mg capsule 3 mg PO HS 04/05/24 05/29/24 History levothyroxine 50 mcg tablet 50 mcg PO DAILYBB #30 tabs 04/10/24 05/29/24 Rx furosemide 20 mg tablet 20 mg PO QAM #90 tabs 04/22/24 05/29/24 Rx aripiprazole 2 mg tablet (Abilify) 1 mg PO QAM 05/29/24 05/29/24 History aspirin 81 mg tablet,delayed 81 mg PO DAILY 05/29/24 05/29/24 History release Past Med/Surg History Problem List Dehydration (Acute) Elevated troponin (Acute) Hypomagnesemia (Acute) Generalized weakness (Acute) Risk for falls Right leg pain Right hip pain White coat syndrome with diagnosis of hypertension Gait disturbance Transient neurological symptoms (Acute) Benign essential hypertension Coronary artery disease (Acute) Atherogenic dyslipidemia Pre-diabetes Inflamed seborrheic keratosis of left cheek History of colon polyps Anxiety (Chronic 11/29/12) GERD (gastroesophageal reflux disease) (Chronic) Schatzki's ring (Chronic) Depression with anxiety (Chronic) Hyperlipidemia (Chronic) Hypothyroidism (Chronic) Edema (Chronic) Secondary hyperparathyroidism (Chronic) Peripheral neuropathy (Acute) Mild obstructive sleep apnea (Acute) Insomnia (Acute) Generalized weakness (Acute) Dysphagia Vitamin D deficiency Chronic kidney disease, stage 4 (severe) (Chronic) Osteoarthritis Medical History History of COVID-19 01/22/21>MILD SYMPTOMS *RESOLVED AV fistula LEFT ARM *HAS NOT USED Hypertension Hyperlipidemia Anxiety and depression COVID-19 Hyperkalemia Bradycardia End stage renal disease Hypothyroidism ESRD (end stage renal disease) Follows with Dr. 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 History of TIA (transient ischemic attack) Several years ago *NO PROBLEMS FROM EVENT Surgical History History of carpal tunnel release RT/LEFT History of tooth extraction History of surgery Left Antecubital Basilic Vein Arteriovenous Fistula Creation (07/22/20): MAC + PNB at [facility] History of cataract surgery RT/LEFT History of esophagogastroduodenoscopy (EGD) History of colonoscopy Colonoscopy (01/08/19): MAC at [facility] History of tonsillectomy and adenoidectomy History of laparoscopic cholecystectomy Family History Mother Ovarian cancer Heart disease Father Family history of diabetes mellitus Heart disease Grandmother (Maternal) Family history of diabetes mellitus Other No family history of adverse response to anesthesia Denies family history of Prostate cancer Myocardial infarction Breast cancer Colorectal cancer Social History Smoking Status: Never smoker Second Hand Exposure: No; Do You Dip or Chew Tobacco: No; Hx Alcohol Use: No Hx Substance Use: No Preferred Language: Bengali Communication Ability: Effective Visual Impairment: Limited Hearing Ability: Use of Hearing Aid Ceo Na Required: No Beliefs That Will Affect Care: None marital status: Current Living Situation: Family Current Living Situation Comment: lives with son current occupational status: retired 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 [employer] How many Children do You have: 3 Feels Safe at Home: Yes Childhood Exposure to Second-Hand Smoke: Yes Diet: regular caffeine: Yes during the past year weight has: remained stable Dental Care, Regularly: No Physical Activity Frequency: Daily Seatbelt Use: always Sunscreen Use: No Do you think of yourself as: straight/heterosexual Sexual Activity: has been sexually active, but not for at least 12 months Gender Identity: Female Assistive Devices: Denture - Upper, Denture - Lower, Glasses and Hearing Aid - Bilateral Review of Systems Review of Systems: All systems reviewed & are unremarkable except as noted in HPI & below Physical Exam Physical Exam: General: patient resting comfortably, NAD, non-toxic in appearance, oriented x 3, somewhat somnolent but answers questions appropriately and follows commands Skin: warm, dry, intact, no rashes or lesions HEENT: NC/AT, PERRL, EOMI, anicteric sclera, conjunctiva without injection, external ear normal to inspection and nontender, nares patent, dry lips and mucus membranes, dentition intact, no oropharyngeal lesions, neck supple, trachea midline, no LAD, no thyromegaly, no JVD Heart: +S1/S2, regular, no m/r/g Lungs: equal air entry bilaterally, no rales/rhonchi/wheezes Abd: +BS, soft, NT/ND, no masses/organomegaly/ascites, no CVA tenderness Ext: warm, 2+ pulses in UE/LE bilaterally, no clubbing/cyanosis or edema, fistula in left upper extremity with palpable thrill Neuro: nonfocal, patient AA&O x 4, speech intact, no facial droop, moving all extremities on command with equal strength 5/5 Results & Data Results & Data Vital Signs (Past 12 Hours) Vital Signs Pulse Resp BP Pulse Ox O2 Del Method 05/29/24 19:04 91 H 05/29/24 19:03 90 24 157/90 H 93 Room Air Laboratory Results Laboratory Results WBC 30.53 K/ul (4.8-10.8) H* 05/29/24 19: RBC 3.63 M/uL (4.20-5.40) L 05/29/24 19:09 Hgb 11.5 g/dl (12.0-16.0) L 05/29/24 19:09 Hct 33.7 % (37.0-47.0) L 05/29/24 19: MCV 92.8 fL (80.0-100.0) 05/29/24 19:09 MCH 31.7 pg (25.0-34.0) 05/29/24 19: MCHC 34.1 g/dL (32.0-36.0) 05/29/24 19:09 RDW Std Deviation 45.6 fL (36.4-46.3) 05/29/24 19:09 RDW Coeff of Rob 13.5 % (11.5-14.5) 05/29/24 19:09 Plt Count 153 K/uL (130-400) 05/29/24 19:09 MPV 10.9 fL (9.4-12.4) 05/29/24 19:09 Immature Gran % (Auto) 6.0 % 05/29/24 19:09 Neut % (Auto) 86.9 % 05/29/24 19:09 Lymph % (Auto) 2.0 % 05/29/24 19:09 [place] % (Auto) 4.7 % 05/29/24 19:09 Eos % (Auto) 0.2 % 05/29/24 19:09 Baso % (Auto) 0.2 % 05/29/24 19:09 Neut # (Auto) 26.55 K/uL (1.40-6.50) H 05/29/24 19:09 Lymph # (Auto) 0.62 K/uL (1.20-3.40) L 05/29/24 19:09 [place] # (Auto) 1.43 K/uL (0.11-0.59) H 05/29/24 19:09 Eos # (Auto) 0.06 K/uL (0.00-0.50) 05/29/24 19:09 Baso # (Auto) 0.05 K/uL (0.00-0.20) 05/29/24 19:09 Immature Gran # (Auto) 1.82 K/uL (0.01-0.20) H 05/29/24 19:09 Toxic Granulation 1+ 05/29/24 19:09 Toxic Vacuolation 2+ 05/29/24 19:09 Dohle Bodies 1+ 05/29/24 19:09 Platelet Estimate Normal (Normal) 05/29/24 19:09 Polychromasia 1+ 05/29/24 19:09 PT 12.8 Seconds (9.0-12.0) H 05/29/24 19:09 INR 1.2 (0.9-1.1) H 05/29/24 19:09 Sodium 140 mmol/L (136-145) 05/29/24 19:09 Potassium 3.3 mmol/L (3.5-5.1) L 05/29/24 19:09 Chloride 105 mmol/L (98-107) 05/29/24 19:09 Carbon Dioxide 25 mmol/L (21-32) 05/29/24 19:09 Anion Gap 10 (3-11) 05/29/24 19:09 BUN 28 mg/dl (6-23) H 05/29/24 19:09 Creatinine 1.96 mg/dl (0.6-1.2) H 05/29/24 19:09 Est Cr Clr Drug Dosing 18.1 ml/min 05/29/24 19:09 eGFR 25.40 05/29/24 19:09 BUN/Creatinine Ratio 14.3 (10-20) 05/29/24 19:09 Glucose 62 mg/dl (70-99(Fasting)) L 05/29/24 19:09 Lactate 2.8 mmol/L (0.4-2.0) H* 05/29/24 21:00 Calcium 8.6 mg/dl (8.6-10.3) 05/29/24 19:09 Magnesium 1.2 mg/dl (1.7-2.4) L 05/29/24 19:09 Total Bilirubin 0.7 mg/dl (0.2-1.0) 05/29/24 19:09 AST 16 U/L (13-39) 05/29/24 19:09 ALT 11 U/L (7-52) 05/29/24 19:09 Alkaline Phosphatase 67 U/L (34-104) 05/29/24 19:09 Total Creatine Kinase 162 U/L (26-192) 05/29/24 19:09 Troponin I High Sens 74.7 pg/ml (0-14) H* 05/29/24 19:09 Total Protein 6.2 gm/dl (6.0-8.3) 05/29/24 19:09 Albumin 3.8 gm/dl (3.4-5.0) 05/29/24 19:09 Globulin 2.4 gm/dl (2.5-4.0) L 05/29/24 19:09 Albumin/Globulin Ratio 1.6 (0.9-2) 05/29/24 19:09 Lipase 26 U/L (11-82) 05/29/24 19:09 Procalcitonin 76.70 ng/ml (0-0.5) H 05/29/24 19:09 TSH 1.408 uIu/ml (0.300-4.500) 05/29/24 19:09 Urine Color Yellow 05/29/24 21:15 Urine Appearance Clear (Clear) 05/29/24 21:15 Urine pH 7.0 (4.5-7.5) 05/29/24 21:15 Ur Specific [place] 1.014 (1.000-1.030) 05/29/24 21:15 Urine Protein 3+ (Negative) H 05/29/24 21:15 Urine Glucose (UA) Negative (Negative) 05/29/24 21:15 Urine Ketones Negative (Negative) 05/29/24 21:15 Urine Blood 1+ (Negative) H 05/29/24 21:15 Urine Nitrite Positive (Negative) A 05/29/24 21:15 Urine Bilirubin Negative (Negative) 05/29/24 21:15 Urine Urobilinogen Negative (Negative) 05/29/24 21:15 Ur Leukocyte Esterase Negative (Negative) 05/29/24 21:15 Urine WBC (Auto) 11-20 /hpf (0-5) H 05/29/24 21:15 Urine RBC (Auto) 0-2 /hpf (0-2) 05/29/24 21:15 U Hyaline Cast (Auto) 0-2 /lpf (0-2) 05/29/24 21:15 U Epithel Cells (Auto) 0-2 /hpf (0-2) 05/29/24 21:15 Urine Bacteria (Auto) 4+ (None Seen) H 05/29/24 21:[address] 05/29/24 19:06 EXAM: CT cervical spine CLINICAL HISTORY: Fall TECHNIQUE: Contiguous axial images were obtained through the cervical spine without the use of intravenous contrast. Sagittal and coronal reformations are supplied. PRIORS: None FINDINGS: Moderate osseous demineralization is present. Lordotic straightening is noted. No acute cervical spine fracture or facet dislocation. Moderate degenerative change present at C3-C4 -C6-C7 with loss of intervertebral disc space height, endplate changes and moderate uncovertebral hypertrophic changes. Anterior osteophytes also present. Diffuse moderate bilateral osteophytic neural foraminal stenosis. No prevertebral soft tissue swelling. Visualized trachea is patent. Lung apices are unremarkable. IMPRESSION: No CT evidence of an acute osseous abnormality. Electronically signed by Isa Goyal 05-29-2024 8:[address] 05/29/24 19:06 Technique: Axial computed tomography images were obtained of the brain without intravenous contrast. Comparison is made to the prior CT dated 10/09/2022 Findings: There is unchanged cerebral atrophy, within expected limits for the patient's age. Areas of decreased attenuation are seen within the periventricular white matter, likely representing chronic small vessel ischemic disease. There is no definite sign of acute or old infarction. No intracranial hemorrhage is evident. No definite mass lesion is seen on this noncontrast examination. There is no midline shift or other form of herniation. No hydrocephalus is seen. No fracture is identified. The orbits and the visualized paranasal sinuses appear unremarkable. The mastoid air cells appear clear. Impression: 1. Cerebral atrophy and chronic small vessel ischemic disease 2. Otherwise unremarkable noncontrast CT of the brain Electronically signed by Dao De La Fuente 05-29-2024 7:46 PM ECG Additional Comments: EKG per my evaluation with normal sinus rhythm at 90 bpm, normal axis, NE = 164, QRS = 72, QTc = 442, no acute ischemic changes, similar to prior study PG Care Time/CCT Total # of Minutes Spent Total Time Spent with Patient: Total time spent is greater than 50% in coordination of care (as documented) at patient's floor/unit and/or counseling patient: Coding Level of Care Code 58640 INT INP/OBS CARE 3/75MIN Diagnoses Urinary tract infection N39.0 Chronic kidney disease, stage 4 (severe) N18.4 Benign essential hypertension I10 Coronary artery disease I25.10 Mixed hyperlipidemia E78.2 Hyperlipidemia type: mixed hyperlipidemia Acquired hypothyroidism E03.9 Hypothyroidism type: acquired Depression with anxiety F41.8 (5) Hyperlipidemia Hyperlipidemia type: mixed hyperlipidemia Qualified Code(s): E78.2 - Mixed hyperlipidemia (6) Hypothyroidism Hypothyroidism type: acquired Qualified Code(s): E03.9 - Hypothyroidism, unspecified
[2024-05-29] MEDS: MAGNESIUM SULFATE / D5W 1 GM/100 ML BAG IV SCH (21:20)
[2024-05-29] MEDS: CEFEPIME 2000MG 2,000 MG/20 ML SYR IV STA (21:20)
[2024-05-29 22:07] LABS: Appearance Urine Clear (Clear); Bacteria Urine Automated 4+ (None Seen); Bilirubin Urine Negative (Negative); Blood Urine 1+ (Negative); Cast Urine Automated 0-2 /lpf (0-2); Color Urine Yellow; Epithelial Cell Urine Auto 0-2 /hpf (0-2); Glucose Urine UA Negative (Negative); Ketones Urine Negative (Negative); Leukocyte Esterase Urine Negative (Negative); Nitrite Urine Positive (Negative); Protein Urine 3+ (Negative); RBC Urine Automated 0-2 /hpf (0-2); Specific Gravity Urine 1.014 (1.000-1.030); Urobilinogen Urine Negative (Negative)
[2024-05-29] MEDS: LACTATED RINGER'S 500 ML IV ONE (22:10)
[2024-05-29] MEDS ORDERED: ACETAMINOPHEN 325 MG TAB PO PRN (22:42)
[2024-05-29] MEDS ORDERED: ONDANSETRON INJ 2 MG/ML 2 ML VIAL IV PRN (22:42)
[2024-05-29] MEDS: LACTATED RINGER'S 1,000 ML IV SCH (22:58)
--- NOTE | 2024-05-29 23:03 | XRay Report ---
Exam(s): XR CXR 1 VIEW EXAM: XR Chest, 1 View CLINICAL HISTORY: fall. TECHNIQUE: Frontal view of the chest. COMPARISON: 10/14/2023. FINDINGS: Heart is mildly enlarged. No CHF. No focal infiltrate. No pleural effusion or pneumothorax. Bones are unchanged. Acute fracture. IMPRESSION: No acute post-traumatic abnormality. Electronically signed by: Chilo Mendez M.D. 05/29/24 23:02 PM
[2024-05-29] MEDS: ATORVASTATIN 40 MG TAB PO SCH (23:16)
[2024-05-29] MEDS: POTASSIUM CHLORIDE CRTAB 20 MEQ TABCR PO STA (23:16)
[2024-05-29] MEDS: LACTATED RINGER'S 1,000 ML IV ONE (23:55)
--- NOTE | 2024-05-30 00:13 | CT Scan Report ---
Exam(s): CT ABDOMEN + PELVIS Without Contrast EXAM: CT Abdomen and Pelvis Without Intravenous Contrast CLINICAL HISTORY: leukocytosis, elevated procal ?pyelonephritis?. TECHNIQUE: Axial computed tomography images of the abdomen and pelvis without intravenous contrast. CTDI is 13.28 mGy and DLP is 569.98 mGy-cm. Automated exposure control was utilized for the study. A dose lowering technique was utilized adhering to the principles of ALARA. COMPARISON: 09/16/2022. FINDINGS: Lung bases: Bibasilar atelectasis versus scarring. Cardiomegaly. ABDOMEN: Liver: Unremarkable. Gallbladder and bile ducts: Post cholecystectomy. No ductal dilation. Pancreas: Grossly unchanged multilobulated cystic structure at the pancreatic head approximately 3.1 x 1.5 cm overall diameter. No ductal dilation. Spleen: Unremarkable. No splenomegaly. Adrenals: Unremarkable. No mass. Kidneys and ureters: Atrophic kidneys. Unchanged mild perinephric stranding. No obstructive uropathy. No obstructing renal or ureteral calculi. No hydronephrosis or hydroureter. Stomach and bowel: No obstruction or ileus. Sigmoid colon diverticulosis without evidence for diverticulitis. PELVIS: Appendix: No findings to suggest acute appendicitis. Bladder: Contracted. No stones. Reproductive: Mildly heterogeneous uterus. ABDOMEN and PELVIS: Intraperitoneal space: No free air. No free fluid. Bones/joints: No acute fracture. Degenerative changes of the spine. Soft tissues: Unremarkable. Vasculature: Atherosclerotic vascular calcifications. No abdominal aortic aneurysm. Lymph nodes: Unremarkable. No enlarged lymph nodes. IMPRESSION: No significant interval change. Electronically signed by: Chilo Mendez M.D. 05/30/24 00:12 AM
[2024-05-30 05:22] LABS: Hematocrit (blood only) 26.4 % (37.0-47.0); Hemoglobin 8.9 g/dl (12.0-16.0); Mean Corpuscular Hemoglobin 31.7 pg (25.0-34.0); Mean Corpuscular Hgb Conc 33.7 g/dL (32.0-36.0); Mean Platelet Volume 10.3 fL (9.4-12.4); Platelet Count 133 K/uL (130-400); RDW Coefficient of Variation 13.8 % (11.5-14.5); RDW Standard Deviation 48.1 fL (36.4-46.3); Red Blood Count 2.81 M/uL (4.20-5.40); White Blood Count 33.68 K/ul (4.8-10.8)
[2024-05-30 05:38] LABS: BUN Creatinine Ratio 20.6 (10-20); Calcium 7.7 mg/dl (8.6-10.3); Creatinine Clr Calc Pharmacy 20.1 ml/min; Magnesium 1.8 mg/dl (1.7-2.4); Potassium 4.3 mmol/L (3.5-5.1); Troponin I High Sensitivity 79.7 pg/ml (0-14)
[2024-05-30] MEDS: LEVOTHYROXINE SODIUM 50 MCG TABLET PO SCH (06:12)
[2024-05-30] MEDS: ASPIRIN 81 MG ECTAB PO SCH (08:00)
[2024-05-30] MEDS: CEFEPIME 1000MG 1,000 MG/10 ML SYR IV SCH (08:00)
[2024-05-30] MEDS: buPROPion XL 300 MG TABCR PO SCH (08:00)
[2024-05-30] MEDS: METOPROLOL SUCC 50MG EXT REL TAB PO SCH (08:00)
[2024-05-30] MEDS: CLOPIDOGREL BISULFATE 75 MG TAB PO SCH (08:00)
[2024-05-30] MEDS: ARIPiprazole 2 MG TAB PO SCH (08:00)
[2024-05-30] MEDS: HEPARIN SOD 5,000 UNIT/0.5 ML VIAL SQ SCH (08:01)
--- NOTE | 2024-05-30 19:59 | Hospitalist Progress Note ---
Date of Service May 30, 2024 Assessment & Plan (1) Urinary tract infection: (2) Chronic kidney disease, stage 4 (severe): (3) Benign essential hypertension: (4) Coronary artery disease: (5) Hyperlipidemia: (6) Hypothyroidism: (7) Depression with anxiety: Plan 78 years old female with PMH of FULL CODE @ home, CAD, HTN, CKD-IV and 9 episodes of acute ciprofloxacin-resistant, levofloxacin-resistant E. coli UTI (as noted on 07/24/2018, 04/03/2019, 05/07/2019, 08/13/2019, 10/15/2019, 12/20/2019, 06/17/2022, 09/16/2022, and 10/15/2023 urine cultures), who was found down on the bathroom floor by her family on 05/29/2024. Patient was somnolent but otherwise with no complaints. Afebrile and HD stable on exam. Labs above were concerning for UTI with leukocytosis WBC=30.53, Procal=76.7, Lactate=2.8. Patient was subsequently admitted to the inpatient hospitalist service @ [facility] on 05/29/2024 with the following diagnoses: 1. Sepsis due to [id number] E. coli UTI - patient afebrile, HD stable and non-toxic in appearance. WBC and Procalcitonin levels are increasing from 05/29/2024 to 05/30/2024. Check WBC and procalcitonin levels in the 05/31/2024 am. -Admit to PCU -Follow cultures blood and urine sent from ER -Check CT Abdomen and Pelvis -Cefepime 1gm IV q 12 hours for UTI -Tylenol PRN -Zofran PRN 2. CKD stage IV with baseline creatinine range, 1.94 - 2.10. Patient reports normal UOP. Electrolytes are acceptable. BUN elevated at 28 and Cr=1.96 (Last BUN 17 and Cr 1.87 on 12/22/23) -Continue gentle IVF, LR at 80mL/hr x 1L ordered with creatinine level decreasing from 1.96 mg/dL, GFR 25.4 mL/min (05/29/2024, 7:09pm) to 1.60 mg/dL, GFR 32.4 mL/min (05/30/2024, 4:41am). -Renal dosing where needed -Avoid nephrotoxic agents -Check repeat creatinine level in AM 3. Benign Essential HTN - Blood pressure at goal -Will hold Diltiazem 120mg, Hydralazine 50mg po TID and Isosorbide 90mg daily for now due to concern for possible developing sepsis -Hold Lasix in setting of elevated Cr and dehydration -Continue Metoprolol 50mg po qAM -Resume home BP medications as pressure allows 4. CAD - patient with known CAD. Cardiac catheterization in August 2022 with significant disease, most vessels non-amenable to PCI due to size of vessels. Normal EF 60-65%. - Nominal troponin elevation: cf., trop #1 74.7 pg/mL (05/29/2024, 7:09pm) cf., trop #2 79.3 pg/mL (05/29/2024, 11:28pm). cf., trop #3 79.7 pg/mL (05/30/2024, 4:41am). cf., trop #4 79.8 pg/mL (05/30/2024, 10:33am). No complaints of chest pain. EKG with no ischemic findings. Suspect acute type II NSTEMI due to demand ischemia, which in turn, is due to sepsis, which in turn, is due to [id number] E. coli UTI. -Continue Plavix -Continue Atorvastatin -Continue Metoprolol -Holding Hydralazine and isosorbide for now -Trend troponin to peak 5. Hyperlipidemia - chronic, stable -Continue Atorvastatin 6. Hypothyroidism - Chronic. TSH WNL at 1.408 -Continue Synthroid 50mcg daily 7. Mental Health -Continue Abilify and Wellbutrin F/E/N - LR at 80mL/hr x 1L ordered, Mg x 2gm given, KCl x 40mEq given, Repeat BMP in AM Ppx - heparin for DVT prophylaxis Dispo - Admit to PCU Admission and Anticipated Discharge Date Admission Date: May 29, 2024 Subjective "I feel well. No complaints today." Review of Systems Constitutional: Negative for antecedent/coincident fevers, chills, diaphoresis, cough, wheeze, sore throat, hemoptysis, chest pains, palpitations, pleurisy, nausea, vomiting, diarrhea, abdominal pain, pelvic pain, hematemesis, hematochezia, melena, hematuria, dysuria, frequency, urgency, headaches, dizziness, lightheadedness, visual changes, hearing changes, weakness, falls, syncope, trauma, travel history, sick contacts, or food/drug ingestions novel or new. All other review of systems are reported as negative by the patient on 05/30/2024. Physical Exam Constitutional: General: Comfortable, coherent, cooperative; wide awake and alert. Not confused, lethargic, or obtunded. Patient speaks in complete, fluent, and articulate sentences without pause, cough, or wheeze. HEENT: Normocephalic, atraumatic. Extra-ocular muscles intact. Pupils equally round and reactive to light. No nystagmus, gaze paresis, anisocoria, miosis, mydriasis, hyphema, scleral injection, conjunctivitis, or pterygium. No otorrhea or rhinorrhea. No pharyngeal erythema, edema, or discharge. Neck: Supple, no stridor, bruit, goiter, or hepato-jugular reflux. Jugular venous pressure is estimated to be 3 cm above the sternal angle of B[place], which in turn, is 5 cm above the level of the right atrium; with jugular venous pressure estimated to be 8 cm, then, there is no jugular venous distention on 05/30/2024. Lymphatics: No cervical (anterior/posterior), supraclavicular, infraclavicular, axillary, epitrochlear, or inguinal adenopathy. Chest: Symmetric rise and fall with respirations. Non-tender to palpation. Lungs: Clear to auscultation and percussion. Heart: Regular rate and rhythm. S1 and S2 noted. No S3 or S4 summation gallop. No tripartite friction rub. Grade II/ early systolic murmur @ LLSB without radiation to the carotids, axilla, or back, and which remains invariant in regards to the respiratory cycle. Abdomen: Soft, non-tender, non-distended. No rebound, guarding, Gutierrez's sign, or organomegaly. Bowel sounds auscultated in all 4 quadrants. Extremities: No clubbing, cyanosis, or edema. 2+ pedal pulses bilaterally. Skin: No decubitus ulcer, exanthem, or enanthem. Genito-urinary: No urethral discharge. No craig catheter. Neurology: Alert and oriented in regards to person, place, time, and situation. DTR+ and symmetric. 5/5 motor strength in all 4 extremities, both proximally and distally. No pronator drift. No facial droop. No dysarthria. Psychiatry: No homicidal ideation. No suicidal ideation. No flat affect; smiles appropriately. Results & Data Results & Data Vital Signs (Past 12 Hours) Vital Signs Temp Pulse Pulse Resp BP Pulse Ox O2 Del Method 05/30/24 15:04 67 05/30/24 15:00 36.7 C 70 20 132/65 97 Room Air 05/30/24 11:00 36.8 C 88 18 120/63 98 Room Air 05/30/24 09:12 71 Laboratory Results 05/29/24 21:15 Urine Culture - Preliminary Urine,Straight Cath Escherichia coli 05/29/24 21:01 Aerobic Blood Culture - Pending Blood Anaerobic Blood Culture - Pending 05/29/24 21:00 Aerobic Blood Culture - Pending Blood Anaerobic Blood Culture - Pending 05/30/24 05/30/24 05/29/24 10:33 04:41 23:52 WBC 33.68 H* RBC 2.81 L Hgb 8.9 L Hct 26.4 L MCV 94.0 MCH 31.7 MCHC 33.7 RDW Std Deviation 48.1 H RDW Coeff of Rob 13.8 Plt Count 133 MPV 10.3 Immature Gran % (Auto) Neut % (Auto) Lymph % (Auto) [place] % (Auto) Eos % (Auto) Baso % (Auto) Neut # (Auto) Lymph # (Auto) [place] # (Auto) Eos # (Auto) Baso # (Auto) Immature Gran # (Auto) Toxic Granulation Toxic Vacuolation Dohle Bodies Platelet Estimate Polychromasia PT INR Sodium 137 Potassium 4.3 D Chloride 108 H Carbon Dioxide 23 Anion Gap 6 BUN 33 H Creatinine 1.60 H D Est Cr Clr Drug Dosing 20.1 eGFR 32.40 BUN/Creatinine Ratio 20.6 H Glucose 82 POC Glucose 93 Lactate 1.7 Calcium 7.7 L Magnesium 1.8 Total Creatine Kinase Troponin I High Sens 79.8 H* 79.7 H* Procalcitonin > 100.00 H TSH Urine Color Urine Appearance Urine pH Ur Specific [place] Urine Protein Urine Glucose (UA) Urine Ketones Urine Blood Urine Nitrite Urine Bilirubin Urine Urobilinogen Ur Leukocyte Esterase Urine WBC (Auto) Urine RBC (Auto) U Hyaline Cast (Auto) U Epithel Cells (Auto) Urine Bacteria (Auto) 05/29/24 05/29/24 05/29/24 23:28 21:15 21:00 WBC RBC Hgb Hct MCV MCH MCHC RDW Std Deviation RDW Coeff of Rob Plt Count MPV Immature Gran % (Auto) Neut % (Auto) Lymph % (Auto) [place] % (Auto) Eos % (Auto) Baso % (Auto) Neut # (Auto) Lymph # (Auto) [place] # (Auto) Eos # (Auto) Baso # (Auto) Immature Gran # (Auto) Toxic Granulation Toxic Vacuolation Dohle Bodies Platelet Estimate Polychromasia PT INR Sodium Potassium Chloride Carbon Dioxide Anion Gap BUN Creatinine Est Cr Clr Drug Dosing eGFR BUN/Creatinine Ratio Glucose POC Glucose Lactate 5.3 H* 2.8 H* Calcium Magnesium Total Creatine Kinase Troponin I High Sens 79.3 H* Procalcitonin TSH Urine Color Yellow Urine Appearance Clear Urine pH 7.0 Ur Specific [place] 1.014 Urine Protein 3+ H Urine Glucose (UA) Negative Urine Ketones Negative Urine Blood 1+ H Urine Nitrite Positive A Urine Bilirubin Negative Urine Urobilinogen Negative Ur Leukocyte Esterase Negative Urine WBC (Auto) 11-20 H Urine RBC (Auto) 0-2 U Hyaline Cast (Auto) 0-2 U Epithel Cells (Auto) 0-2 Urine Bacteria (Auto) 4+ H 05/29/24 19:09 WBC 30.53 H* RBC 3.63 L Hgb 11.5 L Hct 33.7 L MCV 92.8 MCH 31.7 MCHC 34.1 RDW Std Deviation 45.6 RDW Coeff of Rob 13.5 Plt Count 153 MPV 10.9 Immature Gran % (Auto) 6.0 Neut % (Auto) 86.9 Lymph % (Auto) 2.0 [place] % (Auto) 4.7 Eos % (Auto) 0.2 Baso % (Auto) 0.2 Neut # (Auto) 26.55 H Lymph # (Auto) 0.62 L [place] # (Auto) 1.43 H Eos # (Auto) 0.06 Baso # (Auto) 0.05 Immature Gran # (Auto) 1.82 H Toxic Granulation 1+ Toxic Vacuolation 2+ Dohle Bodies 1+ Platelet Estimate Normal Polychromasia 1+ PT 12.8 H INR 1.2 H Sodium Potassium Chloride Carbon Dioxide Anion Gap BUN Creatinine Est Cr Clr Drug Dosing eGFR BUN/Creatinine Ratio Glucose POC Glucose Lactate Calcium Magnesium Total Creatine Kinase 162 Troponin I High Sens 74.7 H* Procalcitonin 76.70 H TSH 1.408 Urine Color Urine Appearance Urine pH Ur Specific [place] Urine Protein Urine Glucose (UA) Urine Ketones Urine Blood Urine Nitrite Urine Bilirubin Urine Urobilinogen Ur Leukocyte Esterase Urine WBC (Auto) Urine RBC (Auto) U Hyaline Cast (Auto) U Epithel Cells (Auto) Urine Bacteria (Auto) PG Care Time/CCT Total # of Minutes Spent Total Time Spent with Patient: Total time spent is greater than 50% in coordination of care (as documented) at patient's floor/unit and/or counseling patient: Coding Level of Care Code 07893 SUB INP/OBS CARE 2/35MIN Diagnoses Urinary tract infection N39.0 Chronic kidney disease, stage 4 (severe) N18.4 Benign essential hypertension I10 Coronary artery disease I25.10 Mixed hyperlipidemia E78.2 Hyperlipidemia type: mixed hyperlipidemia Acquired hypothyroidism E03.9 Hypothyroidism type: acquired Depression with anxiety F41.8 (5) Hyperlipidemia Hyperlipidemia type: mixed hyperlipidemia Qualified Code(s): E78.2 - Mixed hyperlipidemia (6) Hypothyroidism Hypothyroidism type: acquired Qualified Code(s): E03.9 - Hypothyroidism, unspecified
--- NOTE | 2024-05-30 20:32 | Electrocardiogram Report ---
Test Reason : Blood Pressure : */* mmHG Vent. Rate : 90 BPM Atrial Rate : 90 BPM P-R Int : 164 ms QRS Dur : 72 ms QT Int : 362 ms P-R-T Axes : 45 10 29 degrees QTcB Int : 442 ms Normal sinus rhythm Possible Inferior infarct (cited on or before 16-Sep-2022) Cannot rule out Anterior infarct , age undetermined Nonspecific T wave abnormality Abnormal ECG When compared with ECG of 14-Oct-2023 21:12, No significant change was found Confirmed by Andrei Meza ([id number]) on 05/30/2024 8:32:08 PM Referred By: REFERRED SELF Confirmed By: Andrei Meza
[2024-05-30] MEDS: MELATONIN 3 MG TAB PO PRN (23:41)
[2024-05-31 08:21] LABS: Hematocrit (blood only) 30.8 % (37.0-47.0); Mean Corpuscular Hgb Conc 32.5 g/dL (32.0-36.0); Mean Corpuscular Volume 95.4 fL (80.0-100.0); Mean Platelet Volume 10.6 fL (9.4-12.4); Platelet Count 122 K/uL (130-400); RDW Standard Deviation 48.6 fL (36.4-46.3); Red Blood Count 3.23 M/uL (4.20-5.40); White Blood Count 22.12 K/ul (4.8-10.8)
[2024-05-31 08:58] LABS: Basophils # (auto) 0.06 K/uL (0.00-0.20); Basophils % (auto) 0.3 %; Echinocytes 1+; Eosinophils # (auto) 0.15 K/uL (0.00-0.50); Eosinophils % (auto) 0.7 %; Immature Granulocytes # (auto) 1.17 K/uL (0.01-0.20); Immature Granulocytes % (auto) 5.3 %; Lymphocytes # (auto) 2.34 K/uL (1.20-3.40); Lymphocytes % (auto) 10.6 %; Monocytes # (auto) 0.89 K/uL (0.11-0.59); Neutrophils # (auto) 17.51 K/uL (1.40-6.50); Neutrophils % (auto) 79.1 %; Polychromasia 1+; Toxic Vacuolation 1+
[2024-05-31 09:27] LABS: Calcium 8.6 mg/dl (8.6-10.3); Potassium 3.7 mmol/L (3.5-5.1)
[2024-05-31 09:32] LABS: BUN Creatinine Ratio 19.8 (10-20); Creatinine Clr Calc Pharmacy 19.9 ml/min
--- NOTE | 2024-05-31 17:53 | Hospitalist Progress Note ---
Date of Service May 31, 2024 Assessment & Plan (1) Urinary tract infection: (2) Chronic kidney disease, stage 4 (severe): (3) Benign essential hypertension: (4) Coronary artery disease: (5) Hyperlipidemia: (6) Hypothyroidism: (7) Depression with anxiety: Plan 78 years old female with PMH of FULL CODE @ home, CAD, HTN, CKD-IV and 9 episodes of acute ciprofloxacin-resistant, levofloxacin-resistant E. coli UTI (as noted on 07/24/2018, 04/03/2019, 05/07/2019, 08/13/2019, 10/15/2019, 12/20/2019, 06/17/2022, 09/16/2022, and 10/15/2023 urine cultures), who was found down on the bathroom floor by her family on 05/29/2024. Patient was somnolent but otherwise with no complaints. Afebrile and HD stable on exam. Labs above were concerning for UTI with leukocytosis WBC=30.53, Procal=76.7, Lactate=2.8. Patient was subsequently admitted to the inpatient hospitalist service @ [facility] on 05/29/2024 with the following diagnoses: 1. Sepsis due to [id number] maurer-sensitive E. coli UTI (as noted on 05/29/2024, 9:15pm urine culture)- patient remains afebrile, HD stable and non- toxic in appearance. WBC and Procalcitonin levels increased from 05/29/2024 to 05/30/2024 with WBC 33.68 and procalcitonin > 100 ng/mL (05/30/2024, 4:41am), and are now decreasing on 05/31/2024 with WBC 22.12 and procalcitonin 96.2 ng/mL (05/31/2024, 7:56am). Check WBC and procalcitonin levels in the 06/01/2024 am. - Check blood cultures (05/29/2024, 9:00pm, 9:01pm) for any evidence of maurer- sensitive E. coli bacteremia. - Cefepime 1gm IV q 12 hours for UTI 2. CKD stage IV with baseline creatinine range, 1.94 - 2.10. Patient reports normal UOP. Electrolytes are acceptable. BUN elevated at 28 and Cr=1.96 (Last BUN 17 and Cr 1.87 on 12/22/23) -Continue gentle IVF, LR at 80mL/hr x 1L ordered with creatinine level decreasing from 1.96 mg/dL, GFR 25.4 mL/min (05/29/2024, 7:09pm) to 1.60 mg/dL, GFR 32.4 mL/min (05/30/2024, 4:41am). -Renal dosing where needed -Avoid nephrotoxic agents -Check repeat creatinine level in AM 3. Benign Essential HTN - Blood pressure at goal -Will hold Diltiazem 120mg, Hydralazine 50mg po TID and Isosorbide 90mg daily for now due to concern for possible developing sepsis -Hold Lasix in setting of elevated Cr and dehydration -Continue Metoprolol 50mg po qAM -Resume home BP medications as pressure allows 4. CAD - patient with known CAD. Cardiac catheterization in August 2022 with significant disease, most vessels non-amenable to PCI due to size of vessels. Normal EF 60-65%. - Nominal troponin elevation: cf., trop #1 74.7 pg/mL (05/29/2024, 7:09pm) cf., trop #2 79.3 pg/mL (05/29/2024, 11:28pm). cf., trop #3 79.7 pg/mL (05/30/2024, 4:41am). cf., trop #4 79.8 pg/mL (05/30/2024, 10:33am). No complaints of chest pain. EKG with no ischemic findings. Suspect acute type II NSTEMI due to demand ischemia, which in turn, is due to sepsis, which in turn, is due to [id number] E. coli UTI. -Continue Plavix -Continue Atorvastatin -Continue Metoprolol -Holding Hydralazine and isosorbide for now -Trend troponin to peak 5. Hyperlipidemia - chronic, stable -Continue Atorvastatin 6. Hypothyroidism - Chronic. TSH WNL at 1.408 -Continue Synthroid 50mcg daily 7. Mental Health -Continue Abilify and Wellbutrin F/E/N - LR at 80mL/hr x 1L ordered, Mg x 2gm given, KCl x 40mEq given, Repeat BMP in AM Ppx - heparin for DVT prophylaxis Dispo - Admit to PCU Admission and Anticipated Discharge Date Admission Date: May 29, 2024 Subjective "I feel well. No complaints today." Review of Systems Constitutional: Negative for antecedent/coincident fevers, chills, diaphoresis, cough, wheeze, sore throat, hemoptysis, chest pains, palpitations, pleurisy, nausea, vomiting, diarrhea, abdominal pain, pelvic pain, hematemesis, hematochezia, melena, hematuria, dysuria, frequency, urgency, headaches, dizziness, lightheadedness, visual changes, hearing changes, weakness, falls, syncope, trauma, travel history, sick contacts, or food/drug ingestions novel or new. All other review of systems are reported as negative by the patient on 05/31/2024. Physical Exam Constitutional: General: Comfortable, coherent, cooperative; wide awake and alert. Not confused, lethargic, or obtunded. Patient speaks in complete, fluent, and articulate sentences without pause, cough, or wheeze. HEENT: Normocephalic, atraumatic. Extra-ocular muscles intact. Pupils equally round and reactive to light. No nystagmus, gaze paresis, anisocoria, miosis, mydriasis, hyphema, scleral injection, conjunctivitis, or pterygium. No otorrhea or rhinorrhea. No pharyngeal erythema, edema, or discharge. Neck: Supple, no stridor, bruit, goiter, or hepato-jugular reflux. Jugular venous pressure is estimated to be 3 cm above the sternal angle of [place], which in turn, is 5 cm above the level of the right atrium; with jugular venous pressure estimated to be 8 cm, then, there is no jugular venous distention on 05/31/2024. Lymphatics: No cervical (anterior/posterior), supraclavicular, infraclavicular, axillary, epitrochlear, or inguinal adenopathy. Chest: Symmetric rise and fall with respirations. Non-tender to palpation. Lungs: Clear to auscultation and percussion. Heart: Regular rate and rhythm. S1 and S2 noted. No S3 or S4 summation gallop. No tripartite friction rub. Grade II/ early systolic murmur @ LLSB without radiation to the carotids, axilla, or back, and which remains invariant in regards to the respiratory cycle. Abdomen: Soft, non-tender, non-distended. No rebound, guarding, Gutierrez 's sign, or organomegaly. Bowel sounds auscultated in all 4 quadrants. Extremities: No clubbing, cyanosis, or edema. 2+ pedal pulses bilaterally. Skin: No decubitus ulcer, exanthem, or enanthem. Genito-urinary: No urethral discharge. No craig catheter. Neurology: Alert and oriented in regards to person, place, time, and situation. DTR+ and symmetric. 5/5 motor strength in all 4 extremities, both proximally and distally. No pronator drift. No facial droop. No dysarthria. Psychiatry: No homicidal ideation. No suicidal ideation. No flat affect; smiles appropriately. Results & Data Results & Data Vital Signs (Past 12 Hours) Vital Signs Temp Pulse Pulse Resp BP Pulse Ox O2 Del Method 05/31/24 15:00 36.5 C 98 H 18 125/72 96 Room Air 05/31/24 14:24 60 05/31/24 11:00 36.7 C 88 20 118/58 L 98 Room Air 05/31/24 08:09 66 05/31/24 07:47 36.6 C 78 18 124/63 97 Room Air Laboratory Results 05/29/24 21:15 Urine Culture - Final Urine,Straight Cath Escherichia coli 05/29/24 21:01 Aerobic Blood Culture - Preliminary Blood No growth in Aerobic bottle after 24 hours. Anaerobic Blood Culture - Final 05/29/24 21:00 Aerobic Blood Culture - Preliminary Blood No growth in Aerobic bottle after 24 hours. Anaerobic Blood Culture - Preliminary No growth in Anaerobic bottle after 24 hours. 05/31/24 05/30/24 07:56 20:08 WBC 22.12 H RBC 3.23 L Hgb 10.0 L Hct 30.8 L MCV 95.4 MCH 31.0 MCHC 32.5 RDW Std Deviation 48.6 H RDW Coeff of Rob 14.0 Plt Count 122 L MPV 10.6 Immature Gran % (Auto) 5.3 Neut % (Auto) 79.1 Lymph % (Auto) 10.6 [place] % (Auto) 4.0 Eos % (Auto) 0.7 Baso % (Auto) 0.3 Neut # (Auto) 17.51 H Lymph # (Auto) 2.34 [place] # (Auto) 0.89 H Eos # (Auto) 0.15 Baso # (Auto) 0.06 Immature Gran # (Auto) 1.17 H Toxic Vacuolation 1+ Polychromasia 1+ Echinocytes 1+ Sodium 140 Potassium 3.7 Chloride 111 H Carbon Dioxide 24 Anion Gap 5 BUN 35 H Creatinine 1.77 H Est Cr Clr Drug Dosing 19.9 eGFR 28.70 BUN/Creatinine Ratio 19.8 Glucose 74 Lactate 1.3 Calcium 8.6 Magnesium 2.0 Procalcitonin 96.20 H PG Care Time/CCT Total # of Minutes Spent Total Time Spent with Patient: Total time spent is greater than 50% in coordination of care (as documented) at patient's floor/unit and/or counseling patient: Coding Level of Care Code 21419 SUB INP/OBS CARE 2/35MIN Diagnoses Urinary tract infection N39.0 Chronic kidney disease, stage 4 (severe) N18.4 Benign essential hypertension I10 Coronary artery disease I25.10 Mixed hyperlipidemia E78.2 Hyperlipidemia type: mixed hyperlipidemia Acquired hypothyroidism E03.9 Hypothyroidism type: acquired Depression with anxiety F41.8 (5) Hyperlipidemia Hyperlipidemia type: mixed hyperlipidemia Qualified Code(s): E78.2 - Mixed hyperlipidemia (6) Hypothyroidism Hypothyroidism type: acquired Qualified Code(s): E03.9 - Hypothyroidism, unspecified
[2024-06-01 07:40] LABS: Hematocrit (blood only) 27.3 % (37.0-47.0); Hemoglobin 9.1 g/dl (12.0-16.0); Mean Corpuscular Hemoglobin 31.2 pg (25.0-34.0); Mean Corpuscular Hgb Conc 33.3 g/dL (32.0-36.0); Mean Corpuscular Volume 93.5 fL (80.0-100.0); Mean Platelet Volume 10.9 fL (9.4-12.4); Platelet Count 134 K/uL (130-400); RDW Coefficient of Variation 13.7 % (11.5-14.5); RDW Standard Deviation 46.7 fL (36.4-46.3); Red Blood Count 2.92 M/uL (4.20-5.40); White Blood Count 14.11 K/ul (4.8-10.8)
[2024-06-01 07:57] LABS: BUN Creatinine Ratio 16.7 (10-20); Calcium 8.4 mg/dl (8.6-10.3); Creatinine Clr Calc Pharmacy 23.9 ml/min; Magnesium 1.7 mg/dl (1.7-2.4); Potassium 4.1 mmol/L (3.5-5.1)
[2024-06-01 07:59] LABS: Basophils # (auto) 0.04 K/uL (0.00-0.20); Basophils % (auto) 0.3 %; Dohle Bodies 1+; Eosinophils # (auto) 0.26 K/uL (0.00-0.50); Eosinophils % (auto) 1.8 %; Immature Granulocytes # (auto) 0.09 K/uL (0.01-0.20); Immature Granulocytes % (auto) 0.6 %; Lymphocytes % (auto) 16.3 %; Monocytes # (auto) 0.77 K/uL (0.11-0.59); Monocytes % (auto) 5.5 %; Neutrophils # (auto) 10.65 K/uL (1.40-6.50); Neutrophils % (auto) 75.5 %
[2024-06-01 11:21] VITALS: O2SAT 97
[2024-06-01] MEDS: hydrALAZINE 10 MG TAB PO SCH (11:24)
--- NOTE | 2024-06-01 18:36 | Hospitalist Progress Note ---
Date of Service June 01, 2024 Assessment & Plan (1) Urinary tract infection: (2) Chronic kidney disease, stage 4 (severe): (3) Benign essential hypertension: (4) Coronary artery disease: (5) Hyperlipidemia: (6) Hypothyroidism: (7) Depression with anxiety: Plan 78 years old female with PMH of FULL CODE @ home, CAD, HTN, CKD-IV and 9 episodes of acute ciprofloxacin-resistant, levofloxacin-resistant E. coli UTI (as noted on 07/24/2018, 04/03/2019, 05/07/2019, 08/13/2019, 10/15/2019, 12/20/2019, 06/17/2022, 09/16/2022, and 10/15/2023 urine cultures), who was found down on the bathroom floor by her family on 05/29/2024. Patient was somnolent but otherwise with no complaints. Afebrile and HD stable on exam. Labs above were concerning for UTI with leukocytosis WBC=30.53, Procal=76.7, Lactate=2.8. Patient was subsequently admitted to the inpatient hospitalist service @ [facility] on 05/29/2024 with the following diagnoses: 1. Sepsis due to [id number] maurer-sensitive E. coli UTI (as noted on 05/29/2024, 9:15pm urine culture)- patient remains afebrile, HD stable and non- toxic in appearance. WBC and Procalcitonin levels increased from 05/29/2024 to 05/30/2024 with WBC 33.68 and procalcitonin > 100 ng/mL (05/30/2024, 4:41am), and are now decreasing on 05/31/2024 with WBC 22.12 and procalcitonin 96.2 ng/mL (05/31/2024, 7:56am). Check WBC and procalcitonin levels in the 06/01/2024 am. - Check blood cultures (05/29/2024, 9:00pm, 9:01pm) for any evidence of maurer- sensitive E. coli bacteremia. - s/p cefepime 2g IV x 1 dose (05/29/2024, 9:20pm). Transition from cefepime 1gm IV q 12 hours x 5 doses (day #1 on 05/30/2024, 8:00am; day #3 on 06/01/2024, 8:32am) to ceftriaxone 1g IV daily (day #1/4 on 06/01/2024, 8:00pm). 2. CKD stage IV with baseline creatinine range, 1.94 - 2.10. Patient reports normal UOP. Electrolytes are acceptable. BUN elevated at 28 and Cr=1.96 (Last BUN 17 and Cr 1.87 on 12/22/23) -Continue gentle IVF, LR at 80mL/hr x 1L ordered with creatinine level decreasing from 1.96 mg/dL, GFR 25.4 mL/min (05/29/2024, 7:09pm) to 1.60 mg/dL, GFR 32.4 mL/min (05/30/2024, 4:41am) to 1.77 mg/dL, GFR 28.7 mL/min (05/31/2024, 7:56am) to 1.50 mg/dL, GFR 35.0 mL/min (06/01/2024, 7:24am). -Renal dosing where needed -Avoid nephrotoxic agents -Check repeat creatinine level in AM 3. Benign Essential HTN - Blood pressure at goal -Will hold Diltiazem 120mg, Hydralazine 50mg po TID and Isosorbide 90mg daily for now due to concern for possible developing sepsis -Hold Lasix in setting of elevated Cr and dehydration -Continue Metoprolol 50mg po qAM -Resume home BP medications as pressure allows 4. CAD - patient with known CAD. Cardiac catheterization in August 2022 with significant disease, most vessels non-amenable to PCI due to size of vessels. Normal EF 60-65%. - Nominal troponin elevation: cf., trop #1 74.7 pg/mL (05/29/2024, 7:09pm) cf., trop #2 79.3 pg/mL (05/29/2024, 11:28pm). cf., trop #3 79.7 pg/mL (05/30/2024, 4:41am). cf., trop #4 79.8 pg/mL (05/30/2024, 10:33am). No complaints of chest pain. EKG with no ischemic findings. Suspect acute type II NSTEMI due to demand ischemia, which in turn, is due to sepsis, which in turn, is due to [id number] E. coli UTI. -Continue Plavix -Continue Atorvastatin -Continue Metoprolol -Holding Hydralazine and isosorbide for now -Trend troponin to peak 5. Hyperlipidemia - chronic, stable -Continue Atorvastatin 6. Hypothyroidism - Chronic. TSH WNL at 1.408 -Continue Synthroid 50mcg daily 7. Mental Health -Continue Abilify and Wellbutrin F/E/N - LR at 80mL/hr x 1L ordered, Mg x 2gm given, KCl x 40mEq given, Repeat BMP in AM Ppx - heparin for DVT prophylaxis Dispo - Admit to PCU Admission and Anticipated Discharge Date Admission Date: May 29, 2024 Subjective "I feel fine. No complaints today." Review of Systems Constitutional: Negative for antecedent/coincident fevers, chills, diaphoresis, cough, wheeze, sore throat, hemoptysis, chest pains, palpitations, pleurisy, nausea, vomiting, diarrhea, abdominal pain, pelvic pain, hematemesis, hematochezia, melena, hematuria, dysuria, frequency, urgency, headaches, dizziness, lightheadedness, visual changes, hearing changes, weakness, falls, syncope, trauma, travel history, sick contacts, or food/drug ingestions novel or new. All other review of systems are reported as negative by the patient on 06/01/2024. Physical Exam Constitutional: General: Comfortable, coherent, cooperative; wide awake and alert. Not confused, lethargic, or obtunded. Patient speaks in complete, fluent, and articulate sentences without pause, cough, or wheeze. HEENT: Normocephalic, atraumatic. Extra-ocular muscles intact. Pupils equally round and reactive to light. No nystagmus, gaze paresis, anisocoria, miosis, mydriasis, hyphema, scleral injection, conjunctivitis, or pterygium. No otorrhea or rhinorrhea. No pharyngeal erythema, edema, or discharge. Neck: Supple, no stridor, bruit, goiter, or hepato-jugular reflux. Jugular venous pressure is estimated to be 3 cm above the sternal angle of Bijan, which in turn, is 5 cm above the level of the right atrium; with jugular venous pressure estimated to be 8 cm, then, there is no jugular venous distention on . Lymphatics: No cervical (anterior/posterior), supraclavicular, infraclavicular, axillary, epitrochlear, or inguinal adenopathy. Chest: Symmetric rise and fall with respirations. Non-tender to palpation. Lungs: Clear to auscultation and percussion. Heart: Regular rate and rhythm. S1 and S2 noted. No S3 or S4 summation gallop. No tripartite friction rub. Grade II/ early systolic murmur @ LLSB without radiation to the carotids, axilla, or back, and which remains invariant in regards to the respiratory cycle. Abdomen: Soft, non-tender, non-distended. No rebound, guarding, Gutierrez's sign, or organomegaly. Bowel sounds auscultated in all 4 quadrants. Extremities: No clubbing, cyanosis, or edema. 2+ pedal pulses bilaterally. Skin: No decubitus ulcer, exanthem, or enanthem. Genito-urinary: No urethral discharge. No craig catheter. Neurology: Alert and oriented in regards to person, place, time, and situation. DTR+ and symmetric. 5/5 motor strength in all 4 extremities, both proximally and distally. No pronator drift. No facial droop. No dysarthria. Psychiatry: No homicidal ideation. No suicidal ideation. No flat affect; smiles appropriately. Results & Data Results & Data Vital Signs (Past 12 Hours) Vital Signs Temp Pulse Resp BP Pulse Ox O2 Del Method 06/01/24 14:58 36.8 C 55 L 18 194/74 H 97 Room Air 06/01/24 11:21 36.6 C 66 18 187/65 H 97 Room Air 06/01/24 08:25 197/63 H 06/01/24 07:00 36.7 C 64 16 186/66 H 94 Room Air 06/01/24 06:43 178/66 H Laboratory Results 05/29/24 21:01 Aerobic Blood Culture - Preliminary Blood No growth in Aerobic bottle after 48 hours. Anaerobic Blood Culture - Final 05/29/24 21:00 Aerobic Blood Culture - Preliminary Blood No growth in Aerobic bottle after 48 hours. Anaerobic Blood Culture - Preliminary No growth in Anaerobic bottle after 48 hours. 06/01/24 07:24 WBC 14.11 H RBC 2.92 L Hgb 9.1 L Hct 27.3 L MCV 93.5 MCH 31.2 MCHC 33.3 RDW Std Deviation 46.7 H RDW Coeff of Rob 13.7 Plt Count 134 MPV 10.9 Immature Gran % (Auto) 0.6 Neut % (Auto) 75.5 Lymph % (Auto) 16.3 [place] % (Auto) 5.5 Eos % (Auto) 1.8 Baso % (Auto) 0.3 Neut # (Auto) 10.65 H Lymph # (Auto) 2.30 [place] # (Auto) 0.77 H Eos # (Auto) 0.26 Baso # (Auto) 0.04 Immature Gran # (Auto) 0.09 Dohle Bodies 1+ Sodium 141 Potassium 4.1 Chloride 112 H Carbon Dioxide 26 Anion Gap 3 BUN 25 H Creatinine 1.50 H Est Cr Clr Drug Dosing 23.9 eGFR 35.01 BUN/Creatinine Ratio 16.7 Glucose 78 Lactate 1.0 Calcium 8.4 L Magnesium 1.7 Procalcitonin 62.00 H PG Care Time/CCT Total # of Minutes Spent Total Time Spent with Patient: Total time spent is greater than 50% in coordination of care (as documented) at patient's floor/unit and/or counseling patient: Coding Level of Care Code 75853 SUB INP/OBS CARE 2/35MIN Diagnoses Urinary tract infection N39.0 Chronic kidney disease, stage 4 (severe) N18.4 Benign essential hypertension I10 Coronary artery disease I25.10 Mixed hyperlipidemia E78.2 Hyperlipidemia type: mixed hyperlipidemia Acquired hypothyroidism E03.9 Hypothyroidism type: acquired Depression with anxiety F41.8 (5) Hyperlipidemia Hyperlipidemia type: mixed hyperlipidemia Qualified Code(s): E78.2 - Mixed h yperlipidemia (6) Hypothyroidism Hypothyroidism type: acquired Qualified Code(s): E03.9 - Hypothyroidism, unspecified
[2024-06-01] MEDS: cefTRIAXone SODIUM 1,000 MG/50 ML BAG IV SCH (21:45)
[2024-06-02 06:46] LABS: Basophils # (auto) 0.03 K/uL (0.00-0.20); Basophils % (auto) 0.3 %; Eosinophils # (auto) 0.28 K/uL (0.00-0.50); Eosinophils % (auto) 2.5 %; Hematocrit (blood only) 27.8 % (37.0-47.0); Hemoglobin 9.4 g/dl (12.0-16.0); Immature Granulocytes # (auto) 0.17 K/uL (0.01-0.20); Immature Granulocytes % (auto) 1.5 %; Lymphocytes # (auto) 2.37 K/uL (1.20-3.40); Lymphocytes % (auto) 21.4 %; Mean Corpuscular Hemoglobin 31.4 pg (25.0-34.0); Mean Corpuscular Hgb Conc 33.8 g/dL (32.0-36.0); Mean Platelet Volume 10.9 fL (9.4-12.4); Monocytes # (auto) 0.71 K/uL (0.11-0.59); Monocytes % (auto) 6.4 %; Neutrophils # (auto) 7.53 K/uL (1.40-6.50); Neutrophils % (auto) 67.9 %; Platelet Count 146 K/uL (130-400); RDW Coefficient of Variation 13.6 % (11.5-14.5); RDW Standard Deviation 46.3 fL (36.4-46.3); Red Blood Count 2.99 M/uL (4.20-5.40); White Blood Count 11.09 K/ul (4.8-10.8)
[2024-06-02 06:59] LABS: BUN Creatinine Ratio 14.7 (10-20); Calcium 8.6 mg/dl (8.6-10.3); Creatinine Clr Calc Pharmacy 23.3 ml/min; Magnesium 1.6 mg/dl (1.7-2.4); Potassium 4.3 mmol/L (3.5-5.1)
[2024-06-02] MEDS: ISOSORBIDE MONO EXTENDED REL 30 MG TABCR PO SCH (08:51)
[2024-06-02] MEDS: dilTIAZem HCL 120 MG CAPCR PO SCH (08:51)
[2024-06-02] MEDS: MAGNESIUM SULFATE / D5W 1 GM/100 ML BAG IV SCH (10:33)
[2024-06-02] MEDS: hydrALAZINE 10 MG TAB PO SCH (10:35)
--- NOTE | 2024-06-02 13:50 | Discharge Summary ---
Discharge Summary Date of Service June 02, 2024 Principal Dx & Hospital Course #1 = Principal Diagnosis (1) Urinary tract infection: (2) Chronic kidney disease, stage 4 (severe): (3) Benign essential hypertension: (4) Coronary artery disease: (5) Hyperlipidemia: (6) Hypothyroidism: (7) Depression with anxiety: Plan 78 years old female with PMH of FULL CODE @ home, CAD, HTN, CKD-IV and 9 episodes of acute ciprofloxacin-resistant, levofloxacin-resistant E. coli UTI (as noted on 07/24/2018, 04/03/2019, 05/07/2019, 08/13/2019, 10/15/2019, 12/20/2019, 06/17/2022, 09/16/2022, and 10/15/2023 urine cultures), who was found down on the bathroom floor by her family on 05/29/2024. Patient was somnolent but otherwise with no complaints. Afebrile and HD stable on exam. Labs above were concerning for UTI with leukocytosis WBC=30.53, Procal=76.7, Lactate=2.8. Patient was subsequently admitted to the inpatient hospitalist service @ [facility] on 05/29/2024 with the following diagnoses: 1. Sepsis due to [id number] maurer-sensitive E. coli UTI (as noted on 05/29/2024, 9:15pm urine culture). Sepsis has RESOLVED; [id number] maurer- sensitive E. coli UTI is RESOLVING well as patient remains afebrile, HD stable and non-toxic in appearance. WBC and Procalcitonin levels increased from 05/29/2024 to 05/30/2024 with WBC 33.68 and procalcitonin > 100 ng/mL (05/30/2024, 4:41am), and then decreased on 05/31/2024 with WBC 22.12 and procalcitonin 96.2 ng/mL (05/31/2024, 7:56am). WBC has subsequently declined to 14.11 (06/01/2024) to 11.09 (06/02/2024). Procalcitonin has also declined to 62.0 ng/mL (06/01/2024) to 34.6 (06/02/2024 - blood cultures (05/29/2024, 9:00pm, 9:01pm) remain negative with NO evidence of maurer-sensitive E. coli bacteremia. - s/p cefepime 2g IV x 1 dose (05/29/2024, 9:20pm). s/p cefepime 1gm IV q 12 hours x 5 doses (day #1 on 05/30/2024, 8:00am; day #3 on 06/01/2024, 8:32am) to ceftriaxone 1g IV daily x 1 dose (day #1 on 06/01/2024, 8:00pm) to cefdinir 300mg PO q12 x 1 dose (day #1/5 on 06/02/2024, 1:40pm). Patient tolerated this test dose well and was subsequently discharged back to her home on 06/02/2024 with an electronic prescription for cefdinir 300mg PO q12, #9 capsules, no refills, [facility] [address] [place] [address], on 06/02/2024, prior to hospital discharge back to her home on 06/02/2024. 2. CKD stage IV with baseline creatinine range, 1.94 - 2.10. NOT acute kidney injury. Patient reports normal UOP. Electrolytes are acceptable. BUN elevated at 28 and Cr=1.96 (Last BUN 17 and Cr 1.87 on 12/22/23) -Patient received gentle IVF rehydration therapy utilizing LR at 80mL/hr x 1L ordered with creatinine level decreasing from 1.96 mg/dL, GFR 25.4 mL/min (05/29/2024, 7:09pm) to 1.60 mg/dL, GFR 32.4 mL/min (05/30/2024, 4:41am) to 1.77 mg/dL, GFR 28.7 mL/min (05/31/2024, 7:56am) to 1.50 mg/dL, GFR 35.0 mL/min (06/01/2024, 7:24am)(06/02/2024, 6:21am). -Patient will not continue with gentle IVF rehydration therapy on hospital discharge back to home on 06/02/2024. 3. Benign Essential HTN - Blood pressure at goal -Patient was held OFF her home-scheduled diltiazem 120mg PO daily, home- scheduled hydralazine 50mg PO tid, and Isosorbide 90mg PO daily given concern for sepsis while in [facility]. Now that sepsis has RESOLVED, patient will resume all 3 medications on hospital discharge back to home on 06/02/2024. -Patient received her home-scheduled metoprolol 50mg PO qam while in [facility]. Patient will continue this home-scheduled medication on hospital discharge back to home on 06/02/2024. -Resume home BP medications as pressure allows 4. CAD - patient with known CAD. Cardiac catheterization in August 2022 with significant disease, most vessels non-amenable to PCI due to size of vessels. Normal EF 60-65%. - Nominal troponin elevation: cf., trop #1 74.7 pg/mL (05/29/2024, 7:09pm) cf., trop #2 79.3 pg/mL (05/29/2024, 11:28pm). cf., trop #3 79.7 pg/mL (05/30/2024, 4:41am). cf., trop #4 79.8 pg/mL (05/30/2024, 10:33am). No complaints of chest pain. EKG with no ischemic findings. Suspect acute type II NSTEMI due to demand ischemia, which in turn, is due to sepsis, which in turn, is due to [id number] maurer-sensitive E. coli UTI. -Hence, patient continued to receive secondary prophylaxis against CAD utilizing her home-scheduled plavix 75mg PO daily, atorvastatin 40mg PO qhs, metoprolol 50mg PO qam while in [facility]. Patient will continue all 3 home-scheduled medications on hospital discharge back to home on 06/02/2024. 5. Hyperlipidemia - chronic, stable -Continue home-scheduled atorvastatin 40mg PO qhs on hospital discharge back to home on 06/02/2024. 6. Hypothyroidism - Chronic. TSH WNL at 1.408 -Continue home-scheduled synthroid 50mcg daily on hospital discharge back to home on 06/02/2024. 7. Mental Health -Continue home-scheduled abilify 1mg PO qam and home-scheduled bupropion 300mg PO qam on hospital discharge back to home on 06/02/2024. Ppx - heparin for DVT prophylaxis Dispo - Code status, FULL CODE. ACLS was never performed. There were no adverse events noted with this hospitalization. Condition of patient remains fair. Patient feels well and does not wish to remain in [facility] until blood culture #1 (05/29/2024, 9:00am) and blood culture #2 (05/29, 9:01pm) are finalized and reported as negative. Instead, patient has requested that she be discharged back to her home today, 06/02/2024, and that she will follow up with her PCP YONNY Dailey, within 3-5 days of hospital discharge to discuss final results of blood cultures #1 and #2 (05/29/2024, 9:00pm; 9:01pm). Discharge time, 35 minutes. Of this time period, 19 minutes were spent in coordinating patient's discharge. Admission HPI Per Admitting Provider Yvrose Nevarez is an 78yo female with history of HTN, HLP, GERD, CKD IV with fistula in place presenting from home after being found down by her son. Patient does not recall events prior to arrival. Per family, her son came home a little after 1700 and found the patient lying down on the bathroom floor. Patient reports feeling sleepy and had some very mild right sided pain as well as chills. Otherwise denies fever, chest pain, palpitations, cough, shortness of breath, nausea, vomiting, diarrhea. Daughters are at bedside and reports the patient seems to be sleepy otherwise is near her baseline. In the ER she is afebrile, hemodynamically stable ER course: Cefepime 2 g IV Magnesium 2 g IV LR 500 mL Normal saline bolus of milliliters per hour Discharge Exam Constitutional General: Comfortable, coherent, cooperative; wide awake and alert. Not confused, lethargic, or obtunded. Patient speaks in complete, fluent, and articulate sentences without pause, cough, or wheeze. HEENT: Normocephalic, atraumatic. Extra-ocular muscles intact. Pupils equally round and reactive to light. No nystagmus, gaze paresis, anisocoria, miosis, mydriasis, hyphema, scleral injection, conjunctivitis, or pterygium. No otorrhea or rhinorrhea. No pharyngeal erythema, edema, or discharge. Neck: Supple, no stridor, bruit, goiter, or hepato-jugular reflux. Jugular venous pressure is estimated to be 3 cm above the sternal angle of Bijan, which in turn, is 5 cm above the level of the right atrium; with jugular venous pressure estimated to be 8 cm, then, there is no jugular venous distention on 06/02/2024. Lymphatics: No cervical (anterior/posterior), supraclavicular, infraclavicular, axillary, epitrochlear, or inguinal adenopathy. Chest: Symmetric rise and fall with respirations. Non-tender to palpation. Lungs: Clear to auscultation and percussion. Heart: Regular rate and rhythm. S1 and S2 noted. No S3 or S4 summation gallop. No tripartite friction rub. Grade II/ early systolic murmur @ LLSB without radiation to the carotids, axilla, or back, and which remains invariant in regards to the respiratory cycle. Abdomen: Soft, non-tender, non-distended. No rebound, guarding, Gutierrez's sign, or organomegaly. Bowel sounds auscultated in all 4 quadrants. Extremities: No clubbing, cyanosis, or edema. 2+ pedal pulses bilaterally. Skin: No decubitus ulcer, exanthem, or enanthem. Genito-urinary: No urethral discharge. No craig catheter. Neurology: Alert and oriented in regards to person, place, time, and situation. DTR+ and symmetric. 5/5 motor strength in all 4 extremities, both proximally and distally. No pronator drift. No facial droop. No dysarthria. Psychiatry: No homicidal ideation. No suicidal ideation. No flat affect; smiles appropriately. Discharge Plan Discharge Items Patient Disposition: Home - Self-Care Reason For Visit: FOUND DOWN Discharge Diagnosis: Acute, recurrent, maurer-sensitive E. coli UTI (as noted on 05/29/2024, 9:15pm urine culture). Condition on Discharge: Fair Activity: Resume your previous activity Lifting: Gradually increase as tolerated Bathing: No limitations Sexual Activity: When tolerated Exercise/Sports: Gradually increase as tolerated Driving/Machine Use: No limitations Weightbearing: Full weightbearing Non-emergency contact: Primary Care Provider Call non-emergency contact if: you have any medication questions Follow-up/Referrals: Bernarda Rehman CRNP [Primary Care Provider] - Diet: Heart Healthy, Low Fat and Low Sodium (2gm) Addtl Attending Provider Instructions: See your PCP YONNY Dailey, within 3-5 days of hospital discharge to discuss final results of blood cultures #1 and #2 (05/29/2024, 9:00pm; 9:01pm). Pending Studies at Discharge: Yes Studies:: final results of blood cultures #1 and #2 (05/29/2024, 9:00pm; 9:01pm). Stand-Alone Forms: My [facility] [employer], Smoking Cessation Medications and DC Order Prescriptions: New cefdinir 300 mg capsule 300 mg PO Q12H 5 Days Qty: 9 0RF Continued metoprolol succinate 50 mg tablet extended release 24 hr 50 mg PO QAM Qty: 90 3RF clopidogrel 75 mg tablet 75 mg PO QAM Qty: 90 3RF diltiazem HCl 120 mg capsule,ext.rel 24h degradable 120 mg PO DAILY Qty: 90 3RF hydralazine 50 mg tablet 50 mg PO TID Qty: 90 3RF levothyroxine 50 mcg tablet 50 mcg PO DAILYBB Qty: 30 5RF isosorbide mononitrate 30 mg tablet extended release 24 hr 90 mg PO DAILY Qty: 270 3RF Rx Instructions: TAKE THREE TABLETS DAILY cholecalciferol (vitamin D3) 25 mcg (1,000 unit) capsule 25 mcg PO DAILY mecobalamin (vitamin B12) 1,000 mcg tablet,chewable 1,000 mcg PO DAILY melatonin 3 mg capsule 3 mg PO HS bupropion HCl [Wellbutrin XL] 300 mg tablet extended release 24 hr 300 mg PO QAM nitroglycerin [Nitrostat] 0.4 mg Tablet, Sublingual 0.4 mg sublingual Q5M PRN (Reason: chest pain) Qty: 25 3RF aripiprazole [Abilify] 2 mg tablet 1 mg PO QAM aspirin 81 mg Tablet,Delayed Release (Dr/Ec) 81 mg PO DAILY Held atorvastatin 40 mg tablet 40 mg PO HS Qty: 90 3RF Hold Instructions: Resume on 06/06/24. rabeprazole 20 mg tablet,delayed release (DR/EC) 20 mg PO QAM Qty: 90 3RF Hold Instructions: Resume on 06/06/24. furosemide 20 mg tablet 20 mg PO QAM Qty: 90 3RF Hold Instructions: Resume on 06/06/24. Discharge Orders: Discharge Order (Routine); Ordered 06/02/24 Ordered By: Louis Diallo Admission Data Admit Date/Time: 05/29/24 21:00 Attending Provider: Louis Diallo Admit Provider: Evita Lunsford Primary Care Provider: Bernarda Rehman Hospital Stay Data Diagnostic Imagining Performed 05/29/24 19:06 CT cervical spine wo con Stat CT head/brain wo con Stat 05/29/24 21:00 CT Abd and Pelvis [CT abd pelvis wo con] Stat Pending Results Patient Have Any Pending Studies at Discharge: Yes Discharge Instructions Given to Patient (Per Discharging Provider) See your PCP YONNY Dailey, within 3-5 days of hospital discharge to discuss final results of blood cultures #1 and #2 (05/29/2024, 9:00pm; 9:01pm). Total Time Total Time Spent Total Time Spent (In Minutes): 35 Coding Level of Care Code 41742 INP/OBS DISCH >30 MIN Diagnoses Urinary tract infection N39.0 Chronic kidney disease, stage 4 (severe) N18.4 Benign essential hypertension I10 Coronary artery disease I25.10 Mixed hyperlipidemia E78.2 Hyperlipidemia type: mixed hyperlipidemia Acquired hypothyroidism E03.9 Hypothyroidism type: acquired Depression with anxiety F41.8
[2024-06-02] MEDS: CEFDINIR 300 MG CAP PO STA (14:45)
[2024-06-02 15:09] VITALS: BP 166/69; PULSE 58; RESP 18; TEMP 98.2
== END 2024-06-02 17:50 | disposition home or self-care (01) | DRG 871 ==
LOC: ED 18:56 → SUATTDRO 21:00 → 2S 21:00